=== PATIENT | female | born 1985 | race Two or more races ===

== ENCOUNTER 2020-06-09 12:39 | Outpatient (REF) | payer OTHER, SELFPAY ==
--- NOTE | 2020-06-09 12:45 | XR_ITS ---
EXAMINATION: XR SHOULDER, LEFT CLINICAL INFORMATION: Pain COMPARISON: Previous x-rays most recent February 2018 TECHNIQUE: Three views of the left shoulder. FINDINGS: Bone alignment is normal. No fracture or dislocation is seen. There are small osteophytes at the glenohumeral joint. There is joint space narrowing and osteophyte formation at the acromioclavicular joint. Soft tissues are unremarkable. XR/XR shoulder LT min 2V IMPRESSION: Degenerative changes.
== END 2020-06-09 12:40 | disposition home or self-care (01) ==
LOC: HO.HOSX 12:39
PROVIDERS: Visit Provider Orthopaedic Surgery
DX: M25.519 Pain in unspecified shoulder (principal)
CPT/HCPCS: 20610; 73030; 99212; J1040

== ENCOUNTER 2020-08-13 13:42 | Outpatient (REF) | payer OTHER, SELFPAY ==
--- NOTE | ~2020-08-13 | XR_ITS ---
EXAMINATION: CERVICAL SPINE AND LEFT SHOULDER X-RAY CLINICAL INFORMATION: Pain COMPARISON: None TECHNIQUE: 6 views of the cervical spine including bilateral oblique and swimmer's view and 4 views of the left shoulder FINDINGS: Cervical spine: There is straightening of the cervical spine. Bone alignment is otherwise normal. No fracture or dislocation is seen. There is degenerative spondylosis at C4-C5 and C5-C6. Disc spaces are normal. Neural foramen are patent. Prevertebral soft tissues are normal. Left shoulder: Bone alignment is normal. No acute fracture or dislocation is seen. There is a soft tissue calcification or ossification adjacent to the superior distal clavicle near the acromioclavicular joint questionable for changes related to old trauma. There are subchondral cysts seen in the glenoid. The glenohumeral joint is otherwise normal. Soft tissues are otherwise normal. XR/XR cervical spine min 6V IMPRESSION: Cervical spine: Straightening of the cervical spine degenerative spondylosis at C4-C5 and C5-C6. Left shoulder: Subchondral cysts in the glenoid at the glenohumeral joint. Small soft tissue calcification or ossification adjacent to the superior distal clavicle near the acromioclavicular joint questionable for changes related to old trauma.
--- NOTE | ~2020-08-13 | XR_ITS ---
EXAMINATION: CERVICAL SPINE AND LEFT SHOULDER X-RAY CLINICAL INFORMATION: Pain COMPARISON: None TECHNIQUE: 6 views of the cervical spine including bilateral oblique and swimmer's view and 4 views of the left shoulder FINDINGS: Cervical spine: There is straightening of the cervical spine. Bone alignment is otherwise normal. No fracture or dislocation is seen. There is degenerative spondylosis at C4-C5 and C5-C6. Disc spaces are normal. Neural foramen are patent. Prevertebral soft tissues are normal. Left shoulder: Bone alignment is normal. No acute fracture or dislocation is seen. There is a soft tissue calcification or ossification adjacent to the superior distal clavicle near the acromioclavicular joint questionable for changes related to old trauma. There are subchondral cysts seen in the glenoid. The glenohumeral joint is otherwise normal. Soft tissues are otherwise normal. XR/XR shoulder LT min 2V IMPRESSION: Cervical spine: Straightening of the cervical spine degenerative spondylosis at C4-C5 and C5-C6. Left shoulder: Subchondral cysts in the glenoid at the glenohumeral joint. Small soft tissue calcification or ossification adjacent to the superior distal clavicle near the acromioclavicular joint questionable for changes related to old trauma.
== END 2020-08-13 13:43 | disposition home or self-care (01) ==
LOC: HO.XRAY 13:42
PROVIDERS: PCP Internal Medicine; Visit Provider Internal Medicine
DX: M54.2 Cervicalgia (principal); M25.512 Pain in left shoulder
CPT/HCPCS: 72052; 73030

== ENCOUNTER 2020-09-24 13:30 | Outpatient (REF) | payer OTHER, SELFPAY ==
[2020-09-24 14:01] LABS: COVID-19 Test Positive (Negative); IDNOW Serial# 55D5AD1C
== END 2020-09-24 13:31 | disposition home or self-care (01) ==
LOC: HO.LAB 13:30
PROVIDERS: Visit Provider Internal Medicine
DX: Z20.822 Contact with and (suspected) exposure to COVID-19 (principal)
CPT/HCPCS: 36415; 87635; C9803

== ENCOUNTER 2020-10-12 12:06 | Outpatient (REF) | payer OTHER, SELFPAY ==
[2020-10-12 12:37] LABS: COVID-19 Test Negative (Negative)
== END 2020-10-12 12:07 | disposition home or self-care (01) ==
LOC: HO.LAB 12:06
PROVIDERS: Visit Provider Internal Medicine
DX: Z20.822 Contact with and (suspected) exposure to COVID-19 (principal)
CPT/HCPCS: 36415; 87635; C9803

== ENCOUNTER 2020-10-26 08:44 | Outpatient (REF) | payer OTHER, SELFPAY | END 2020-10-26 08:45 | disposition home or self-care (01) | LOC: HO.LAB 08:44 | PROVIDERS: Visit Provider Internal Medicine | DX: Z20.822 Contact with and (suspected) exposure to COVID-19 (principal) | CPT/HCPCS: C9803; U0003; U0005 ==

== ENCOUNTER 2020-11-24 11:00 | Outpatient (RCR) | payer OTHER, SELFPAY ==
[2020-10-27 13:08] VITALS: BP 120/60; PULSE 76; O2SAT 98
== END 2021-04-23 12:40 | disposition home or self-care (01) ==
LOC: HO.PTWFD 11:00
PROVIDERS: PCP Internal Medicine; Visit Provider Internal Medicine
DX: M54.2 Cervicalgia (principal); M47.812 Spondylosis without myelopathy or radiculopathy, cervical region
CPT/HCPCS: 97110; 97140; 97162

== ENCOUNTER → 2020-11-26 13:32 | Outpatient (BNVA) | payer OTHER, SELFPAY | PROVIDERS: PCP Internal Medicine | DX: R35.0 Frequency of micturition (principal); R32 Unspecified urinary incontinence | CPT/HCPCS: 99202 ==

== ENCOUNTER → 2020-12-02 09:05 | Outpatient (BNVA) | payer OTHER, SELFPAY | PROVIDERS: PCP Internal Medicine; Visit Provider Orthopaedic Surgery | DX: M75.42 Impingement syndrome of left shoulder (principal) | CPT/HCPCS: 20610; 99212; J1040 ==

== ENCOUNTER 2020-12-07 09:33 | Outpatient (REF) | payer OTHER, SELFPAY ==
--- NOTE | ~2020-12-07 | XR_ITS ---
EXAMINATION: XR HAND, LEFT CLINICAL INFORMATION: Left hand pain. COMPARISON: None TECHNIQUE: PA, lateral, and oblique views of the left hand. An arrow points to the first metacarpophalangeal joint. FINDINGS: The bones and soft tissues are normal. No fracture. Alignment is anatomic. Joint spaces are maintained. No erosions or soft tissue calcifications. XR/XR hand LT min 3V IMPRESSION: Unremarkable left hand. Specifically, the first digit appears intact.
== END 2020-12-07 09:34 | disposition home or self-care (01) ==
LOC: HO.HOSX 09:33
PROVIDERS: Visit Provider Orthopaedic Surgery
DX: M65.312 Trigger thumb, left thumb (principal)
CPT/HCPCS: 20550; 73130; 99202; J1100

== ENCOUNTER → 2020-12-17 09:17 | Outpatient (BNVA) | payer OTHER, SELFPAY | PROVIDERS: PCP Internal Medicine ==

== ENCOUNTER 2021-02-03 09:11 | Outpatient (REF) | payer OTHER, SELFPAY ==
--- NOTE | ~2021-02-03 | XR_ITS ---
EXAMINATION: XR BOTH KNEES AP STANDING XR RIGHT KNEE, 2 VIEWS CLINICAL INFORMATION: Pain. COMPARISON: Right knee MRI dated 10/10/2018. Left knee radiographs dated 01/01/2020. TECHNIQUE: Standing AP view of both knees and lateral and sunrise views of the right knee. FINDINGS: Right Knee: Moderate medial compartment joint space narrowing. Tricompartmental marginal osteophytes. No osseous erosion. Postsurgical change consistent with anterior cruciate ligament graft reconstruction. No fracture or dislocation. No significant joint effusion. Left Knee: Mild to moderate medial compartment joint space narrowing. Medial and lateral compartment marginal osteophytes. No osseous erosion. No abnormal soft tissue calcification. XR/XR knee standing BI IMPRESSION: Right Knee: Moderate medial as well as mild patellofemoral and lateral compartment osteoarthritis, slightly progressed. Postsurgical changes related to anterior cruciate ligament reconstruction. Left Knee: Mild to moderate medial as well as mild lateral compartment osteoarthritis, unchanged.
--- NOTE | ~2021-02-03 | XR_ITS ---
EXAMINATION: XR BOTH KNEES AP STANDING XR RIGHT KNEE, 2 VIEWS CLINICAL INFORMATION: Pain. COMPARISON: Right knee MRI dated 10/10/2018. Left knee radiographs dated 01/01/2020. TECHNIQUE: Standing AP view of both knees and lateral and sunrise views of the right knee. FINDINGS: Right Knee: Moderate medial compartment joint space narrowing. Tricompartmental marginal osteophytes. No osseous erosion. Postsurgical change consistent with anterior cruciate ligament graft reconstruction. No fracture or dislocation. No significant joint effusion. Left Knee: Mild to moderate medial compartment joint space narrowing. Medial and lateral compartment marginal osteophytes. No osseous erosion. No abnormal soft tissue calcification. XR/XR knee RT 2V IMPRESSION: Right Knee: Moderate medial as well as mild patellofemoral and lateral compartment osteoarthritis, slightly progressed. Postsurgical changes related to anterior cruciate ligament reconstruction. Left Knee: Mild to moderate medial as well as mild lateral compartment osteoarthritis, unchanged.
== END 2021-02-03 09:12 | disposition home or self-care (01) ==
LOC: HO.HOSX 09:11
PROVIDERS: Visit Provider Orthopaedic Surgery
DX: M25.561 Pain in right knee (principal); M25.562 Pain in left knee
CPT/HCPCS: 73560; 73565; 99212

== ENCOUNTER 2021-02-03 15:00 | Outpatient (REF) | payer OTHER, SELFPAY ==
[2021-02-04 05:46] LABS: CT PCR NOT DETECTED (Not Detect.); NG PCR NOT DETECTED (Not Detect.)
[2021-02-04 09:01] LABS: BV Int Neg Control Negative (Negative); BV Int Pos Control Positive (Positive)
== END 2021-02-03 15:01 | disposition home or self-care (01) ==
LOC: HO.LAB 15:00
PROVIDERS: Visit Provider Advanced Practice Midwife
DX: Z20.2 Contact with and (suspected) exposure to infections with a predominantly sexual mode of transmission (principal)
CPT/HCPCS: 87480; 87491; 87510; 87591; 87660

== ENCOUNTER 2021-03-03 10:30 | Outpatient (REF) | payer OTHER, SELFPAY | END 2021-03-03 10:31 | disposition home or self-care (01) | LOC: HO.LAB 10:30 | PROVIDERS: PCP Internal Medicine; Visit Provider Internal Medicine | DX: Z20.822 Contact with and (suspected) exposure to COVID-19 (principal) | CPT/HCPCS: C9803; U0003; U0005 ==

== ENCOUNTER 2021-03-10 08:42 | Emergency (ER) | payer OTHER, SELFPAY ==
[2021-03-10 08:57] VITALS: BP 122/48; PULSE 77; RESP 16; TEMP 37.1; O2SAT 97; BMI 43.9
[2021-03-10] MEDS: 0.9 % Sodium Chloride 1,000 ML 999 ML IV (10:29)
[2021-03-10 10:31] LABS: MANUAL DIFF FLAG NO
[2021-03-10 10:35] LABS: Basophils Percent Auto 0.3 % (0-2); Eosinophils Absolute Auto 0.1 X10*3/uL (0.0-0.4); Eosinophils Percent Auto 1.9 % (0-4); Hematocrit 38.2 % (37-47); Hemoglobin 13.5 g/dl (12.0-16.0); Imm Gran Abs Auto 0.02 X10*3/uL (0.00-0.03); Imm Gran Pct Auto 0.3 % (0.0-0.4); Lymphocytes Absolute Auto 2.1 X10*3/uL (1.2-4.9); Lymphocytes Percent Auto 30.8 % (20-40); Mean Corpuscular HGB Conc 35.3 g/dl (31.0-35.0); Mean Corpuscular Hemoglobin 33.1 pg (27.0-33.0); Mean Corpuscular Volume 93.6 fL (80-98); Mean Platelet Volume 10.4 fL (9.4-12.3); Monocytes Absolute Auto 0.4 X10*3/uL (0.1-1.2); Monocytes Percent Auto 5.5 % (2-11); Neutrophils Absolute Auto 4.1 X10*3/uL (2.0-8.3); Neutrophils Percent Auto 61.2 % (45-73); Platelet Count 258 X10*3/uL (160-400); Red Blood Count 4.08 X10*6/uL (4.20-5.50); Red Cell Distribution Width 12.2 % (11.0-16.0); White Blood Count 6.7 X10*3/uL (4.8-10.8)
[2021-03-10] MEDS: Metoclopramide HCl 10 MG/2 ML VIAL IVPUSH (10:37)
[2021-03-10] MEDS: Ketorolac Tromethamine 15 MG/ML VIAL 30 MG IVPUSH (10:37)
[2021-03-10] MEDS: diphenhydrAMINE HCL 50 MG/ML VIAL IVPUSH (10:37)
[2021-03-10 10:56] LABS: Alanine Aminotransferase 17 U/L (0-31); Albumin Level 4.1 g/dL (3.5-5.0); Alkaline Phosphatase 70 U/L (39-117); Anion Gap 13 (12-20); Aspartate Amino Transferase 16 U/L (5-31); Bilirubin Total 0.4 mg/dL (0.0-1.0); Blood Urea Nitrogen 7 mg/dL (9-16); Carbon Dioxide 20 mmol/L (22-29); Chloride 110 mmol/L (96-108); Creatinine Clr Calc Pharmacy 95.2; Estimated Glomerular Filt Rate > 60; Glucose Random 122 mg/dL (60-115); Potassium 4.2 mmol/L (3.3-5.1); Sodium 139 mmol/L (135-145); Total Protein 6.8 g/dL (6.5-8.0)
[2021-03-10 11:36] LABS: Erythrocyte Sedimentation Rate 16 MM/HR (0-20)
[2021-03-10 12:50] VITALS: BP 97/56; PULSE 67; RESP 14; TEMP 36.7; O2SAT 96
[2021-03-10 13:16] VITALS: BP 110/59; PULSE 67; RESP 16
--- NOTE | 2021-03-10 13:46 | ED_ITS ---
HPI - General Adult General Chief complaint: Head Injury Stated complaint: multiple complaints Time Seen by Provider: 03/10/21 09:02 Source: patient Mode of arrival: ambulatory Limitations: no limitations History of Present Illness HPI narrative: 36-year-old female who presents emergency department for evaluation of pressure-like pain on the left and top of her head. Patient states that she has had similar headaches for years. She states she has a bump on the back her head that is painful to touch. She also states that is painful to touch the left side of her scalp. She states that it is also painful to calm her hair. She also has a left-sided pressure sensation which is constant and is 8/10 at its worst. She states that the constant pressure pain is been there for 4 days. She states that it came on gradually and got progressively worse. She had associated nausea with no vomiting. She states that her vision is blurred. She states that she can not hear ringing in her ears and can hear her heart beating in her ears. Patient states that she gets headaches daily and was seen by our neurologist, who prescribed Imitrex. Patient states that Imitrex sometimes relieves her pain but did not work for today's headache. She has also taken Aleve without any relief for pain. She denied fever, chills, chest pain, shortness of breath, numbness or weakness. Related Data Home Medications Medication Instructions Recorded Confirmed albuterol sulfate 2 mg tablet 2 mg PO Q8H 06/09/20 02/03/21 albuterol sulfate 90 mcg/actuation INHALATION 12/17/20 02/03/21 aerosol inhaler fluticasone propionate 50 0 mcg INTRANASAL BID 12/17/20 02/03/21 mcg/actuation nasal spray,suspension mometasone-formoterol HFA 200 1 puff PO BID 12/17/20 02/03/21 mcg-5 mcg/actuation aerosol inhaler montelukast 10 mg tablet 10 mg PO DAILY 12/17/20 02/03/21 levonorgestrel 20 mcg/24 hours (6 INTRAUTERINE 02/03/21 yrs) 52 mg intrauterine device (Mirena) Previous Rx's Medication Instructions Recorded tolterodine 4 mg capsule,extended 4 mg PO DAILY 30 Days #30 cap 01/14/21 release 24 hr metronidazole 500 mg tablet 500 mg PO BID 7 Days #14 tab 02/05/21 (Flagyl) metoclopramide HCl 10 mg tablet 10 mg PO Q6H PRN #14 tab 03/10/21 (Reglan) Allergies Allergy/AdvReac Type Severity Reaction Status Date / Time Penicillins Allergy Severe ANAPHYLAXIS, Verified 02/03/21 14:13 HIVES animal dander Allergy Mild ITCHY Verified 02/03/21 14:13 HIVES THROAT SWOLLEN lactose [LACTOSE] Allergy Mild DIARRRHEA Verified 02/03/21 14:13 nut - unspecified [nut] Allergy Mild SWELLING Verified 02/03/21 14:13 penicillin V Allergy Unknown hives, Verified 02/03/21 14:13 throat swells FRUIT, SKINS Allergy Mild SWELLING Uncoded 02/27/20 16:13 Fruit & Vegetable Daily Allergy Unknown Unknown Uncoded 11/26/20 13:47 fruits Allergy Unknown hives, Uncoded 07/31/18 00:00 throat closes Lactose Allergy Unknown Unknown Uncoded 11/26/20 13:47 many vegetables Allergy Unknown hives, Uncoded 07/31/18 00:00 throat... nuts Allergy Unknown hives, Uncoded 07/31/18 00:00 throat... seasonal allergies Allergy Unknown Unknown Uncoded 11/26/20 13:47 MEAT AdvReac Mild ABDOMINAL Uncoded 02/27/20 16:13 PAIN Review of Systems Review of Systems: Yes all other systems are reviewed and are negative [facility] Past Medical History [facility] Narrative: Past medical history: Asthma, migraines, carpal tunnel syndrome bilateral extremities. Past surgical history: Tonsillectomy, C- section x3, right leg ACL reconstruction, bilateral carpal tunnel release. Social history: The patient denies tobacco, and alcohol use. She smokes marijuana 4 times a week. Medical History Asthma Bacterial vaginosis Carpal tunnel syndrome, bilateral upper limbs Surgical History History of tonsillectomy Previous section S/P ACL reconstruction Social History Social History Alcohol intake: current Alcohol intake frequency: holidays/special occasions only Patient Tobacco Use Status: Never used Tobacco Substance Use Type: Marijuana Substance Use Frequency: Occasionally Advance Directives: No Advance Directives Information Provided: No Patient : No Current occupational status: unemployed Current occupation: - Right Handed Physical Exam Vital Signs: Vital Signs: Last Vital Signs Temp 98.1 F 03/10/21 12:50 Pulse 67 03/10/21 13:16 Resp 16 03/10/21 13:16 BP 110/59 L 03/10/21 13:16 Pulse Ox 96 03/10/21 12:50 Body Mass Index 43.9 Const: General: cooperative and no acute distress Orientation/consciousness: oriented to person and oriented to place Limitations: no limitations HENMT: Head: Yes normal to inspection, Yes normocephalic, Yes atraumatic and Yes other (Patient does have tenderness palpation left side of scalp , no mass) Ears: external ears normal General nose exam: Normal external nose present Face and sinus: Yes normal facial exam Mouth: Normal oral and palatal mucosa present Throat: Yes posterior oropharynx normal Eyes: General: appearance normal, both eyes and all related structures Pupils: Equal, round and reactive pupils present Neck: Neck: Yes normal visual inspection, Yes no lymphadenopathy, Yes trachea midline and Yes supple Chest: Chest palpation & inspection: normal inspection of the chest and normal palpation of entire chest wall Resp: Effort & Inspection: normal respiratory effort and able to speak in complete sentences Auscultation: clear to auscultation bilaterally Cardio: Rate: regular rate Rhythm: regular rhythm Heart sounds: S1 normal heart sound present, S2 normal heart sound present and no murmurs GI: Inspection: Yes normal to inspection Palpation (GI): Soft to palpation, nontender and no guarding Auscultation: normal bowel sounds : General: Yes no CVA tenderness Back/Spine/Pelvis: Back: no CVA tenderness Skin: General skin exam: no rashes or lesions noted Neuro: General: oriented to person and oriented to place Cranial nerves: Yes CN's II-XII intact bilaterally and Yes Equal, round and reactive pupils present Cognition (Neuro): normal cognition Motor exam (neuro): 5/5 motor strength present throughout Extrem: General: Yes normal to inspection Psych: Appearance: grossly normal Speech and movement: Normal speech and movement present Affect: normal affect Attitude: cooperative Thought process: Normal thought process present Thought content: Normal thought content present Course Course Course Narrative: 36-year-old female who presents emergency department for evaluation of scalp pain and headache. Patient has a history of chronic headaches and migraines. Patient states this headache has been there for approximately 4 days and is 8/10. Vital signs were normal. Physical examination did reveal scalp tenderness. Laboratory evaluation revealed a jere l CBC, non elevated ESR, normal CMP. The patient was treated with Reglan 10 mg IV, Benadryl 50 mg IV and Toradol 30 mg IV. She states that this did relieve her headache but did not change the pressure in her head. At this time the patient does not want any more medications and wants to go home. The patient was started on the following migraine regimen: Reglan 10 mg orally, Benadryl 50 mg orally, and Excedrin migraine 2 pills orally. I did advise the patient to talk to her PCP or her neurologist about starting medications such as gabapentin for chronic nerve pain. The patient was discharged home. Medical Decision Making Lab Data Result diagrams: 03/10/21 10:03/10/21 10:27 Labs: Lab Results 03/10/21 03/10/21 03/10/21 Range/Units 10: 10:27 10:27 WBC 6.7 (4.8-10.8) X10*3/uL RBC 4.08 L (4.20-5.50) X10*6/uL Hgb 13.5 (12.0-16.0) g/dl Hct 38.2 (37-47) % MCV 93.6 (80-98) fL MCH 33.1 H (27.0-33.0) pg MCHC 35.3 H (31.0-35.0) g/dl RDW 12.2 (11.0-16.0) % Plt Count 258 (160-400) X10*3/uL MPV 10.4 (9.4-12.3) fL Immature Gran % (Auto) 0.3 (0.0-0.4) % Neut % (Auto) 61.2 (45-73) % Lymph % (Auto) 30.8 (20-40) % [place] % (Auto) 5.5 (2-11) % Eos % (Auto) 1.9 (0-4) % Baso % (Auto) 0.3 (0-2) % Lymph # (Auto) 2.1 (1.2-4.9) X10*3/uL [place] # (Auto) 0.4 (0.1-1.2) X10*3/uL Eos # (Auto) 0.1 (0.0-0.4) X10*3/uL Baso # (Auto) 0.0 (0.0-0.2) X10*3/uL Abs Immat Gran (auto) 0.02 (0.00-0.03) X10*3/uL Absolute Neuts (auto) 4.1 (2.0-8.3) X10*3/uL Absolute Nucleated RBC 0.000 (0.0-0.012) X10*3/uL Nucleated RBC % (auto) 0.0 (0.0-0.2) /100WBC ESR 16 (0-20) MM/HR Sodium 139 (135-145) mmol/L Potassium 4.2 (3.3-5.1) mmol/L Chloride 110 H (96-108) mmol/L Carbon Dioxide 20 L (22-29) mmol/L Anion Gap 13 (12-20) BUN 7 L (9-16) mg/dL Creatinine 0.87 (0.5-1.4) mg/dL Estim Creat Clear Calc 95.2 Estimated GFR > 60 Random Glucose 122 H (60-115) mg/dL Calcium 9.0 (8.4-10.2) mg/dL Total Bilirubin 0.4 (0.0-1.0) mg/dL AST 16 (5-31) U/L ALT 17 (0-31) U/L Alkaline Phosphatase 70 (39-117) U/L Total Protein 6.8 (6.5-8.0) g/dL Albumin 4.1 (3.5-5.0) g/dL Discharge Plan Discharge Clinical Impression: Scalp irritation Headache Qualifiers: Headache type: unspecified Headache chronicity pattern: acute headache Intractability: not intractable Qualified Code(s): R51.9 - Headache, unspecified Patient Disposition: Home, Self-Care Instructions: Acute Headache (ED) Additional Instructions: Your symptoms are consistent with a migraine like headache I want you to take the following 3 medications together every 6 hours as needed for headache, nausea or vomiting. Reglan (metoclopramide) in 10 mg, 1 pill Benadryl 25 mg, 2 pills Excedrin migraine, 2 pills. After you take these medications, lie down in a dark quiet room and try to fall asleep. These medications will make you sleepy, do not drive or work after taking these medications. The scalp pain that you are having is more consistent with nerve pain. You should discuss with your primary care doctor and your neurologist trying medicat ions such as gabapentin to see if this helps improve this pain. Follow-up with your doctor in 2 days Please return to the emergency department if your symptoms get worse or if you develop any symptoms that are concerning to you. Prescriptions: New metoclopramide HCl [Reglan] 10 mg tablet 10 mg PO Q6H PRN (Reason: nausea and vomiting) Qty: 14 RF: 0 No Action tolterodine 4 mg capsule,extended release 24hr 4 mg PO DAILY 30 Days Qty: 30 RF: 0 metronidazole [Flagyl] 500 mg tablet 500 mg PO BID 7 Days Qty: 14 RF: 0 albuterol sulfate 2 mg tablet 2 mg PO Q8H RF: 0 Mirena 20 mcg/24 hours (6 yrs) 52 mg intrauterine device intrauterine RF: 0 Dulera 200-5 mcg/actuation HFA aerosol inhaler 1 puff PO BID RF: 0 montelukast 10 mg tablet 10 mg PO DAILY RF: 0 fluticasone propionate 50 mcg/actuation spray,suspension 0 mcg intranasal BID RF: 0 albuterol sulfate 90 mcg/actuation HFA aerosol inhaler inhalation RF: 0
== END 2021-03-10 14:08 | disposition home or self-care (01) ==
PROVIDERS: Emergency Provider Emergency Medicine Emergency Medical Services; PCP Internal Medicine
DX: R42 Dizziness and giddiness (principal); R51.9 Headache, unspecified; Z79.899 Other long term (current) drug therapy
CPT/HCPCS: 36415; 80053; 85025; 85652; 96361; 96374; 96375; 99284; 99285; J1200; J1885; J2765

== ENCOUNTER → 2021-06-30 15:31 | Outpatient (BNVA) | payer OTHER, SELFPAY | PROVIDERS: PCP Internal Medicine; Visit Provider Internal Medicine | DX: J45.909 Unspecified asthma, uncomplicated (principal); G47.33 Obstructive sleep apnea (adult) (pediatric); R40.0 Somnolence; J30.9 Allergic rhinitis, unspecified; E66.01 Morbid (severe) obesity due to excess calories; Z68.41 Body mass index [BMI] 40.0-44.9, adult; Z79.899 Other long term (current) drug therapy | CPT/HCPCS: 99202 ==

== ENCOUNTER 2021-07-30 16:07 | Outpatient (REF) | payer OTHER, SELFPAY ==
--- NOTE | 2021-07-30 16:57 | PFT_ITS ---
Forced vital capacity 101, FEV1 103, FEV1/FVC ratio is 81, FEF 25-75 89%, and MVV 107%. All these flow volumes and MVV are within normal range. Total lung capacity and residual volume are both normal, 104% and 97%. Diffusion capacity 97%, normal. Bronchodilator challenge not given because the patient had used albuterol within 2 hours before the test. CONCLUSION: All these numbers show normal pulmonary function test. Clinical correlation is recommended to evaluate if the patient has any obstructive airway disorder symptoms which may have been controlled with use of albuterol. Rufina Manuel MD MSB/MODL / [id number]
== END 2021-07-30 16:08 | disposition home or self-care (01) ==
LOC: HO.RESP 16:07
PROVIDERS: PCP Internal Medicine; Visit Provider Internal Medicine
DX: R06.00 Dyspnea, unspecified (principal); J45.909 Unspecified asthma, uncomplicated
CPT/HCPCS: 94010; 94727; 94729

== ENCOUNTER → 2021-08-12 15:06 | Outpatient (BNVA) | payer OTHER, SELFPAY | PROVIDERS: PCP Internal Medicine | DX: R32 Unspecified urinary incontinence (principal) | CPT/HCPCS: 51798; 99212 ==

== ENCOUNTER 2021-08-25 08:37 | Outpatient (REF) | payer OTHER, SELFPAY ==
--- NOTE | 2021-08-25 16:30 | MHC.AU.ANR ---
Adult Audiological Evaluation Date of Visit: 08/25/21 Reason for Appointment: Audiological evaluation due to concern for decreased hearing and tinnitus in the right ear. Ms. Stapleton reports that over the past few years she's noticed that she doesn't hear as well from the right ear. She also notes ringing in the right ear that also often sound like a heartbeat or pulsing. Ms. Stapleton additionally has episodic vertigo for 3+ years. Episodes occur every few months and last for 3-5 days at a time. She notes that everything feels like it's spinning, she gets nauseous, and the ringing worsens during these vertigo episodes. Her most recent episode was in June 2021. Does patient feel they have a hearing loss?: Yes If Yes, Which Ear?: Right Ear When Was Hearing Difficulty First Noticed?: 3+ years ago Has hearing been tested previously?: No Hearing Handicap Inventory: HHIE SCORE: 10 Based on HHIE score, patient has: Mild to moderate perceived hearing handicap Ear History: Recent Ear Drainage: Both Ears Ear Infections in Childhood: Both Ears Bothersome Tinnitus/Ringing/Noises in Ears: Right Ear Blocked/Full Sensation in Ear(s): Right Ear Medical History: Medical History: Headache, Thyroid Disease Medical History (Other): Currently has swelling in the right optic nerve and has been referred to neurology. Has had three C-sections, carpal tunnel in both hands, ACL surgery, D+C Allergies: Fruits, nuts, penicillin Medication List: Not provided Otoscopy: Right Ear: Unremarkable Left Ear: Unremarkable Tympanometry: Tympanometry performed due to: Patient reports sensation that ears are blocked/plugged. Right Ear: Normal Middle Ear System (Type A) Left Ear: Normal Middle Ear System (Type A) Hearing Evaluation: Transducer(s) Used: Insert Earphones, Bone Conduction Method: Conventional Audiometry Stimuli Used: Pure Tones Right Ear: Description of Hearing: Borderline normal hearing from 250-2000 Hz, sloping to a mild sensorineural hearing loss at 4000 Hz, and rising to normal hearing 5507-0534 Hz. Hearing in the right ear is 15 dBHL worse than the left from 250-1000 Hz and 10 dBHL worse at 2000 Hz. Left Ear: Description of Hearing: Normal hearing from 250-8000 Hz. Speech Recognition Threshold (SRT): Method Used: Monitored Live Voice Stimuli Used: Spondee Words Right Ear: 20 dBHL Left Ear: 10 dBHL Word Discrimination: Method: Recorded Lists Word Lists Used: NU-6 Right Ear: 96% at 60 dBHL Left Ear: 100% at 50 dBHL Recommendations: Audiological re-evaluation in one year, or sooner if changes are noted. Amplification is not warranted at this time. Referral to Ear, Nose, and Throat is recommended due to asymmetrical hearing, episodic vertigo, and pulsatile tinnitus. 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
== END 2021-08-25 08:38 | disposition home or self-care (01) ==
LOC: HO.SH 08:37
PROVIDERS: Visit Provider Internal Medicine
DX: Z01.118 Encounter for examination of ears and hearing with other abnormal findings (principal); H90.41 Sensorineural hearing loss, unilateral, right ear, with unrestricted hearing on the contralateral side; H93.11 Tinnitus, right ear
CPT/HCPCS: 92557; 92567

== ENCOUNTER 2021-09-14 09:04 | Outpatient (REF) | payer OTHER, SELFPAY ==
--- NOTE | ~2021-09-14 | XR_ITS ---
EXAMINATION: XR HAND, LEFT CLINICAL INFORMATION: Left hand pain. COMPARISON: 12/07/2020 TECHNIQUE: PA, lateral, and oblique views of the left hand. FINDINGS: The bones and soft tissues are normal. No fracture. Alignment is anatomic. Joint spaces are maintained. No erosions or soft tissue calcifications. XR/XR hand LT min 3V IMPRESSION: Normal left hand. No interval change since the prior study.
== END 2021-09-14 09:05 | disposition home or self-care (01) ==
LOC: HO.HOSX 09:04
PROVIDERS: Visit Provider Orthopaedic Surgery
DX: M65.312 Trigger thumb, left thumb (principal)
CPT/HCPCS: 73130; 99212

== ENCOUNTER 2021-09-30 09:03 | Day surgery (SDC) | payer OTHER, SELFPAY ==
[2021-09-30 09:29] VITALS: BMI 43.9
[2021-09-30 09:44] VITALS: BP 111/60; PULSE 76; RESP 16; TEMP 37.2; O2SAT 96
--- NOTE | 2021-09-30 10:28 | W.PM.OPN ---
Operative Note Operative Note Date of Service: 09/30/21 Narrative: Operative Note Preop diagnosis: 1. left thumb Trigger finger Postop diagnosis: 1. left thumb Trigger finger Procedure: 1. left thumb A1 ricardo release Surgeon: Sowmya Perkins MD Anesthesia: local block using 1% lidocaine with epinephrine Findings: No locking or catching after A1 ricardo release EBL: Less than 5 mL Tourniquet time: None Specimens: None Complications: None Disposition: Brought to recovery room in stable condition Plan: Follow-up for 10-14 days for wound check and suture removal Indications: The patient is 36 years old, with a left trigger thumb that has been unresponsive to nonoperative management. The risks and benefits of operative treatment including but not limited to risk of damage to blood vessels, nerves, tendons, infection, persistent pain, persistent symptoms, recurrence or possible need for additional surgery were discussed with the patient and the patient wishes to proceed with surgery. Procedure: Once consent was obtained a local block was performed in the preop area using a combination of 1% lidocaine with epinephrine. The patient was then brought back to the operating suite and placed on the operative table in supine position. A tourniquet was applied to the proximal aspect of the left upper extremity and the limb was prepped and draped in a standard surgical fashion. Once assured that we had a good block, a 1.5 cm oblique incision was made centered over the A1 ricardo of the left thumb . The incision was made through the skin to the subcutaneous tissues using a #15 blade. Careful dissection was made down to the level of the A1 ricardo using tenotomy scissors, with care being taken to protect the nearby neurovascular structures. A longitudinal incision was made in the A1 ricardo 1st using a #15 blade, then using tenotomy scissors under direct visualization. The A1 ricardo was noted to be thickened, causing an hourglass deformity in the FPL tendon.. Following our A1 ricardo release, we no longer saw any locking or catching of the digit with flexion and extension. Once satisfied with our A1 ricardo release the wound was copiously irrigated with normal saline and hemostasis was obtained with a brief period of local pressure. The skin edges were reapproximated with some 5.0 nylon suture material and a sterile dressing was applied. The patient appears to have tolerated the procedure well and with no complications. All digits were well vascularized at the conclusion of the case.
[2021-09-30 13:35] VITALS: PULSE 67; RESP 16; TEMP 37.1; O2SAT 97
== END 2021-09-30 13:56 | disposition home or self-care (01) ==
PROVIDERS: PCP Internal Medicine; Visit Provider Orthopaedic Surgery
PROC: (CPT 26055; principal; 2021-09-30 11:50)
DX: M65.312 Trigger thumb, left thumb (principal); M79.89 Other specified soft tissue disorders; J45.909 Unspecified asthma, uncomplicated; G47.33 Obstructive sleep apnea (adult) (pediatric); R40.0 Somnolence; E66.01 Morbid (severe) obesity due to excess calories; Z68.41 Body mass index [BMI] 40.0-44.9, adult; Z88.0 Allergy status to penicillin; F12.90 Cannabis use, unspecified, uncomplicated
CPT/HCPCS: 26055; J0171

== ENCOUNTER 2021-10-02 21:59 | Emergency (ER) | payer OTHER, SELFPAY ==
--- NOTE | ~2021-10-02 | CT_ITS ---
EXAMINATION: NONCONTRAST HEAD CT NONCONTRAST CERVICAL SPINE CT INDICATION INFORMATION: Neck pain. Headache. COMPARISON: Cervical spine radiographs 08/13/2020 TECHNIQUE: Separate noncontrast CT examinations of the head and cervical spine were performed. Coronal and sagittal images were created for each examination at the technologist workstation. This CT examination was performed using dose optimization techniques as appropriate, variously including the following: *Automated exposure control *Adjustment of mA and/or kV according to patient size (this includes techniques or standardized protocols for targeted exams where dose is matched to indication/reason for exam; i.e. extremities or head) *Use of iterative reconstruction technique DLP: 1320 mGy-cm FINDINGS: Head: There is no evidence of acute intracranial hemorrhage or territorial infarction. No abnormal mass effect or midline shift is seen. Mcfadden to white matter differentiation is well preserved. No extra-axial fluid collections are identified. No hydrocephalus. No significant volume loss. There is no abnormal attenuation within the brain parenchyma. No acute osseous or soft tissue abnormality. The mastoid air cells and visualized portions of the paranasal sinuses are well aerated. Cervical spine: There is anatomic alignment of the vertebral bodies and posterior elements. The atlantoaxial and atlantooccipital articulations are intact. Vertebral body heights and intervertebral disc spaces are maintained. Small endplate osteophytes at C5-C6. No evidence of acute fracture. No prevertebral soft tissue swelling. Visualized portions of the lung apices are unremarkable. The thyroid gland is unremarkable. CT/CT cervical spine wo con IMPRESSION: 1. No acute intracranial finding. 2. No fracture or malalignment of the cervical spine.
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
--- NOTE | ~2021-10-02 | CT_ITS ---
EXAMINATION: NONCONTRAST HEAD CT NONCONTRAST CERVICAL SPINE CT INDICATION INFORMATION: Neck pain. Headache. COMPARISON: Cervical spine radiographs 08/13/2020 TECHNIQUE: Separate noncontrast CT examinations of the head and cervical spine were performed. Coronal and sagittal images were created for each examination at the technologist workstation. This CT examination was performed using dose optimization techniques as appropriate, variously including the following: *Automated exposure control *Adjustment of mA and/or kV according to patient size (this includes techniques or standardized protocols for targeted exams where dose is matched to indication/reason for exam; i.e. extremities or head) *Use of iterative reconstruction technique DLP: 1320 mGy-cm FINDINGS: Head: There is no evidence of acute intracranial hemorrhage or territorial infarction. No abnormal mass effect or midline shift is seen. Mcfadden to white matter differentiation is well preserved. No extra-axial fluid collections are identified. No hydrocephalus. No significant volume loss. There is no abnormal attenuation within the brain parenchyma. No acute osseous or soft tissue abnormality. The mastoid air cells and visualized portions of the paranasal sinuses are well aerated. Cervical spine: There is anatomic alignment of the vertebral bodies and posterior elements. The atlantoaxial and atlantooccipital articulations are intact. Vertebral body heights and intervertebral disc spaces are maintained. Small endplate osteophytes at C5-C6. No evidence of acute fracture. No prevertebral soft tissue swelling. Visualized portions of the lung apices are unremarkable. The thyroid gland is unremarkable. CT/CT head/brain wo con IMPRESSION: 1. No acute intracranial finding. 2. No fracture or malalignment of the cervical spine.
--- NOTE | ~2021-10-02 | XR_ITS ---
EXAMINATION: XR SHOULDER, RIGHT CLINICAL INFORMATION: Trauma. COMPARISON: No similar priors. TECHNIQUE: Three views of the right shoulder. FINDINGS: The bones and soft tissues are normal. No fracture. Glenohumeral and acromioclavicular alignment is anatomic with normal joint space. No abnormal soft tissue calcifications. XR/XR shoulder RT min 2V IMPRESSION: Normal right shoulder.
[2021-10-02 22:13] VITALS: BP 128/86; PULSE 77; RESP 17; TEMP 36.3; O2SAT 99; BMI 43.9
[2021-10-02 22:23] VITALS: BP 126/84; PULSE 80; O2SAT 100
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
[2021-10-02 23:15] LABS: UPreg QC Valid YES; Urine Pregnancy NEGATIVE (NEGATIVE)
[2021-10-03] MEDS: Acetaminophen 325 MG TABLET 650 MG PO (00:10)
--- NOTE | 2021-10-03 02:18 | PC.NURSE ---
HARD COLLAR REMOVED PER DR GREY ORDERS.
== END 2021-10-03 01:00 | disposition home or self-care (01) ==
PROVIDERS: Emergency Provider Emergency Medicine Emergency Medical Services; PCP Internal Medicine
DX: S09.90XA Unspecified injury of head, initial encounter (principal); M54.2 Cervicalgia; M25.562 Pain in left knee; R51.9 Headache, unspecified; V43.52XA Car driver injured in collision with other type car in traffic accident, initial encounter; Y93.9 Activity, unspecified; Y92.410 Unspecified street and highway as the place of occurrence of the external cause; Y99.9 Unspecified external cause status; Z79.899 Other long term (current) drug therapy
CPT/HCPCS: 70450; 72125; 73030; 73564; 81025; 99284

== ENCOUNTER 2021-10-05 12:15 | Emergency (ER) | payer OTHER, SELFPAY ==
[2021-10-05 12:25] VITALS: BP 102/57; PULSE 72; RESP 18; TEMP 36.3; O2SAT 97; BMI 43.9
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
== END 2021-10-05 13:16 | disposition home or self-care (01) ==
PROVIDERS: Emergency Provider Emergency Medicine; PCP Internal Medicine
DX: S06.0X9A Concussion with loss of consciousness of unspecified duration, initial encounter (principal); S13.4XXA Sprain of ligaments of cervical spine, initial encounter; J45.909 Unspecified asthma, uncomplicated; V89.2XXA Person injured in unspecified motor-vehicle accident, traffic, initial encounter; Y93.9 Activity, unspecified; Y92.410 Unspecified street and highway as the place of occurrence of the external cause; Y99.9 Unspecified external cause status
CPT/HCPCS: 99283

== ENCOUNTER → 2021-10-07 10:19 | Outpatient (BNVA) | payer OTHER, SELFPAY | PROVIDERS: Visit Provider Physician Assistant | DX: Z47.89 Encounter for other orthopedic aftercare (principal) | CPT/HCPCS: 99212 ==

== ENCOUNTER → 2021-10-13 13:08 | Outpatient (BNVA) | payer OTHER, SELFPAY | PROVIDERS: Visit Provider Orthopaedic Surgery | DX: Z47.89 Encounter for other orthopedic aftercare (principal) | CPT/HCPCS: 99212 ==

== ENCOUNTER → 2021-11-12 09:53 | Outpatient (BNVA) | payer OTHER, SELFPAY | PROVIDERS: PCP Internal Medicine | DX: Z13.89 Encounter for screening for other disorder (principal) ==

== ENCOUNTER → 2021-12-24 09:07 | Outpatient (BNVA) | payer OTHER, SELFPAY | PROVIDERS: PCP Internal Medicine; Visit Provider Advanced Practice Midwife | DX: T83.9XXA Unspecified complication of genitourinary prosthetic device, implant and graft, initial encounter (principal); N92.1 Excessive and frequent menstruation with irregular cycle | CPT/HCPCS: 99212 ==

== ENCOUNTER 2022-01-10 10:15 | Day surgery (SDC) | payer OTHER, SELFPAY ==
[2022-01-04 14:12] VITALS: BMI 40.2
--- NOTE | 2022-01-07 12:52 | HO.ANESPROP2 ---
Documented by User: Fide Arora NP 01/07/22 12:53 HPI - Anesthesia Eval Consult details Narrative: 36yo F for Cystoscopy Botox Injection PMFSH Active Problems Active Problems: All Active Problems (Updated 01/04/22 @ 13:58 by Tamanna Hopson RN) Rotator cuff impingement syndrome of left shoulder (Acute) Increased urinary frequency (Acute) Urinary incontinence (Acute) Trigger finger of left thumb (Acute) Potential exposure to STD (Acute) Well woman exam with routine gynecological exam (Acute) IUD (intrauterine device) in place (Acute) Post-traumatic osteoarthritis of right knee (Acute) IUD complication (Acute) Presence of 52 mg levonorgestrel-releasing intrauterine device (IUD) (Acute) Metrorrhagia (Acute) Asthma (Acute) Allergic rhinitis (Acute) Somnolence, daytime (Acute) CHIKIS (obstructive sleep apnea) (Acute) Morbid obesity (Acute) Past Medical History Medical History Allergic rhinitis Asthma Bacterial vaginosis Carpal tunnel syndrome, bilateral upper limbs Morbid obesity CHIKIS (obstructive sleep apnea) Somnolence, daytime Surgical History Surgical History History of carpal tunnel surgery History of thumb surgery History of tonsillectomy Previous section S/P ACL reconstruction Social History Social History Alcohol intake: current Alcohol intake frequency: holidays/special occasions only Patient Tobacco Use Status: Never used Tobacco Substance Use Type: Marijuana Substance Use Frequency: Occasionally Are you DNR?: No Advance Directives: No Advance Directives Information Provided: Yes Nutrition Risks: No Nutritional Risk Current occupational status: employed 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 nuts Allergy Severe hives, Uncoded 01/10/22 12:50 throat... FRUIT, SKINS Allergy Mild SWELLING Uncoded 01/10/22 12:49 fruits Allergy Unknown hives, Uncoded 01/10/22 12:49 throat closes seasonal allergies Allergy Unknown Unknown Uncoded 01/04/22 15:51 MEAT AdvReac Mild ABDOMINAL Uncoded 01/04/22 15:51 PAIN Home Medications Medication Instructions Recorded Confirmed Last Taken Type albuterol sulfate 90 mcg/actuation inhalation 12/17/20 12/24/21 Unknown History aerosol inhaler montelukast 10 mg tablet 10 mg PO DAILY 12/17/20 01/04/22 Unknown History levonorgestrel 20 mcg/24 hours (7 intrauterine 02/03/21 12/24/21 Unknown History yrs) 52 mg intrauterine device (Mirena) mometasone-formoterol HFA 100 2 puff inhalation BID 06/30/21 01/04/22 Unknown History mcg-5 mcg/actuation aerosol inhaler (Dulera) albuterol sulfate 2.5 mg/3 mL 2.5 mg inhalation Q4H PRN Wheezing 08/12/21 01/04/22 01/10/22 History (0.083 %) solution for nebulization fexofenadine 60 mg tablet (Sarah 60 mg PO BID 12/24/21 01/04/22 Unknown History Allergy) cyclobenzaprine 10 mg tablet 1 tab PO BEDTIME 01/04/22 01/04/22 Unknown History duloxetine 20 mg capsule,delayed 1 cap PO DAILY 01/04/22 01/04/22 Unknown History release Exam Exam Date and Time: January 07, 2022 1252 Height,Weight and Vital Signs: Height 5 ft Weight 93.44 kg Narrative Narrative: PFT 07/2021 Forced vital capacity 101, FEV1 103, FEV1/FVC ratio is 81, FEF 25-75 89%, and MVV 107%. ? All these flow volumes and MVV are within normal range. ? Total lung capacity and residual volume are both normal, 104% and 97%. ? Diffusion capacity 97%, normal. ? Bronchodilator challenge not given because the patient had used albuterol within 2 hours before the test. ? CONCLUSION:? All these numbers show normal pulmonary function test.?? Assessment and Plan Assessment Anesthesia Assessment: Chart Reviewed Documented by User: Arsenio Mathur MD 01/10/22 13:07 [facility] Past Medical History Medical History Allergic rhinitis Asthma Bacterial vaginosis Carpal tunnel syndrome, bilateral upper limbs Morbid obesity CHIKIS (obstructive sleep apnea) Somnolence, daytime Family History Family history of problems with anesthesia: No Surgical History Surgical History History of carpal tunnel surgery History of thumb surgery History of tonsillectomy Previous section S/P ACL reconstruction History of Problems with Anesthesia: No Social History Social History Alcohol intake: current Alcohol intake frequency: holidays/special occasions only Patient Tobacco Use Status: Never used Tobacco Substance Use Type: Marijuana Substance Use Frequency: Occasionally Are you DNR?: No Advance Directives: No Advance Directives Information Provided: Yes Nutrition Risks: No Nutritional Risk Current occupational status: employed 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 nuts Allergy Severe hives, Uncoded 01/10/22 12:50 throat... FRUIT, SKINS Allergy Mild SWELLING Uncoded 01/10/22 12:49 fruits Allergy Unknown hives, Uncoded 01/10/22 12:49 throat closes seasonal allergies Allergy Unknown Unknown Uncoded 01/04/22 15:51 MEAT AdvReac Mild ABDOMINAL Uncoded 01/04/22 15:51 PAIN Home Medications Medication Instructions Recorded Confirmed Last Taken Type albuterol sulfate 90 mcg/actuation inhalation 12/17/20 12/24/21 Unknown History aerosol inhaler montelukast 10 mg tablet 10 mg PO DAILY 12/17/20 01/04/22 Unknown History levonorgestrel 20 mcg/24 hours (7 intrauterine 02/03/21 12/24/21 Unknown History yrs) 52 mg intrauterine device (Mirena) mometasone-formoterol HFA 100 2 puff inhalation BID 06/30/21 01/04/22 Unknown History mcg-5 mcg/actuation aerosol inhaler (Dulera) albuterol sulfate 2.5 mg/3 mL 2.5 mg inhalation Q4H PRN Wheezing 08/12/21 01/04/22 01/10/22 History (0.083 %) solution for nebulization fexofenadine 60 mg tablet (Sarah 60 mg PO BID 12/24/21 01/04/22 Unknown History Allergy) cyclobenzaprine 10 mg tablet 1 tab PO BEDTIME 01/04/22 01/04/22 Unknown History duloxetine 20 mg capsule,delayed 1 cap PO DAILY 01/04/22 01/04/22 Unknown History release Exam Airway Mallampati Class: IV TM Dist: >3cm Neck ROM: Full Heart: rrr Lungs: clear Assessment and Plan Final Anesthetic Review Family History of Problems with Anesthesia: No History of Problems with Anesthesia: No NPO: Yes ASA Class: II Final Preanesthetic Review: No Changes in Pt Med Stat, Meds/Allgs Chart Reviewed, Consent Obtained/Reviewed and Anes Risks/Benef Reviewed Patient Risk: Intermediate Procedure Risk: Low Anesthetic Plan Anesthetic Plan: MAC: Disposition: Standard PACU
[2022-01-10 10:36] LABS: UPreg QC Valid YES; Urine Pregnancy NEGATIVE (NEGATIVE)
[2022-01-10] MEDS: Lactated Ringers 1,000 ML 100 ML IVCONT (12:45)
[2022-01-10 12:47] VITALS: BP 101/60; PULSE 57; RESP 18; TEMP 36.4; O2SAT 99
--- NOTE | 2022-01-10 13:50 | MHC.SHP ---
Pre-Procedural Eval Section A Date of Service: 01/10/22 The patient is an INPATIENT: No Changes since office visit: No Cold of Flu in the past 2 weeks, No New Medical Problems, No Changes in Medication and No Patient answered all questions The History & Physical has been completed within 30 days and I have reviewed it.: Yes Section B Chief Complaint: urinary inct Details of Present Illness: overactive bladder here for cystoscopy and Botox Allergies: Allergies Allergy/AdvReac Type Severity Reaction Status Date / Time Penicillins Allergy Severe ANAPHYLAXIS, Verified 01/10/22 12:49 HIVES animal dander Allergy Mild ITCHY Verified 01/10/22 12:49 HIVES THROAT SWOLLEN lactose [LACTOSE] Allergy Mild DIARRRHEA Verified 01/10/22 12:49 many vegetables Allergy Severe hives, Uncoded 01/10/22 12:50 throat... nuts Allergy Severe hives, Uncoded 01/10/22 12:50 throat... FRUIT, SKINS Allergy Mild SWELLING Uncoded 01/10/22 12:49 fruits Allergy Unknown hives, Uncoded 01/10/22 12:49 throat closes seasonal allergies Allergy Unknown Unknown Uncoded 01/04/22 15:51 MEAT AdvReac Mild ABDOMINAL Uncoded 01/04/22 15:51 PAIN Review of Systems Sugical H&P ROS: Negative: Constitution, Cardiovascular, Respiratory, Neurological, Psychiatric, Hem-Onc, Allergic/Immunologic, Gastrointestinal, Genitourinary, Musculoskeletal, Integumentary, Endocrine and Eyes/Ears/Nose/Throat Exam Surgical H&P Exam: Normal: HEENT, Normal: Heart, Normal: Lungs, Normal: Extremities, Normal: Abdomen, Normal: Skin and Normal: Neurological Plan Diagnosis/Plan: Unchanged (cystoscopy botox) I have reviewed the history and physical and performed a pertinent physical examination on my patient. No changes have occurred unless specified.
--- NOTE | 2022-01-10 14:18 | W.PM.OPN ---
Operative Note Operative Note Date of Service: 01/10/22 Narrative: PreOperative Diagnosis: Overactive bladder with failure of medications Post Operative Diagnosis: Overactive bladder with failure of medications Procedure: Cystoscopy with injection 100 units Botox intra detrusor muscle Surgeon: Dr Boy Herman Anesthesia: Sedation Indications for procedure: Is a very pleasant 36-year-old female. Has persistent urgency and frequency. Has failed oral medications. At office cystoscopy has effective emptying with minimal urethral rotation on cough. For cystoscopy and Botox injection. Is aware of the risks and benefits particularly related to urinary retention and possible infection. Procedure: After informed consent was verified the patient was brought to the operating room and placed in a supine position. Anesthesia was administered per protocol. Urethra was noted to have narrowing and required dilatation to except [place] cystoscope. She was very sensitive to cold water during prep. Cystoscopy performed with [place] cystoscope. Bladder was emptied of urine. Bladder was refilled. Using 100 units of Botox mixed in 10 cc of normal saline injections were placed at the back wall of the bladder. 0.5cc placed at each injection site. Injections were placed in a grid 5 across and for high. Injections were placed from the inferior to superior position. Trabeculations on the bladder wall with targeted for each injection site. Procedure was tolerated well. Patient was extubated and transferred in stable condition to the recovery area. Pathology: None Drains: None
[2022-01-10 14:27] VITALS: BP 93/49; PULSE 83; RESP 20; TEMP 36.9; O2SAT 94
[2022-01-10] MEDS: Phenazopyridine HCL 100 MG TABLET PO (14:38)
[2022-01-10] MEDS: Acetaminophen 325 MG TABLET 650 MG PO (14:38)
[2022-01-10 14:42] VITALS: BP 103/55; PULSE 71; RESP 20; O2SAT 97
[2022-01-10 14:57] VITALS: BP 121/72; PULSE 60; RESP 16; O2SAT 97
[2022-01-10 15:12] VITALS: BP 128/82; PULSE 63; RESP 16; TEMP 36.3; O2SAT 100
== END 2022-01-10 15:40 | disposition home or self-care (01) ==
PROVIDERS: Nurse Practitioner; PCP Internal Medicine; Visit Provider Urology
PROC: 3E0K8GC Introduction of Other Therapeutic Substance into Genitourinary Tract, Via Natural or Artificial Opening Endoscopic (ICD-10-PCS; CPT 52287; principal; 2022-01-10 11:50)
DX: N32.81 Overactive bladder (principal); R32 Unspecified urinary incontinence; R35.0 Frequency of micturition; J45.909 Unspecified asthma, uncomplicated; E66.01 Morbid (severe) obesity due to excess calories; R40.0 Somnolence; Z88.0 Allergy status to penicillin; F12.90 Cannabis use, unspecified, uncomplicated; Z79.899 Other long term (current) drug therapy
CPT/HCPCS: 52287; 81025; J0585; J1956

== ENCOUNTER 2022-01-11 15:10 | Emergency (ER) | payer OTHER, SELFPAY ==
--- NOTE | ~2022-01-11 | XR_ITS ---
EXAMINATION: XR CERVICAL SPINE CLINICAL INFORMATION: Neck pain COMPARISON: CT cervical spine 10/02/2021 TECHNIQUE: 3 views of the cervical spine were obtained. FINDINGS: Some mild degenerative changes are seen with disc space narrowing most marked at C5-C6 and to a lesser extent at C4-C5 with endplate changes and osteophytes. No prevertebral soft tissue swelling, fractures or subluxations are seen. Compared to the prior CT scan, there is been no interval change. Again seen are mildly prominent adenoidal tissue. XR/XR cervical spine 3V IMPRESSION: Mild unchanged degenerative findings as described above. No evidence of an acute osseous injury.
[2022-01-11 16:48] VITALS: BP 120/78; BP 130/92; PULSE 66; PULSE 78; RESP 18; TEMP 36.6; O2SAT 98; BMI 40.4
[2022-01-11] MEDS: Ibuprofen 600 MG TABLET PO (16:59)
[2022-01-11] MEDS: Lidocaine 4 % Patch ADH..PATCH 1 PATCH TRANSDERMA (16:59)
--- NOTE | 2022-01-11 17:00 | PC.NURSE ---
Provider Jazmine consulted and ibuprofen and lidocaine patch ordered and given to patient.
--- NOTE | 2022-01-11 20:57 | ED_ITS ---
HPI - Neck Pain/Injury General Chief Complaint: Neck Pain/Injury Stated Complaint: NECK PAIN,NO TRAUMA PER EMS Time Seen by Provider: 01/11/22 16:54 Source: patient Mode of arrival: ambulatory Limitations: no limitations History of Present Illness HPI Narrative: 36-year-old female presents with neck pain after sleeping wrong. Woke up with neck pain and is having a difficult time turning left and right. States that she had a bladder procedure yesterday and is on antibiotics. She does not feel that the bladder procedure has anything to do with her neck pain today. She has had neck pain in the past however today muscular strain is prevented her from sleeping and getting comfortable. She does not report numbness or tingling, headaches, loss of sensation, loss of balance, or symptoms indicating cauda equi na. She does not report trauma or injury. MD complaint: neck pain Onset (ago): day(s) (1) Place: home Radiation: right lateral, left lateral and upper back Severity: moderate Severity scale (1-10): 7 Quality: aching and spasming Duration: constant Relieving factors: cold therapy Exacerbating factors: movement of neck Context: unknown Associated symptoms: none Treatments prior to arrival: acetaminophen, ibuprofen and cold therapy Related Data Home Medications Medication Instructions Recorded Confirmed albuterol sulfate 90 mcg/actuation inhalation 12/17/20 12/24/21 aerosol inhaler montelukast 10 mg tablet 10 mg PO DAILY 12/17/20 01/04/22 levonorgestrel 20 mcg/24 hours (7 intrauterine 02/03/21 12/24/21 yrs) 52 mg intrauterine device (Mirena) mometasone-formoterol HFA 100 2 puff inhalation BID 06/30/21 01/04/22 mcg-5 mcg/actuation aerosol inhaler (Dulera) albuterol sulfate 2.5 mg/3 mL 2.5 mg inhalation Q4H PRN Wheezing 08/12/21 01/04/22 (0.083 %) solution for nebulization fexofenadine 60 mg tablet (Sarah 60 mg PO BID 12/24/21 01/04/22 Allergy) cyclobenzaprine 10 mg tablet 1 tab PO BEDTIME 01/04/22 01/04/22 duloxetine 20 mg capsule,delayed 1 cap PO DAILY 01/04/22 01/04/22 release Previous Rx's Medication Instructions Recorded mirabegron 25 mg tablet,extended 25 mg PO DAILY 30 days #30 tabs 11/19/21 release 24 hr (Myrbetriq) phenazopyridine 100 mg tablet 100 mg PO TID PRN spasm 4 days #12 01/10/22 (Pyridium) tabs sulfamethoxazole 400 1 tab PO DAILY 5 days #5 tabs 01/10/22 mg-trimethoprim 80 mg tablet (Bactrim) cyclobenzaprine 10 mg tablet 10 mg PO TID PRN muscle spasm #20 01/11/22 tabs Allergies Allergy/AdvReac Type Severity Reaction Status Date / Time Penicillins Allergy Severe ANAPHYLAXIS, Verified 01/11/22 16:48 HIVES animal dander Allergy Mild ITCHY Verified 01/11/22 16:48 HIVES THROAT SWOLLEN lactose [LACTOSE] Allergy Mild DIARRRHEA Verified 01/11/22 16:48 many vegetables Allergy Severe hives, Uncoded 01/10/22 12:50 throat... nuts Allergy Severe hives, Uncoded 01/10/22 12:50 throat... FRUIT, SKINS Allergy Mild SWELLING Uncoded 01/10/22 12:49 fruits Allergy Unknown hives, Uncoded 01/10/22 12:49 throat closes seasonal allergies Allergy Unknown Unknown Uncoded 01/04/22 15:51 MEAT AdvReac Mild ABDOMINAL Uncoded 01/04/22 15:51 PAIN Review of Systems Review of Systems: Constitutional: No Fever, No Chills ENT/Mouth: No Ear Pain, No Hoarseness, No sore throat Eyes: No Eye Pain, No Swelling, No Redness, No Foreign Body Cardiovascular: No Chest Pain, No SOB Respiratory: No Cough, No Dyspnea Gastrointestinal: No Nausea, No Vomiting, No Diarrhea, No abdominal Pain Genitourinary: No Dysuria, No Hematuria Musculoskeletal: positive muscular neck pain, No Myalgias, No Joint Swelling Skin: No Skin lacerations, No rash Neuro: No Weakness, No Numbness, No Paresthesias, No Loss of Consciousness, No Dizziness, No Headache Psych: No Anxiety/Panic, No Depression Heme/Lymph: no easy bruising, no Lymphadenopathy Endocrine: No Polyuria, No Polydipsia Yes all other systems are reviewed and are negative [facility] Past Medical History Attestation statement: The following information was validated with the patient. Source: old records reviewed Medical History Allergic rhinitis Asthma Bacterial vaginosis Carpal tunnel syndrome, bilateral upper limbs Morbid obesity CHIKIS (obstructive sleep apnea) Somnolence, daytime Surgical History History of carpal tunnel surgery History of thumb surgery History of tonsillectomy Previous section S/P ACL reconstruction Social History Social History Alcohol intake: current Alcohol intake frequency: holidays/special occasions only Patient Tobacco Use Status: Never used Tobacco Use of substances other than those prescribed or required for medical reasons: No Substance Use Type: Marijuana Advance Directives: No Advance Directives Information Provided: No Current occupational status: employed 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 Oriented X3. Moderate distress. Eyes: Pupils equal, round and reactive to light. EOMI. Sclera nonicteric. ENT: Pharynx normal. Moist mucous membranes. No mastoid tenderness. Neck: Normal inspection. Neck supple. No nuchal rigidity. No vertebral tenderness or step-offs. Spasming noted to bilateral trapezius. CVS: Normal heart rate and rhythm. Pulses normal. Respiratory: No respiratory distress. Breath sounds normal. Abdomen: Soft and nontender. Skin: Skin warm and dry. Normal skin color. Normal skin turgor. Extremities: No lower extremity edema. Moves all extremities against resistance. Neurovascularly intact. Sensation equal to all extremities. Neuro: No motor deficit. No sensory deficit. Cranial nerves 2-12 intact. Course Course Course Narrative: 36-year-old female presents with neck pain and difficulty moving because of muscular strain. States that she woke up with neck pain, but does not report any physical injury or trauma. She has had prior history of neck pain similar to this but the musculoskeletal strain is worse than prior events. Physical exam is unremarkable, HEENT exam is normal, no tenderness to palpation of the vertebrae. Palpable muscle spasms noted to the bilateral trapezius. Will order x-rays of the cervical spine. 21:53 see x-rays show unchanged degenerative disc disease of the cervical spine. Will give a prescription for cyclobenzaprine. Patient was treated for pain and spasming with diazepam and oxycodone while in the emergency department. Considering that these are chronic findings with no changes I will prescribe cyclobenzaprine, and refer to pain management. Patient verbalized understanding of and agrees to plan of care discharge home. Verbalized understanding of signs symptoms indicating need for emergent differential. MDM - Neck Pain/Injury Differential Diagnosis Differential diagnosis: Likely disc disorder of cervical region, whiplash injury to neck, cervical radiculopathy and strain of neck muscle Medical Records Attestation: I reviewed the patient's medical records. Imaging Data Cervical spine x-ray: Attestation: I personally reviewed and interpreted this imaging study as follows: Radiologist's impression: EXAMINATION: XR CERVICAL SPINE CLINICAL INFORMATION: Neck pain COMPARISON: CT cervical spine 10/02/2021 TECHNIQUE: 3 views of the cervical spine were obtained. FINDINGS: Some mild degenerative changes are seen with disc space narrowing most marked at C5-C6 and to a lesser extent at C4-C5 with endplate changes and osteophytes. No prevertebral soft tissue swelling, fractures or subluxations are seen. Compared to the prior CT scan, there is been no interval change. Again seen are mildly prominent adenoidal tissue. XR/XR cervical spine 3V IMPRESSION: Mild unchanged degenerative findings as described above. No evidence of an acute osseous injury. Discharge Plan Discharge Clinical Impression: Degenerative disc disease, cervical Patient Disposition: Home, Self-Care Instructions: Degenerative Disc Disease (ED), Neck Pain (ED) Additional Instructions: You were evaluated for neck pain. X-rays shows some degenerative disc disease between C4 and C5 and C5 and C6. I have referred you to Dr Lindquist, he has a auto customize painter. I prescribed cyclobenzaprine 10 mg tablets. This medication is a muscle relaxer. This medication can delay reaction time, increased risk falls, and cause drowsiness. Do not drive or operate machinery while taking this medication. Follow-up with primary care provider. Physical therapy may help you with manage pain and that accompanies disc degeneration. Thank you for choosing this emergency department for evaluation. Please follow-up with primary care physician as needed. Return to the emergency department for any new, concerning, or worsening symptoms. Prescriptions: New cyclobenzaprine 10 mg tablet 10 mg PO TID PRN (Reason: muscle spasm) Qty: 20 0RF No Action cyclobenzaprine 10 mg tablet 1 tab PO BEDTIME duloxetine 20 mg capsule,delayed release(DR/EC) 1 cap PO DAILY sulfamethoxazole-trimethoprim [Bactrim] 400-80 mg tablet 1 tab PO DAILY 5 Days Qty: 5 0RF phenazopyridine [Pyridium] 100 mg tablet 100 mg PO TID PRN (Reason: spasm) 4 Days Qty: 12 0RF Mirena 20 mcg/24 hours (6 yrs) 52 mg intrauterine device intrauterine montelukast 10 mg tablet 10 mg PO DAILY albuterol sulfate 90 mcg/actuation HFA aerosol inhaler inhalation Dulera 100-5 mcg/actuation HFA aerosol inhaler 2 puff inhalation BID Myrbetriq 25 mg tablet extended release 24 hr 25 mg PO DAILY 30 Days Qty: 30 1RF albuterol sulfate 2.5 mg /3 mL (0.083 %) solution for nebulization 2.5 mg inhalation Q4H PRN (Reason: Wheezing) fexofenadine [Sarah Allergy] 60 mg tablet 60 mg PO BID Referrals: Vic Lindquist MD [Physician] - 1 week (Cervical disc degeneration) Interventions: ED Discharge Assessment Last Done: 01/11/22 22:06 Discharge Date/Time: 01/11/22 22:15
[2022-01-11 21:06] VITALS: BP 112/68; PULSE 60; RESP 16; TEMP 35.7; O2SAT 98
--- NOTE | 2022-01-11 21:14 | PC.NURSE ---
Pt's mother at bedside c/o of 1H placement. Per mom This is unacceptable, my daughter deserves a bed . Pt and mom educated on [facility] triage process and acuity of bed placement. 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 I apologized regarding the wait time and for the delay in nursing contact. VSS. Plan is to medicate for pain and to take xr.
[2022-01-11] MEDS: oxyCODONE HCl Immed Release 5 MG TABLET PO (21:24)
[2022-01-11] MEDS: diazePAM 2 MG TABLET PO (21:25)
== END 2022-01-11 22:15 | disposition home or self-care (01) ==
PROVIDERS: Emergency Provider Internal Medicine; PCP Internal Medicine
DX: M50.322 Other cervical disc degeneration at C5-C6 level (principal); E66.01 Morbid (severe) obesity due to excess calories; Z68.41 Body mass index [BMI] 40.0-44.9, adult
CPT/HCPCS: 72040; 99283; 99284

== ENCOUNTER 2022-02-10 09:04 | Outpatient (REF) | payer OTHER, SELFPAY ==
--- NOTE | ~2022-02-10 | XR_ITS ---
EXAMINATION: XR KNEE AP STANDING CLINICAL INFORMATION: Knee pain COMPARISON: Bilateral knee radiographs 10/02/2021. TECHNIQUE: AP bilateral standing view of the knees was obtained. FINDINGS: Right: Normal bony mineralization. No fracture or destructive process. There are post surgical changes with tibial tunnel consistent with prior ACL repair. There is mild to moderate narrowing medial knee joint compartment and small marginal osteophytes medial and lateral tibial plateau. There is no subchondral sclerosis or erosive change. No chondrocalcinosis. Left: Normal bony mineralization. No fracture or destructive process. There is mild narrowing medial knee joint compartment. No erosive change or chondrocalcinosis. XR/XR knee standing BI IMPRESSION: -Narrowing medial knee joint compartments, greater on right. -No erosive change or chondrocalcinosis.
== END 2022-02-10 09:05 | disposition home or self-care (01) ==
LOC: HO.HOSX 09:04
PROVIDERS: Visit Provider Orthopaedic Surgery
DX: M25.561 Pain in right knee (principal); M23.51 Chronic instability of knee, right knee; M72.2 Plantar fascial fibromatosis; Z98.890 Other specified postprocedural states
CPT/HCPCS: 73565; 99212

== ENCOUNTER 2022-03-01 10:25 | Outpatient (REF) | payer OTHER, SELFPAY ==
[2022-03-02 03:18] LABS: CT PCR NOT DETECTED (Not Detect.); NG PCR NOT DETECTED (Not Detect.)
[2022-03-02 13:21] LABS: BV Int Neg Control Negative (Negative); BV Int Pos Control Positive (Positive)
[2022-03-07 23:37] LABS: HPV mRNA E6/E7 rflx Not Detected (Not Detected)
== END 2022-03-01 10:26 | disposition home or self-care (01) ==
LOC: HO.LNP 10:25
PROVIDERS: Visit Provider Advanced Practice Midwife
DX: T83.9XXA Unspecified complication of genitourinary prosthetic device, implant and graft, initial encounter (principal); Z11.3 Encounter for screening for infections with a predominantly sexual mode of transmission; Z79.899 Other long term (current) drug therapy; Z20.2 Contact with and (suspected) exposure to infections with a predominantly sexual mode of transmission
CPT/HCPCS: 87480; 87491; 87510; 87591; 87624; 87660; 88142; 99212

== ENCOUNTER 2022-03-03 15:58 | Outpatient (REF) | payer OTHER, SELFPAY | END 2022-03-03 15:59 | disposition home or self-care (01) | LOC: HO.HOSX 15:58 | PROVIDERS: Visit Provider Physician Assistant | DX: Z13.89 Encounter for screening for other disorder (principal) ==

== ENCOUNTER 2022-03-04 | Outpatient (REF) | payer OTHER, SELFPAY | END 2022-03-04 00:01 | disposition home or self-care (01) | LOC: HO.HOSX | PROVIDERS: Visit Provider Physician Assistant | DX: Z13.89 Encounter for screening for other disorder (principal) ==

== ENCOUNTER 2022-03-08 19:40 | Outpatient (REF) | payer OTHER, SELFPAY ==
--- NOTE | ~2022-03-08 | MR_ITS ---
EXAMINATION: MR KNEE WITHOUT CONTRAST, RIGHT CLINICAL INFORMATION: Right knee pain and swelling. Anterior cruciate ligament reconstruction in 2015. Anterior/inferior patellar pain which has progressively worsening. Chronic instability. COMPARISON: Most recent knee radiographs dated 02/10/2022 and right knee MRI dated 10/10/2018. TECHNIQUE: MRI of the knee without contrast was performed using routine sequences on a high-field scanner. FINDINGS: MENISCI: Medial Meniscus: Minimal inner margin fraying of the posterior horn and root, unchanged. No new meniscal tear. Lateral Meniscus: Attenuation and irregularity of the posterior root, unchanged. No new lateral meniscal tear. LIGAMENTS: Cruciate: Postsurgical change consistent with anterior cruciate ligament reconstruction. The ligament graft is again noted to be significantly attenuated, consistent with chronic partial tearing. This appears similar when compared to the prior examination. Mild degenerative signal within the posterior cruciate ligament. Collateral: Intact EXTENSOR MECHANISM: Intact ARTICULAR CARTILAGE/BONE: Patellofemoral Compartment: Patellar median ridge full-thickness articular cartilage fissuring with underlying subchondral cystic change. Medial trochlea full-thickness articular cartilage loss with underlying subchondral cystic change. Marginal osteophytes. Findings are progressed when compared to the prior examination. Medial Compartment: Full-thickness weightbearing articular cartilage loss with underlying subchondral cystic change and marrow edema at the medial femoral condyle and medial tibial plateau. Marginal osteophytes. Findings are progressed when compared to the prior examination. Lateral Compartment: Mild articular cartilage signal heterogeneity with marginal osteophytes, similar when compared to the prior examination. Focal, well marginated cyst within the fibular head, not significantly change. JOINT FLUID AND BURSAE: Small joint effusion and mild synovitis. MR/MR knee RT wo con IMPRESSION: 1. Severe medial and [id number] patellofemoral compartment osteoarthritis, progressed when compared to the prior MRI. Mild lateral compartment osteoarthritis appears unchanged. Small joint effusion and mild synovitis. 2. Tearing/fraying of the lateral meniscus posterior root, unchanged. Minimal inner margin fraying of the medial meniscus posterior horn, unchanged. No new meniscal tear. 3. Chronic partial tearing of the anterior cruciate ligament graft appears similar when compared to the prior examination. Degenerative signal redemonstrated within the posterior cruciate ligament. No acute ligament injury.
== END 2022-03-08 19:41 | disposition home or self-care (01) ==
LOC: HO.MRI 19:40
PROVIDERS: Visit Provider Orthopaedic Surgery
DX: M23.51 Chronic instability of knee, right knee (principal); Z98.890 Other specified postprocedural states
CPT/HCPCS: 73721

== ENCOUNTER 2022-03-09 10:45 | Outpatient (REF) | payer OTHER, SELFPAY ==
[2022-03-09 12:22] LABS: HBsAGNum1 0.23 S/CO (0.00-0.99); HIV AB/AG Nonreactive (Nonreactive); HIV Num 1 0.07 S/CO (0.00-0.99); Hepatitis B Surface Antigen Negative (Negative); ~HepC Num1 0.22 S/CO (0.00-0.79); ~Hepatitis C Antibody Nonreactive (Nonreactive)
[2022-03-09 12:57] LABS: Syphilis Screen Nonreactive (Nonreactive)
== END 2022-03-09 10:46 | disposition home or self-care (01) ==
LOC: HO.LAB 10:45
PROVIDERS: PCP Internal Medicine; Visit Provider Advanced Practice Midwife
DX: Z11.4 Encounter for screening for human immunodeficiency virus [HIV] (principal); T83.9XXA Unspecified complication of genitourinary prosthetic device, implant and graft, initial encounter; Z20.2 Contact with and (suspected) exposure to infections with a predominantly sexual mode of transmission
CPT/HCPCS: 36415; 86780; 86803; 87340; 87389

== ENCOUNTER 2022-03-11 11:03 | Outpatient (REF) | payer OTHER, SELFPAY ==
--- NOTE | ~2022-03-11 | US_ITS ---
EXAMINATION: US PELVIS CLINICAL INFORMATION: Abdominal pain; for assessment of intrauterine device position; the last menstrual period is not specified. COMPARISON: Pelvic ultrasound dated 05/17/2018. TECHNIQUE: Ultrasound of the pelvis is performed using both transabdominal and transvaginal transducers along with Doppler. Transvaginal imaging is performed due to inadequate visualization transabdominally. FINDINGS: Uterus: The uterus is anteverted and retroflexed. The uterus measures 13.7 x 4.8 x 6.6 cm. The double wall endometrial thickness is very thin and poorly assessed due to intrauterine device placement. The intrauterine device is properly situated within the endometrial canal. The uterus is smooth in contour and has normal myometrial echogenicity. No visible fibroid. Adnexa: Both ovaries are visualized. There is normal color flow to the adnexa. There is no ovarian torsion. There is no pelvic ascites or fluid collection. Right ovary measures 3.8 x 2.0 x 2.3 cm (volume 9.2 mL). Left ovary measures 3.2 x 1.8 x 1.8 cm (volume 5.4 mL). US/US pelvic and transvaginal IMPRESSION: An intrauterine device is seen, properly situated within the endometrial canal. The examination is otherwise unremarkable.
== END 2022-03-11 11:04 | disposition home or self-care (01) ==
LOC: HO.US 11:03
PROVIDERS: Visit Provider Advanced Practice Midwife
DX: T83.9XXA Unspecified complication of genitourinary prosthetic device, implant and graft, initial encounter (principal); Z20.2 Contact with and (suspected) exposure to infections with a predominantly sexual mode of transmission
CPT/HCPCS: 76830; 76856

== ENCOUNTER → 2022-04-11 13:07 | Outpatient (BNVA) | payer OTHER, SELFPAY | PROVIDERS: PCP Internal Medicine; Visit Provider Orthopaedic Surgery | DX: M17.11 Unilateral primary osteoarthritis, right knee (principal); M72.2 Plantar fascial fibromatosis; Z98.890 Other specified postprocedural states | CPT/HCPCS: 20610; 99212; J1100 ==

== ENCOUNTER 2022-06-01 09:15 | Outpatient (REF) | payer OTHER, SELFPAY ==
[2022-06-01 11:41] LABS: HIV AB/AG Nonreactive (Nonreactive); HIV Num 1 0.07 S/CO (0.00-0.99); Hepatitis B Surface Antigen Negative (Negative); ~Hepatitis C Antibody Nonreactive (Nonreactive)
[2022-06-01 11:47] LABS: Syphilis Screen Nonreactive (Nonreactive)
[2022-06-01 16:59] LABS: CT PCR NOT DETECTED (Not Detect.); NG PCR NOT DETECTED (Not Detect.)
[2022-06-02 12:16] LABS: BV Int Neg Control Negative (Negative); BV Int Pos Control Positive (Positive)
== END 2022-06-01 09:16 | disposition home or self-care (01) ==
LOC: HO.LAB 09:15
PROVIDERS: PCP Internal Medicine; Visit Provider Advanced Practice Midwife
DX: Z11.4 Encounter for screening for human immunodeficiency virus [HIV] (principal); Z11.3 Encounter for screening for infections with a predominantly sexual mode of transmission; Z20.2 Contact with and (suspected) exposure to infections with a predominantly sexual mode of transmission; Z97.5 Presence of (intrauterine) contraceptive device
CPT/HCPCS: 86780; 86803; 87340; 87389; 87480; 87491; 87510; 87591; 87660

== ENCOUNTER 2022-07-12 09:41 | Outpatient (REF) | payer OTHER, SELFPAY | END 2022-07-12 09:42 | disposition home or self-care (01) | LOC: HO.HOSX 09:41 | PROVIDERS: Visit Provider Orthopaedic Surgery | DX: Z13.89 Encounter for screening for other disorder (principal) ==

== ENCOUNTER 2022-07-19 17:11 | Outpatient (REF) | payer OTHER, SELFPAY | END 2022-07-19 17:12 | disposition home or self-care (01) | LOC: HO.HOSX 17:11 | PROVIDERS: Visit Provider Orthopaedic Surgery | DX: Z13.89 Encounter for screening for other disorder (principal) ==

== ENCOUNTER 2022-07-20 11:21 | Outpatient (REF) | payer OTHER, SELFPAY ==
--- NOTE | ~2022-07-20 | XR_ITS ---
EXAMINATION: XR HAND, RIGHT CLINICAL INFORMATION: Pain in right hand COMPARISON: None TECHNIQUE: PA, lateral, and oblique views of the right hand. FINDINGS: Middle finger: Marginal osteophytes about the DIP joint indicative of mild osteoarthritis. No joint space narrowing. Remaining bones joints and soft tissues unremarkable. XR/XR hand RT min 3V IMPRESSION: Mild osteoarthritis of the DIP joint of the middle finger.
== END 2022-07-20 11:22 | disposition home or self-care (01) ==
LOC: HO.HOSX 11:21
PROVIDERS: Visit Provider Orthopaedic Surgery
DX: M19.041 Primary osteoarthritis, right hand (principal)
CPT/HCPCS: 73130; 99212

== ENCOUNTER 2022-09-02 16:00 | Outpatient (REF) | payer OTHER, SELFPAY ==
[2022-09-02 18:00] LABS: Appearance Urine Clear; Color Urine Yellow; Glucose Urine UA Negative (Negative); Leukocyte Esterase Urine Negative (Negative); Nitrite Urine Negative (Negative); PH 5.5 (5.0-9.0); Specific Gravity - Urine >= 1.030 (1.005-1.025); Urine Blood Negative (Negative); Urine Ketones Trace mg/dL (Negative); Urine Protein Negative (Neg-Trace)
== END 2022-09-02 16:01 | disposition home or self-care (01) ==
LOC: HO.XRAY 16:00
PROVIDERS: PCP Internal Medicine; Visit Provider Internal Medicine
DX: R30.0 Dysuria (principal); M25.552 Pain in left hip
CPT/HCPCS: 81003; 87086

== ENCOUNTER 2022-09-13 10:41 | Outpatient (REF) | payer OTHER, SELFPAY | END 2022-09-13 10:42 | disposition home or self-care (01) | LOC: HO.XRAY 10:41 | PROVIDERS: PCP Internal Medicine; Visit Provider Internal Medicine | DX: Z13.89 Encounter for screening for other disorder (principal) ==

== ENCOUNTER 2022-09-19 09:57 | Outpatient (REF) | payer OTHER, SELFPAY ==
--- NOTE | ~2022-09-19 | XR_ITS ---
EXAMINATION: XR HIP, LEFT CLINICAL INFORMATION: Pain. COMPARISON: Pelvic radiograph dated 11/08/2018. TECHNIQUE: AP and frog-leg lateral views of the left hip. FINDINGS: Bones and soft tissues are normal. No fracture or dislocation is seen. The left femoral head appears smooth. Alignment is anatomic. Hip joint space is maintained. An intrauterine device is noted. XR/XR hip LT min 2V IMPRESSION: Normal left hip.
== END 2022-09-19 09:58 | disposition home or self-care (01) ==
LOC: HO.XRAY 09:57
PROVIDERS: PCP Internal Medicine; Visit Provider Internal Medicine
DX: M25.552 Pain in left hip (principal); R30.0 Dysuria
CPT/HCPCS: 73502

== ENCOUNTER → 2022-11-08 14:46 | Outpatient (BNVA) | payer OTHER, SELFPAY | PROVIDERS: PCP Internal Medicine; Visit Provider Nurse Practitioner Family | DX: R35.0 Frequency of micturition (principal); R32 Unspecified urinary incontinence | CPT/HCPCS: 51798; 99212 ==

== ENCOUNTER 2022-12-21 15:23 | Outpatient (REF) | payer OTHER, SELFPAY ==
--- NOTE | ~2022-12-21 | US_ITS ---
EXAMINATION: US RETROPERITONEAL COMPLETE (RENAL) CLINICAL INFORMATION: Frequency of micturition. COMPARISON: CT abdomen and pelvis without contrast 01/31/2013. TECHNIQUE: Real-time imaging of the kidneys and bladder. FINDINGS: RIGHT KIDNEY: 10.7 x 4.5 x 4.4 cm (SAG x AP x TRV). The kidney is normal in size, contour, and echogenicity. Renal cortical thickness is normal. No calculi or focal parenchymal lesions. No hydronephrosis. LEFT KIDNEY: 9.4 x 4.4 x 4.9 cm (SAG x AP x TRV). The kidney is normal in size, contour, and echogenicity. Renal cortical thickness is normal. No calculi or focal parenchymal lesions. No hydronephrosis. BLADDER: Bladder is decompressed. Bilateral ureteral jets are demonstrated. Prevoid bladder volume is 8.16 mL. Postvoid bladder volume is 0.4 mL. US/US retroperitoneal comp IMPRESSION: Unremarkable renal ultrasound.
== END 2022-12-21 15:24 | disposition home or self-care (01) ==
LOC: HO.US 15:23
PROVIDERS: Visit Provider Nurse Practitioner Family
DX: R35.0 Frequency of micturition (principal)
CPT/HCPCS: 76770

== ENCOUNTER 2023-01-20 08:00 | Outpatient (AMB) | payer OTHER, SELFPAY ==
[2023-01-20 08:06] VITALS: BP 112/64; PULSE 79; TEMP 36.6; O2SAT 98; BMI 40.4
--- NOTE | 2023-01-20 08:06 | MHC.OFFVIS ---
Intake Vital Signs 01/20/23 08:06 Height 5 ft Weight 207 lb 0.225 oz BMI 40.4 BP 112/64 Blood Pressure Location Rt brachial Position Sitting Pulse 79 Pulse Source Pulse Oximeter Temp 97.9 F Temp Source Skin Pulse Oximetry (%) 98 Intake Visit Reasons: Rt hand OA Intake Note: New pt presents today for OA consult. C/o pain in bl hands, started a long time ago. Marketing Communications Assistant Required: No Accompanied by: Self / Same As Patient Allergies Penicillins Allergy (Severe, Verified 01/20/23 08:09) ANAPHYLAXIS, HIVES animal dander Allergy (Mild, Verified 01/20/23 08:09) ITCHY HIVES THROAT SWOLLEN lactose [LACTOSE] Allergy (Mild, Verified 01/20/23 08:09) DIARRRHEA many vegetables Allergy (Severe, Uncoded 01/20/23 08:09) hives, throat... nuts Allergy (Severe, Uncoded 01/20/23 08:09) hives, throat... FRUIT, SKINS Allergy (Mild, Uncoded 01/20/23 08:09) SWELLING fruits Allergy (Unknown, Uncoded 01/20/23 08:09) hives, throat closes seasonal allergies Allergy (Unknown, Uncoded 01/20/23 08:09) Unknown MEAT Adverse Reaction (Mild, Uncoded 01/20/23 08:09) ABDOMINAL PAIN Medication List - Last Reconciled 01/20/23 by Denzel Merino MD albuterol sulfate 90 mcg/actuation inhalation albuterol sulfate 2.5 mg inhalation Q4H PRN fexofenadine (Sarah Allergy) 60 mg PO BID levonorgestrel (Mirena) intrauterine mometasone-formoterol 100-5 mcg/actuation (Dulera) 2 puffs inhalation BID montelukast 10 mg PO DAILY PRN naproxen sodium (Aleve) 220 mg PO BID PRN trolamine salicylate 10% (Aspercreme) 1 appl topical DAILY PRN vibegron (Gemtesa) 75 mg PO DAILY 30 days HPI HPI Comments History of Present Illness Details This is a 37-year-old female who presents for evaluation of her right hand pain. She mentions that she has had this pain for about 1 year. She has pain in the 2nd and middle fingers bilaterally. The pain is most severe in her right middle finger. It is worse in the morning, associated with on hour of morning stiffness. She has difficultly making a fist. 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 She uses Tylenol Arthritis about once a week which provided some relief. She also applies snake oil will prove should provide some relief. She is unaware of any family history of autoimmune rheumatic [facility] Medical History Allergic rhinitis Asthma Bacterial vaginosis Carpal tunnel syndrome, bilateral upper limbs Morbid obesity CHIKIS (obstructive sleep apnea) Somnolence, daytime Surgical History History of carpal tunnel surgery History of thumb surgery History of tonsillectomy Previous section S/P ACL reconstruction Family History Mother Diabetes Hypertension Arthritis Father Liver cancer Paternal Aunt Family history of autoimmune disorder Social History Alcohol intake: current Alcohol intake frequency: holidays/special occasions only Patient Tobacco Use Status: Never used Tobacco Substance Use Type: Marijuana Current occupational status: employed 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 Reproductive History Menstrual Age of Menarche: 9 Total pregnancies: 3 Number of Living Children: 3 Review of Systems Const Reports fatigue and Reports weakness Eyes Reports blurry vision ENT Reports dry mouth, Reports hoarseness and Reports tinnitus Card Reports dyspnea Resp Reports cough, Reports dyspnea and Reports wheezing Musc Reports arthralgias, Reports joint swelling, Reports limited range of motion and Reports stiffness Skin/Breast Reports unusual bruising Neuro Reports weakness Psych Reports abnormal sleep pattern, Reports anxiety and Reports depression Endo Reports fatigue and Reports polydipsia Aller/Immun Reports wheezing Physical Exam Vital Signs: Last Vital Signs Temp 97.9 F 01/20/23 08:06 Pulse 79 01/20/23 08:06 BP 112/64 01/20/23 08:06 Pulse Ox 98 01/20/23 08:06 BMI result Body Mass Index 40.4 Const General: cooperative, healthy appearing and comfortable Nutritional Appearance: obese morbidly obese Orientation/consciousness: patient oriented x3 Limitations: no limitations HEENT Head: Yes normocephalic and Yes atraumatic Mouth: moist mucous membranes Resp Effort & Inspection: normal respiratory effort and able to speak in complete sentences Neuro General: patient oriented x3 Extrem Other: No wrist swelling or tenderness or pain with full flexion and extension No MCP swelling or tenderness Negative MCP squeeze test bilaterally Right hand Keyana's and Heberden's nodes in 1st and 2nd finger that are slightly tender Right 3rd PIP is most tender associated with some swelling and ulnar deviation Left hand Keyana's and Heberden's nodes in index and middle finger slightly tender to palpation Normal nailfold capillaroscopy Right foot bunion slightly tender to palpation Assessment & Plan Assessment & Plan (1) 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: Code(s): M19.041 - Primary osteoarthritis, right hand Plan: This is a 37-year-old female who presents for evaluation of bilateral hand pain most severe in her right middle finger PIP. Clinical picture consistent with osteoarthritis. She has prominent Heberden's and Keyana's nodes in the 2nd and 3rd fingers bilaterally which are slightly tender . I educated patient about this condition. Discussed some treatment options such as occupational therapy and medications. I suggested using Tylenol Arthritis up to 3000 mg a day as needed for pain. Can use Aleve sparingly and trial of Voltaren gel to the affected painful joint 4 times a day. Patient not interested in occupational therapy at this point. I suggested buying a paraffin wax machine to use at home. Follow-up as needed Coding Level of Care Code New Pt Level 3 (80643) Diagnoses 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 M19.041
== END 2023-01-20 08:52 | disposition home or self-care (01) ==
PROVIDERS: PCP Internal Medicine; Visit Provider Student in an Organized Health Care Education/Training Program
DX: M19.041 Primary osteoarthritis, right hand (principal)
CPT/HCPCS: 99203

== ENCOUNTER → 2023-01-20 08:00 | Outpatient (BNVA) | payer OTHER, SELFPAY | PROVIDERS: Visit Provider Student in an Organized Health Care Education/Training Program | DX: R32 Unspecified urinary incontinence (principal); R35.0 Frequency of micturition; M19.041 Primary osteoarthritis, right hand | CPT/HCPCS: 51798; 99202; 99212 ==

== ENCOUNTER 2023-01-20 14:48 | Outpatient (AMB) | payer OTHER, SELFPAY ==
--- NOTE | 2023-01-20 14:54 | A.OFFVIS_ITS ---
Intake Intake Visit Reasons: 6w/US/PVR(set) Intake Note: Patient is present for follow up incontinence/ultrasound (imaging 12/21/22) Urology Medications: Gemtesa Blood Thinner: none PVR: 0ml's Water Valve Mechanic Required: No Accompanied by: Self / Same As Patient Allergies Penicillins Allergy (Severe, Verified 01/23/23 21:59) ANAPHYLAXIS, HIVES animal dander Allergy (Mild, Verified 01/23/23 21:59) ITCHY HIVES THROAT SWOLLEN lactose [LACTOSE] Allergy (Mild, Verified 01/23/23 21:59) DIARRRHEA many vegetables Allergy (Severe, Uncoded 01/23/23 21:59) hives, throat... nuts Allergy (Severe, Uncoded 01/23/23 21:59) hives, throat... FRUIT, SKINS Allergy (Mild, Uncoded 01/23/23 21:59) SWELLING fruits Allergy (Unknown, Uncoded 01/23/23 21:59) hives, throat closes seasonal allergies Allergy (Unknown, Uncoded 01/23/23 21:59) Unknown MEAT Adverse Reaction (Mild, Uncoded 01/23/23 21:59) ABDOMINAL PAIN Medication List - Last Reconciled 01/23/23 by EDIN Matute- albuterol sulfate 90 mcg/actuation inhalation albuterol sulfate 2.5 mg inhalation Q4H PRN fexofenadine (Sarah Allergy) 60 mg PO BID levonorgestrel (Mirena) intrauterine mometasone-formoterol 100-5 mcg/actuation (Dulera) 2 puffs inhalation BID montelukast 10 mg PO DAILY PRN naproxen sodium (Aleve) 220 mg PO BID PRN trolamine salicylate 10% (Aspercreme) 1 appl topical DAILY PRN vibegron (Gemtesa) 75 mg PO DAILY 90 days HPI HPI Comments History of Present Illness Details John is a pleasant 37 year old female patient of Dr. Nava. She presents to the office today for a follow up of her urinary urgency and frequency. She reports to be doing and feeling well. Of note, patient was seen approximately 2 months ago at which time a retroperitoneal ultrasound was ordered for further assessment evaluation in the patient was started on Gemtesa 75mg daily. Recent retroperitoneal ultrasound results reviewed with the patient today. Bilateral kidneys with no calculi, lesions, and or hydronephrosis noted. Unremarkable retroperitoneal ultrasound. When asked patient reports significant improvement in urinary symptoms on 75 mg of Gemtesa daily. She has failed oral medications including oxybutynin, tolterodine, Vesicare, and Myrbetriq. She underwent cystoscopy bladder botox in the OR with Dr. Herman on 01/10/22. She reports improvement in urinary frequency and episodes of incontinence of not near a bathroom. Previous in office cystoscopy shown to have effective emptying with minimal urethral rotation on cough. In office urinalysis results reviewed with the patient today. PVR 0ml's. She otherwise denies hematuria, dysuria, foul smelling urine, changes to urinary stream, flank pain, fever, and or chills. Patient otherwise denies any issues or concerns at this time. [facility] Medical History Allergic rhinitis Asthma Bacterial vaginosis Carpal tunnel syndrome, bilateral upper limbs Morbid obesity CHIKIS (obstructive sleep apnea) Somnolence, daytime Surgical History History of carpal tunnel surgery History of thumb surgery History of tonsillectomy Previous section S/P ACL reconstruction Family History Mother Diabetes Hypertension Arthritis Father Liver cancer Paternal Aunt Family history of autoimmune disorder Social History Alcohol intake: current Alcohol intake frequency: holidays/special occasions only Patient Tobacco Use Status: Never used Tobacco Substance Use Type: Marijuana Current occupational status: employed 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 Reproductive History Menstrual Age of Menarche: 9 Review of Systems Const All systems reviewed & are unremarkable except as noted in HPI and below Reports as per HPI Eyes Reports no additional complaints ENT Reports no additional complaints Card Reports no additional complaints Resp Reports no additional complaints GI Reports no additional complaints Reports as per HPI Musc Reports no additional complaints Neuro Reports no additional complaints Psych Reports no additional complaints Endo Reports no additional complaints Mannie/Lymph Reports no additional complaints Aller/Immun Reports no additional complaints Physical Exam Const General: cooperative, healthy appearing, comfortable, no acute distress, well developed, alert and awake Orientation/consciousness: patient oriented x3 Limitations: no limitations HEENT Head: Yes normal to inspection, Yes normocephalic and Yes atraumatic Ears: hearing grossly normal bilaterally Eyes General: appearance normal, both eyes and all related structures Neck Neck: Yes normal visual inspection and Yes trachea midline Chest Chest palpation & inspection: normal inspection of the chest Resp Effort & Inspection: normal respiratory effort and able to speak in complete sentences Cardio Rate: regular rate GI Inspection: Yes normal to inspection General: Yes no CVA tenderness Back/Spine/Pelvis Back: no CVA tenderness Skin General skin exam: no rashes or lesions noted Neuro General: patient oriented x3 Extrem General: Yes normal to inspection Psych Appearance: grossly normal and well kempt Mental Status: mental status grossly normal Speech and movement: Normal speech and movement present and Clear speech present Affect: normal affect Attitude: cooperative Thought process: Normal thought process present Thought content: Normal thought content present Insight: Good insight present (Psych) Judgement: Good judgement present (Psych) Office Procedures Post Void Residual Post Residual Void Post Void Residual (PVR): 0 [id number] Void Residual by ultrasound Results AMB Urinalysis, Automated UA Leukoctes 0 Madalyn/uL Last Edit by Aceris 3D Inspection on 01/20/23 15:20 UA Nitrite Negative Last Edit by Acer[employer] 3D Inspection on 01/20/23 15:20 UA Urobilinogen 0.2 mg/dL Last Edit by Aceris 3D Inspection on 01/20/23 15:20 UA Protein 15 mg/dL Last Edit by Aceris 3D Inspection on 01/20/23 15:20 UA pH 6.0 Last Edit by Acer[employer] 3D Inspection on 01/20/23 15:20 UA Blood 0 Donovan/uL Last Edit by Aceris 3D Inspection on 01/20/23 15:20 UA Specific [place] 1.030 Last Edit by Aceris 3D Inspection on 01/20/23 15:20 UA Ketone Negative Last Edit by Aceris 3D Inspection on 01/20/23 15:20 UA Bilirubin 0 mg/dL Last Edit by Aceris 3D Inspection on 01/20/23 15:20 UA Glucose 0 mg/dL Last Edit by Aceris 3D Inspection on 01/20/23 15:20 Results Reviewed Results Reviewed: Laboratory Last Values Urine pH (Auto) 6.0 01/20/23 15:18 Specific [place] (Auto) 1.030 01/20/23 15:18 Urine Protein (Auto) 15 mg/dL 01/20/23 15:18 Glucose (UA)(Auto) 0 mg/dL 01/20/23 15:18 Urine Ketones (Auto) Negative 01/20/23 15:18 Urine Blood (Auto) 0 Donovan/uL 01/20/23 15:18 Urine Nitrite (Auto) Negative 01/20/23 15:18 Urine Bilirubin (Auto) 0 mg/dL 01/20/23 15:18 Urine Urobilinogen (Auto) 0.2 mg/dL 01/20/23 15:18 Leukocyte Esterase (Auto) 0 Madalyn/uL 01/20/23 15:18 Date of Service: 12/21/22 Procedure(s): US retroperitoneal comp EXAMINATION: US RETROPERITONEAL COMPLETE (RENAL) FINDINGS: RIGHT KIDNEY: 10.7 x 4.5 x 4.4 cm (SAG x AP x TRV). The kidney is normal in size, contour, and echogenicity. Renal cortical thickness is normal. No calculi or focal parenchymal lesions. No hydronephrosis. LEFT KIDNEY: 9.4 x 4.4 x 4.9 cm (SAG x AP x TRV). The kidney is normal in size, contour, and echogenicity. Renal cortical thickness is normal. No calculi or focal parenchymal lesions. No hydronephrosis. BLADDER: Bladder is decompressed. Bilateral ureteral jets are demonstrated. Prevoid bladder volume is 8.16 mL. Postvoid bladder volume is 0.4 mL. IMPRESSION: Unremarkable renal ultrasound. Assessment & Plan Assessment & Plan (1) Urinary incontinence: Code(s): R32 - Unspecified urinary incontinence (2) Increased urinary frequency: Code(s): R35.0 - Frequency of micturition Plan In office urinalysis results reviewed with the patient today; as noted above. PVR 0 mL. Recent retroperitoneal ultrasound results reviewed with the patient today; as noted above. Patient reports a improvement in urinary symptoms on Gemtesa Refill provided. Discussed near future in office cystoscopy for further assessment evaluation if symptoms arise and or worsen. Discussed at length bladder triggers/irritants. Discussed timed voiding and pelvic floor exercises for improvement in urinary symptoms. Follow-up in 6 months with PVR; if not sooner with any questions, issues, and or concerns. Orders: Orders AMB Urinalysis Automated 01/20/23 Z13.9 - Encounter for screening, unspecified AMB Post Void Residual by ultrasound 01/20/23 R32 - Unspecified urinary incontinence Medications: Changed From vibegron (Gemtesa) 75 mg PO DAILY 30 days 30 tabs 0RF N32.81 - Overactive bladder To vibegron (Gemtesa) 75 mg PO DAILY 90 days 90 tabs 3RF N32.81 - Overactive bladder Patient Instructions: The patient had an opportunity to ask questions regarding the treatment plan. All questions were answered. Physical exam, labs, and imaging were discussed and reviewed in detail. As well as risks, benefits, and discussion of treatment choices. No major barriers to understanding were identified. The patient expressed understanding and agreement with the above treatment plan. The patient was made aware they should contact our office by phone for worsening of their current condition, the appearance of new symptoms, or with any questions or concerns. Compliance is encouraged with any medications and follow up testing that is ordered. It is a privilege to be allowed the opportunity to participate in? your urological care.? Again, if you have any questions or concerns If you have any questions or concerns please do not hesitate to contact me. The office is [phone]. This note is constructed using voice recognition software. While every effort has been made to ensure accuracy home lighting adviser errors may have been included. Yours sincerely, ROSA Matute Coding Level of Care Code Est Pt Level 3 (55190) Diagnoses Urinary incontinence R32 Increased urinary frequency R35.0 CPT Codes Post Residual Void - PVR CPT Code: 13828-Sfcy Void Residual by ultrasound ([id number])
== END 2023-01-20 15:42 | disposition home or self-care (01) ==
PROVIDERS: Visit Provider Nurse Practitioner Family
DX: R32 Unspecified urinary incontinence (principal); R35.0 Frequency of micturition
CPT/HCPCS: 99213

== ENCOUNTER 2023-04-07 12:46 | Outpatient (REF) | payer OTHER, SELFPAY ==
--- NOTE | ~2023-04-07 | XR_ITS ---
EXAMINATION: XR SHOULDER, RIGHT XR FOOT, RIGHT CLINICAL INFORMATION: Right shoulder pain. Right heel pain. COMPARISON: 10/03/2021 right shoulder. TECHNIQUE: Four views of the right shoulder. 3 views of the right foot. FINDINGS: RIGHT SHOULDER: Acromioclavicular alignment preserved. Glenohumeral alignment maintained. No abnormal soft tissue calcifications identified adjacent to the greater tuberosity. Mild sclerosis along the greater tuberosity. RIGHT FOOT: Small plantar calcaneal spur. Minimal degenerative changes 1st metatarsophalangeal joint with mild hypertrophic change. Hypertrophic change along the 1st tarsometatarsal joint medially. Corticated 3 mm cystic lucency at the distal subarticular region of the 1st proximal phalange. XR/XR foot RT 2V IMPRESSION: 1. Mild sclerosis along the greater tuberosity. 2. Small plantar calcaneal spur with mild degenerative changes. No displaced fracture. Recommend followup imaging in 10-14 days if fracture is suspected.
--- NOTE | ~2023-04-07 | XR_ITS ---
EXAMINATION: XR SHOULDER, RIGHT XR FOOT, RIGHT CLINICAL INFORMATION: Right shoulder pain. Right heel pain. COMPARISON: 10/03/2021 right shoulder. TECHNIQUE: Four views of the right shoulder. 3 views of the right foot. FINDINGS: RIGHT SHOULDER: Acromioclavicular alignment preserved. Glenohumeral alignment maintained. No abnormal soft tissue calcifications identified adjacent to the greater tuberosity. Mild sclerosis along the greater tuberosity. RIGHT FOOT: Small plantar calcaneal spur. Minimal degenerative changes 1st metatarsophalangeal joint with mild hypertrophic change. Hypertrophic change along the 1st tarsometatarsal joint medially. Corticated 3 mm cystic lucency at the distal subarticular region of the 1st proximal phalange. XR/XR shoulder RT min 2V IMPRESSION: 1. Mild sclerosis along the greater tuberosity. 2. Small plantar calcaneal spur with mild degenerative changes. No displaced fracture. Recommend followup imaging in 10-14 days if fracture is suspected.
== END 2023-04-07 12:47 | disposition home or self-care (01) ==
LOC: HO.XRAY 12:46
PROVIDERS: PCP Internal Medicine; Visit Provider Internal Medicine
DX: M25.511 Pain in right shoulder (principal); M79.641 Pain in right hand
CPT/HCPCS: 73030; 73620

== ENCOUNTER 2023-04-27 11:05 | Outpatient (AMB) | payer OTHER, SELFPAY ==
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
== END 2023-04-27 12:18 | disposition home or self-care (01) ==
PROVIDERS: PCP Internal Medicine; Visit Provider Orthopaedic Surgery
DX: M25.811 Other specified joint disorders, right shoulder (principal); M17.11 Unilateral primary osteoarthritis, right knee
CPT/HCPCS: 20610; 99213

== ENCOUNTER → 2023-04-27 11:05 | Outpatient (BNVA) | payer OTHER, SELFPAY | PROVIDERS: PCP Internal Medicine; Visit Provider Orthopaedic Surgery | DX: M25.811 Other specified joint disorders, right shoulder (principal); M17.11 Unilateral primary osteoarthritis, right knee | CPT/HCPCS: 20610; 99212; J0665; J1100 ==

== ENCOUNTER 2023-05-08 09:41 | Outpatient (AMB) | payer OTHER, SELFPAY ==
--- NOTE | 2023-05-08 09:41 | MHC.OFFVIS ---
Intake Intake Visit Reasons: IUD removal consult Intake Note: cell # [phone] Allergies Penicillins Allergy (Severe, Verified 05/08/23 09:41) ANAPHYLAXIS, HIVES animal dander Allergy (Mild, Verified 05/08/23 09:41) ITCHY HIVES THROAT SWOLLEN lactose [LACTOSE] Allergy (Mild, Verified 05/08/23 09:41) DIARRRHEA many vegetables Allergy (Severe, Uncoded 04/20/23 14:22) hives, throat... nuts Allergy (Severe, Uncoded 04/20/23 14:22) hives, throat... FRUIT, SKINS Allergy (Mild, Uncoded 04/20/23 14:22) SWELLING fruits Allergy (Unknown, Uncoded 04/20/23 14:22) hives, throat closes seasonal allergies Allergy (Unknown, Uncoded 04/20/23 14:22) Unknown MEAT Adverse Reaction (Mild, Uncoded 04/20/23 14:22) ABDOMINAL PAIN Medication List - Last Reconciled 05/08/23 by Ebony Hawkins CNM albuterol sulfate 90 mcg/actuation inhalation albuterol sulfate 2.5 mg inhalation Q4H PRN fexofenadine (Sarah Allergy) 60 mg PO BID levonorgestrel (Mirena) intrauterine mometasone-formoterol 100-5 mcg/actuation (Dulera) 2 puffs inhalation BID montelukast 10 mg PO DAILY PRN naproxen sodium (Aleve) 220 mg PO BID PRN trolamine salicylate 10% (Aspercreme) 1 appl topical DAILY PRN vibegron (Gemtesa) 75 mg PO DAILY 90 days HPI IUD removal consult HPI Details This is a tele visit to discuss taking out the patient's Mirena IUD. She has been plagued by recurrence of pelvic pain especially on the right side that sometimes makes it so she can even get out of bed and it seems to come randomly to her and it can last for quite a while and on questioning she says it can last up for to 2 weeks. She also is noticing a recurrence of acne she thinks it is a root related to wonder she is under stress she is always under stressed with either work or children or family or pills or something but also she has been told that she has become more hernandez at times and she snaps and that is when the acne is worse. In reviewing her history the last visit and tails a lot of the detail of her history her IUD was placed initially after a period of menorrhagia during a D&C and then it was replaced again in 2016. She had a history of PCOS with all of its symptoms as well. The patient herself is trying to lose weight right now and is trying to manage other issues such as constipation with the use of carlo, lemon, and turmeric tea, which works very well for her. She was thinking about trying to take out the IUD and just see if that was what was messing up her hormones just does everything is just getting to be too much she happens to have the pain right now on her right side and it is pretty bad. [facility] Medical History Allergic rhinitis Asthma Bacterial vaginosis Carpal tunnel syndrome, bilateral upper limbs Morbid obesity CHIKIS (obstructive sleep apnea) Somnolence, daytime Surgical History History of carpal tunnel surgery History of thumb surgery History of tonsillectomy Previous section S/P ACL reconstruction Family History Mother Diabetes Hypertension Arthritis Father Liver cancer Paternal Aunt Family history of autoimmune disorder (System 04/20/23 @ 14:22 by Gracie Sales) Alcohol intake: current Alcohol intake frequency: holidays/special occasions only Patient Tobacco Use Status: Never used Tobacco Substance Use Type: Marijuana Current occupational status: employed 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 Negative for intraepithelial lesion or malignancy. Coccobacilli consistent with shift in vaginal jonathan. HPV mRNA E6/E7: NOT DETECTED This assay detects E6/E7 viral messenger RNA (mRNA) from 14 high-risk HPV types (16, 18, 31, 33, 35, 39, 45, 51, 52, 56, 58, 59, 66, 68) HPV testing performed by [email or web address], [place], [place]. See reference laboratory portion of the EMR for entire report. Clinical Information LMP: Mirena, No menses Previous PAP test: 08/23/17, WNL Material Received ThinPrep-Cervical Electronically Signed By: Macie Veronica 03/12/22 4909 The Pap Test is a screening procedure with the inherent possibility of both false negative and false positive results. Results should be interpreted in the context of historic and current clinical findings. Reliability of the Pap Test is enhanced by performing the test on a regular repetitive basis. Patient: John Stapleton Age/Sex: 37/F MR#: [id number] Page 1 of 1 PLEASE SEE THE COMPLETE REVIEW OF HER HISTORY THAT WAS NOTED IN HER VISIT OF 2021 INCLUDING HER HISTORY OF MENORRHAGIA, PCOS D AND C'S INSERTION OF IUDS AT VARIOUS TIMES AND REPLACEMENTS. Assessment & Plan Assessment & Plan (1) Metrorrhagia: Comment: Currently managed since 2009 with serial Mirena IU S s Code(s): N92.1 - Excessive and frequent menstruation with irregular cycle (2) Presence of 52 mg levonorgestrel-releasing intrauterine device (IUD): Comment: Originally inserted in 2009 during D&C for menorrhagia. It was replaced in 2016 in the office. She is using it to help with her bleeding profile, she does not needed for control as she has a tubal ligation. Code(s): Z97.5 - Presence of (intrauterine) contraceptive device (3) Pelvic pain: Comment: kacy right side, periodic.. more in last yr Code(s): R10.2 - Pelvic and perineal pain Plan This is a tele visit to discuss taking out the patient's Mirena IUD. She has been plagued by recurrence of pelvic pain especially on the right side that sometimes makes it so she can even get out of bed and it seems to come randomly to her and it can last for quite a while and on questioning she says it can last up for to 2 weeks. She also is noticing a recurrence of acne she thinks it is a root related to wonder she is under stress she is always under stressed with either work or children or family or pills or something but also she has been told that she has become more hernandez at times and she snaps and that is when the acne is worse. In reviewing her history the last visit and tails a lot of the detail of her history her IUD was placed initially after a period of menorrhagia during a D&C and then it was replaced again in 2016. She had a history of PCOS with all of its symptoms as well. The patient herself is trying to lose weight right now and is trying to manage other issues such as constipation with the use of carlo, lemon, and turmeric tea, which works very well for her. She was thinking about trying to take out the IUD and just see if that was what was messing up her hormones just does everything is just getting to be too much she happens to have the pain right now on her right side and it is pretty bad. Lengthy discussion about her history in detail and review of past visits reviewing why the IUD was placed and a history of it which she did not remember. Discussed that it may be that in fact that the IUD has been protecting her somewhat from the hormonal shifts of cycles and now it is wearing off since was last replaced in 2016 she is not getting a menstrual. Per se so she does not recognize the cyclic changes that are occurring but the moodiness the acne and the pain on 1 side could all do be quality assurance representative of cyclic changes having to do with return of ovulatory function and hormonal shifts of her cycle. I am going to order a pelvic ultrasound to be done urgently this week hopefully to be done while she has the pain on the right side to see if it can document presence of any cyst and we will have a visit afterwards that may involve removing of the IUD may involve replacement of the IUD or may involve none of the above the decision will be up to her she is considering going for a hormone free. However she actually has not lost too much weight yet and it is quite likely that return of her PCOS issues with menorrhagia would recur her and that is the reason for which was placed protectively in the 1st place. We will see her after the ultrasound, PLEASE SEE THE COMPLETE REVIEW OF HER HISTORY THAT WAS NOTED IN HER VISIT OF 2021 INCLUDING HER HISTORY OF MENORRHAGIA, PCOS D AND C'S INSERTION OF IUDS AT VARIOUS TIMES AND REPLACEMENTS. Orders: Orders US pelvic and transvaginal Today N92.1 - Excessive and frequent menstruation with irregular cycle, R10.2 - Pelvic and perineal pain, Z97.5 - Presence of (intrauterine) contraceptive device Telehealth Telehealth Location of provider rendering services: practice address Location of patient: address on file Patient Identification confirmed using: Name, : Yes Telehealth method: video Patient verbally consented to treatment: Yes Patient verbally consented to billing insurance company: Yes Patient informed of any privacy concerns related to visit: Yes Coding Level of Care Code Tele Est Pt Level 3 (28851) Diagnoses Metrorrhagia N92.1 Presence of 52 mg levonorgestrel-releasing intrauterine device (IUD) Z97.5 Pelvic pain R10.2 Time Spent (min) 38 Comment 1 cr/28 video w pt/7 charting
== END 2023-05-08 13:43 | disposition home or self-care (01) ==
LOC: HO.HWS 09:41
PROVIDERS: PCP Internal Medicine; Visit Provider Advanced Practice Midwife
DX: N92.1 Excessive and frequent menstruation with irregular cycle (principal); Z97.5 Presence of (intrauterine) contraceptive device; R10.2 Pelvic and perineal pain
CPT/HCPCS: 99213

== ENCOUNTER → 2023-05-08 09:41 | Outpatient (BNVA) | payer OTHER, SELFPAY | PROVIDERS: PCP Internal Medicine; Visit Provider Advanced Practice Midwife ==

== ENCOUNTER 2023-05-12 15:22 | Outpatient (REF) | payer OTHER, SELFPAY ==
--- NOTE | ~2023-05-12 | US_ITS ---
EXAMINATION: US PELVIS CLINICAL INFORMATION: Excessive and frequent menstruation with irregular cycle COMPARISON: Previous pelvic ultrasound February 2022 TECHNIQUE: Ultrasound of the pelvis is performed using both transabdominal and transvaginal transducers along with Doppler. Transvaginal imaging is performed due to inadequate visualization transabdominally. FINDINGS: The uterus is anteverted and retroflexed and measures 13.5 x 5 x 6.7 cm in dimension. No focal uterine lesion is seen. There is an IUD in the uterus in satisfactory position. The endometrium is difficult to visualize due to retroverted position and IUD but does not appear thickened. There is a nabothian cyst cervix. The right ovary measures 3.8 x 3.1 x 3.2 cm. There is a 2.6 x 2.3 x 2.4 cm slightly complex right ovarian cyst with slightly thickened septation. This is new from February 2022 exam. The left ovary is not seen. There is no fluid in pelvis. US/US pelvic and transvaginal IMPRESSION: IUD in the uterus in satisfactory position. Endometrium difficult to visualize but does not appear thickened. 2.6 x 2.3 x 2.4 cm new complex right ovarian cyst. Left ovary not seen.
== END 2023-05-12 15:23 | disposition home or self-care (01) ==
LOC: HO.US 15:22
PROVIDERS: PCP Internal Medicine; Visit Provider Advanced Practice Midwife
DX: N92.1 Excessive and frequent menstruation with irregular cycle (principal); R10.2 Pelvic and perineal pain; Z97.5 Presence of (intrauterine) contraceptive device
CPT/HCPCS: 76830; 76856

== ENCOUNTER 2023-06-28 11:38 | Outpatient (AMB) | payer OTHER, SELFPAY ==
[2023-06-28 11:40] VITALS: BP 118/66; BMI 40.0
--- NOTE | 2023-06-28 11:40 | A.OFFVIS_ITS ---
Intake Vital Signs 06/28/23 11:40 Height 5 ft Weight 205 lb BMI 40.0 BP 118/66 Intake Visit Reasons: Annual/ follow up US Credit Control Administrator Required: No Information Interpreted: non-clinical & clinical Motion Picture Set Up Worker: Motion Picture Set Up Worker Present (Sofiya) Allergies Penicillins Allergy (Severe, Verified 06/28/23 11:42) ANAPHYLAXIS, HIVES animal dander Allergy (Mild, Verified 06/28/23 11:42) ITCHY HIVES THROAT SWOLLEN lactose [LACTOSE] Allergy (Mild, Verified 06/28/23 11:42) DIARRRHEA many vegetables Allergy (Severe, Uncoded 06/28/23 11:42) hives, throat... nuts Allergy (Severe, Uncoded 06/28/23 11:42) hives, throat... 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 She had history of abnormal Paps over 20 years ago but since then have been normal. She has no real worries about STIs but accepts testing during the visit she has her 2nd Mirena IU S which we checked with an ultrasound. They were 1st placed during a D&C for m enorrhagia and then later replaced in 2016. She has not had her periods since the 1st 1 was placed. We did discuss replacing it and while the recommendations say that it can be replaced after 5 years it is also possible to wait and see if she starts with menses and that would be an easy time to replace it she does not need it for control. She will see when she chooses to have it replaced. The ultrasound did show a complex cyst on 1 side so we will have a follow-up appointment after a 3 month ultrasound she has not had any pain since her last tele visit with me in the fall. She is trying to eat really well and she drinks different kinds of herbal teas and puts lemon or carlo in them as she chooses. She lives with her 2 daughters and partner and 7 cats she is very allergic to the cats and does her very best to manage her allergies and limit the amount of dander in the house as much as possible by even bathing the cats to diminish their dander. She wears gloves when she does this. She would like to have fewer of them but they are very adan and her daughter takes cure of them as well is very attached to them and she does not feel like she could get rid of them and break her daughter's heart. She sometimes has trouble holding her urine and she has on a medication for this and she believes she had a referral placed for pelvic floor therapy but she thinks the appointment might of been last week so she is going to call and double check and see about making that appointment she is also doing physical therapy that she has learned on her own for her shoulders and her knee and her neck and doing her very best to stay healthy she will turn 39 next January. [facility] Medical History (Updated 06/28/23 @ 12:30 by Ebony Hawkins CNM) Asthma Allergic rhinitis Somnolence, daytime CHIKIS (obstructive sleep apnea) Morbid obesity Carpal tunnel syndrome, bilateral upper limbs Bacterial vaginosis Surgical History (Updated 06/28/23 @ 11:45 by SHAZIA Barkley) Hx of appendectomy History of thumb surgery History of carpal tunnel surgery S/P ACL reconstruction History of tonsillectomy Previous section Family History (Updated 06/28/23 @ 11:45 by SHAZIA Barkley) Mother Diabetes Hypertension Arthritis Father Liver cancer Paternal Aunt Family history of autoimmune disorder Maternal Grandfather Colon cancer Social History Alcohol intake: current Alcohol intake frequency: holidays/special occasions only Patient Tobacco Use Status: Never used Tobacco Substance Use Type: Marijuana Current occupational status: employed 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 Female Reproductive History Menstrual Age of Menarche: 9 control method: progestin IUCD Total pregnancies: 3 Full term: 3 Number of Living Children: 3 Date of last pap smear: 03/02/22 (negative) History of abnormal pap smear: Yes (2000 [facility]US) Physical Exam Vital Signs: BMI result Body Mass Index 40.0 Const General: healthy appearing, comfortable, no acute distress, well developed and alert Nutritional Appearance: average body habitus Orientation/consciousness: patient oriented x3 Limitations: no limitations HEENT Head: Yes normocephalic Neck Neck: Yes normal visual inspection Chest Chest palpation & inspection: normal inspection of the chest Breast/axilla inspection: normal inspection of the breasts and normal inspection of the axillae Breast/axilla palpation: normal palpation of the breasts and normal palpation of the axillae Resp Effort & Inspection: normal respiratory effort GI Inspection: Yes normal to inspection, No Abdominal wall edema and No distended Palpation (GI): Soft to palpation and nontender Other: Vagina pink and moist. Cervix appears nulliparous. There is an eyelash length of Mirena string visible at os uterus difficult to palpate nontender adnexa nontender good tone with Kegel. General: Yes bladder normal to palpation External Female Exam: normal external appearance and normal appearance of the urethra Speculum Exam - Vagina: normal appearance of the vagina, normal palpation and normal vaginal discharge Speculum Exam - Cervix: normal appearance of the cervix, normal palpation and nontender Bimanual exam- vagina & uterus: normal bimanual exam, normal palpation, uterine size normal, bladder normal to palpation, consistency normal, normal palpation, uterine mobility normal, uterine shape normal, No Cervical tenderness present, non-tender and no cervical motion tenderness Bimanual Exam- Adnexa, other: normal adnexae, no masses, normal and No adnexal tenderness Neuro General: patient oriented x3 Results Reviewed Results Reviewed: Patient: John Stapleton MR#: [id number] : 1985 Acct:[id number] Age/Sex: 38 / F ADM Date: 05/12/23 Loc: HO. Attending Dr: Ebony Hawkins CNM Ordering Physician: Ebony Hawkins CNM Date of Service: 05/12/23 Procedure(s): US pelvic and transvaginal Accession Number(s): [id number] cc: Marshal Nava MD; Ebony Hawkins CNM~ EXAMINATION: US PELVIS CLINICAL INFORMATION: Excessive and frequent menstruation with irregular cycle COMPARISON: Previous pelvic ultrasound February 2022 TECHNIQUE: Ultrasound of the pelvis is performed using both transabdominal and transvaginal transducers along with Doppler. Transvaginal imaging is performed due to inadequate visualization transabdominally. FINDINGS: The uterus is anteverted and retroflexed and measures 13.5 x 5 x 6.7 cm in dimension. No focal uterine lesion is seen. There is an IUD in the uterus in satisfactory position. The endometrium is difficult to visualize due to retroverted position and IUD but does not appear thickened. There is a nabothian cyst cervix. The right ovary measures 3.8 x 3.1 x 3.2 cm. There is a 2.6 x 2.3 x 2.4 cm slightly complex right ovarian cyst with slightly thickened septation. This is new from February 2022 exam. The left ovary is not seen. There is no fluid in pelvis. US/US pelvic and transvaginal IMPRESSION: IUD in the uterus in satisfactory position. Endometrium difficult to visualize but does not appear thickened. 2.6 x 2.3 x 2.4 cm new complex right ovarian cyst. Left ovary not seen. Dictated By: Dedra Morris MD Signed By: <Electronically signed by Dedra Morris MD in OV> 05/12/23 1639 DD/ 1559 TD/TT: Refrigeration Installer: HUMERA please also see notes referring past visits and insertions of IUDs to manage menorrhagia which was connected with her history of PCOS. she currently has her 2nd IUD/Mirena. Assessment & Plan Assessment & Plan (1) Pelvic pain: Comment: kacy right side, periodic.. more in last yr,; as of 06/28/2023 not since last visit. Code(s): R10.2 - Pelvic and perineal pain (2) Cervical cancer screening: Comment: 03/01/2022 Pap is negative with negative HPV. Code(s): Z12.4 - Encounter for screening for malignant neoplasm of cervix (3) Potential exposure to STD: Code(s): Z20.2 - Contact with and (suspected) exposure to infections with a predominantly sexual mode of transmission (4) Well woman exam with routine gynecological exam: Code(s): Z01.419 - Encounter for gynecological examination (general) (routine) without abnormal findings (5) IUD (intrauterine device) in place: Code(s): Z97.5 - Presence of (intrauterine) contraceptive device (6) Presence of 52 mg levonorgestrel-releasing intrauterine device (IUD): Comment: Originally inserted in 2009 during D&C for menorrhagia. It was replaced in 2016 in the office. She is using it to help with her bleeding profile, she does not needed for control as she has a tubal ligation. Code(s): Z97.5 - Presence of (intrauterine) contraceptive device (7) Asthma: Comment: Her history is consistent with chronic allergic bronchial asthma. Discussed about avoidance of allergens/triggers.. Most importantly she may have to gave away her cats, but she is not even considering that. PULMONARY FUNCTION TEST IS ORDERED, TX : Continue Dulera of 100-5 2 puffs b.i.d. Continue montelukast 10 mg daily. Albuterol HFA 2 puffs Q 4-6 hours p.r.n.. Will recheck after 6 weeks, after she has the sleep study and PFT. 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 She had history of abnormal Paps over 20 years ago but since then have been normal. She has no real worries about STIs but accepts testing during the visit she has her 2nd Mirena IU S which we checked with an ultrasound. They were 1st placed during a D&C for menorrhagia and then later replaced in 2016. She has not had her periods since the 1st 1 was placed. We did discuss replacing it and while the recommendations say that it can be replaced after 5 years it is also possible to wait and see if she starts with menses and that would be an easy time to replace it she does not need it for control. She will see when she chooses to have it replaced. The ultrasound did show a complex cyst on 1 side so we will have a follow-up appointment after a 3 month ultrasound she has not had any pain since her last tele visit with me in the fall. She is trying to eat really well and she drinks different kinds of herbal teas and puts lemon or cralo in them as she chooses. She lives with her 2 daughters and partner and 7 cats she is very allergic to the cats and does her very best to manage her allergies and limit the amount of dander in the house as much as possible by even bathing the cats to diminish their dander. She wears gloves when she does this. She would like to have fewer of them but they are very adan and her daughter takes cure of them as well is very attached to them and she does not feel like she could get rid of them and break her daughter's heart. She sometimes has trouble holding her urine and she has on a medication for this and she believes she had a referral placed for pelvic floor therapy but she thinks the appointment might of been last week so she is going to call and double check and see about making that appointment she is also doing physical therapy that she has learned on her own for her shoulders and her knee and her neck and doing her very best to stay healthy she will turn 39 next January. Will let me know when she wishes to replace the Mirena if she had her menses that would be a very opportune time to do it. Right now she is managing her health as best she can both with exercises for her shoulders neck and knees and back and also for her overall health and weight and very especially for allergies and asthma and doing the best she can with Cat roommates! Offer to repeat ultrasound to check on ovarian cyst will requested for about 3 months and will have a follow-up visit after that meanwhile will see her in about a year or whenever she wishes to replace her Mirena. . Also discussed trying not to hold her urine for too long so that when she 1st feels a need to void she goes and is more likely to be more successful at voiding. She is going to follow-up with physical therapy for this as well. Orders: Orders CT NG by PCR Today Z20.2 - Contact with and (suspected) exposure to infections with a predominantly sexual mode of transmission US pelvic and transvaginal 3 Months J45.909 - Unspecified asthma, uncomplicated, N83.299 - Other ovarian cyst, unspecified side, R10.2 - Pelvic and perineal pain, Z01.419 - Encounter for gynecological examination (general) (routine) without abnormal findings, Z12.4 - Encounter for screening for malignant ne oplasm of cervix, Z20.2 - Contact with and (suspected) exposure to infections with a predominantly sexual mode of transmission, Z97.5 - Presence of (intrauterine) contraceptive device Bacterial Vaginosis Panel Today Z20.2 - Contact with and (suspected) exposure to infections with a predominantly sexual mode of transmission Coding Level of Care Code Est Pt Prev Care 18-39y(09647) Diagnoses Pelvic pain R10.2 Cervical cancer screening Z12.4 Potential exposure to STD Z20.2 Well woman exam with routine gynecological exam Z01.419 IUD (intrauterine device) in place Z97.5 Presence of 52 mg levonorgestrel-releasing intrauterine device (IUD) Z97.5 Asthma J45.909 Ovarian cyst, complex N83.299
--- OUTSIDE RECORDS SUMMARY | 2023-06-28 11:40 | XMS_ITS | Continuity of Care Document ---
Author Name Unknown Organization [facility] Address Unknown Care Team Providers Care Filter Tip Inspector Name Role Phone Marshal Nava MD Primary Care Physician [place] [facility](s[place] 09/08/21 - 10/08/21 [facility] Allergies, Adverse Reactions, Alerts Substance Reaction Severity Status penicillin Active Nuts Rash Active Fruit Rash Active
== END 2023-06-28 12:14 | disposition home or self-care (01) ==
LOC: HO.HWSM 11:38
PROVIDERS: PCP Internal Medicine; Visit Provider Advanced Practice Midwife
DX: Z01.419 Encounter for gynecological examination (general) (routine) without abnormal findings (principal); R10.2 Pelvic and perineal pain; Z20.2 Contact with and (suspected) exposure to infections with a predominantly sexual mode of transmission; Z97.5 Presence of (intrauterine) contraceptive device; N83.299 Other ovarian cyst, unspecified side; J45.909 Unspecified asthma, uncomplicated
CPT/HCPCS: 99395

== ENCOUNTER 2023-06-28 11:38 | Outpatient (REF) | payer OTHER, SELFPAY ==
[2023-06-29 05:05] LABS: CT PCR NOT DETECTED (Not Detect.); NG PCR NOT DETECTED (Not Detect.)
[2023-06-29 09:56] LABS: BV Int Neg Control Negative (Negative); BV Int Pos Control Positive (Positive)
== END 2023-06-28 11:39 | disposition home or self-care (01) ==
LOC: HO.LNP 11:38
PROVIDERS: PCP Internal Medicine; Visit Provider Advanced Practice Midwife
DX: R10.2 Pelvic and perineal pain (principal); Z20.2 Contact with and (suspected) exposure to infections with a predominantly sexual mode of transmission; Z97.5 Presence of (intrauterine) contraceptive device; N83.299 Other ovarian cyst, unspecified side
CPT/HCPCS: 0353U; 87480; 87510; 87660; 99395

== ENCOUNTER 2023-07-20 11:02 | Outpatient (AMB) | payer OTHER, SELFPAY ==
--- NOTE | 2023-07-20 11:04 | A.OFFVIS_ITS ---
Intake Vital Signs 07/20/23 11:05 Height 5 ft Weight 205 lb BMI 40.0 Intake Visit Reasons: OV- RT shoulder impingement - Last inj 04/27/23 Intake Note: Cheng is a 38 year old right hand dominant female who presents today for a follow up visit with complaints of right shoulder Impingement. The right shoulder was injected on 04/27/23. Patient reports that the injection was not helpful. She has had increased pain of the right shoulder, she feels that the arm is weak. She has pain with any and all acitivity and the pain is afftecting her AODL Allergies Penicillins Allergy (Severe, Verified 06/28/23 11:42) ANAPHYLAXIS, HIVES animal dander Allergy (Mild, Verified 06/28/23 11:42) ITCHY HIVES THROAT SWOLLEN lactose [LACTOSE] Allergy (Mild, Verified 06/28/23 11:42) DIARRRHEA many vegetables Allergy (Severe, Uncoded 06/28/23 11:42) hives, throat... nuts Allergy (Severe, Uncoded 06/28/23 11:42) hives, throat... FRUIT, SKINS Allergy (Mild, Uncoded 06/28/23 11:42) SWELLING fruits Allergy (Unknown, Uncoded 06/28/23 11:42) hives, throat closes seasonal allergies Allergy (Unknown, Uncoded 06/28/23 11:42) Unknown MEAT Adverse Reaction (Mild, Uncoded 06/28/23 11:42) ABDOMINAL PAIN HPI OV- RT shoulder impingement - Last inj 04/27/23 HPI Details John is a 38 year old woman who returns with complaints of right shoulder impingement pain. She complains of pain with daily activity, along with limited ROM. Her pain is worse with overhead activity or at night. She was last seen, and injected, on 04/27/23, with no relief. She feels her arm is weak and she is limited in her ADLs. [facility] Medical History Asthma Allergic rhinitis Somnolence, daytime CHIKIS (obstructive sleep apnea) Morbid obesity Carpal tunnel syndrome, bilateral upper limbs Bacterial vaginosis Surgical History Hx of appendectomy History of thumb surgery History of carpal tunnel surgery S/P ACL reconstruction History of tonsillectomy Previous section Family History Mother Diabetes Hypertension Arthritis Father Liver cancer Paternal Aunt Family history of autoimmune disorder Maternal Grandfather Colon cancer Social History Alcohol intake: current Alcohol intake frequency: holidays/special occasions only Patient Tobacco Use Status: Never used Tobacco Substance Use Type: Marijuana Current occupational status: employed 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 Female Reproductive History Menstrual Age of Menarche: 9 Review of Systems Const All systems reviewed & are unremarkable except as noted in HPI and below Physical Exam Vital Signs: BMI result Body Mass Index 40.0 Const General: no acute distress, alert and awake Orientation/consciousness: patient oriented x3 HEENT Head: Yes normocephalic and Yes atraumatic Eyes EOM: EOMs intact bilaterally Resp Effort & Inspection: normal respiratory effort and able to speak in complete sentences Cardio Jugular venous distension: no JVD Skin General skin exam: turgor normal Rashes: no rashes Neuro General: patient oriented x3 Extrem Other: Right shoulder iwth + H/N Neg EC periscapular tightness Psych Appearance: grossly normal Affect: normal affect Attitude: cooperative Office Procedures Joint Injection/Drain Joint Injection/Drain Details: Injected 1 mL of Decadron and 3 mL 1% lidocaine and 3 mL of 0.25% Marcaine. Site was prepped using aseptic technique. Patient tolerated the procedure well. Primary Site: right shoulder Approach Used: posterolateral Coding 98765 - Large joint Procedure code (CPT) selection complete Results Reviewed Results Reviewed: I personally reviewed relevant radiographs. nl shoulder radiographs Assessment & Plan Assessment & Plan (1) Internal derangement of right shoulder: Code(s): M24.811 - Other specific joint derangements of right shoulder, not elsewhere classified Plan: Long standing shoulder derangement. No releif with injections ,PT , NSAIDs. MRI ordered and additional PT for periscapular stabilization ordered. Plan Prepared for Marcus Leong MD by Tristan Reagan, medical attendant, on 07/20/23 at 11:10 AM, EST. Orders: Orders MR shoulder RT wo con Today M24.811 - Other specific joint derangements of right shoulder, not elsewhere classified PT Evaluation and Treatment Today M24.811 - Other specific joint derangements of right shoulder, not elsewhere classified Coding Level of Care Code Est Pt Level 3 (32030) Diagnoses Internal derangement of right shoulder M24.811 CPT Codes Coding - 02111 Large joint: 84102 - Large joint ([id number])
[2023-07-20 11:05] VITALS: BMI 40.0
== END 2023-07-20 11:51 | disposition home or self-care (01) ==
PROVIDERS: PCP Internal Medicine; Visit Provider Orthopaedic Surgery
DX: M24.811 Other specific joint derangements of right shoulder, not elsewhere classified (principal)
CPT/HCPCS: 20610; 99213

== ENCOUNTER → 2023-07-20 11:02 | Outpatient (BNVA) | payer OTHER, SELFPAY | PROVIDERS: PCP Internal Medicine; Visit Provider Orthopaedic Surgery | DX: M24.811 Other specific joint derangements of right shoulder, not elsewhere classified (principal) | CPT/HCPCS: 20610; 99212; J0665; J1100 ==

== ENCOUNTER 2023-09-04 11:07 | Outpatient (REF) | payer OTHER, SELFPAY ==
[2023-09-04 11:24] LABS: MANUAL DIFF FLAG NO
[2023-09-04 12:00] LABS: Basophils Percent Auto 0.4 % (0-2); Eosinophils Absolute Auto 0.4 X10*3/uL (0.0-0.4); Eosinophils Percent Auto 4.8 % (0-4); Hematocrit 43.1 % (37.0-47.0); Hemoglobin 15.1 g/dl (12.0-16.0); Imm Gran Abs Auto 0.02 X10*3/uL (0.00-0.03); Imm Gran Pct Auto 0.3 % (0.0-0.4); Lymphocytes Absolute Auto 2.6 X10*3/uL (1.2-4.9); Lymphocytes Percent Auto 36.1 % (20-40); Mean Corpuscular Hemoglobin 32.3 pg (27.0-33.0); Mean Corpuscular Volume 92.3 fL (80.0-98.0); Monocytes Absolute Auto 0.4 X10*3/uL (0.1-1.2); Monocytes Percent Auto 5.8 % (2-11); Neutrophils Absolute Auto 3.8 x10*3/uL (2.0-8.3); Neutrophils Percent Auto 52.6 % (45-73); Platelet Count 297 X10*3/uL (160-400); Red Blood Count 4.67 X10*6/uL (4.20-5.50); White Blood Count 7.3 X10*3/uL (4.8-10.8)
[2023-09-04 13:06] LABS: Alanine Aminotransferase 16 U/L (0-31); Albumin Level 4.7 g/dL (3.5-5.0); Alkaline Phosphatase 81 U/L (39-117); Anion Gap 11 (12-20); Aspartate Amino Transferase 15 U/L (5-31); Bilirubin Total 0.4 mg/dL (0.0-1.0); Blood Urea Nitrogen 19 mg/dL (9-16); Calcium 10.1 mg/dL (8.4-10.2); Carbon Dioxide 25 mmol/L (22-29); Chloride 106 mmol/L (96-108); Estimated Glomerular Filt Rate > 60; Free T4 (Free Thyroxine) 0.89 ng/dL (0.71-1.85); Glucose Random 111 mg/dL (60-115); Magnesium 1.9 mg/dL (1.6-2.6); Potassium 4.1 mmol/L (3.3-5.1); Sodium 138 mmol/L (135-145); Thyroid Stimulating Hormone 3.35 uIU/mL (0.32-4.0); Total Protein 7.9 g/dL (6.5-8.0); Vitamin D 25-OH Total 21.2 ng/mL (>30)
[2023-09-04 13:24] LABS: Vitamin B12 452 pg/mL (200-900)
== END 2023-09-04 11:08 | disposition home or self-care (01) ==
LOC: HO.LAB 11:07
PROVIDERS: PCP Internal Medicine; Visit Provider Internal Medicine
DX: J45.909 Unspecified asthma, uncomplicated (principal); K21.9 Gastro-esophageal reflux disease without esophagitis; R63.5 Abnormal weight gain; G25.81 Restless legs syndrome
CPT/HCPCS: 36415; 80053; 82306; 82607; 83735; 84439; 84443; 85025

== ENCOUNTER 2023-10-02 16:00 | Outpatient (RCR) | payer OTHER, SELFPAY ==
--- NOTE | 2023-09-18 16:20 | MHC.PT.EP ---
[facility] [place] Office [place] Office [place] Office [address] Keerthi Garcia [address] [phone] F: [phone] F: [phone] F: [phone] F: [phone] Physical Therapy Plan of Care Date of Evaluation: 09/18/23 Date of Surgery: 10 years Diagnosis: Other specific joint derangements of right shoulder, not elsewhere classified Assessment: Pt is a pleasant 38yo F who presents to PT with chronic Right shoulder pain. Pt presents to PT with current impairments in pain, decreased R shoulder ROM, decreased R shoulder strength, soft tissue restrictions, and impaired posture. She is limited functionally by reaching behind her back, reaching, lifting, and overhead ADLs. She is an excellent candidate for skilled PT in order to address current impairments to facilitate return to PLOF. 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 Manual therapy to restore motion and function. Therapeutic exercise to improve strength and flexibility. Neuromuscular re-education for posture and balance. Therapeutic activities to return to functional activities of daily living. Electronically signed by: Please sign and return to therapist. Thank you for your referral.
--- NOTE | 2023-11-08 16:15 | MHC.PT.DC ---
[facility] [place] Office [place] Office [place] Office [address] Keerthi Garcia [address] [phone] F: [phone] F: [phone] F: [phone] F: [phone] Physical Therapy Discharge Report Diagnosis: Other specific joint derangements of right shoulder, not elsewhere classified Date of Surgery: 10 years Date of Evaluation: 09/18/23 Date of Discharge: 11/08/23 Treatments to Date: 3 Cancellations to Date: No Shows to Date: 2 Discharge Status: Visit Non-compliance Discharge Summary: Pt was seen for PT from 09/18/23-10/02/23. She was last seen for PT on 10/02/23. She is being D/C from skilled PT per [facility] attendance policy and visit non compliance as she has had 2 no-show appointments since SOC. Pt current level of function unknown at this time Electronically signed by: Margo Mercado, PT, DPT Please sign and return to therapist. Thank you for your referral.
== END 2023-11-08 16:15 | disposition home or self-care (01) ==
LOC: HO.PT 16:00
PROVIDERS: PCP Internal Medicine; Visit Provider Orthopaedic Surgery
DX: M24.811 Other specific joint derangements of right shoulder, not elsewhere classified (principal)
CPT/HCPCS: 97110; 97140; 97161

== ENCOUNTER 2023-12-11 11:06 | Outpatient (AMB) | payer OTHER, SELFPAY ==
--- NOTE | 2023-12-11 11:08 | A.OFFVIS_ITS ---
Vital Signs 12/11/23 11:10 Height 5 ft Weight 215 lb BMI 42.0 Intake Visit Reasons: O/V Osteoarthritis of right knee pain Intake Note: John is a 38 year old female who present today for a follow up of right knee OA. Last injection in right knee was 04/11/22. Patient reports she has been having a lot of sharp pains and swelling that reoccurred about a month ago. She is getting sharp pains and tingling sensation on the anterior aspect of her knee. She expresses instability, trying to be NWB and avoiding any kind of activity that involves the right knee. She is very active and finds her knee pain is getting in the way of her ADLs. She has tried PT and found very little help. She had about 3 weeks of relief with her last injection. Allergies Penicillins Allergy (Severe, Verified 12/13/23 09:00) ANAPHYLAXIS, HIVES animal dander Allergy (Mild, Verified 12/13/23 09:00) ITCHY HIVES THROAT SWOLLEN lactose [LACTOSE] Allergy (Mild, Verified 12/13/23 09:00) DIARRRHEA many vegetables Allergy (Severe, Uncoded 12/11/23 11:16) hives, throat... nuts Allergy (Severe, Uncoded 12/11/23 11:16) hives, throat... FRUIT, SKINS Allergy (Mild, Uncoded 12/11/23 11:16) SWELLING fruits Allergy (Unknown, Uncoded 12/11/23 11:16) hives, throat closes seasonal allergies Allergy (Unknown, Uncoded 12/11/23 11:16) Unknown MEAT Adverse Reaction (Mild, Uncoded 12/11/23 11:16) ABDOMINAL PAIN HPI HPI O/V Osteoarthritis of right knee pain: Details: John is a 38 year old female who present today for a follow up of right knee OA. Last injection in right knee was 04/11/22. Patient reports she has been having a lot of sharp pains and swelling that reoccurred about a month ago. She is getting sharp pains and tingling sensation on the anterior aspect of her knee. She expresses instability, trying to be NWB and avoiding any kind of activ ity that involves the right knee. She is very active and finds her knee pain is getting in the way of her ADLs. She has tried PT and found very little help. She had about 3 weeks of relief with her last injection. [facility] Medical History Asthma Allergic rhinitis Somnolence, daytime CHIKIS (obstructive sleep apnea) Morbid obesity Carpal tunnel syndrome, bilateral upper limbs Bacterial vaginosis Surgical History Hx of appendectomy History of thumb surgery History of carpal tunnel surgery S/P ACL reconstruction History of tonsillectomy Previous section Family History Mother Diabetes Hypertension Arthritis Father Liver cancer Paternal Aunt Family history of autoimmune disorder Maternal Grandfather Colon cancer Social History Alcohol intake: current Alcohol intake frequency: holidays/special occasions only Patient Tobacco Use Status: Never used Tobacco Substance Use Type: Marijuana Current occupational status: employed 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 Reproductive History Menstrual Age of Menarche: 9 Physical Exam Vital Signs: BMI result Body Mass Index 42.0 Const General: no acute distress, alert and awake Orientation/consciousness: patient oriented x3 HEENT Head: Yes normocephalic and Yes atraumatic Eyes EOM: EOMs intact bilaterally Resp Effort & Inspection: normal respiratory effort and able to speak in complete sentences Cardio Jugular venous distension: no JVD Skin General skin exam: turgor normal Rashes: no rashes Neuro General: patient oriented x3 Extrem Other: Right Knee: moderate effusion retropatellar TTP Psych Appearance: grossly normal Affect: normal affect Attitude: cooperative Assessment & Plan Assessment & Plan (1) Osteoarthritis of right knee: Code(s): M17.11 - Unilateral primary osteoarthritis, right knee Category: Medical Plan: Patient has not improved with injections of steroid. I recommend viscosupplementation. We will order this and contact her when ready. Coding Level of Care Code Est Pt Level 4 (12443) Diagnoses Osteoarthritis of right knee M17.11
[2023-12-11 11:10] VITALS: BMI 42.0
== END 2023-12-11 11:22 | disposition home or self-care (01) ==
PROVIDERS: PCP Internal Medicine; Visit Provider Orthopaedic Surgery
DX: M17.11 Unilateral primary osteoarthritis, right knee (principal)
CPT/HCPCS: 99213

== ENCOUNTER → 2023-12-11 11:06 | Outpatient (BNVA) | payer OTHER, SELFPAY | PROVIDERS: PCP Internal Medicine; Visit Provider Orthopaedic Surgery | DX: M17.11 Unilateral primary osteoarthritis, right knee (principal) | CPT/HCPCS: 99212 ==

== ENCOUNTER 2023-12-13 08:54 | Outpatient (AMB) | payer OTHER, SELFPAY ==
--- NOTE | 2023-12-13 08:57 | A.OFFVIS_ITS ---
Vital Signs 12/13/23 09:00 Height 5 ft Weight 215 lb BMI 42.0 Intake Visit Reasons: O/V Right middle finger PIP joint osteoarthritis, Intake Note: John is 38 year old right hand dominant female who presents today for a follow up of her right middle finger PIP joint OA. Patient was seen in Rheumatology and they suggest to using Tylenol Arthritis a day as needed for pain. Also she can use Aleve sparingly. Patient differed OT. She finds mild relief with home remedies. Patient is feeling sore but it has been feeling a bit better since the last visit. Allergies Penicillins Allergy (Severe, Verified 12/13/23 09:00) ANAPHYLAXIS, HIVES animal dander Allergy (Mild, Verified 12/13/23 09:00) ITCHY HIVES THROAT SWOLLEN lactose [LACTOSE] Allergy (Mild, Verified 12/13/23 09:00) DIARRRHEA many vegetables Allergy (Severe, Uncoded 12/11/23 11:16) hives, throat... nuts Allergy (Severe, Uncoded 12/11/23 11:16) hives, throat... FRUIT, SKINS Allergy (Mild, Uncoded 12/11/23 11:16) SWELLING fruits Allergy (Unknown, Uncoded 12/11/23 11:16) hives, throat closes seasonal allergies Allergy (Unknown, Uncoded 12/11/23 11:16) Unknown MEAT Adverse Reaction (Mild, Uncoded 12/11/23 11:16) ABDOMINAL PAIN HPI HPI O/V Right middle finger PIP joint osteoarthritis,: Details: John is a 38 year old right hand dominant woman who return to discuss her right middle finger OA. She has been managing her pain with Tylenol Arthritis and Aleve. She has also been treating her finger with Holistic remedies, including snake & bee venom topical ointment, which she finds is helping her. She complains of generalized soreness in her middle finger. She says a few weeks ago her pain was much worse and her finger was swollen for ~3 weeks, preventing her from making a proper fist. She says she is feeling better in the last week. She finds that sweeping/mopping activities tend to cause her pain, and when she is in pain other activities such as brushing her hair or doing dishes worsens her pain & swelling. She says she feels a burning sensation in her joint before she develops swelling & pain. She refused OT hand therapy at the time. She is unsure if she has been by Rheumatology, but she was seen by Dr. 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 She says her work has been trying to accommodate her with less physically demanding activities for her [facility] Medical History Asthma Allergic rhinitis Somnolence, daytime CHIKIS (obstructive sleep apnea) Morbid obesity Carpal tunnel syndrome, bilateral upper limbs Bacterial vaginosis Surgical History Hx of appendectomy History of thumb surgery History of carpal tunnel surgery S/P ACL reconstruction History of tonsillectomy Previous section Family History Mother Diabetes Hypertension Arthritis Father Liver cancer Paternal Aunt Family history of autoimmune disorder Maternal Grandfather Colon cancer Social History Alcohol intake: current Alcohol intake frequency: holidays/special occasions only Patient Tobacco Use Status: Never used Tobacco Substance Use Type: Marijuana Current occupational status: employed 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 She has full active flexion and extension of the joint and can bring her finger closed to a fist and back into full extension. No change in her PIP joint ulnar deviation No locking or catching Radiographs: 3 views of the right hand, with attention to the middle finger, from 07/20/22 were reviewed by me today in clinic. They show fairly significant osteoarthritis of the middle finger, with osteophyte formation seen dorsally and ulnar deviation of the joint. She has some subchondral cyst formation seen as well. Index finger DIP joint also shows signs of osteoarthritis Assessment & Plan Assessment & Plan (1) 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: Code(s): M19.041 - Primary osteoarthritis, right hand Category: Medical Plan Assessment & Plan: 1. Right middle finger PIP joint osteoarthritis, early and rather significant for her age With some ulnar deviation No history of injury that she can recall 2. Evidence of generalized osteoarthritis or inflammatory arthritis More mild, but seen in multiple PIP and DIP joints I educated her about this condition I discussed treatment options I recommend activity modification, she should focus on maintaining her ROM I also recommend she use velcro meño-taping for her middle & ring fingers with heavier activities, or when at work. 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 She may also consider return in her to working as a MA or other occupation where there was not as much heavy work with her hands. She should continue her current medicinal treatment options. She has happy with the current plan. She can follow up prn 3. Left trigger thumb, S/P release DOS: 09/30/21 With full resolution of symptoms Scribed for Sowmya Perkins MD by Tristan Reagan, nuclear medical tech, on 12/13/23 at 9:10 AM, EST. Coding Level of Care Code Est Pt Level 4 (42956) Diagnoses 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 M19.041
[2023-12-13 09:00] VITALS: BMI 42.0
== END 2023-12-13 09:23 | disposition home or self-care (01) ==
PROVIDERS: PCP Internal Medicine; Visit Provider Orthopaedic Surgery
DX: M19.041 Primary osteoarthritis, right hand (principal)
CPT/HCPCS: 99213

== ENCOUNTER → 2023-12-13 08:54 | Outpatient (BNVA) | payer OTHER, SELFPAY | PROVIDERS: PCP Internal Medicine; Visit Provider Orthopaedic Surgery | DX: M19.041 Primary osteoarthritis, right hand (principal) | CPT/HCPCS: 99212 ==

== ENCOUNTER 2024-01-01 13:55 | Outpatient (AMB) | payer OTHER, SELFPAY ==
--- NOTE | 2024-01-01 14:02 | A.OFFVIS_ITS ---
Vital Signs 01/01/24 14:03 Height 5 ft 5 in Weight 215 lb BMI 35.8 Intake Visit Reasons: Right Knee Euflexxa #1 Intake Note: John is a 38 year old female who presents today for her Right Knee Euflexxa Injection #1 Allergies Penicillins Allergy (Severe, Verified 01/01/24 14:03) ANAPHYLAXIS, HIVES animal dander Allergy (Mild, Verified 01/01/24 14:03) ITCHY HIVES THROAT SWOLLEN lactose [LACTOSE] Allergy (Mild, Verified 01/01/24 14:03) DIARRRHEA many vegetables Allergy (Severe, Uncoded 01/01/24 14:03) hives, throat... nuts Allergy (Severe, Uncoded 01/01/24 14:03) hives, throat... FRUIT, SKINS Allergy (Mild, Uncoded 01/01/24 14:03) SWELLING fruits Allergy (Unknown, Uncoded 01/01/24 14:03) hives, throat closes seasonal allergies Allergy (Unknown, Uncoded 01/01/24 14:03) Unknown MEAT Adverse Reaction (Mild, Uncoded 01/01/24 14:03) ABDOMINAL PAIN PFSH Medical History Asthma Allergic rhinitis Somnolence, daytime CHIKSI (obstructive sleep apnea) Morbid obesity Carpal tunnel syndrome, bilateral upper limbs Bacterial vaginosis Surgical History Hx of appendectomy History of thumb surgery History of carpal tunnel surgery S/P ACL reconstruction History of tonsillectomy Previous section Family History Mother Diabetes Hypertension Arthritis Father Liver cancer Paternal Aunt Family history of autoimmune disorder Maternal Grandfather Colon cancer Social History Alcohol intake: current Alcohol intake frequency: holidays/special occasions only Patient Tobacco Use Status: Never used Tobacco Substance Use Type: Marijuana Current occupational status: employed 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 Site was prepped using aseptic technique. Patient tolerated the procedure well. Primary Site: right knee Approach Used: anterolateral Coding - Large joint Procedure code (CPT) selection complete Assessment & Plan Assessment & Plan (1) Osteoarthritis of right knee: Code(s): M17.11 - Unilateral primary osteoarthritis, right knee Category: Medical Plan: Injected Euflexxa 1/3 Coding Level of Care Code Est Pt Level 2 (36943) Diagnoses Osteoarthritis of right knee M17.11 CPT Codes Coding - Large joint: 67285 - Large joint ([id number])
[2024-01-01 14:03] VITALS: BMI 35.8
== END 2024-01-01 14:07 | disposition home or self-care (01) ==
PROVIDERS: PCP Internal Medicine; Visit Provider Orthopaedic Surgery
DX: M17.11 Unilateral primary osteoarthritis, right knee (principal)
CPT/HCPCS: 20610

== ENCOUNTER → 2024-01-01 13:55 | Outpatient (BNVA) | payer OTHER, SELFPAY | PROVIDERS: PCP Internal Medicine; Visit Provider Orthopaedic Surgery | DX: M17.11 Unilateral primary osteoarthritis, right knee (principal) | CPT/HCPCS: 20610; J7323 ==

== ENCOUNTER 2024-01-08 13:26 | Outpatient (AMB) | payer OTHER, SELFPAY ==
--- NOTE | 2024-01-08 13:31 | MHC.OFFVIS ---
Intake Visit Reasons: Right Knee Euflexxa #2 Intake Note: John is a 38 year old female who presents today for a Right Knee Euflexxa Injection #2 Allergies Penicillins Allergy (Severe, Verified 01/01/24 14:03) ANAPHYLAXIS, HIVES animal dander Allergy (Mild, Verified 01/01/24 14:03) ITCHY HIVES THROAT SWOLLEN lactose [LACTOSE] Allergy (Mild, Verified 01/01/24 14:03) DIARRRHEA many vegetables Allergy (Severe, Uncoded 01/01/24 14:03) hives, throat... nuts Allergy (Severe, Uncoded 01/01/24 14:03) hives, throat... FRUIT, SKINS Allergy (Mild, Uncoded 01/01/24 14:03) SWELLING fruits Allergy (Unknown, Uncoded 01/01/24 14:03) hives, throat closes seasonal allergies Allergy (Unknown, Uncoded 01/01/24 14:03) Unknown MEAT Adverse Reaction (Mild, Uncoded 01/01/24 14:03) ABDOMINAL PAIN HPI HPI Right Knee Euflexxa #2: Details: No new complaints PFSH Medical History Asthma Allergic rhinitis Somnolence, daytime CHIKIS (obstructive sleep apnea) Morbid obesity Carpal tunnel syndrome, bilateral upper limbs Bacterial vaginosis Surgical History Hx of appendectomy History of thumb surgery History of carpal tunnel surgery S/P ACL reconstruction History of tonsillectomy Previous section Family History Mother Diabetes Hypertension Arthritis Father Liver cancer Paternal Aunt Family history of autoimmune disorder Maternal Grandfather Colon cancer Social History Alcohol intake: current Alcohol intake frequency: holidays/special occasions only Patient Tobacco Use Status: Never used Tobacco Substance Use Type: Marijuana Current occupational status: employed 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 Site was prepped using aseptic technique. Patient tolerated the procedure well. Primary Site: right knee Approach Used: anterolateral Coding - Large joint Procedure code (CPT) selection complete Assessment & Plan Assessment & Plan (1) Post-traumatic osteoarthritis of right knee: Code(s): M17.31 - Unilateral post-traumatic osteoarthritis, right knee Category: Medical Plan: Injected Euflexxa right knee Coding Level of Care Code Est Pt Level 2 (65064) Diagnoses Post-traumatic osteoarthritis of right knee M17.31 CPT Codes Coding - Large joint: 31473 - Large joint ([id number])
== END 2024-01-08 16:21 | disposition home or self-care (01) ==
PROVIDERS: PCP Internal Medicine; Visit Provider Orthopaedic Surgery
DX: M17.31 Unilateral post-traumatic osteoarthritis, right knee (principal)
CPT/HCPCS: 20610

== ENCOUNTER → 2024-01-08 13:26 | Outpatient (BNVA) | payer OTHER, SELFPAY | PROVIDERS: PCP Internal Medicine; Visit Provider Orthopaedic Surgery | DX: M17.31 Unilateral post-traumatic osteoarthritis, right knee (principal) | CPT/HCPCS: 20610; J7323 ==

== ENCOUNTER 2024-01-15 13:57 | Outpatient (AMB) | payer OTHER, SELFPAY ==
--- NOTE | 2024-01-15 14:03 | MHC.OFFVIS ---
Intake Visit Reasons: Right Knee Euflexxa Injection #3 Intake Note: John is a 38 year old female who presents today for her last Euflexxa injection of the series. She reports that she is doing well with her pain improving Allergies Penicillins Allergy (Severe, Verified 01/01/24 14:03) ANAPHYLAXIS, HIVES animal dander Allergy (Mild, Verified 01/01/24 14:03) ITCHY HIVES THROAT SWOLLEN lactose [LACTOSE] Allergy (Mild, Verified 01/01/24 14:03) DIARRRHEA many vegetables Allergy (Severe, Uncoded 01/01/24 14:03) hives, throat... nuts Allergy (Severe, Uncoded 01/01/24 14:03) hives, throat... FRUIT, SKINS Allergy (Mild, Uncoded 01/01/24 14:03) SWELLING fruits Allergy (Unknown, Uncoded 01/01/24 14:03) hives, throat closes seasonal allergies Allergy (Unknown, Uncoded 01/01/24 14:03) Unknown MEAT Adverse Reaction (Mild, Uncoded 01/01/24 14:03) ABDOMINAL PAIN HPI HPI Right Knee Euflexxa Injection #3: Details: John is a 38 year old female who presents today for her last Euflexxa injection of the series. She reports that she is doing well with her pain improving PFSH Medical History Asthma Allergic rhinitis Somnolence, daytime CHIKIS (obstructive sleep apnea) Morbid obesity Carpal tunnel syndrome, bilateral upper limbs Bacterial vaginosis Surgical History Hx of appendectomy History of thumb surgery History of carpal tunnel surgery S/P ACL reconstruction History of tonsillectomy Previous section Family History Mother Diabetes Hypertension Arthritis Father Liver cancer Paternal Aunt Family history of autoimmune disorder Maternal Grandfather Colon cancer Social History Alcohol intake: current Alcohol intake frequency: holidays/special occasions only Patient Tobacco Use Status: Never used Tobacco Substance Use Type: Marijuana Current occupational status: employed 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 Site was prepped using aseptic technique. Patient tolerated the procedure well. Cut Primary Site: right knee Coding - Large joint Procedure code (CPT) selection complete Assessment & Plan Assessment & Plan (1) Osteoarthritis of right knee: Code(s): M17.11 - Unilateral primary osteoarthritis, right knee Category: Medical Plan: Euflexxa 3/3. Activity as tolerated. F/u PRN Coding Level of Care Code Est Pt Level 2 (86579) Diagnoses Osteoarthritis of right knee M17.11 CPT Codes Coding - Large joint: 33928 - Large joint ([id number])
== END 2024-01-15 14:08 | disposition home or self-care (01) ==
PROVIDERS: PCP Internal Medicine; Visit Provider Orthopaedic Surgery
DX: M17.11 Unilateral primary osteoarthritis, right knee (principal)
CPT/HCPCS: 20610

== ENCOUNTER → 2024-01-15 13:57 | Outpatient (BNVA) | payer OTHER, SELFPAY | PROVIDERS: PCP Internal Medicine; Visit Provider Orthopaedic Surgery | DX: M17.11 Unilateral primary osteoarthritis, right knee (principal) | CPT/HCPCS: 20610; J7323 ==

== ENCOUNTER 2024-01-26 00:22 | Emergency (ER) | payer OTHER, SELFPAY ==
[2024-01-26 00:33] VITALS: BP 121/75; PULSE 74; RESP 18; TEMP 36.6; O2SAT 96; BMI 43.0
--- NOTE | 2024-01-26 01:25 | ED.EXTPRO ---
HPI - Extremity Problem General Chief complaint: Extremity Problem Stated complaint: right hip pain Time Seen by Provider: 01/26/24 01:21 Source: patient Mode of arrival: ambulatory Limitations: no limitations History of Present Illness ED Provider: howard PERRY Narrative: Patient apparently moving stuff at home yesterday since morning noticed pain in the right thigh which increases on flexion no back pain no recent fall patient is obese and feels her extremities are swollen but no pedal edema Related Data Home Medications ?Medication ?Instructions ?Recorded ?Confirmed albuterol sulfate 90 mcg/actuation inhalation 12/17/20 05/08/23 aerosol inhaler levonorgestrel 21 mcg/24 hr (up to intrauterine 02/03/21 05/08/23 8 years) 52 mg intrauterine device (Mirena) mometasone-formoterol HFA 100 2 puff inhalation BID 06/30/21 05/08/23 mcg-5 mcg/actuation aerosol inhaler (Dulera) albuterol sulfate 2.5 mg/3 mL 2.5 mg inhalation Q4H PRN Wheezing 08/12/21 05/08/23 (0.083 %) solution for nebulization fexofenadine 60 mg tablet (Sarah 60 mg PO BID 12/24/21 05/08/23 Allergy) montelukast 10 mg tablet 10 mg PO DAILY PRN 01/20/23 05/08/23 naproxen sodium 220 mg tablet 220 mg PO BID PRN 01/20/23 05/08/23 (Aleve) ropinirole 1 mg tablet 1 mg PO BEDTIME 06/28/23 topiramate 25 mg tablet 25 mg PO DAILY 06/28/23 Previous Rx's ?Medication ?Instructions ?Recorded vibegron 75 mg tablet (Gemtesa) 75 mg PO DAILY 90 days #90 tabs 01/20/23 metronidazole 500 mg tablet 500 mg PO BID 7 days #14 tabs 06/29/23 cyclobenzaprine 10 mg tablet 10 mg PO Q8H #20 tabs 01/26/24 ibuprofen 600 mg tablet 600 mg PO Q6H PRN fever or pain 01/26/24 #30 tabs Allergies Allergy/AdvReac Type Severity Reaction Status Date / Time Penicillins Allergy Severe ANAPHYLAXIS, Verified 01/26/24 00:33 HIVES animal dander Allergy Mild ITCHY Verified 01/26/24 00:33 HIVES THROAT SWOLLEN lactose [LACTOSE] Allergy Mild DIARRRHEA Verified 01/26/24 00:33 many vegetables Allergy Severe hives, Uncoded 01/26/24 00:33 throat... nuts Allergy Severe hives, Uncoded 01/26/24 00:33 throat... FRUIT, SKINS Allergy Mild SWELLING Uncoded 01/26/24 00:33 fruits Allergy Unknown hives, Uncoded 01/26/24 00:33 throat closes seasonal allergies Allergy Unknown Unknown Uncoded 01/26/24 00:33 MEAT AdvReac Mild ABDOMINAL Uncoded 01/26/24 00:33 PAIN Review of Systems Review of Systems: Yes all other systems are reviewed and are negative [facility] Past Medical History Medical History Asthma Allergic rhinitis Somnolence, daytime CHIKIS (obstructive sleep apnea) Morbid obesity Carpal tunnel syndrome, bilateral upper limbs Bacterial vaginosis Surgical History Hx of appendectomy History of thumb surgery History of carpal tunnel surgery S/P ACL reconstruction History of tonsillectomy Previous section Family History Family History Mother Diabetes Hypertension Arthritis Father Liver cancer Paternal Aunt Family history of autoimmune disorder Maternal Grandfather Colon cancer Social History Social History Alcohol intake: current Alcohol intake frequency: holidays/special occasions only Patient Tobacco Use Status: Never used Tobacco Substance Use Type: Marijuana Current occupational status: employed 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 Oriented X3. No acute distress. Neck: Normal inspection. Neck supple. CVS: Normal heart rate and rhythm. Pulses normal. Respiratory: No respiratory distress. Equal air entry bilateral, Abdomen: Soft and nontender. Bowel sounds are present, no mass palpable, no CVA tenderness back: No focal tenderness Skin: Skin warm and dry. Normal skin color. Normal skin turgor. Extremities: No lower extremity edema. No calf tenderness pain right groin area Skin is normal pain increases on flexion and adduction Neuro: Oriented X 3. No motor deficit. No sensory deficit.No cerebellar signs , cranial nerves II-XII intact Medical Decision Making Medical Decision Making [facility] Narrative: Patient clinically with right groin strain will prescribe Flexeril and ibuprofen Differential Diagnosis Differential Diagnoses: The differential diagnosis associated with the presentation includes Discharge Plan Discharge Clinical Impression: Strain of right groin Patient Disposition: Home, Self-Care Instructions: Groin Strain (ED) Additional Instructions: Take pain medication muscle relaxant as prescribed Rest your right thigh, apply ice Prescriptions: New cyclobenzaprine 10 mg tablet 10 mg PO Q8H Qty: 20 0RF ibuprofen 600 mg tablet 600 mg PO Q6H PRN (Reason: fever or pain) Qty: 30 0RF No Action metronidazole 500 mg tablet 500 mg PO BID 7 Days Qty: 14 0RF Mirena 20 mcg/24 hours (6 yrs) 52 mg intrauterine device intrauterine albuterol sulfate 90 mcg/actuation HFA aerosol inhaler inhalation montelukast 10 mg tablet 10 mg PO DAILY PRN Dulera 100-5 mcg/actuation HFA aerosol inhaler 2 puff inhalation BID albuterol sulfate 2.5 mg /3 mL (0.083 %) solution for nebulization 2.5 mg inhalation Q4H PRN (Reason: Wheezing) fexofenadine [Sarah Allergy] 60 mg tablet 60 mg PO BID ropinirole 1 mg tablet 1 mg PO BEDTIME topiramate 25 mg tablet 25 mg PO DAILY naproxen sodium [Aleve] 220 mg tablet 220 mg PO BID PRN Gemtesa 75 mg tablet 75 mg PO DAILY 90 Days Qty: 90 3RF Stand Alone Forms: Work/School Release Print Language: Gibraltarian
[2024-01-26] MEDS: Morphine Sulfate Immed Release 15 MG TABLET PO (01:53)
[2024-01-26] MEDS: Cyclobenzaprine HCl 10 MG TABLET PO (01:53)
[2024-01-26 01:58] VITALS: BP 118/77; PULSE 80; RESP 17; TEMP 36.6; O2SAT 100
== END 2024-01-26 01:59 | disposition home or self-care (01) ==
PROVIDERS: Emergency Provider Internal Medicine; PCP Internal Medicine
DX: S39.011A Strain of muscle, fascia and tendon of abdomen, initial encounter (principal); X58.XXXA Exposure to other specified factors, initial encounter; J45.909 Unspecified asthma, uncomplicated; Z79.899 Other long term (current) drug therapy; E66.9 Obesity, unspecified; Z68.41 Body mass index [BMI] 40.0-44.9, adult; Y93.9 Activity, unspecified; Y92.9 Unspecified place or not applicable; Y99.9 Unspecified external cause status
CPT/HCPCS: 99283; 99284

== ENCOUNTER 2024-04-04 14:13 | Outpatient (AMB) | payer OTHER, SELFPAY ==
--- NOTE | 2024-04-04 14:14 | MHC.OFFVIS ---
Vital Signs 04/04/24 14:17 Height 5 ft Weight 220 lb BMI 43.0 BP 122/70 Intake Visit Reasons: vag irritation Chemical Processing Technician Services: Chemical Processing Technician Present Information Interpreted: clinical only Game Trapper: Game Trapper Present Allergies Penicillins Allergy (Severe, Verified 04/04/24 14:18) ANAPHYLAXIS, HIVES animal dander Allergy (Mild, Verified 04/04/24 14:18) ITCHY HIVES THROAT SWOLLEN lactose [LACTOSE] Allergy (Mild, Verified 04/04/24 14:18) DIARRRHEA many vegetables Allergy (Severe, Uncoded 04/04/24 14:18) hives, throat... nuts Allergy (Severe, Uncoded 04/04/24 14:18) hives, throat... FRUIT, SKINS Allergy (Mild, Uncoded 04/04/24 14:18) SWELLING fruits Allergy (Unknown, Uncoded 04/04/24 14:18) hives, throat closes seasonal allergies Allergy (Unknown, Uncoded 04/04/24 14:18) Unknown MEAT Adverse Reaction (Mild, Uncoded 04/04/24 14:18) ABDOMINAL PAIN Medication List - Last Reconciled 04/04/24 by Ebony Hawkins CNM albuterol sulfate 90 mcg/actuation inhalation albuterol sulfate 2.5 mg inhalation Q4H PRN cyclobenzaprine 10 mg PO Q8H fexofenadine (Sarah Allergy) 60 mg PO BID ibuprofen 600 mg PO Q6H PRN levonorgestrel (Mirena) intrauterine mometasone-formoterol 100-5 mcg/actuation (Dulera) 2 puffs inhalation BID montelukast 10 mg PO DAILY PRN naproxen sodium (Aleve) 220 mg PO BID PRN ropinirole 1 mg PO BEDTIME topiramate 25 mg PO DAILY Is last menstrual period known: No (IUD) HPI HPI vag irritation : Details: Patient is here because she is having severe vaginal irritation. She has severe asthma allergies she currently has 7 cats though she has need the very difficult decision to render them to date and custodial and has an appointment there tomorrow she and partner are going to bring the cats her children are staying home because too difficult. She has made the difficult decision because her health is suffering so badly with her severe allergies and asthma she cleans the house intently and a few weeks ago she cleaned every single surface house and furniture and scrubbed everywhere and she does not recall pulling a muscle in her groin when she laid down on the bed she had a severe pain and could not move her leg easily and ended up going to the emergency room and that is what they told her that it was a groin pain on the left side. She never did go for the ultrasound for what ever reason that was ordered last year following up on a right ovarian cyst. That has not been giving her trouble. She can not smell anything so she is always worried that maybe she does smell she had a white discharge so she has a tendency to scrub vagina and she is in the shower and normally you she uses dove sensitive care or something like that but her bought dial so than she used that and scrubbed vagina and it has been burning like crazy and also itching she finds herself scrubbing with the toilet paper to make it feel better that just makes it worse. Because of this discomfort she has not been have sex in a few weeks. She has the Mirena IU S because of previous abnormal bleeding. She has her tubes tied so she does not need it for control but she has not resumed bleeding or menses. [facility] Medical History (Updated 04/04/24 @ 15:21 by Ebony Hawkins CNM) Asthma Allergic rhinitis Somnolence, daytime CHIKIS (obstructive sleep apnea) Morbid obesity Carpal tunnel syndrome, bilateral upper limbs Bacterial vaginosis Surgical History Hx of appendectomy History of thumb surgery History of carpal tunnel surgery S/P ACL reconstruction History of tonsillectomy Previous section Family History Mother Diabetes Hypertension Arthritis Father Liver cancer Paternal Aunt Family history of autoimmune disorder Maternal Grandfather Colon cancer Social History Alcohol intake: current Alcohol intake frequency: holidays/special occasions only Patient Tobacco Use Status: Never used Tobacco Substance Use Type: Marijuana Current occupational status: employed 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 Patient found it very uncomfortable to try to introduce Mario speculum because of the rawness so speculum exam deferred and testing for gonorrhea chlamydia trichomoniasis Valerie and is done by Kavitha inserting Q-tips into the vaginal vault as that is all she tolerate she was able to tolerate a bimanual exam cervix nulliparous with Mirena strings palpable uterus challenging to palpate secondary to adipose adnexa nontender nonenlarged uterus is nontender good tone with Kegel. Assessment & Plan Assessment & Plan (1) Pelvic pain: Comment: kacy right side, periodic.. more in last yr,; as of 06/28/2023 not since last visit. Code(s): R10.2 - Pelvic and perineal pain Category: Medical (2) Ovarian cyst, complex: Code(s): N83.299 - Other ovarian cyst, unspecified side Category: Medical (3) Left groin pain: Code(s): R10.32 - Left lower quadrant pain Category: Medical (4) Vaginal irritation: Comment: Most likely related to over cleaning and use of dial soap and scrubbing.... Code(s): N89.8 - Other specified noninflammatory disorders of vagina Category: Medical Plan Discussed the challenges of giving up her cats but that it is decision she was reason for her health with her asthma. Discussed that it may take a while the for the dander diminishes in household so may take a while to experience the benefits.. In terms of skin and vaginal care the milder the so use the better and no soap at all needed or recommended in the vaginal area I recommend that she simply shower with what ever she finds helpful for the other skin but when it comes to her vagina she should simply rinse with plain water only and avoid scrubbing and scratching with either toilet paper or anything else. I am offering prescription for Monistat cream in case it is helpful soothing if it hinson her she should not use it simply revert to not putting anything on there she inquired about using Vaseline and I highly recommend against putting Vaseline in her labia minora. Plain water only. I am reordering the pelvic ultrasound that she never got done I do think given her description of the symptoms when they occurred terms of the groin pain and how she is finding it difficult to move her left leg outward for the pelvic exam that it is probably keeping with a groin pull.. Discussed asking for help and she needs to furniture again (she moved two dressers over rugs to rearrange them.) Orders: Orders Bacterial Vaginosis Panel Today N89.8 - Other specified noninflammatory disorders of vagina, N94.89 - Other specified conditions associated with female genital organs and menstrual cycle CT NG by PCR Today N89.8 - Other specified noninflammatory disorders of vagina, N94.89 - Other specified conditions associated with female genital organs and menstrual cycle Medications: New miconazole nitrate 2% (Miconazole-7) use PRN for vaginal itching or burning, do not use if it hinson 1 appful vaginal BEDTIME 7 days 45 grams 1RF Coding Level of Care Code Est Pt Level 3 (60818) Diagnoses Pelvic pain R10.2 Ovarian cyst, complex N83.299 Left groin pain R10.32 Vaginal irritation N89.8
[2024-04-04 14:17] VITALS: BP 122/70; BMI 43.0
== END 2024-04-04 15:18 | disposition home or self-care (01) ==
PROVIDERS: PCP Internal Medicine; Visit Provider Advanced Practice Midwife
DX: R10.2 Pelvic and perineal pain (principal); N83.299 Other ovarian cyst, unspecified side; R10.32 Left lower quadrant pain; N89.8 Other specified noninflammatory disorders of vagina
CPT/HCPCS: 99213

== ENCOUNTER 2024-04-04 14:13 | Outpatient (REF) | payer OTHER, SELFPAY ==
[2024-04-05 11:04] LABS: Bacterial Vaginosis PCR POSITIVE (Negative); Candida Group PCR NOT DETECTED (Not Detect); Candida glab krusei PCR NOT DETECTED (Not Detect); Trichomonas vaginalis PCR DETECTED (Not Detect)
[2024-04-05 11:37] LABS: CT PCR NOT DETECTED (Not Detect.); NG PCR NOT DETECTED (Not Detect.)
== END 2024-04-04 14:14 | disposition home or self-care (01) ==
LOC: HO.LAB 14:13
PROVIDERS: PCP Internal Medicine; Visit Provider Advanced Practice Midwife
DX: N89.8 Other specified noninflammatory disorders of vagina (principal); N83.299 Other ovarian cyst, unspecified side; N94.89 Other specified conditions associated with female genital organs and menstrual cycle; R10.32 Left lower quadrant pain
CPT/HCPCS: 0352U; 87491; 87591; 99212

== ENCOUNTER 2024-04-08 09:29 | Emergency (ER) | payer OTHER, SELFPAY ==
--- NOTE | ~2024-04-08 | XR_ITS ---
EXAMINATION: XR LUMBAR SPINE XR LEFT HIP CLINICAL INFORMATION: Severe pain radiating down left leg, limited range of motion. COMPARISON: Left hip 09/19/2022, lumbar spine 10/31/2022. TECHNIQUE: 3 views lumbar spine, AP view pelvis with 2 views left hip. FINDINGS: LUMBAR SPINE: Progression of multilevel lumbar spondylosis. Grade 1 anterolisthesis of L4 on L5 with moderate loss of disc space height. Moderate loss of disc space height with degenerative changes at L5-S1. Facet arthritis in the lower lumbar spine. AP PELVIS AND LEFT HIP: IUD redemonstrated in the pelvis. Bilateral sacroiliac joints are maintained. Pubic symphysis is preserved. Mild degenerative changes on AP view of the right hip. Mild degenerative changes on AP and lateral views of the left hip with mild lateral acetabular hypertrophic change. XR/XR lumbar spine 2-3V IMPRESSION: 1. Progression of multilevel lumbar spondylosis. 2. Mild degenerative changes bilateral hips. 3. Facet arthritis in the lower lumbar spine. Electronically signed by: Debora Capone MD 04/08/2024 12:22 PM EDT
--- NOTE | ~2024-04-08 | XR_ITS ---
EXAMINATION: XR LUMBAR SPINE XR LEFT HIP CLINICAL INFORMATION: Severe pain radiating down left leg, limited range of motion. COMPARISON: Left hip 09/19/2022, lumbar spine 10/31/2022. TECHNIQUE: 3 views lumbar spine, AP view pelvis with 2 views left hip. FINDINGS: LUMBAR SPINE: Progression of multilevel lumbar spondylosis. Grade 1 anterolisthesis of L4 on L5 with moderate loss of disc space height. Moderate loss of disc space height with degenerative changes at L5-S1. Facet arthritis in the lower lumbar spine. AP PELVIS AND LEFT HIP: IUD redemonstrated in the pelvis. Bilateral sacroiliac joints are maintained. Pubic symphysis is preserved. Mild degenerative changes on AP view of the right hip. Mild degenerative changes on AP and lateral views of the left hip with mild lateral acetabular hypertrophic change. XR/XR hip LT w PEL1V IMPRESSION: 1. Progression of multilevel lumbar spondylosis. 2. Mild degenerative changes bilateral hips. 3. Facet arthritis in the lower lumbar spine. Electronically signed by: Debora Capone MD 04/08/2024 12:22 PM EDT
[2024-04-08 09:49] VITALS: BP 108/74; PULSE 84; RESP 18; TEMP 36.7; O2SAT 97; BMI 44.0
--- NOTE | 2024-04-08 11:00 | ED_ITS ---
HPI - General Adult General Chief complaint: General Medical Stated complaint: Groin pain Time Seen by Provider: 04/08/24 10:10 Source: patient, RN notes reviewed and old records reviewed Mode of arrival: ambulatory Limitations: no limitations History of Present Illness ED Provider: Luis Enrique Duval PA-C HPI narrative: 39-year-old female with history of morbid obesity, CHIKIS, asthma, menorrhagia, osteoarthritis and plantar fasciitis, ovarian cyst who presents to the ER for evaluation of 1 week of worsening left lower back pain, left hip pain and left lower extremity pain. She reports being seen here about a month ago for the same, was treated with muscle relaxers and anti-inflammatories. She reports it took 1 week for the pain to slowly improve. She reports over the last 1 week she has had exacerbation of her symptoms. Her entire left lower extremity feels like it is throbbing. She feels tenderness on the left lateral hip whenever she touches it. She reports the pain in her back has improved but is worsened in the left lower extremity. She feels like her left leg is weak. It is difficult to walk. She has not slept because of the pain. No improvement with Motrin and Flexeril. MD complaint: Left lower extremity pain, left hip pain, lower back pain Onset (ago): day(s) Location: left and lower extremity Radiation: distal Severity: severe Quality: stabbing, aching and sharp Pain Consistency: constant Relieving factors: none Associated symptoms: weakness and other (Cloudy urine) Related Data Home Medications ?Medication ?Instructions ?Recorded ?Confirmed albuterol sulfate 90 mcg/actuation inhalation 12/17/20 04/04/24 aerosol inhaler levonorgestrel 21 mcg/24 hr (up to intrauterine 02/03/21 04/04/24 8 years) 52 mg intrauterine device (Mirena) mometasone-formoterol HFA 100 2 puff inhalation BID 06/30/21 04/04/24 mcg-5 mcg/actuation aerosol inhaler (Dulera) albuterol sulfate 2.5 mg/3 mL 2.5 mg inhalation Q4H PRN Wheezing 08/12/21 04/04/24 (0.083 %) solution for nebulization fexofenadine 60 mg tablet (Sarah 60 mg PO BID 12/24/21 04/04/24 Allergy) montelukast 10 mg tablet 10 mg PO DAILY PRN 01/20/23 04/04/24 naproxen sodium 220 mg tablet 220 mg PO BID PRN 01/20/23 04/04/24 (Aleve) ropinirole 1 mg tablet 1 mg PO BEDTIME 06/28/23 04/04/24 topiramate 25 mg tablet 25 mg PO DAILY 06/28/23 04/04/24 Previous Rx's ?Medication ?Instructions ?Recorded cyclobenzaprine 10 mg tablet 10 mg PO Q8H #20 tabs 01/26/24 ibuprofen 600 mg tablet 600 mg PO Q6H PRN fever or pain 01/26/24 #30 tabs miconazole nitrate 2 % vaginal 1 appful vaginal BEDTIME 7 days 04/04/24 cream (Miconazole-7) #45 grams metronidazole 500 mg tablet 500 mg PO Q12H #14 tabs 04/05/24 ketorolac 10 mg tablet 10 mg PO Q8H PRN pain 3 days #9 04/08/24 tabs lidocaine 5 % topical patch 1 patch topical DAILY #15 ea 04/08/24 methocarbamol 500 mg tablet 500 mg PO Q8H PRN muscle 04/08/24 spasticity #10 tabs tramadol 50 mg tablet 50 mg PO BID PRN severe pain 04/08/24 (scale score 7-10) #6 tabs Allergies Allergy/AdvReac Type Severity Reaction Status Date / Time Penicillins Allergy Severe ANAPHYLAXIS, Verified 04/08/24 09:50 HIVES animal dander Allergy Mild ITCHY Verified 04/08/24 09:50 HIVES THROAT SWOLLEN lactose [LACTOSE] Allergy Mild DIARRRHEA Verified 04/08/24 09:50 many vegetables Allergy Severe hives, Uncoded 04/04/24 14:18 throat... nuts Allergy Severe hives, Uncoded 04/04/24 14:18 throat... FRUIT, SKINS Allergy Mild SWELLING Uncoded 04/04/24 14:18 fruits Allergy Unknown hives, Uncoded 04/04/24 14:18 throat closes seasonal allergies Allergy Unknown Unknown Uncoded 04/04/24 14:18 MEAT AdvReac Mild ABDOMINAL Uncoded 04/04/24 14:18 PAIN Review of Systems Review of Systems: Yes all other systems are reviewed and are negative PMFSH Past Medical History Medical History Asthma Allergic rhinitis Somnolence, daytime CHIKIS (obstructive sleep apnea) Morbid obesity Carpal tunnel syndrome, bilateral upper limbs Bacterial vaginosis Surgical History Hx of appendectomy History of thumb surgery History of carpal tunnel surgery S/P ACL reconstruction History of tonsillectomy Previous section Family History Family History Mother Diabetes Hypertension Arthritis Father Liver cancer Paternal Aunt Family history of autoimmune disorder Maternal Grandfather Colon cancer Social History Social History Alcohol intake: current Alcohol intake frequency: holidays/special occasions only Patient Tobacco Use Status: Never used Tobacco Substance Use Type: Marijuana Advance Directives: No Do you have a plan to hurt others: No Plan Current occupational status: employed 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 Oriented X3. No acute distress. HEENT: normal external inspection Neck: Normal inspection. Neck supple. CVS: Normal heart rate and rhythm. Pulses normal. Respiratory: No respiratory distress. Breath sounds normal. Abdomen: Soft and nontender. +BS x4 Skin: Skin warm and dry. Normal skin color. Normal skin turgor. No rashes. Back: Normal inspection. Normal palpation. Nontender. Extremities: No lower extremity edema. No joint swelling. left lateral hip and thigh tenderness. Limited flexion and extension of the hip due to pain. Neuro/psych: Oriented X 3. No motor deficit. No sensory deficit. CN II-XII intact. Normal speech and cognition. Antalgic gait Medications Administered Discontinued Medications Generic Name Dose Route Start Last Admin Trade Name Freq PRN Reason Stop Dose Admin Cyclobenzaprine HCl 10 mg 04/08/24 10:43 04/08/24 11:02 Cyclobenzaprine Hcl 10 Mg Tablet PO 04/08/24 10:44 10 mg ONCE ONE Administration Ketorolac Tromethamine 30 mg 04/08/24 10:43 04/08/24 11:02 Ketorolac Tromethamine 30 Mg/Ml Vial IM 04/08/24 10:44 30 mg ONCE ONE Administration Oxycodone HCl 5 mg 04/08/24 10:43 04/08/24 11:02 Oxycodone Hcl Immed Release 5 Mg Tablet PO 04/08/24 10:44 5 mg ONCE ONE Administration Medical Decision Making Medical Decision Making [facility] Narrative: 39-year-old female presents to the ER for evaluation of left hip pain, left lower extremity pain, left lower back pain for the last 1 week. Similar episode about a month ago. No trauma. No red flag symptoms of low back pain. Patient has limited range of motion of the hip, pain with ambulation. Most likely mu scular. X-rays of the hip and lumbar spine were done which is showing some mild degenerative changes in the hip, mild lumbar facet joint arthritis of the lumbar spine. Will treat with short course of pain medication, anti-inflammatories, muscle relaxers. Will have her follow up with her primary care doctor, she would likely benefit from physical therapy. Stable for discharge home we discussed other supportive care measures including rest, ice, heat, stretching and massage. She will follow up with her PCP. Differential Diagnosis Differential Diagnoses: The differential diagnosis associated with the presentation includes Muscular pain, DVT, nerve root compression, radiculopathy, plexopathy, degenerative disc disease, disc herniation, spinal stenosis, sacroiliac joint dysfunction, facet joint injury, and less likely infection?like abscess or diskitis Admission/Observation Consideration of admission/observation: Escalation of care including admission/observation considered Lab Data [facility] Lab Attestation statement: I reviewed the patient's lab results. Labs: Lab Results 04/08/24 Range/Units 11:08 Urine Color Yellow Urine Appearance Clear Urine pH 5.5 (5.0-9.0) Ur Specific [place] 1.010 (1.005-1.025) Urine Protein Negative (Neg-Trace) mg/dL Urine Glucose (UA) Negative (Negative) mg/dL Urine Ketones Negative (Negative) mg/dL Urine Blood Negative (Negative) Urine Nitrite Negative (Negative) Ur Leukocyte Esterase Small (1+) H (Negative) Urine RBC 0-2 (0-2) /HPF Urine WBC 0-5 (0-5) /HPF Ur Squamous Epith Cells 0-2 (0-2) /HPF Urine Bacteria None Seen (None Seen) Hyaline Casts 0-2 (0-2) /LPF Independent Interpretation I performed an independent interpretation of an: Plain X-Ray Interpretation: xr without compression deformities, no acute hip fx appreciated Radiology Impression Discussion of test interpretation with radiology: I have reviewed the radiologist's reading. Radiologist Impression: IMPRESSION: 1. Progression of multilevel lumbar spondylosis. 2. Mild degenerative changes bilateral hips. 3. Facet arthritis in the lower lumbar spine. External Record Review External record reviewed: Outpatient record, Prior outpatient labs, Prior outpatient radiology and Primary care record Prescription Management I considered prescription management with: Pain Medication Chronic Conditions Patient?s care impacted by: Other (obesity) Critical Care Time Critical Care Time Critical Care Time: No Discharge Plan Discharge Clinical Impression: Arthritis of facet joint of lumbar spine Acute hip pain Qualifiers: Laterality: left Qualified Code(s): M25.552 - Pain in left hip Patient Disposition: Home, Self-Care Instructions: Lumbar Radiculopathy (ED), Hip Pain (ED), Lower Back Exercises (ED) Additional Instructions: Your pain is most likely due muscle spasm, inflammation of the nerve. No bending, lifting or twisting. Use ice several times per day for 20 minutes at a time for the next 48 hours and then change to heat. Take medications as prescribed to help with pain and discomfort. Follow up with your Primary Care Doctor this week. You may benefit from physical therapy. If your pain worsens, if you develop new numbness, tingling, weakness, loss of function or incontinence call 911 or come back to the ER right away for evaluation. X ray IMPRESSION: 1. Progression of multilevel lumbar spondylosis. 2. Mild degenerative changes bilateral hips. 3. Facet arthritis in the lower lumbar spine. Prescriptions: New ketorolac 10 mg tablet 10 mg PO Q8H PRN (Reason: pain) 3 Days Qty: 9 0RF methocarbamol 500 mg tablet 500 mg PO Q8H PRN (Reason: muscle spasticity) Qty: 10 0RF lidocaine 5 % adhesive patch,medicated 1 patch topical DAILY Qty: 15 0RF Rx Instructions: leave on most painful area for up to 12 hrs tramadol 50 mg tablet 50 mg PO BID PRN (Reason: severe pain (scale score 7-10)) Qty: 6 0RF No Action metronidazole 500 mg tablet 500 mg PO Q12H Qty: 14 0RF cyclobenzaprine 10 mg tablet 10 mg PO Q8H Qty: 20 0RF ibuprofen 600 mg tablet 600 mg PO Q6H PRN (Reason: fever or pain) Qty: 30 0RF Mirena 20 mcg/24 hours (6 yrs) 52 mg intrauterine device intrauterine albuterol sulfate 90 mcg/actuation HFA aerosol inhaler inhalation montelukast 10 mg tablet 10 mg PO DAILY PRN Dulera 100-5 mcg/actuation HFA aerosol inhaler 2 puff inhalation BID albuterol sulfate 2.5 mg /3 mL (0.083 %) solution for nebulization 2.5 mg inhalation Q4H PRN (Reason: Wheezing) fexofenadine [Sarah Allergy] 60 mg tablet 60 mg PO BID ropinirole 1 mg tablet 1 mg PO BEDTIME topiramate 25 mg tablet 25 mg PO DAILY naproxen sodium [Aleve] 220 mg tablet 220 mg PO BID PRN miconazole nitrate [Miconazole-7] 2 % cream 1 appful vaginal BEDTIME 7 Days Qty: 45 1RF Rx Instructions: use PRN for vaginal itching or burning, do not use if it hinson Stand Alone Forms: Work/School Release Interventions: ED Discharge Assessment Last Done: 04/08/24 13:08 Discharge Date/Time: 04/08/24 13:08 Print Language: Bengali
[2024-04-08] MEDS: Cyclobenzaprine HCl 10 MG TABLET PO (11:02)
[2024-04-08] MEDS: Ketorolac Tromethamine 30 MG/ML VIAL IM (11:02)
[2024-04-08] MEDS: oxyCODONE HCl Immed Release 5 MG TABLET PO (11:02)
[2024-04-08 11:15] LABS: Appearance Urine Clear; Color Urine Yellow; Glucose Urine UA Negative (Negative); Leukocyte Esterase Urine Small (1+) (Negative); Nitrite Urine Negative (Negative); PH 5.5 (5.0-9.0); UMIC TRIGGER UACC YES; Urine Blood Negative (Negative); Urine Ketones Negative (Negative); Urine Protein Negative (Neg-Trace)
[2024-04-08 11:23] LABS: Bacteria Urine None Seen (None Seen); Hyaline Casts Urine 0-2 /LPF (0-2); RBC Urine 0-2 /HPF (0-2); Squamous Epithelial Cell Urine 0-2 /HPF (0-2); UACC Culture Trigger YES; WBC Urine 0-5 /HPF (0-5)
[2024-04-08 13:08] VITALS: BP 108/74; PULSE 84; RESP 18; TEMP 36.7; O2SAT 97
== END 2024-04-08 13:08 | disposition home or self-care (01) ==
PROVIDERS: Physician Assistant; Emergency Provider Emergency Medicine; PCP Internal Medicine
DX: M47.816 Spondylosis without myelopathy or radiculopathy, lumbar region (principal); M25.552 Pain in left hip
CPT/HCPCS: 72100; 73502; 81001; 87086; 87147; 96372; 99283; 99284; J1885

== ENCOUNTER 2024-04-18 09:57 | Outpatient (AMB) | payer OTHER, SELFPAY ==
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
== END 2024-04-18 11:01 | disposition home or self-care (01) ==
LOC: HO.HWSM 09:57
PROVIDERS: PCP Internal Medicine; Visit Provider Advanced Practice Midwife
DX: A59.9 Trichomoniasis, unspecified (principal); N89.8 Other specified noninflammatory disorders of vagina; N83.299 Other ovarian cyst, unspecified side
CPT/HCPCS: 99213

== ENCOUNTER → 2024-04-18 09:57 | Outpatient (BNVA) | payer OTHER, SELFPAY | PROVIDERS: PCP Internal Medicine; Visit Provider Advanced Practice Midwife ==

== ENCOUNTER 2024-05-01 11:22 | Outpatient (REF) | payer OTHER, SELFPAY ==
--- NOTE | ~2024-05-01 | US_ITS ---
EXAMINATION: US PELVIS CLINICAL INFORMATION: Unknown last menstrual period with IUD. COMPARISON: None available. TECHNIQUE: Ultrasound of the pelvis is performed using both transabdominal and transvaginal transducers along with Doppler. Transvaginal imaging is performed due to inadequate visualization transabdominally. FINDINGS: The anteverted uterus measures 13.3 x 5.2 x 6.[address] within the endometrial cavity. Visualization of the endometrium is limited due to shadowing artifact from the IUD, but imaged portion of endometrium demonstrates thickness of 4 mm. Left ovary measures 2.8 x 2.3 x 1.6 cm, volume 5.7 mL. Right ovary measures 2.4 x 2.6 x 2.3 cm, volume 7.6 mL. 1.6 x 1.8 x 1.5 cm right ovarian complex mass, possibly representing a corpus luteum versus other etiology. Recommend followup ultrasound in 6-8 weeks. US/US pelvic and transvaginal IMPRESSION: 1. IUD in place within the endometrial cavity. Visualization of the endometrium is limited due to shadowing artifact from the IUD, but imaged portion of endometrium demonstrates thickness of 4 mm. 2. A 1.8 cm right ovarian complex mass, possibly representing a corpus luteum versus other etiology. Recommend followup ultrasound in 6-8 weeks. Electronically signed by: Debora Capone MD 06/30/2024 11:48 AM [facility]
== END 2024-05-01 11:23 | disposition home or self-care (01) ==
LOC: HO.US 11:22
PROVIDERS: PCP Internal Medicine; Visit Provider Advanced Practice Midwife
DX: R10.2 Pelvic and perineal pain (principal); R10.32 Left lower quadrant pain; N83.299 Other ovarian cyst, unspecified side; Z20.2 Contact with and (suspected) exposure to infections with a predominantly sexual mode of transmission; Z97.5 Presence of (intrauterine) contraceptive device
CPT/HCPCS: 76830; 76856

== ENCOUNTER 2024-05-21 10:43 | Outpatient (REF) | payer OTHER, SELFPAY ==
[2024-05-21 11:54] LABS: MANUAL DIFF FLAG NO
[2024-05-21 12:01] LABS: Basophils Percent Auto 0.5 % (0-2); Eosinophils Absolute Auto 0.2 X10*3/uL (0.0-0.4); Eosinophils Percent Auto 2.8 % (0-4); Hematocrit 38.9 % (37.0-47.0); Hemoglobin 13.6 g/dl (12.0-16.0); Imm Gran Abs Auto 0.02 X10*3/uL (0.00-0.03); Imm Gran Pct Auto 0.3 % (0.0-0.4); Lymphocytes Absolute Auto 2.1 X10*3/uL (1.2-4.9); Lymphocytes Percent Auto 27.4 % (20-40); Mean Corpuscular Hemoglobin 32.2 pg (27.0-33.0); Mean Platelet Volume 10.1 fL (9.4-12.3); Monocytes Absolute Auto 0.5 X10*3/uL (0.1-1.2); Monocytes Percent Auto 6.3 % (2-11); Neutrophils Absolute Auto 4.8 x10*3/uL (2.0-8.3); Neutrophils Percent Auto 62.7 % (45-73); Platelet Count 283 X10*3/uL (160-400); Red Blood Count 4.23 X10*6/uL (4.20-5.50); Red Cell Distribution Width 12.2 % (11.0-16.0); White Blood Count 7.6 X10*3/uL (4.8-10.8)
[2024-05-21 12:31] LABS: Erythrocyte Sedimentation Rate 11 MM/HR (0-20)
[2024-05-21 12:35] LABS: Alanine Aminotransferase 17 U/L (0-31); Albumin Level 4.2 g/dL (3.5-5.0); Alkaline Phosphatase 66 U/L (39-117); Anion Gap 13 (12-20); Aspartate Amino Transferase 15 U/L (5-31); Bilirubin Total 0.4 mg/dL (0.0-1.0); Blood Urea Nitrogen 8 mg/dL (9-16); C Reactive Protein 0.56 mg/dL (< or = 0.50); Calcium 9.5 mg/dL (8.4-10.2); Carbon Dioxide 24 mmol/L (22-29); Chloride 107 mmol/L (96-108); Estimated Glomerular Filt Rate > 60; Glucose Random 113 mg/dL (60-115); Potassium 3.8 mmol/L (3.3-5.1); Sodium 140 mmol/L (135-145); Total Protein 7.2 g/dL (6.5-8.0)
[2024-05-21 12:41] LABS: Vitamin B12 295 pg/mL (200-900)
== END 2024-05-21 10:44 | disposition home or self-care (01) ==
LOC: HO.10HDL 10:43
PROVIDERS: Visit Provider Internal Medicine
DX: J45.909 Unspecified asthma, uncomplicated (principal); M79.10 Myalgia, unspecified site
CPT/HCPCS: 36415; 80053; 82550; 82607; 85025; 85652; 86140

== ENCOUNTER 2024-06-18 13:35 | Outpatient (REF) | payer OTHER, SELFPAY ==
[2024-06-19 02:48] LABS: CT PCR NOT DETECTED (Not Detect.); NG PCR NOT DETECTED (Not Detect.)
[2024-06-19 11:30] LABS: Bacterial Vaginosis PCR NEGATIVE (Negative); Candida Group PCR DETECTED (Not Detect); Candida glab krusei PCR NOT DETECTED (Not Detect); Trichomonas vaginalis PCR NOT DETECTED (Not Detect)
== END 2024-06-18 13:36 | disposition home or self-care (01) ==
LOC: HO.LAB 13:35
PROVIDERS: PCP Internal Medicine; Visit Provider Advanced Practice Midwife
DX: N92.1 Excessive and frequent menstruation with irregular cycle (principal); A59.9 Trichomoniasis, unspecified; Z97.5 Presence of (intrauterine) contraceptive device; N89.8 Other specified noninflammatory disorders of vagina; Z20.2 Contact with and (suspected) exposure to infections with a predominantly sexual mode of transmission
CPT/HCPCS: 81515; 87491; 87591; 99212; 99459

== ENCOUNTER 2024-06-18 13:35 | Outpatient (AMB) | payer OTHER, SELFPAY ==
[2024-06-18 13:48] VITALS: BP 116/70; BMI 43.5
--- NOTE | 2024-06-18 13:48 | A.OFFVIS_ITS ---
Vital Signs 06/18/24 13:48 Height 5 ft Weight 223 lb BMI 43.5 BP 116/70 Intake Visit Reasons: SONI and US f/u Supervisor Prop Making Required: No Supervisor Prop Making Services: Supervisor Prop Making Present Information Interpreted: clinical only Cigar Head Stringer: Cigar Head Stringer Present Allergies Penicillins Allergy (Severe, Verified 06/18/24 13:50) ANAPHYLAXIS, HIVES animal dander Allergy (Mild, Verified 06/18/24 13:50) ITCHY HIVES THROAT SWOLLEN lactose [LACTOSE] Allergy (Mild, Verified 06/18/24 13:50) DIARRRHEA many vegetables Allergy (Severe, Uncoded 06/18/24 13:50) hives, throat... nuts Allergy (Severe, Uncoded 06/18/24 13:50) hives, throat... FRUIT, SKINS Allergy (Mild, Uncoded 06/18/24 13:50) SWELLING fruits Allergy (Unknown, Uncoded 06/18/24 13:50) hives, throat closes seasonal allergies Allergy (Unknown, Uncoded 06/18/24 13:50) Unknown MEAT Adverse Reaction (Mild, Uncoded 06/18/24 13:50) ABDOMINAL PAIN Is last menstrual period known: No (IUD) HPI HPI SONI and US f/u: Details: Patient is here for a follow-up on her ultrasound and also a test of cure for the trichomoniasis.. She has a Mirena IU S that was placed in 2016 she said it was a challenging rep lacement her previous 1 was placed in the OR after a D&C and there had been difficulty placing the IUD in the office in the past She has the Mirena to manage menorrhagia. She had her tubes tied She has lost her sense of smell completely since her experience with COVID and because she is very anxious that she might have any untoward body odor herself she tends to over wash with soap including her vaginal areas even though she knows it is not the wisest thing do her recent experience with trichomoniasis has only reinforced this for her. She says she and her partner had a talk and it seems that the trich may have come from when they were on a break-up and he was with someone else. There had been a discussion in the chart previously that she a have had an allergic reaction to Flagyl which involved diarrhea but this was discussed and then the suppose it allergy was removed from the list and she in fact took Flagyl for 7 days with no problems whatsoever. She had a history of cyst and her ovary and for that reason the ultrasound was ordered to see if that had changed in any way the ultrasound was done on 05/01/2024 but has has not yet been read by Radiology (today is 06/18/2024,) [facility] Medical History Asthma Allergic rhinitis Somnolence, daytime CHIKIS (obstructive sleep apnea) Morbid obesity Carpal tunnel syndrome, bilateral upper limbs Bacterial vaginosis Surgical History Hx of appendectomy History of thumb surgery History of carpal tunnel surgery S/P ACL reconstruction History of tonsillectomy Previous section Family History Mother Diabetes Hypertension Arthritis Father Liver cancer Paternal Aunt Family history of autoimmune disorder Maternal Grandfather Colon cancer Social History Alcohol intake: current Alcohol intake frequency: holidays/special occasions only Patient Tobacco Use Status: Never used Tobacco Substance Use Type: Marijuana Current occupational status: employed 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 External Female Exam: normal external appearance and normal appearance of the urethra Speculum Exam - Vagina: normal appearance of the vagina and normal vaginal discharge Speculum Exam - Cervix: normal appearance of the cervix and Cervical os closed Results Reviewed Results Reviewed: Name: John Stapleton Age/Sex: 39/F : 1985 Unit#: [id number] Attend Dr: Ebony Hawkins CNM Re04/04/24 Status: DEP [facility]F [facility] Disch: SPEC : [id number] FARHAT: 04/04/24-UNK STATUS: COMP REQ : [id number] RECD: 04/04/[address] [facility] [address]: RossEbony CARMEN COMP: 04/05/24 ENTERED: 04/04/[address] [facility] [address]: Marshal Nava MD ORDERED: BV Panel Test Result Flag Reference TV PCR DETECTED A Not Detect BV PCR POSITIVE A Negative The BV organism targets of the Xpert Xpress MVP test can be commensal in women; Xpert Xpress MVP positive results for bacterial vaginosis should be considered in conjunction with other clinical and patient information to determine the disease status. Organisms that are not detected by the Xpert Xpress MVP test have also been reported to be associated with BV and aerobic vaginitis. The Xpert Xpress MVP test performance has not been evaluated in patients under the age of 14. Valerie Grp PCR NOT DETECTED Not Detect Can gla-kru NOT DETECTED Not Detect Ultrasound that was done on 05/01/2024 has still not been read by Radiology. Assessment & Plan Assessment & Plan (1) Presence of 52 mg levonorgestrel-releasing intrauterine device (IUD): Comment: Originally inserted in 2009 during D&C for menorrhagia. It was replaced in 2016 in the office. She is using it to help with her bleeding profile, she does not needed for control as she has a tubal ligation. Code(s): Z97.5 - Presence of (intrauterine) contraceptive device Category: Social Hx (2) Metrorrhagia: Comment: Currently managed since 2009 with serial Mirena IU S s Code(s): N92.1 - Excessive and frequent menstruation with irregular cycle Category: Medical (3) Trichomoniasis: Comment: There is a history of allergy to metronidazole that needs to be investigated 1st in order to be treated..(according to chart side effect of diarrhea was noted which is a very common side effect).; patient ended up taking 7 days of Flagyl with no ill effects whatsoever allergy was removed from chart; 04/18/2024 see note...test of cure done 06/18/24. Code(s): A59.9 - Trichomoniasis, unspecified Category: Medical Plan Patient is here for a follow-up on her ultrasound and also a test of cure for the trichomoniasis.. She has a Mirena IU S that was placed in 2016 she said it was a challenging replacement her previous 1 was placed in the OR after a D&C and there had been difficulty placing the IUD in the office in the past She has the Mirena to manage menorrhagia. She had her tubes tied She has lost her sense of smell completely since her experience with COVID and because she is very anxious that she might have any untoward body odor herself she tends to over wash with soap including her vaginal areas even though she knows it is not the wisest thing do her recent experience with trichomoniasis has only reinforced this for her. She says she and her partner had a talk and it seems that the trich may have come from when they were on a break-up and he was with someone else. There had been a discussion in the chart previously that she a have had an allergic reaction to Flagyl which involved diarrhea but this was discussed and then the suppose it allergy was removed from the list and she in fact took Flagyl for 7 days with no problems whatsoever. She had a history of cyst and her ovary and for that reason the ultrasound was ordered to see if that had changed in any way the ultrasound was done on 05/01/2024 but has has not yet been read by Radiology (today is 06/18/2024,) We will have a tele visit after the ultrasound is reviewed given the difficulty of replacing her IUD in the past I am recommending she have a consultation with High School Foreign Language Teacher to discuss replacement of the IUD. it is possible he may be able to do it in the office, but if not make a plan. Coding Level of Care Code Est Pt Level 3 (44223) Diagnoses Presence of 52 mg levonorgestrel-releasing intrauterine device (IUD) Z97.5 Metrorrhagia N92.1 Trichomoniasis A59.9
== END 2024-06-18 14:32 | disposition home or self-care (01) ==
LOC: HO.HWSM 13:35
PROVIDERS: PCP Internal Medicine; Visit Provider Advanced Practice Midwife
DX: Z97.5 Presence of (intrauterine) contraceptive device (principal); N92.1 Excessive and frequent menstruation with irregular cycle; A59.9 Trichomoniasis, unspecified
CPT/HCPCS: 99213

== ENCOUNTER 2024-06-21 15:42 | Outpatient (REF) | payer OTHER, SELFPAY ==
[2024-06-22 08:22] LABS: HBsAGNum1 0.34 S/CO (0.00-0.99); HIV AB/AG Nonreactive (Nonreactive); HIV Num 1 0.06 S/CO (0.00-0.99); Hepatitis B Surface Antigen Negative (Negative); ~HepC Num1 0.22 S/CO (0.00-0.79); ~Hepatitis C Antibody Nonreactive (Nonreactive)
[2024-06-22 08:36] LABS: Syphilis Screen Nonreactive (Nonreactive)
== END 2024-06-21 15:43 | disposition home or self-care (01) ==
LOC: HO.LAB 15:42
PROVIDERS: PCP Internal Medicine; Visit Provider Advanced Practice Midwife
DX: Z20.2 Contact with and (suspected) exposure to infections with a predominantly sexual mode of transmission (principal); A59.9 Trichomoniasis, unspecified
CPT/HCPCS: 36415; 86780; 86803; 87340; 87389

== ENCOUNTER 2024-07-05 09:43 | Outpatient (REF) | payer OTHER, SELFPAY ==
--- NOTE | ~2024-07-05 | XR_ITS ---
CLINICAL HISTORY: M79.642 - Pain in left hand 3 view left hand Comparison: None Findings: Bones intact. No dislocations. No significant arthritic change. No erosions. No radiopaque foreign body. IMPRESSION: 1. No acute findings This document has been electronically signed by: Paul Valdse MD on 07/06/2024 10:03:13
== END 2024-07-05 09:44 | disposition home or self-care (01) ==
LOC: HO.HOSX 09:43
DX: M79.642 Pain in left hand (principal); M18.12 Unilateral primary osteoarthritis of first carpometacarpal joint, left hand; M25.642 Stiffness of left hand, not elsewhere classified
CPT/HCPCS: 20600; 73130; 99212; J1010; J2003

== ENCOUNTER 2024-07-05 13:14 | Outpatient (AMB) | payer OTHER, SELFPAY ==
--- NOTE | 2024-07-05 13:26 | MHC.OFFVIS ---
Vital Signs 07/05/24 13:27 Height 5 ft Weight 223 lb BMI 43.5 Handedness Right Intake Visit Reasons: Newprob-B/L hands-MF RT hand/LT thumb limited ROM Intake Note: John is a 39 year old right hand dominant female who presents today for a new problem visit with complaints of bilateral hand pain and limited ROM, left is greater than right. Patient reports burning sensations in her left hand thumb and her right middle finger. She reports her ADLs have been extremely difficult due to her symptoms. She states any use of the hands exacerbate her pain. She states she has constant burning at the base of the left thumb throughout the entire day. She has concern of loss of strength in the left thumb. Tylenol and ibuprofen offer no relief. Hx of left trigger thumb steroid injection on 12/07/2020. Dr Perkins placed a Rheumatology?referral on 08/01/2022 however she did not attend the appointment on 10/25/2022. Allergies Penicillins Allergy (Severe, Verified 07/05/24 13:27) ANAPHYLAXIS, HIVES animal dander Allergy (Mild, Verified 07/05/24 13:27) ITCHY HIVES THROAT SWOLLEN lactose [LACTOSE] Allergy (Mild, Verified 07/05/24 13:27) DIARRRHEA many vegetables Allergy (Severe, Uncoded 07/05/24 13:27) hives, throat... nuts Allergy (Severe, Uncoded 07/05/24 13:27) hives, throat... FRUIT, SKINS Allergy (Mild, Uncoded 07/05/24 13:27) SWELLING fruits Allergy (Unknown, Uncoded 07/05/24 13:27) hives, throat closes seasonal allergies Allergy (Unknown, Uncoded 07/05/24 13:27) Unknown MEAT Adverse Reaction (Mild, Uncoded 07/05/24 13:27) ABDOMINAL PAIN HPI HPI Newprob-B/L hands-MF RT hand/LT thumb limited ROM: Details: John is a 39 year old right hand dominant female who presents today for a new problem visit with complaints of bilateral hand pain and limited ROM, left is greater than right. Patient reports burning sensations in her left hand thumb and her right middle finger. She reports her ADLs have been extremely difficult due to her symptoms. She states any use of the hands exacerbate her pain. She states she has constant burning at the base of the left thumb throughout the entire day. She has concern of loss of strength in the left thumb. Tylenol and ibuprofen offer no relief. Hx of left trigger thumb steroid injection on 12/07/2020. Dr Perkins placed a Rheumatology?referral on 08/01/2022 however she did not attend the appointment on 10/25/2022. [facility]LY [facility] Medical History Asthma Allergic rhinitis Somnolence, daytime CHIKIS (obstructive sleep apnea) Morbid obesity Carpal tunnel syndrome, bilateral upper limbs Bacterial vaginosis Surgical History Hx of appendectomy History of thumb surgery History of carpal tunnel surgery S/P ACL reconstruction History of tonsillectomy Previous section Family History Mother Diabetes Hypertension Arthritis Father Liver cancer Paternal Aunt Family history of autoimmune disorder Maternal Grandfather Colon cancer Social History Alcohol intake: current Alcohol intake frequency: holidays/special occasions only Patient Tobacco Use Status: Never used Tobacco Substance Use Type: Marijuana Current occupational status: employed 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 Neuro: Normal sensation of the tips of all digits of the left hand at this time Vascular: Cap refill brisk Pain: Tenderness to palpation about the left basal joint Positive CMC grind of the left No tenderness to the radial styloid of the left wrist No other tenderness to palpation ROM: Patient is able to flex and extend all digits of the left hand fully and without difficulty Skin: No lacerations or abrasions. General: No ecchymosis, erythema, or evidence of infection. Psych: Appears grossly normal Affect normal Attitude cooperative Office Procedures Joint Inj/Aspir; Non-Pain Clin Joint Injection/Drain Prep: site was prepped using aseptic technique and injection warnings given Procedure: The patient tolerated the procedure well, but had some pain with the injection and there was some relief with the local anesthesia Elbows, Wrist, Hands, Hand injection Medium joint : Left Hand Coding Procedure code (CPT) selection complete Results Reviewed Results Reviewed: X-rays obtained in the office today and independently reviewed by me, Steven Blankenship PA-C, demonstrate [id number] arthritis of the 1st CMC joint of the left hand. Assessment & Plan Assessment & Plan (1) Osteoarthritis of first carpometacarpal joint of left hand: Code(s): M18.12 - Unilateral primary osteoarthritis of first carpometacarpal joint, left hand Category: Medical Plan 1. Basal joint arthritis of left thumb Patient is educated about this condition Patient is educated about the treatment options available Patient would like to proceed with steroid injection The risks and benefits of a steroid injection including but not limited to risk of damage to blood vessels, nerve, tendon, infection, skin bleaching, persistent or worsening pain, and failure to improve symptoms were discussed with the patient and they wish to proceed with the steroid injection. Once consent was obtained the skin over the dorsum of the left basal joint was aseptically prepped. The joint was then injected with a combination of 1 mL of (40 mg/ml} Depo-Medrol and 1% plain Lidocaine. The patient appears to have tolerated the procedure well and with no complications. He had good early relief before leaving clinic today. He knows that they may not have another steroid injection into this joint for least 4 months. Orders: Orders XR hand LT min 3V Today M79.642 - Pain in left hand Coding Level of Care Code Est Pt Level 3 (42818) Diagnoses Osteoarthritis of first carpometacarpal joint of left hand M18.12 CPT Codes Elbows, Wrist, Hands, - Hand injection Medium joint 93430: Left Hand ([id number])
[2024-07-05 13:27] VITALS: BMI 43.5
--- OUTSIDE RECORDS SUMMARY | 2024-07-05 14:59 | XMS_ITS | Clinical Summary ---
Author Organization 175 [facility] Address [address] [place] [address] Phone Care Team Providers Care Broom Builder Name Role Phone Marshal Nava MD Primary Care Provider [phone] Allergies Active Allergy Reactions Criticality Noted Date Comments Penicillins 09/05/2023 Medications Medication Sig Dispensed Refills Start Date End Date Status albuterol-budesonide (Airsupra) 90-80 mcg/actuation HFA aerosol inhaler Inhale into the lungs. Active mometasone-formoterol (DULERA 100) 100-5 mcg/actuation inhaler Inhale into the lungs. Active montelukast (SINGULAIR) 10 mg tablet Take 1 Tablet by mouth at bedtime. Active rOPINIRole (REQUIP) 5 mg tablet Take 1 Tablet by mouth at bedtime. Active DULoxetine (CYMBALTA) [address] capsule Take 1 capsule (20 mg total) by mouth 1 (one) time each day. Active topiramate (TOPAMAX) 50 mg tablet Take 1 tablet (50 mg total) by mouth 2 (two) times a day. Active gabapentin (NEURONTIN) 100 mg capsule Take 1 capsule (100 mg total) by mouth 1 (one) time each day. Active Social History Tobacco Use Types Packs/Day Years Used Date Smoking Tobacco: Never Assessed Sex and Gender Information Value Date Recorded Sex Assigned at Not on file Gender Identity Not on file Sexual Orientation Not on file Job Start Date Occupation Industry Not on file Not on file Not on file Last Filed Vital Signs Vital Sign Reading Time Taken Comments Blood Pressure - - Pulse - - Temperature - - Respiratory Rate - - Oxygen Saturation - - Inhaled Oxygen Concentration - - Weight 96.6 kg (213 lb) 04/08/2024 8:54 AM EDT Height 152.4 cm (5') 04/08/2024 8:54 AM EDT Body Mass Index 41.6 04/08/2024 8:54 AM EDT Plan of Treatment Upcoming Encounters Date Type Department Care Team (Late st Contact Info) Description 07/09/2024 3:15 PM EST Office Visit Orthopedic Surgery - [place] [address] [phone] Vladimir Comer, DPM [address] [address] Health Maintenance Due Date Last Done Comments Breast Cancer Screening 1984 DTaP,Tdap,and Td Vaccines (1 - Tdap) 02/01/2003 Hepatitis B Vaccines (1 of 3 - 19+ 3-dose series) 02/01/2003 Cervical Cancer Screening: P ap Smear 02/01/2005 Depression Screening 01/05/2024 HIV Screening 01/05/2024 Hepatitis C Screening 01/05/2024 Social Influencers of Health Screening 01/05/2024 COVID-19 Vaccine (1 - 2023-2 5 season) 2024 Influenza Vaccine (#1) 2024 HIB Vaccines Aged Out No longer eligi ble based on patient's age to complete this topic HPV Vaccines Aged Out No longer eligi ble based on patient's age to complete this topic Hepatitis A Vaccines Aged Out No long er eligible based on patient's age to complete this topic IPV Vaccines Aged Out No longer eligi ble based on patient's age to complete this topic MMR Vaccines Aged Out No longer eligi ble based on patient's age to complete this topic Meningococcal ACWY Vaccine Aged Out N o longer eligible based on patient's age to complete this topic Pneumococcal Vaccine: Pediat rics (0 to 5 Years) and At-Risk Patients (6 to 64 Years) Aged Out No longer eligible b ased on patient's age to complete this topic RSV Immunization Patients Un dakota 20 months Aged Out No longer eligible b ased on patient's age to complete this topic Varicella Vaccines Aged Out No longer eligible based on patient's age to complete this topic Care Teams Broom Builder Relationship Specialty Start Date End Date Marshal Nava MD [address] [place] [address] Dr Martines [place], [place] PCP - General 07/19/23
== END 2024-07-05 14:14 | disposition home or self-care (01) ==
PROVIDERS: PCP Internal Medicine
DX: M18.12 Unilateral primary osteoarthritis of first carpometacarpal joint, left hand (principal)
CPT/HCPCS: 20600; 99213

== ENCOUNTER 2024-07-15 14:12 | Outpatient (AMB) | payer OTHER, SELFPAY ==
[2024-07-15 14:17] VITALS: BMI 43.5
--- NOTE | 2024-07-15 14:17 | A.OFFVIS_ITS ---
Vital Signs 07/15/24 14:17 Height 5 ft Weight 223 lb BMI 43.5 Intake Visit Reasons: OV-RT knee pain-follow up limited weight bearing Intake Note: John is a 39 year old female who presents today for a follow up of her right knee OA. She has tried and failed, physical therapy and cortisone injections. Last Right Knee Euflexxa Series done in January of 2024. Hx of Right ACL reconstruction [address] Najera Allergies Penicillins Allergy (Severe, Verified 07/15/24 14:17) ANAPHYLAXIS, HIVES animal dander Allergy (Mild, Verified 07/15/24 14:17) ITCHY HIVES THROAT SWOLLEN lactose [LACTOSE] Allergy (Mild, Verified 07/15/24 14:17) DIARRRHEA many vegetables Allergy (Severe, Uncoded 07/15/24 14:17) hives, throat... nuts Allergy (Severe, Uncoded 07/15/24 14:17) hives, throat... FRUIT, SKINS Allergy (Mild, Uncoded 07/15/24 14:17) SWELLING fruits Allergy (Unknown, Uncoded 07/15/24 14:17) hives, throat closes seasonal allergies Allergy (Unknown, Uncoded 07/15/24 14:17) Unknown MEAT Adverse Reaction (Mild, Uncoded 07/15/24 14:17) ABDOMINAL PAIN HPI HPI OV-RT knee pain-follow up limited weight bearing: Details: Josafat in [place] his 39-year-old woman with posttraumatic osteoarthritis of the right knee. Her complaint today is pain with stairs. Overall she states she is doing well and has less tibial/joint line pain. Now going up and down stairs is problematic and she occasionally hears catching clicking. [facility] Medical History Asthma Allergic rhinitis Somnolence, daytime CHIKIS (obstructive sleep apnea) Morbid obesity Carpal tunnel syndrome, bilateral upper limbs Bacterial vaginosis Surgical History Hx of appendectomy History of thumb surgery History of carpal tunnel surgery S/P ACL reconstruction History of tonsillectomy Previous section Family History Mother Diabetes Hypertension Arthritis Father Liver cancer Paternal Aunt Family history of autoimmune disorder Maternal Grandfather Colon cancer Social History Alcohol intake: current Alcohol intake frequency: holidays/special occasions only Patient Tobacco Use Status: Never used Tobacco Substance Use Type: Marijuana Current occupational status: employed 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 There is crepitus with range of motion and retropatellar tenderness to palpation that is mild. Assessment & Plan Assessment & Plan (1) Post-traumatic osteoarthritis of right knee: Code(s): M17.31 - Unilateral post-traumatic osteoarthritis, right knee Category: Medical Plan: Posttraumatic osteoarthritis of the right knee. She is doing better than I would have anticipated and her primary complaint is anterior knee pain with stairs. I recommend she continue physical therapy exercises and to consider a knee sleeve versus patellofemoral taping. This is acceptable to her. She can see me back in 6 months. Coding Level of Care Code Est Pt Level 3 (68154) Diagnoses Post-traumatic osteoarthritis of right knee M17.31
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
--- OUTSIDE RECORDS SUMMARY | 2024-07-15 15:50 | XMS_ITS | Clinical Summary ---
Author Organization 175 [facility] Address [address] [place] [address] Phone Care Team Providers Care Employment Services Director Name Role Phone Marshal Nava MD Primary Care Provider [phone] Allergies Active Allergy Reactions Criticality Noted Date [...] mouth 1 (one) time each day. Active Hospital, Clinic, or Other Facility Administered Medication Ordered Dose Route Frequency Start Date End Date Status lidocaine (PF) (XYLOCAINE-MPF) 1 % injection 0.5 mLIndications:Planta r fascial fibromatosis .5 mL inj Once PRN Procedure 07/09/2024 07/09/2024 Ended triamcinolone acetonide (KENALOG-40) 40 mg/mL injection 20 mgIndications:Planta r fascial fibromatosis 20 mg IAtc Once PRN Procedure 07/09/2024 07/09/2024 Ended Encounters Date Type Department Care Team Description 07/09/2024 3:15 PM EST Office Visit [facility]opedic [facility] [address] [phone] Vladimir Comer DPM Tendonitis, Achilles, right (Primary Dx); Plantar fascial fibromatosis from Last 3 Months Social History Tobacco Use Types Packs/Day Years [...] 08/21/2024 3:00 PM EDT Office Visit [facility]opedic [facility] [address] [phone] Vladimir Comer DPM [address] [address] Health Maintenance Due Date Last Done Comments [...] on patient's age to complete this topic Procedures Procedure Name Priority Date/Time Associated Diagnosis Comments INJECTION TENDON OR LIGAMENT Routine 07/09/2024 3:15 PM EST Plantar fascial fibromatosis from Last 3 Months Results * Injection tendon or ligament (07/09/2024 3:15 PM EST) Narrative Vladimir Comer DPM - 07/09/2024 3:15 PM EST Vladimir Comer DPM ? 07/09/2024 ??5:07 PM Injection tendon or ligament Indications: pain Details: 25 G needle Medications: 0.5 mL lidocaine (PF) 1 %; 20 mg triamcinolone acetonide 40 mg/mL Informed Consent: ??Site: ??Foot ligament tendon Vladimir Comer DPM IN CLINIC/BEDSIDE ORDERABLES from Last 3 Months Care Teams Employment Services Director Relationship Specialty Start Date End Date Marshal Nava MD [address] [place] [address] Dr [place] [facility] - General 07/19/23
== END 2024-07-15 14:32 | disposition home or self-care (01) ==
PROVIDERS: PCP Internal Medicine; Visit Provider Orthopaedic Surgery
DX: M17.31 Unilateral post-traumatic osteoarthritis, right knee (principal)
CPT/HCPCS: 99213

== ENCOUNTER → 2024-07-15 14:12 | Outpatient (BNVA) | payer OTHER, SELFPAY | PROVIDERS: PCP Internal Medicine; Visit Provider Orthopaedic Surgery | DX: M17.31 Unilateral post-traumatic osteoarthritis, right knee (principal) | CPT/HCPCS: 99212 ==

== ENCOUNTER → 2024-07-18 09:21 | Outpatient (AMB) | payer OTHER, SELFPAY ==
--- NOTE | 2024-07-18 09:21 | A.OFFVIS_ITS ---
Intake Visit Reasons: US. F/U Allergies Penicillins Allergy (Severe, Verified 07/18/24 09:23) ANAPHYLAXIS, HIVES animal dander Allergy (Mild, Verified 07/18/24 09:23) ITCHY HIVES THROAT SWOLLEN lactose [LACTOSE] Allergy (Mild, Verified 07/18/24 09:23) DIARRRHEA many vegetables Allergy (Severe, Uncoded 07/18/24 09:23) hives, throat... nuts Allergy (Severe, Uncoded 07/18/24 09:23) hives, throat... FRUIT, SKINS Allergy (Mild, Uncoded 07/18/24 09:23) SWELLING fruits Allergy (Unknown, Uncoded 07/18/24 09:23) hives, throat closes seasonal allergies Allergy (Unknown, Uncoded 07/18/24 09:23) Unknown MEAT Adverse Reaction (Mild, Uncoded 07/18/24 09:23) ABDOMINAL PAIN Medication List - Last Reconciled 07/18/24 by Ebony Hawkins CNM albuterol sulfate 90 mcg/actuation inhalation albuterol sulfate 2.5 mg inhalation Q4H PRN cyclobenzaprine 10 mg PO Q8H fexofenadine (Sarah Allergy) 60 mg PO BID fluconazole 150 mg PO DAILY 1 dose ibuprofen 600 mg PO Q6H PRN ketorolac 10 mg PO Q8H PRN 3 days levonorgestrel (Mirena) intrauterine miconazole nitrate 2% (Miconazole-7) 1 appful vaginal BEDTIME 7 days mometasone-formoterol 100-5 mcg/actuation (Dulera) 2 puffs inhalation BID montelukast 10 mg PO DAILY PRN naproxen sodium (Aleve) 220 mg PO BID PRN ropinirole 1 mg PO BEDTIME topiramate 25 mg PO DAILY tramadol 50 mg PO BID PRN Is last menstrual period known: No (IUD) HPI HPI US. F/U: Details: 07/18/24-This is a tele visit to review an ultrasound that was originally ordered in June of 2023. It was never done and when I saw her in March for a follow-up visit from an ER visit I refreshed the order requesting that it be done soon, as it was already 9 months after the original order, rather than months away. The u/S was done in April- on April and it was read on 06/28/2024 a full 2 months after it was done; so this tele visit was requested to review this ultrasound with the patient we will be reviewing her symptoms if any today and make a plan from there. [facility] Medical History Asthma Allergic rhinitis Somnolence, daytime CHIKIS (obstructive sleep apnea) Morbid obesity Carpal tunnel syndrome, bilateral upper limbs Bacterial vaginosis Surgical History Hx of appendectomy History of thumb surgery History of carpal tunnel surgery S/P ACL reconstruction History of tonsillectomy Previous section Family History Mother Diabetes Hypertension Arthritis Father Liver cancer Paternal Aunt Family history of autoimmune disorder Maternal Grandfather Colon cancer Social History Alcohol intake: current Alcohol intake frequency: holidays/special occasions only Patient Tobacco Use Status: Never used Tobacco Substance Use Type: Marijuana Current occupational status: employed 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 Reproductive History Menstrual Age of Menarche: 9 control method: progestin IUCD Total pregnancies: 3 Number of Living Children: 3 Date of last pap smear: 03/02/22 (negative) Telehealth Telehealth Telehealth Platform: Telephone Location of provider rendering services: practice address Location of patient: address on file Patient Identification confirmed using: Name, : Yes Telehealth method: voice only Patient verbally consented to treatment: Yes Patient verbally consented to billing insurance company: Yes Patient informed of any privacy concerns related to visit: Yes Minutes spent on Phone/Video with Pt.: 13 Results Reviewed Results Reviewed: Patient: John Stapleton MR#: [id number] : 1985 Acct:[id number] Age/Sex: 39 / F ADM Date: 05/01/24 Loc: HO. Attending Dr: Ebony Hawkins CNM Ordering Physician: Ebony Hawkins CNM Date of Service: 05/01/24 Procedure(s): US pelvic and transvaginal Accession Number(s): [id number] cc: Marshal Nava MD; Ebony Hawkins CNM~ EXAMINATION: US PELVIS CLINICAL INFORMATION: Unknown last menstrual period with IUD. COMPARISON: None available. TECHNIQUE: Ultrasound of the pelvis is performed using both transabdominal and transvaginal transducers along with Doppler. Transvaginal imaging is performed due to inadequate visualization transabdominally. FINDINGS: The anteverted uterus measures 13.3 x 5.2 x 6.[address] within the endometrial cavity. Visualization of the endometrium is limited due to shadowing artifact from the IUD, but imaged portion of endometrium demonstrates thickness of 4 mm. Left ovary measures 2.8 x 2.3 x 1.6 cm, volume 5.7 mL. Right ovary measures 2.4 x 2.6 x 2.3 cm, volume 7.6 mL. 1.6 x 1.8 x 1.5 cm right ovarian complex mass, possibly representing a corpus luteum versus other etiology. Recommend followup ultrasound in 6-8 weeks. US/US pelvic and transvaginal IMPRESSION: 1. IUD in place within the endometrial cavity. Visualization of the endometrium is limited due to shadowing artifact from the IUD, but imaged portion of endometrium demonstrates thickness of 4 mm. 2. A 1.8 cm right ovarian complex mass, possibly representing a corpus luteum versus other etiology. Recommend followup ultrasound in 6-8 weeks. Electronically signed by: Debora Capone MD 06/30/2024 11:48 AM [facility] Dictated By: Debora Capone MD Signed By: <Electronically signed by Debora Capone MD in OV> 06/30/24 1148 DD/ 1137 TD/TT: 05/01/24 1159 Apprentice Cosmetologist: Name: John Stapleton Age/Sex: 39/F : 1985 Unit#: [id number] Attend Dr: Ebony Hawkins CNM Re06/21/24 Status: DEP REF Location: .LAB Disch: SPEC : [id number] FARHAT: 06/21/24 STATUS: COMP REQ : [id number] RECD: 06/21/24-[address]: Ebony Hawkins CNM COMP: 06/22/24-0838 ENTERED: 06/21/24-[address]: Marshal Nava MD ORDERED: Anti-HCV, HIV Ab/Ag, HBsAG Test Result Flag Reference Anti-HCV Nonreactive Nonreactive Antibodies to HCV not detected; does not exclude early acute HCV infection. HIV AB/AG Nonreactive Nonreactive HIV-1 p24 Ag and/or HIV-1/HIV-2 Ab not detected. A test result that is nonreactive does not exclude the possibility of exposure to or infection with HIV-1 and/or HIV-2. Nonreactive results in this assay for individuals with prior exposure to HIV-1 and/or HIV-2 may be due to antigen and antibody levels that are below the limit of detection of this assay. The [place] HIV Ag/Ab Combo assay result and supplemental assay results should be interpreted in conjunction with the patient's clinical presentation, history and other laboratory results. If the results are inconsistent with clinical evidence, additional testing is suggested to confirm the result. HBsAG Negative Negative END OF REPORT UN: 07/18/24 1017 PAGE 1 [facility] [address] [place] [phone] Retail Greeting Card Merchandiser: Kenton Mayer M.D. Specimen Inquiry Name: John Stapleton Age/Sex: 39/F : 1985 Unit#: [id number] Attend Dr: Ebony Hawkins CNM Re06/18/24 Status: DEP REF Location: HO.LAB Disch: SPEC : [id number] FARHAT: 06/18/24-UNK STATUS: COMP REQ : [id number] RECD: 06/18/[address] [facility] [address]: Ebony Hawkins CNM COMP: 06/19/24 ENTERED: 06/18/[address] [facility] [address]: Marshal Nava MD ORDERED: BV Panel Test Result Flag Reference TV PCR NOT DETECTED Not Detect BV PCR NEGATIVE Negative The BV organism targets of the Xpert Xpress MVP test can be commensal in women; Xpert Xpress MVP positive results for bacterial vaginosis should be considered in conjunction with other clinical and patient information to determine the disease status. Organisms that are not detected by the Xpert Xpress MVP test have also been reported to be associated with BV and aerobic vaginitis. The Xpert Xpress MVP test performance has not been evaluated in patients under the age of 14. Valerie [facility]p PCR DETECTED A Not Detect Can gla-kru NOT DETECTED Not Detect END OF REPORT pap of 2021 neg. 06/21/24 rpr neg. Assessment & Plan Assessment & Plan (1) IUD (intrauterine device) in place: Code(s): Z97.5 - Presence of (intrauterine) contraceptive device Category: Medical (2) Presence of 52 mg levonorgestrel-releasing intrauterine device (IUD): Comment: Originally inserted in 2009 during D&C for menorrhagia. It was replaced in 2016 in the office. She is using it to help with her bleeding profile, she does not needed for control as she has a tubal ligation. Code(s): Z97.5 - Presence of (intrauterine) contraceptive device Category: Social Hx (3) Ovarian cyst, complex: Comment: Per ultrasound done 05/01/2024, as follow-up from a 1-year-old ultrasound, and which was read on 06/28/2024, there was a complex ovarian cyst possible corpus luteum cyst noted with recommended follow-up ultrasound for 6-8 weeks which was long past when the ultrasound was read,,,, we will have visit with patient and follow-up accordingly... Code(s): N83.299 - Other ovarian cyst, unspecified side Category: Medical (4) Asthma: Comment: Her history is consistent with chronic allergic bronchial asthma. Discussed about avoidance of allergens/triggers.. Most importantly she may have to gave away her cats, but she is not even considering that. PULMONARY FUNCTION TEST IS ORDERED, TX : Continue Dulera of 100-5 2 puffs b.i.d. Continue montelukast 10 mg daily. Albuterol HFA 2 puffs Q 4-6 hours p.r.n.. Will recheck after 6 weeks, after she has the sleep study and PFT.; 07/18/24--pt surrendered most of her cats to intermediate except one, and has noticed a big improvement in air quality and her symptom, in her home, with all of her measures. Has current URI at the moment.- mo'b. Code(s): J45.909 - Unspecified asthma, uncomplicated Category: Medical (5) Cervical cancer screening: Comment: 03/01/2022 Pap is negative with negative HPV. Code(s): Z12.4 - Encounter for screening for malignant neoplasm of cervix Category: Medical (6) Trichomoniasis: Comment: There is a history of allergy to metronidazole that needs to be investigated 1st in order to be treated..(according to chart side effect of diarrhea was noted which is a very common side effect).; patient ended up taking 7 days of Flagyl with no ill effects whatsoever allergy was removed from chart; 04/18/2024 see note...test of cure done 06/18/24.= negative, and all other sti screens negative. Code(s): A59.9 - Trichomoniasis, unspecified Category: Medical Plan I reviewed with the patient history of her symptoms the history of the ultrasound order ordered 07/01/2023 and not being done until after the visit when I saw her as ER follow-up in March of 2024. Ultrasound was done 05/01/2024 and was read on 06/28/2024. I shared with the patient that hopefully future ultrasounds will be read in a more timely fashion. She is not having any particular symptoms now what her symptoms were were pain that fluctuated sometimes on the left and sometimes on the right. Discussed that this could be related to some normal ovarian function. Because a follow-up ultrasound was recommended for this possible corpus luteum versus other finding, even though the 6-8 weeks have passed I am requesting the ultrasound be done soon though it is not urgent as she is not having any symptoms at all right now. We reviewed all of the other testing her Pap smear is negative in 2021. She and her both got treated for the trichomoniasis and discussed it and understand it was from a temporary event the previous year, and have talked about it and moved on and she was very reassured to know again today all the test of cure testing was negative as well as all of the serum blood work for STIs, which i reviewed with her, which was negative which she is very happy about. In addition I inquired about her health in other ways her asthma is in much better control even though she has an upper respiratory infection/cold today. She surrendered most of her cats for adoption at the intermediate except for 1, and she feels the air in her house is much spot cleaner and we discussed all of the important ways to minimize airborne release of dander.. Discussed the challenges of extra fabrics rugs vacuuming etc. See her though it maybe a tele visit after the next ultrasound and I wished her well and safe walking in this storm today. f/u pelvic u/s... tv after to review u/s results I REQUESTED THAT BOTH BE SCHEDULED WITHIN A REASONABLE AMOUNT OF TIME (NOT 9 MONTHS) Orders: Orders US pelvic and transvaginal Today N83.299 - Other ovarian cyst, unspecified side, Z97.5 - Presence of (intrauterine) contraceptive device Coding Level of Care Code Tele Est Pt Level 3 (69642) Diagnoses IUD (intrauterine device) in place Z97.5 Presence of 52 mg levonorgestrel-releasing intrauterine device (IUD) Z97.5 Ovarian cyst, complex N83.299 Asthma J45.909 Cervical cancer screening Z12.4 Trichomoniasis A59.9 Time Spent (min) 30 Comment 7cr/13 speaking w pt/20 documenting all issues and making plan,
--- OUTSIDE RECORDS SUMMARY | 2024-07-18 09:25 | XMS_ITS | Clinical Summary ---
Author Organization 175 [facility] Address [address] [place] [address] Phone Care Team Providers Care Broadcast Operations Engineer Name Role Phone Marshal Nava MD Primary Care Provider [phone] Allergies Active Allergy Reactions Criticality Noted Date [...] 07/09/2024 3:15 PM EST Office Visit Orthopedic [facility] [address] [phone] Vladimir Comer DPM Tendonitis, Achilles, right (Primary [...] 08/21/2024 3:00 PM EDT Office Visit Orthopedic [facility] [address] [phone] Vladimir Comer DPM [address] [address] Health Maintenance Due Date Last Done Comments [...] ORDERABLES from Last 3 Months Care Teams Broadcast Operations Engineer Relationship Specialty Start Date End Date Marshal Nava MD [address] [place] [address] Dr [place] [facility] - General 07/19/23
--- OUTSIDE RECORDS SUMMARY | 2024-07-18 09:25 | XMS_ITS | Encounter Summary ---
Author Organization [facility] Address [address] [place] [address] Care Team Providers Care Wood Getter Name Role Phone Marshal Nava MD Primary Care Provider [phone] Reason for Visit * Reason Comments Follow-up Tendonitis Achilles tendonitis right foot Plantar Fasciitis Plantar fasciitis ri ght foot Encounter Details Date Type Department Care Team ([facility] st Contact Info) Description 07/09/2024 3:15 PM EST Office Visit Orthopedic Surgery - [place] [address] [phone] Vladimir Comer DPM [address] [address] Tendonitis, Achilles, right (Primary Dx); Plantar fascial [...] PM EDT Office Visit Orthopedic Surgery - [place] [address] [address] Vladimir Comer DPM [address] [address] documented as of this encounter Procedures Procedure [...] mg documented in this encounter Care Teams Wood Getter Relationship Specialty Start Date End Date Marshal Nava MD [address] [place] [address] Dr Venus [place] PCP - General 07/19/23 documented as of this encounter
== END | disposition home or self-care (01) ==
PROVIDERS: Visit Provider Advanced Practice Midwife
CPT/HCPCS: 99213

== ENCOUNTER 2024-08-30 12:52 | Outpatient (REF) | payer OTHER, SELFPAY ==
--- NOTE | ~2024-08-30 | US_ITS ---
CLINICAL HISTORY: Z97.5 - Presence of (intrauterine) contraceptive device US pelvis transabdominal and transvaginal Comparison: 05/01/2024 Findings: Transabdominal scanning performed for overall anatomy. Transvaginal scanning performed for additional detail. Anteverted uterus is 11.5 cm length. Normal myometrium. Endometrium is obscured by IUD Right ovary 3.9 x 2.4 x 2.4 cm. Left ovary 2.8 x 2.4 x 1.8 cm. Normal color Doppler of both ovaries. No free fluid. IMPRESSION: 1. IUD appears well-positioned This document has been electronically signed by: Paul Valdes MD on 08/31/2024 08:51:26
--- OUTSIDE RECORDS SUMMARY | 2024-08-30 15:16 | XMS_ITS | Encounter Summary ---
Author Organization [facility] Address [address] [place] [address] Care Team Providers Care 3Rd Grade Teacher Name Role Phone Marshal Nava MD Primary Care Provider Reason for Referral * Imaging (Routine) - Pending Review Specialty Diagnoses / Procedures Referred By Flaquito olivier Referred To Contact Radiology Diagnoses Plantar fascial fibromatosis Tendonitis, Achilles, right Procedures MR Ankle wo Contrast Right Vladimir Comer DPM [address] [address] Phone: tel: fax: [facility] Referral ID Status Reason Start Date Expiration Date V isits Requested Visits Authorized [id number] Pending Review 08/21/2024 08/21/2025 1 1 Reason for Visit * Reason Comments Follow-up Right foot pain Encounter Details Date Type Department Care Team ([facility] Contact Info) Description 08/21/2024 3:00 PM EDT Office Visit Orthopedic Surgery - [place] [address] [phone] Vladimir Comer DPM [address] [address] Tendonitis, Achilles, right (Primary Dx); Follow-up exam; Plantar fascial fibromatosis Social History Tobacco Use Types Packs/Day Years Used Date Smoking Tobacco: Never Assessed Comments Unknown Sex and Gender Information Value Date Recorded Sex Assigned at Not on file Legal Sex Female 11:02 AM EDT Gender Identity Not on file Sexual Orientation Not on file documented as of this encounter Last Filed Vital Signs Vital Sign Reading Time Taken Comments Blood Pressure - - Pulse - - Temperature - - Respiratory Rate - - Oxygen Saturation - - Inhaled Oxygen Concentration - - Weight 96.6 kg (213 lb) 08/21/2024 2:36 PM EDT Height 152.4 cm (5') 08/21/2024 2:36 PM EDT Body Mass Index 41.6 08/21/2024 2:36 PM EDT documented in this encounter Progress Notes * Vladimir Comer DPM - 08/21/2024 3:00 PM EDT S Patient presents stating her pain discomfort has gotten worse she states the injections and really help it helped for 2 or 3 days to week states pain came right back pain discomfort is a 7-10 outsideof his analog scale states intense affects where she walks is difficult for walk or be active throughout the day she get x-rays at today's appointment ROS: GENERAL: Pt denies nausea, fever, vomiting, [...] epic IMPRESSION: 1. Tendonitis, Achilles, right 2. Follow-up exam XR Foot 3+ Views Right 3. Plantar fascial fibromatosis PLAN: Pt was seen and examined, history reviewed. Radiographs reviewed without acute findings Discussed worsening plantar fascia send right foot [...] be at least 3 to 4 months MRI ordered of the ankle hindfoot for possible surgical planning Alternative option discussed and reviewed advanced images that is discussed and reviewed the potential option Follow-up in 1 month Vladimir Comer DPM documented in this encounter Plan of Treatment Upcoming Encounters Date Type Department Care Team (Late st Contact Info) Description 10/01/2024 2:00 PM EDT Office Visit Orthopedic Surgery - [place] [address] [phone] Vladimir Comer DPM [address] [address] Scheduled Orders Name Type Priority Associated Diagnoses Orde r Schedule MR Ankle wo Contrast Right Imaging Routine Plantar fascial fibromatosis Tendonitis, Achilles, right Expected: 08/21/2024, Expires: 08/21/2025 documented as of this encounter Results * XR Foot 3+ Views Right (08/21/2024 3:33 PM EDT) Anatomical Region Laterality Modality Lower Extremities, Foot Right Computed Radiography Narrative 08/21/2024 5:34 PM EDT Right foot ??3 views No fracture. No radiopaque foreign joint spaces normal Foot position rectus Normal talus navicular position normal calcaneal inclination normal symes line talus navicular joint to calcaneal cuboid joint us Christopher M Comer DPM IMG XR PROCEDURES Final R esult documented in this encounter Visit Diagnoses Diagnosis Tendonitis, Achilles, right- Primary Follow-up exam Unspecified follow-up examination Plantar fascial fibromatosis documented in this encounter Care Teams 3Rd Grade Teacher Relationship Specialty Start Date End Date Marshal Nava MD [address] [place] [address] Dr Venus [place] PCP - General 07/19/23 documented as of this encounter
--- OUTSIDE RECORDS SUMMARY | 2024-08-30 15:16 | XMS_ITS | Clinical Summary ---
Author Organization 175 [facility] Address [address] [place] [address] Phone Care Team Providers Care Organisational Psychologist Name Role Phone Marshal Nava MD Primary Care Provider [phone] Allergies Active Allergy Reactions Criticality Noted Date Comments Penicillins 09/05/2023 Medications albuterol-budes onide (Airsupra) 90-80 mcg/actuation HFA aerosol inhaler Inhale into the lungs. Active mometasone-form oterol (DULERA 100) 100-5 mcg/actuation inhaler Inhale into [...] mouth 1 (one) time each day. Active Encounters Date Type Department Care Team Description 08/21/2024 3:00 PM EDT Office Visit Orthopedic [facility] [address] [address] Vladimir Comer, DPM Tendonitis, Achilles, right (Primary Dx); Follow-up exam; Plantar fascial fibromatosis 07/09/2024 3:15 PM EST Office Visit Orthopedic [facility] [address] [phone] Vladimir Comer DPM Tendonitis, Achilles, right (Primary Dx); Plantar fascial fibromatosis from Last 3 Months Social History Tobacco Use Types Packs/Day Years Used Date Smoking Tobacco: Never Assessed Comments Unknown Sex and Gender Information Value Date Recorded Sex Assigned at Not on file Legal Sex Female 11:02 AM EDT Gender Identity Not on file Sexual Orientation Not on file Last Filed Vital Signs Vital Sign Reading Time Taken Comments Blood Pressure - - Pulse - - Temperature - - Respiratory Rate - - Oxygen Saturation - - Inhaled Oxygen Concentration - - Weight 96.6 kg (213 lb) 08/21/2024 2:36 PM EDT Height 152.4 cm (5') 08/21/2024 2:36 PM EDT Body Mass Index 41.6 08/21/2024 2:36 PM EDT Plan of Treatment Upcoming Encounters Date Type Department Care Team (Late st Contact Info) Description 10/01/2024 2:00 PM EDT Office Visit Orthopedic Surgery - [place] [address] [phone] Vladimir Comer DPM [address] [address] Health Maintenance Due Date Last Done Comments [...] patient's age to complete this topic Meningococcal B Vacine Aged Out No lo nger eligible based on patient's age to complete [...] Procedure Name Priority Date/Time Associated Diagnosis Comments XR FOOT 3+ VIEWS RIGHT Routine 08/21/2024 3:33 PM EDT Follow-up exam INJECTION TENDON OR LIGAMENT Routine 07/09/2024 3:15 PM EST Plantar fascial fibromatosis from Last 3 Months Results * XR Foot 3+ Views Right (08/21/2024 3:33 PM EDT) Anatomical Region Laterality Modality Lower Extremities, Foot Right Computed Radiography Narrative 08/21/2024 5:34 PM EDT Right foot ??3 views No fracture. No radiopaque foreign joint spaces normal Foot position rectus Normal talus navicular position normal calcaneal inclination normal symes line talus navicular joint to calcaneal cuboid joint Vladimir Comer DPM IMG XR PROCEDURES Final R esult * Injection tendon or ligament (07/09/2024 3:15 PM EST) Narrative Vladimir Comer DPM - 07/09/2024 3:15 PM EST Vladimir Comer DPM ? 07/09/2024 ??5:07 PM Injection tendon or ligament Indications: pain Details: 25 G needle Medications: 0.5 mL lidocaine (PF) 1 %; 20 mg triamcinolone acetonide 40 mg/mL Informed Consent: ??Site: ??Foot ligament tendon Christopher M Comer DPM IN CLINIC/BEDSIDE ORDERAB LES Final Result from Last 3 Months Insurance [facility] Care Teams Organisational Psychologist Relationship Specialty Start Date End Date Marshal Nava MD [address] [place] [address] Dr Martines [place], [place] PCP - General 07/19/23
== END 2024-08-30 12:53 | disposition home or self-care (01) ==
LOC: HO.US 12:52
PROVIDERS: PCP Internal Medicine; Visit Provider Advanced Practice Midwife
DX: N83.299 Other ovarian cyst, unspecified side (principal); Z97.5 Presence of (intrauterine) contraceptive device
CPT/HCPCS: 76830; 76856

== ENCOUNTER → 2024-08-30 12:54 | Outpatient (BNV) | payer OTHER, SELFPAY | PROVIDERS: PCP Internal Medicine; Visit Provider Specialist | DX: Z97.5 Presence of (intrauterine) contraceptive device (principal) | CPT/HCPCS: 76830; 76856 ==

== ENCOUNTER 2024-10-16 04:58 | Inpatient (IN) | payer OTHER, SELFPAY ==
[2024-10-16] VITALS (12 sets, daily range): BP systolic 94–137; BP diastolic 51–77; PULSE 77–120; RESP 14–24; TEMP 36.7–38.9; O2SAT 89–99; BMI 42.6; BMI 43.5
--- NOTE | ~2024-10-16 | XR_ITS ---
CLINICAL HISTORY: fever --- 1 view chest Comparison: None Findings: Cardiac and mediastinal contours are normal. Mild interstitial prominence with scattered peribronchial thickening. No focal consolidation. No effusion. No pneumothorax. No acute osseous finding. Impression: Mild interstitial prominence with scattered peribronchial thickening. No focal consolidation. This document has been electronically signed by: Sandip Perales MD on 10/16/2024 07:48:40
--- NOTE | ~2024-10-16 | US_ITS ---
EXAMINATION: Ultrasound pelvis and transvaginal ultrasound. Ovary and Doppler exam. CLINICAL INDICATION: Right lower quadrant pain. COMPARISON: Ultrasound pelvis 08/30/2024. FINDINGS:The uterus is anteverted and anteflexed measuring 13.6 x 5.3 x 6.0 cm. An IUD is noted in correct position. No focal lesion seen. Right ovary measures 2.7 x 2.6 x 1.5 cm volume 5.5 mL. No focal lesion seen. Previously right ovary measured 3.9 x 2.4 x 2.4 cm. Left ovary measures 2.6 x 2.5 x 1.7 cm. Volume 5.8 mL. It appears unremarkable. Previously left ovary measured 2.8 x 2.4 x 1.8 cm. There is normal arterial and venous flow seen to both ovaries on Doppler exam. There is no free fluid in cul-de-sac. US/US pelvic ovarian doppler IMPRESSION: Unremarkable uterus and bilateral ovaries. Normal Doppler flow seen to both ovaries. Electronically signed by: Vitaly Manjarrez MD 10/16/2024 10:47 AM EDT
--- NOTE | ~2024-10-16 | US_ITS ---
EXAMINATION: Ultrasound pelvis and transvaginal ultrasound. Ovary and Doppler exam. CLINICAL INDICATION: Right lower quadrant pain. COMPARISON: Ultrasound pelvis 08/30/2024. FINDINGS:The uterus is anteverted and anteflexed measuring 13.6 x 5.3 x 6.0 cm. An IUD is noted in correct position. No focal lesion seen. Right ovary measures 2.7 x 2.6 x 1.5 cm volume 5.5 mL. No focal lesion seen. Previously right ovary measured 3.9 x 2.4 x 2.4 cm. Left ovary measures 2.6 x 2.5 x 1.7 cm. Volume 5.8 mL. It appears unremarkable. Previously left ovary measured 2.8 x 2.4 x 1.8 cm. There is normal arterial and venous flow seen to both ovaries on Doppler exam. There is no free fluid in cul-de-sac. US/US pelvic and transvaginal IMPRESSION: Unremarkable uterus and bilateral ovaries. Normal Doppler flow seen to both ovaries. Electronically signed by: Vitaly Manjarrez MD 10/16/2024 10:47 AM EDT
--- NOTE | ~2024-10-16 | CT_ITS ---
EXAMINATION: CT ABDOMEN PELVIS WITH IV CONTRAST HISTORY: abdominal pain, fever COMPARISON: There are no prior studies for comparison. TECHNIQUE: CT scan of the abdomen and pelvis was performed following administration of 85 mL Omnipaque 350 using standard departmental protocol. Coronal and sagittal reformatted images were generated and reviewed. Oral contrast material was not administered at the request of the referring physician. This CT exam was performed with one or more of the following dose reduction techniques: automated exposure control, adjustment of the mA and/or kV according to patient size, use of iterative reconstruction technique. DLP: 715 mGy-cm FINDINGS: LOWER CHEST: The visualized lung bases are clear. There is no pleural effusion. CARDIOVASCULATURE: The heart is normal in size. There is no pericardial effusion. LIVER: The liver is normal in size and contour. No liver mass is identified. The hepatic and portal veins are patent. GALLBLADDER / BILE DUCTS: The gallbladder is unremarkable. There is no intra or extrahepatic biliary ductal dilatation. SPLEEN: The spleen is top normal in size. No focal splenic lesion is identified. PANCREAS: The pancreas is unremarkable in appearance. ADRENAL GLANDS: Within normal limits. KIDNEYS/RETROPERITONEUM: No renal calculi are identified. There is no hydronephrosis. No renal masses are identified. LYMPH NODES: No abdominal or pelvic lymphadenopathy. VASCULATURE: The abdominal aorta is normal in caliber. MESENTERY/PERITONEUM: No free fluid. No masses. There is no free intraperitoneal gas. STOMACH: There is a small hiatal hernia. The remainder of the stomach is collapsed. SMALL BOWEL: The small bowel is normal in caliber. COLON: The colon is unremarkable. APPENDIX: The appendix is not seen, however no inflammatory changes are seen adjacent to the cecum. URINARY BLADDER/PELVIC ORGANS: The urinary bladder is unremarkable. IUD is noted in the endometrial cavity of the uterus. The ovaries are unremarkable in appearance. BONES / SOFT TISSUES: There is a small fat-containing umbilical hernia. The bones are intact. CT/CT abdomen pelvis w IV con IMPRESSION: Small hiatal hernia. Small fat-containing umbilical hernia. Otherwise unremarkable contrast-enhanced CT of the abdomen and pelvis. Electronically signed by: Van Mayo MD 10/16/2024 08:33 AM EDT
[2024-10-16 05:30] LABS: Hematocrit 35.9 % (37.0-47.0); Hemoglobin 13.1 g/dl (12.0-16.0); Mean Corpuscular HGB Conc 36.5 g/dl (31.0-35.0); Mean Corpuscular Hemoglobin 32.5 pg (27.0-33.0); Mean Corpuscular Volume 89.1 fL (80.0-98.0); Mean Platelet Volume 9.4 fL (9.4-12.3); Platelet Count 279 X10*3/uL (160-400); Red Blood Count 4.03 X10*6/uL (4.20-5.50); Red Cell Distribution Width 12.4 % (11.0-16.0); White Blood Count 20.2 X10*3/uL (4.8-10.8)
[2024-10-16 06:01] LABS: Alanine Aminotransferase 10 U/L (0-31); Alkaline Phosphatase 80 U/L (39-117); Anion Gap 16 (12-20); Aspartate Amino Transferase 13 U/L (5-31); Bilirubin Total 0.9 mg/dL (0.0-1.0); Blood Urea Nitrogen 6 mg/dL (9-16); Calcium 9.1 mg/dL (8.4-10.2); Carbon Dioxide 18 mmol/L (22-29); Chloride 106 mmol/L (96-108); Creatinine Clr Calc Pharmacy 96.2; Estimated Glomerular Filt Rate > 60; Glucose Random 197 mg/dL (60-115); Lipase 14 U/L (8-78); Potassium 3.6 mmol/L (3.3-5.1); Sodium 136 mmol/L (135-145)
--- NOTE | 2024-10-16 06:07 | ED_ITS ---
HPI - General Adult General Chief complaint: Abdominal Pain Stated complaint: abd pain Time Seen by Provider: 10/16/24 06:07 History of Present Illness ED Provider: Brice PERRY narrative: The patient is a 39-year-old female with a history of an appendectomy as a child. 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 After getting home she felt chilled and feverish and went to bed for awhile. At around 5:00 she thought that she suddenly felt better and took a shower but soon after that she developed abdominal pain and again felt feverish. She also developed abdominal pain and ultimately came to the emergency room. The patient has an IUD. She has had no dysuria. She has had a cough. She says her abdominal pain is worse when she takes a breath. She has a history of an appendectomy as a child. Related Data Home Medications ?Medication ?Instructions ?Recorded ?Confirmed levonorgestrel 21 mcg/24 hr (up to intrauterine 02/03/21 07/18/24 8 years) 52 mg intrauterine device (Mirena) albuterol sulfate 2.5 mg/3 mL 2.5 mg inhalation Q4H PRN Wheezing 08/12/21 07/18/24 (0.083 %) solution for nebulization fexofenadine 60 mg tablet (Sarah 60 mg PO BID 12/24/21 07/18/24 Allergy) montelukast 10 mg tablet 10 mg PO DAILY PRN 01/20/23 07/18/24 naproxen sodium 220 mg tablet 220 mg PO BID PRN 01/20/23 07/18/24 (Aleve) ropinirole 1 mg tablet 1 mg PO BEDTIME 06/28/23 07/18/24 topiramate 25 mg tablet 25 mg PO DAILY 06/28/23 07/18/24 albuterol sulfate 90 mcg/actuation 2 puff inhalation QID 10/16/24 10/16/24 aerosol inhaler (Ventolin HFA) mometasone-formoterol HFA 200 2 puff inhalation BID 10/16/24 mcg-5 mcg/actuation aerosol inhaler (Dulera) Previous Rx's ?Medication ?Instructions ?Recorded cyclobenzaprine 10 mg tablet 10 mg PO Q8H #20 tabs 01/26/24 ibuprofen 600 mg tablet 600 mg PO Q6H PRN fever or pain 01/26/24 #30 tabs miconazole nitrate 2 % vaginal 1 appful vaginal BEDTIME 7 days 04/04/24 cream (Miconazole-7) #45 grams ketorolac 10 mg tablet 10 mg PO Q8H PRN pain 3 days #9 04/08/24 tabs tramadol 50 mg tablet 50 mg PO BID PRN severe pain 04/08/24 (scale score 7-10) #6 tabs fluconazole 150 mg tablet 150 mg PO DAILY 1 dose #1 tab 06/19/24 Allergies Allergy/AdvReac Type Severity Reaction Status Date / Time Penicillins Allergy Severe ANAPHYLAXIS, Verified 10/16/24 05:08 HIVES animal dander Allergy Mild ITCHY Verified 10/16/24 05:08 HIVES THROAT SWOLLEN lactose [LACTOSE] Allergy Mild DIARRRHEA Verified 10/16/24 05:08 many vegetables Allergy Severe hives, Uncoded 07/18/24 09:23 throat... nuts Allergy Severe hives, Uncoded 07/18/24 09:23 throat... FRUIT, SKINS Allergy Mild SWELLING Uncoded 07/18/24 09:23 fruits Allergy Unknown hives, Uncoded 07/18/24 09:23 throat closes seasonal allergies Allergy Unknown Unknown Uncoded 07/18/24 09:23 MEAT AdvReac Mild ABDOMINAL Uncoded 07/18/24 09:23 PAIN Review of Systems 2 Review of Systems: Yes all other systems are reviewed and are negative [facility] Past Medical History Medical History Asthma Allergic rhinitis Somnolence, daytime CHIKIS (obstructive sleep apnea) Morbid obesity Carpal tunnel syndrome, bilateral upper limbs Bacterial vaginosis Surgical History Hx of appendectomy History of thumb surgery History of carpal tunnel surgery S/P ACL reconstruction History of tonsillectomy Previous section Family History Family History Mother Diabetes Hypertension Arthritis Father Liver cancer Paternal Aunt Family history of autoimmune disorder Maternal Grandfather Colon cancer Social History Social History Alcohol intake: never Patient Tobacco Use Status: Never used Tobacco Smoked in Last 30 Days: No Use of substances other than those prescribed or required for medical reasons: Yes Substance Use Type: Marijuana Advance Directives: No Advance Directives Information Provided: Yes Do you have a plan to hurt others: No Plan Patient : No Current occupational status: employed Current occupation: - Right Handed/[employer] Physical Exam ED Vital Signs: Vital Signs - 24 hr 10/16/24 05:04 10/16/24 06:34 10/16/24 06:39 Temperature 98.0 F 98.0 F Pulse Rate 96 77 Respiratory Rate 18 20 20 Blood Pressure 103/63 94/51 L Pulse Oximetry 99 97 Oxygen Delivery Method Room Air Room Air Oxygen Flow Rate 10/16/24 07:00 10/16/24 08:23 10/16/24 08:32 Temperature Pulse Rate 82 120 H Respiratory Rate 16 24 H Blood Pressure 105/65 Pulse Oximetry 97 89 L Oxygen Delivery Method Room Air Room Air Oxygen Flow Rate 10/16/24 08:32 10/16/24 09:22 Temperature 98.4 F Pulse Rate 94 111 H Respiratory Rate 20 20 Blood Pressure 108/59 L 111/62 Pulse Oximetry 97 98 Oxygen Delivery Method Nasal Cannula Room Air Oxygen Flow Rate 2 BMI result Body Mass Index 42.6 Const Other: The patient is a 39-year-old female who was awake and alert with a pleasant demeanor. She looks somewhat uncomfortable and somewhat ill. HENMT Other: Face is symmetrical. Mucous membranes moist. Pharynx is unremarkable. Eyes General: appearance normal, both eyes and all related structures Neck Neck: Yes normal visual inspection, Yes full ROM and Yes no lymphadenopathy Resp Effort & Inspection: normal respiratory effort Auscultation: clear to auscultation bilaterally Cardio Rate: regular rate Rhythm: regular rhythm Heart sounds: S1 normal heart sound present and S2 normal heart sound present GI Other: The patient is abdomen is diffusely tender. General: Yes no CVA tenderness Back/Spine/Pelvis Back: no CVA tenderness Skin Other: Skin is pale and dry Neuro Other: The patient is awake and alert with a normal mental status. Cranial nerves are grossly intact. She moves her extremities symmetrically and appropriately. She seems grossly neurologically intact. Extrem Other: No pain or swelling in her lower legs. No edema. No asymmetry. Course Reevaluation(s) Reevaluation #2: I assumed care of this patient at [address] Abdomen/Pelvis result and UA result. I reviewed the CT Abdomen/Pelvis which was unremarkable for acute pathology. I ordered an US Pelvis given patient's report of vaginal clear discharge. Her UA did result with cystitis. She has 2+ moderate blood with small leukocyte esterase and >50 WBC. 1+ bacteria. No significant squamous cells. Patient states she is not significantly worried about STDs but is agreeable to testing. Ordered for gonorrhea/chlamydia and HIV/syphilus. I provided additional pain control with toradol and tylenol. US Pelvis is unremarkable. Patient still reporting intractable pain. Provided 2nd dose of Morphine 4mg IV. Patient had pelvic exam performed by myself. She has purulent discharge noted. + cervical motion tenderness. I did send sample for trich/emily/BV. Plan: Will admit patient for leukocytosis, bandemia, suspected pyelonephritis versus PID Dr. Narvaez had previously provided Flagyl 500mg IV and Ceftriaxone 2g. I did add on Doxycycline 100mg IV. Condition: Stable Medications Administered Discontinued Medications Generic Name Dose Route Start Last Admin Trade Name Alli PRN Reason Stop Dose Admin Acetaminophen 975 mg 10/16/24 09:28 10/16/24 09:38 Acetaminophen 325 Mg Tablet PO 10/16/24 09:29 975 mg ONCE ONE Administration Ceftriaxone Sodium 2 gm 10/16/24 06:43 10/16/24 06:51 Ceftriaxone Sodium 2 Gm Vial IVPUSH 10/16/24 06:44 2 gm ONCE ONE Administration Levalbuterol HCl 3.75 mg/ 0 mg 10/16/24 08:19 10/16/24 08:24 Ipratropium Ewing 0.5 mg INHALE 10/16/24 08:20 1 dose ONCE ONE Administration Sodium Chloride 1,000 mls @ 999 mls/hr 10/16/24 06:30 10/16/24 08:33 Ns IV 10/16/24 07:30 Infused .Q1H1M EDWIN Infusion Metronidazole 500 mg in 100 mls @ 100 mls/hr 10/16/24 06:45 10/16/24 07:55 Flagyl IV 10/16/24 07:44 Infused ONCE ONE Infusion Ketorolac Tromethamine 15 mg 10/16/24 09:28 10/16/24 09:38 Ketorolac Tromethamine 15 Mg/Ml Vial IVPUSH 10/16/24 09:29 15 mg ONCE ONE Administration Morphine Sulfate 4 mg 10/16/24 06:20 10/16/24 06:34 Morphine Sulfate 4 Mg/Ml Cartridge IVPUSH 10/16/24 06:21 4 mg ONCE ONE Administration Protocol Ondansetron HCl 4 mg 10/16/24 06:20 10/16/24 06:33 Ondansetron Hcl 4 Mg/2 Ml Vial IVPUSH 10/16/24 06:21 4 mg ONCE ONE Administration Medical Decision Making Lab Data 10/16/24 05:23 10/16/24 05:23 Labs: Lab Results 10/16/24 10/16/24 10/16/24 Range/Units 05:23 06:28 08:34 WBC 20.2 H (4.8-10.8) X10*3/uL RBC 4.03 L (4.20-5.50) X10*6/uL Hgb 13.1 (12.0-16.0) g/dl Hct 35.9 L (37.0-47.0) % MCV 89.1 (80.0-98.0) fL MCH 32.5 (27.0-33.0) pg MCHC 36.5 H (31.0-35.0) g/dl RDW 12.4 (11.0-16.0) % Plt Count 279 (160-400) X10*3/uL MPV 9.4 (9.4-12.3) fL Immature Gran % (Auto) Cancelled Neut % (Auto) Cancelled Lymph % (Auto) Cancelled [place] % (Auto) Cancelled Eos % (Auto) Cancelled Baso % (Auto) Cancelled Lymph # (Auto) Cancelled [place] # (Auto) Cancelled Eos # (Auto) Cancelled Baso # (Auto) Cancelled Abs Immat Gran (auto) Cancelled Absolute Neuts (auto) Cancelled Absolute Nucleated RBC 0.000 (0.0-0.012) X10*3/uL Nucleated RBC % (auto) 0.0 (0.0-0.2) /100WBC Neutrophils % (Manual) 85 H (45-73) % Band Neutrophils % 12 H (3-5) % Lymphocytes % (Manual) 2 L (20-40) % Monocytes % (Manual) 1 L (2-11) % Abs Neuts (Manual) 19.6 H (2.0-8.3) X10*3/uL Lymphocytes # (Manual) 0.4 L (1.2-4.9) X10*3/uL Monocytes # (Manual) 0.2 (0.1-1.2) X10*3/uL Platelet Estimate NORMAL (NORMAL) Plt Morphology Comment NORMAL RBC Morphology NOTED Ovalocytes 1+ (5-14) /OIF [place] Cells 1+ (0-2) /OIF Sodium 136 (135-145) mmol/L Potassium 3.6 (3.3-5.1) mmol/L Chloride 106 (96-108) mmol/L Carbon Dioxide 18 L (22-29) mmol/L Anion Gap 16 (12-20) BUN 6 L (9-16) mg/dL Creatinine 0.82 (0.5-1.4) mg/dL Estim Creat Clear Calc 96.2 Estimated GFR > 60 Random Glucose 197 H (60-115) mg/dL Lactic Acid 1.6 (0.5-2.0) mmol/L Calcium 9.1 (8.4-10.2) mg/dL Total Bilirubin 0.9 (0.0-1.0) mg/dL AST 13 (5-31) U/L ALT 10 (0-31) U/L Alkaline Phosphatase 80 (39-117) U/L C-Reactive Protein 9.22 H (< or = 0.50) mg/dL Total Protein 7.0 (6.5-8.0) g/dL Albumin 4.0 (3.5-5.0) g/dL Lipase 14 (8-78) U/L Beta HCG, Quant < 2 mIU/mL Urine Color Yellow Urine Appearance Hazy Urine pH 6.0 (5.0-9.0) Ur Specific [place] 1.010 (1.005-1.025) Urine Protein Negative (Neg-Trace) mg/dL Urine Glucose (UA) Negative (Negative) mg/dL Urine Ketones Negative (Negative) mg/dL Urine Blood Moderate (2+) H (Negative) Urine Nitrite Negative (Negative) Ur Leukocyte Esterase Small (1+) H (Negative) Urine RBC 0-2 (0-2) /HPF Urine WBC >50 H (0-5) /HPF Ur Squamous Epith Cells 6-10 (0-2) /HPF Urine Bacteria 1+ (None Seen) Hyaline Casts 0-2 (0-2) /LPF T.pallidum Ab (EIA) (Nonreactive) 10/16/24 Range/Units 10:38 WBC (4.8-10.8) X10*3/uL RBC (4.20-5.50) X10*6/uL Hgb (12.0-16.0) g/dl Hct (37.0-47.0) % MCV (80.0-98.0) fL MCH (27.0-33.0) pg MCHC (31.0-35.0) g/dl RDW (11.0-16.0) % Plt Count (160-400) X10*3/uL MPV (9.4-12.3) fL Immature Gran % (Auto) Neut % (Auto) Lymph % (Auto) [place] % (Auto) Eos % (Auto) Baso % (Auto) Lymph # (Auto) [place] # (Auto) Eos # (Auto) Baso # (Auto) Abs Immat Gran (auto) Absolute Neuts (auto) Absolute Nucleated RBC (0.0-0.012) X10*3/uL Nucleated RBC % (auto) (0.0-0.2) /100WBC Neutrophils % (Manual) (45-73) % Band Neutrophils % (3-5) % Lymphocytes % (Manual) (20-40) % Monocytes % (Manual) (2-11) % Abs Neuts (Manual) (2.0-8.3) X10*3/uL Lymphocytes # (Manual) (1.2-4.9) X10*3/uL Monocytes # (Manual) (0.1-1.2) X10*3/uL Platelet Estimate (NORMAL) Plt Morphology Comment RBC Morphology Ovalocytes /OIF Ho Cells /OIF Sodium (135-145) mmol/L Potassium (3.3-5.1) mmol/L Chloride (96-108) mmol/L Carbon Dioxide (22-29) mmol/L Anion Gap (12-20) BUN (9-16) mg/dL Creatinine (0.5-1.4) mg/dL Estim Creat Clear Calc Estimated GFR Random Glucose (60-115) mg/dL Lactic Acid (0.5-2.0) mmol/L Calcium (8.4-10.2) mg/dL Total Bilirubin (0.0-1.0) mg/dL AST (5-31) U/L ALT (0-31) U/L Alkaline Phosphatase (39-117) U/L C-Reactive Protein (< or = 0.50) mg/dL Total Protein (6.5-8.0) g/dL Albumin (3.5-5.0) g/dL Lipase (8-78) U/L Beta HCG, Quant mIU/mL Urine Color Urine Appearance Urine pH (5.0-9.0) Ur Specific [place] (1.005-1.025) Urine Protein (Neg-Trace) mg/dL Urine Glucose (UA) (Negative) mg/dL Urine Ketones (Negative) mg/dL Urine Blood (Negative) Urine Nitrite (Negative) Ur Leukocyte Esterase (Negative) Urine RBC (0-2) /HPF Urine WBC (0-5) /HPF Ur Squamous Epith Cells (0-2) /HPF Urine Bacteria (None Seen) Hyaline Casts (0-2) /LPF T.pallidum Ab (EIA) Nonreactive (Nonreactive) Radiology Impression Discussion of test interpretation with radiology: I have reviewed the radiologist's reading. Radiologist Impression: EXAMINATION: Ultrasound pelvis and transvaginal ultrasound. Ovary and Doppler exam. CLINICAL INDICATION: Right lower quadrant pain. COMPARISON: Ultrasound pelvis 08/30/2024. FINDINGS:The uterus is anteverted and anteflexed measuring 13.6 x 5.3 x 6.0 cm. An IUD is noted in correct position. No focal lesion seen. Right ovary measures 2.7 x 2.6 x 1.5 cm volume 5.5 mL. No focal lesion seen. Previously right ovary measured 3.9 x 2.4 x 2.4 cm. Left ovary measures 2.6 x 2.5 x 1.7 cm. Volume 5.8 mL. It appears unremarkable. Previously left ovary measured 2.8 x 2.4 x 1.8 cm. There is normal arterial and venous flow seen to both ovaries on Doppler exam. There is no free fluid in cul-de-sac. US/US pelvic ovarian doppler IMPRESSION: Unremarkable uterus and bilateral ovaries. Normal Doppler flow seen to both ovaries. Discharge Plan Discharge Clinical Impression: Pyelonephritis, Acute PID (pelvic inflammatory disease) Patient Disposition: Admitted As Inpatient Print Language: Polish
[2024-10-16] MEDS: 0.9 % Sodium Chloride 1,000 ML 999 ML IV (06:30)
[2024-10-16] MEDS: ondansetron HCL 4 MG/2 ML VIAL IVPUSH (06:33)
[2024-10-16] MEDS: Morphine Sulfate 4 MG/ML CARTRIDGE IVPUSH (06:34)
[2024-10-16 06:40] LABS: C Reactive Protein 9.22 mg/dL (< or = 0.50); HCG Quantitative < 2 mIU/mL
[2024-10-16 06:44] LABS: Lymphocytes Absolute Manual 0.4 X10*3/uL (1.2-4.9); Lymphocytes Percent Manual 2 % (20-40); Monocytes Absolute Manual 0.2 X10*3/uL (0.1-1.2); Monocytes Percent Manual 1 % (2-11); Neutrophils Absolute Manual 19.6 X10*3/uL (2.0-8.3); Neutrophils Percent Manual 85 % (45-73)
[2024-10-16 06:48] LABS: Band Neutrophils Percent 12 % (3-5)
[2024-10-16 06:49] LABS: Lactic Acid 1.6 mmol/L (0.5-2.0)
[2024-10-16] MEDS: cefTRIAXone sodium 2 GM VIAL IVPUSH (06:51)
[2024-10-16 06:52] LABS: Ovalocytes 1+ (5-14) /OIF; RBC Morphology NOTED
[2024-10-16 06:53] LABS: Burr Cells 1+ (0-2) /OIF; Platelet Estimate NORMAL (NORMAL)
[2024-10-16 06:54] LABS: Platelet Morphology Comment NORMAL
[2024-10-16] MEDS: metroNIDAZOLE/NS 500 MG/100 ML PIGGYBACK 100 MG IV ×2 (06:55→17:47)
--- NOTE | 2024-10-16 08:20 | PC.NURSE ---
Addendum entered by Marina Braun 10/16/24 08:32: patient placed on 2L nasal cannula, oxygen was 89% on room air. 97% 2L Original Note: patient returned from CT scan, this nurse to bedside. patient complaining of increased shortness of breath s/p CT scan. states she has been using her home inhalers more frequently as of late. also complaining of pain stating that the pain medications given prior did little to help. bronch protocol placed, respiratory at bedside for treatment.
[2024-10-16] MEDS: levalbuterol HCL 3.75 MG, Ipratropium Bromide 0.5 MG INHALE (08:24)
[2024-10-16 08:54] LABS: Appearance Urine Hazy; Color Urine Yellow; Glucose Urine UA Negative (Negative); Leukocyte Esterase Urine Small (1+) (Negative); Nitrite Urine Negative (Negative); UMIC TRIGGER UACC YES; Urine Blood Moderate (2+) (Negative); Urine Ketones Negative (Negative); Urine Protein Negative (Neg-Trace)
[2024-10-16 09:05] LABS: Bacteria Urine 1+ (None Seen); Hyaline Casts Urine 0-2 /LPF (0-2); RBC Urine 0-2 /HPF (0-2); UACC Culture Trigger YES; WBC Urine >50 /HPF (0-5)
--- NOTE | 2024-10-16 09:23 | PC.NURSE ---
continues to endorse pain at this time. reports improvement in breathing after breathing treatment. awaiting ultrasound
[2024-10-16] MEDS: Ketorolac Tromethamine 15 MG/ML VIAL IVPUSH (09:38)
[2024-10-16] MEDS: Acetaminophen 325 MG TABLET 975 MG PO (09:38)
[2024-10-16 11:26] LABS: Syphilis Screen Nonreactive (Nonreactive)
--- NOTE | 2024-10-16 12:04 | P.HPHOSP_ITS ---
History of Present Illness Date of Service: 10/16/24 Chief Complaint: fevers 39F PMH morbid obesity, osteoarthritis, CHIKIS presented with severe back pain and fevers. Patient states she started to feel ill about 2 days prior to presentation. On day prior to presentation had severe right low back pain associated with fevers and chills. On day of presentation had ongoing fevers and pain now in suprapubic region. Denies any dysuria or urinary frequency does report some yellowish vaginal discharge. Reports 1 sexual partner, has IUD. In ED noted to have leukocytosis, tachycardia, pyuria bacteriuria, CT abdomen and pelvic ultrasound unremarkable. Review of Systems 2 Review of Systems: Yes all other systems are reviewed and are negative [facility] Medical History Asthma Allergic rhinitis Somnolence, daytime CHIKIS (obstructive sleep apnea) Morbid obesity Carpal tunnel syndrome, bilateral upper limbs Bacterial vaginosis Family History Mother Diabetes Hypertension Arthritis Father Liver cancer Paternal Aunt Family history of autoimmune disorder Maternal Grandfather Colon cancer Surgical History Hx of appendectomy History of thumb surgery History of carpal tunnel surgery S/P ACL reconstruction History of tonsillectomy Previous section Social History Alcohol intake: never Patient Tobacco Use Status: Never used Tobacco Smoked in Last 30 Days: No Use of substances other than those prescribed or required for medical reasons: Yes Substance Use Type: Marijuana Advance Directives: No Advance Directives Information Provided: Yes Do you have a plan to hurt others: No Plan Patient : No Current occupational status: employed Current occupation: - Right Handed/[employer] Meds Allergies Allergy/AdvReac Type Severity Reaction Status Date / Time Penicillins Allergy Severe ANAPHYLAXIS, Verified 10/16/24 05:08 HIVES animal dander Allergy Mild ITCHY Verified 10/16/24 05:08 HIVES THROAT SWOLLEN lactose [LACTOSE] Allergy Mild DIARRRHEA Verified 10/16/24 05:08 many vegetables Allergy Severe hives, Uncoded 07/18/24 09:23 throat... nuts Allergy Severe hives, Uncoded 07/18/24 09:23 throat... FRUIT, SKINS Allergy Mild SWELLING Uncoded 07/18/24 09:23 fruits Allergy Unknown hives, Uncoded 07/18/24 09:23 throat closes seasonal allergies Allergy Unknown Unknown Uncoded 07/18/24 09:23 MEAT AdvReac Mild ABDOMINAL Uncoded 07/18/24 09:23 PAIN Active Medications: Current Medications Acetaminophen (Acetaminophen 325 Mg Tablet) 650 mg PO Q6H PRN PRN Reason: Pain, Mild 1-3,fever,headache Calcium Carbonate (Calcium Carbonate 750 Mg Tab.Chew) 750 mg PO Q4H PRN PRN Reason: Heartburn Ceftriaxone Sodium (Ceftriaxone Sodium 1 Gm Vial) 1 gm IVPUSH Q24H EDWIN Enoxaparin Sodium (Enoxaparin Sodium 40 Mg/0.4 Ml Syringe) 40 mg SUBCUT Q24H EDWIN Hydromorphone HCl (Hydromorphone Hcl 0.5 Mg/0.5 Ml Syringe) 0.5 mg IVPUSH Q4H PRN; Protocol PRN Reason: Pain, Severe (Pain Scale 7-10) Doxycycline Hyclate 100 mg/ (Sodium Chloride) 250 mls @ 166.67 mls/hr IV ONCE ONE Stop: 10/16/24 13:26 Metronidazole (Flagyl) 500 mg in 100 mls @ 100 mls/hr IV Q12H EDWIN Doxycycline Hyclate 100 mg/ (Sodium Chloride) 250 mls @ 166.67 mls/hr IV Q12H EDWIN Magnesium Hydroxide (Milk Of Magnesia 30 Ml Oral.Susp) 30 ml PO DAILY PRN PRN Reason: Constipation Melatonin (Melatonin 3 Mg Tablet) 6 mg PO BEDTIME PRN PRN Reason: Insomnia Sodium Chloride (0.9 % Sodium Chloride Flush 3 Ml Syringe) 3 ml IVFLUSH QSHIFT [facility] Home Medications ?Medication ?Instructions ?Recorded ?Confirmed ?Last Taken ?Type levonorgestrel 21 mcg/24 hr (up to intrauterine 02/03/21 07/18/24 Unknown History 8 years) 52 mg intrauterine device (Mirena) albuterol sulfate 2.5 mg/3 mL 2.5 mg inhalation Q4H PRN Wheezing 08/12/21 07/18/24 01/10/22 History (0.083 %) solution for nebulization fexofenadine 60 mg tablet (Sarah 60 mg PO BID 12/24/21 07/18/24 Unknown History Allergy) montelukast 10 mg tablet 10 mg PO DAILY PRN 01/20/23 07/18/24 Unknown History naproxen sodium 220 mg tablet 220 mg PO BID PRN 01/20/23 07/18/24 Unknown History (Aleve) ropinirole 1 mg tablet 1 mg PO BEDTIME 06/28/23 07/18/24 Unknown History topiramate 25 mg tablet 25 mg PO DAILY 06/28/23 07/18/24 Unknown History albuterol sulfate 90 mcg/actuation 2 puff inhalation QID 10/16/24 10/16/24 Unknown History aerosol inhaler (Ventolin HFA) mometasone-formoterol HFA 200 2 puff inhalation BID 10/16/24 Unknown History mcg-5 mcg/actuation aerosol inhaler (Dulera) Physical Exam 2 Vital Signs and Narrative: Vital Signs: Last Vital Signs Temp 98.4 F 10/16/24 09:22 Pulse 111 H 10/16/24 09:22 Resp 20 10/16/24 09:22 BP 111/62 10/16/24 09:22 Pulse Ox 98 10/16/24 09:22 O2 Del Method Room Air 10/16/24 09:22 O2 Flow Rate 2 10/16/24 08:32 BMI result Body Mass Index 42.6 General: AO X 3, in pain Resp: CTA bilateral, no accessory muscles used CVS: S1,S2,RRR GI: soft, non tender, non distended Neuro: motor grossly intact, alert Psych: appropriate affect, appropriate insight Results Labs 10/16/24 05:23 10/16/24 05:23 Labs: Laboratory Results - last 24 hr 10/16/24 10/16/24 10/16/24 05:23 06:28 08:34 MCV 89.1 MCH 32.5 MCHC 36.5 H RDW 12.4 Plt Count 279 MPV 9.4 Immature Gran % (Auto) Cancelled Neut % (Auto) Cancelled Lymph % (Auto) Cancelled [place] % (Auto) Cancelled Eos % (Auto) Cancelled Baso % (Auto) Cancelled Lymph # (Auto) Cancelled [place] # (Auto) Cancelled Eos # (Auto) Cancelled Baso # (Auto) Cancelled Abs Immat Gran (auto) Cancelled Absolute Neuts (auto) Cancelled Absolute Nucleated RBC 0.000 Nucleated RBC % (auto) 0.0 Neutrophils % (Manual) 85 H Band Neutrophils % 12 H Lymphocytes % (Manual) 2 L Monocytes % (Manual) 1 L Abs Neuts (Manual) 19.6 H Lymphocytes # (Manual) 0.4 L Monocytes # (Manual) 0.2 Platelet Estimate NORMAL Plt Morphology Comment NORMAL RBC Morphology NOTED Ovalocytes 1+ (5-14) [place] Cells 1+ (0-2) Anion Gap 16 Estim Creat Clear Calc 96.2 Estimated GFR > 60 Random Glucose 197 H Lactic Acid 1.6 Calcium 9.1 Total Bilirubin 0.9 AST 13 ALT 10 Alkaline Phosphatase 80 C-Reactive Protein 9.22 H Total Protein 7.0 Albumin 4.0 Lipase 14 Beta HCG, Quant < 2 Urine Color Yellow Urine Appearance Hazy Urine pH 6.0 Ur Specific [place] 1.010 Urine Protein Negative Urine Glucose (UA) Negative Urine Ketones Negative Urine Blood Moderate (2+) H Urine Nitrite Negative Ur Leukocyte Esterase Small (1+) H Urine RBC 0-2 Urine WBC >50 H Ur Squamous Epith Cells 6-10 Urine Bacteria 1+ Hyaline Casts 0-2 T.pallidum Ab (EIA) 10/16/24 10:38 MCV MCH MCHC RDW Plt Count MPV Immature Gran % (Auto) Neut % (Auto) Lymph % (Auto) [place] % (Auto) Eos % (Auto) Baso % (Auto) Lymph # (Auto) [place] # (Auto) Eos # (Auto) Baso # (Auto) Abs Immat Gran (auto) Absolute Neuts (auto) Absolute Nucleated RBC Nucleated RBC % (auto) Neutrophils % (Manual) Band Neutrophils % Lymphocytes % (Manual) Monocytes % (Manual) Abs Neuts (Manual) Lymphocytes # (Manual) Monocytes # (Manual) Platelet Estimate Plt Morphology Comment RBC Morphology Ovalocytes [place] Cells Anion Gap Estim Creat Clear Calc Estimated GFR Random Glucose Lactic Acid Calcium Total Bilirubin AST ALT Alkaline Phosphatase C-Reactive Protein Total Protein Albumin Lipase Beta HCG, Quant Urine Color Urine Appearance Urine pH Ur Specific [place] Urine Protein Urine Glucose (UA) Urine Ketones Urine Blood Urine Nitrite Ur Leukocyte Esterase Urine RBC Urine WBC Ur Squamous Epith Cells Urine Bacteria Hyaline Casts T.pallidum Ab (EIA) Nonreactive Imaging Radiologist's Impressions: Impressions Abdomen/Pelvis CT 10/16/24 07:59 IMPRESSION: Small hiatal hernia. Small fat-containing umbilical hernia. Otherwise unremarkable contrast-enhanced CT of the abdomen and pelvis. Electronically signed by: Van Mayo MD 10/16/2024 08:33 AM EDT RP Doppler Study Ultrasound 10/16/24 09:55 IMPRESSION: Unremarkable uterus and bilateral ovaries. Normal Doppler flow seen to both ovaries. Electronically signed by: Vitaly Manjarrez MD 10/16/2024 10:47 AM EDT RP Pelvic/Transvag US 10/16/24 09:55 IMPRESSION: Unremarkable uterus and bilateral ovaries. Normal Doppler flow seen to both ovaries. Electronically signed by: Vitaly Manjarrez MD 10/16/2024 10:47 AM EDT RP Assessment and Plan (1) Morbid obesity: Status: Acute Plan 39F PMH morbid obesity, osteoarthritis, CHIKIS presented with severe back pain and fevers Sepsis due to suspected PID Ceftriaxone, Flagyl, doxycycline Gynecology eval Follow up cultures, PCR CHIKIS CPAP at night Morbid obesity Weight loss recommended DVT prophylaxis with Lovenox Full Code Given sepsis and need for cultures expected require at least 2 midnights inpatient Quality Stroke Does the patient have a stroke diagnosis?: No VTE Prior VTE?: No VTE Risk Level:: Medical - moderate - high VTE Device Contraindication: Treatment Not Indicated VTE Drug Contraindication: N/A - Med Ordered
[2024-10-16 12:06] LABS: HIV AB/AG Nonreactive (Nonreactive); HIV Num 1 0.15 S/CO (0.00-0.99)
[2024-10-16] MEDS: HYDROmorphone HCl 0.5 MG/0.5 ML SYRINGE IVPUSH ×3 (12:12→21:45)
--- NOTE | 2024-10-16 12:19 | PM.GYNCN ---
BUSINESS INTEGRATION ANALYST - CN: HPI Data of Consult Consult date: 10/16/24 Requesting Physician: Daryn Perkins MD Primary Care Provider: None Physician Consult Narrative Narrative: I was consulted on John Stapleton who is a 39 year old female who presented to the emergency room with back pain and 102.4 fevers at home. The patient started to feel ill 1 day prior to presentation when she developed severe right low back pain associated with 102.4 fevers and chills, which got worse to become pelvic pain in the suprapubic region associated with vaginal discharge. No history of dysuria or urinary frequency. The patient has Mirena IUD inserted few years ago for AUB. Workup done in the emergency room included the following: The patient had tachycardia, In addition to elevated white count of 20.2K, H&H 13.1/35.9, hCG less than 2, pyuria /bacteriuria CT abdomen and pelvic ultrasound unremarkable. Blood culturex2 sent cc:: CC: Daryn Perkins MD OB [facility] Past Medical History Medical History Asthma Allergic rhinitis Somnolence, daytime CHIKIS (obstructive sleep apnea) Morbid obesity Carpal tunnel syndrome, bilateral upper limbs Bacterial vaginosis Family History Family History Mother Diabetes Hypertension Arthritis Father Liver cancer Paternal Aunt Family history of autoimmune disorder Maternal Grandfather Colon cancer Surgical History Surgical History Hx of appendectomy History of thumb surgery History of carpal tunnel surgery S/P ACL reconstruction History of tonsillectomy Previous section Social History Social History Household Members: Family Housing: House Do you presently have visiting nurse or other home services: No Alcohol intake: never Patient Tobacco Use Status: Never used Tobacco Substance Use Type: Marijuana Current occupational status: employed Current occupation: - Right Handed/[employer] Meds Allergies Allergy/AdvReac Type Severity Reaction Status Date / Time Penicillins Allergy Severe ANAPHYLAXIS, Verified 10/16/24 05:08 HIVES animal dander Allergy Mild ITCHY Verified 10/16/24 05:08 HIVES THROAT SWOLLEN lactose [LACTOSE] Allergy Mild DIARRRHEA Verified 10/16/24 05:08 many vegetables Allergy Severe hives, Uncoded 07/18/24 09:23 throat... nuts Allergy Severe hives, Uncoded 07/18/24 09:23 throat... FRUIT, SKINS Allergy Mild SWELLING Uncoded 07/18/24 09:23 fruits Allergy Unknown hives, Uncoded 07/18/24 09:23 throat closes seasonal allergies Allergy Unknown Unknown Uncoded 07/18/24 09:23 MEAT AdvReac Mild ABDOMINAL Uncoded 07/18/24 09:23 PAIN Active Medications: Current Medications Acetaminophen (Acetaminophen 325 Mg Tablet) 650 mg PO Q6H PRN PRN Reason: Pain, Mild 1-3,fever,headache Calcium Carbonate (Calcium Carbonate 750 Mg Tab.Chew) 750 mg PO Q4H PRN PRN Reason: Heartburn Ceftriaxone Sodium (Ceftriaxone Sodium 1 Gm Vial) 1 gm IVPUSH Q24H [facility] Enoxaparin Sodium (Enoxaparin Sodium 40 Mg/0.4 Ml Syringe) 40 mg SUBCUT Q24H EDWIN Hydromorphone HCl (Hydromorphone Hcl 0.5 Mg/0.5 Ml Syringe) 0.5 mg IVPUSH Q4H PRN; Protocol PRN Reason: Pain, Severe (Pain Scale 7-10) Last Admin: 10/16/24 12:12 Dose: 0.5 mg Doxycycline Hyclate 100 mg/ (Sodium Chloride) 250 mls @ 166.67 mls/hr IV ONCE ONE Stop: 10/16/24 13:26 Metronidazole (Flagyl) 500 mg in 100 mls @ 100 mls/hr IV Q12H ED[facility] Doxycycline Hyclate 100 mg/ (Sodium Chloride) 250 mls @ 166.67 mls/hr IV Q12H [facility] Magnesium Hydroxide (Milk Of Magnesia 30 Ml Oral.Susp) 30 ml PO DAILY PRN PRN Reason: Constipation Melatonin (Melatonin 3 Mg Tablet) 6 mg PO BEDTIME PRN PRN Reason: Insomnia Sodium Chloride (0.9 % Sodium Chloride Flush 3 Ml Syringe) 3 ml IVFLUSH QSHIFT [facility] Home Medications ?Medication ?Instructions ?Recorded ?Confirmed ?Last Taken ?Type levonorgestrel 21 mcg/24 hr (up to 20 mcg intrauterine USEASDIRECTD 02/03/21 10/16/24 Unknown History 8 years) 52 mg intrauterine device (Mirena) albuterol sulfate 2.5 mg/3 mL 2.5 mg inhalation Q4H PRN Wheezing 08/12/21 10/16/24 01/10/22 History (0.083 %) solution for nebulization fexofenadine 60 mg tablet (Sarah 60 mg PO BID 12/24/21 10/16/24 10/15/24 History Allergy) acetaminophen 325 mg tablet 650 mg PO Q4-6H PRN Pain 10/16/24 10/16/24 Unknown History albuterol sulfate 90 mcg/actuation 2 puff inhalation QID 10/16/24 10/16/24 10/15/24 History aerosol inhaler (Ventolin HFA) ibuprofen 200 mg tablet 800 mg PO Q6H PRN Pain 10/16/24 10/16/24 Unknown History mometasone-formoterol HFA 200 2 puff inhalation BID 10/16/24 10/16/24 10/15/24 History mcg-5 mcg/actuation aerosol inhaler (Dulera) BUSINESS INTEGRATION ANALYST Physical Exam Vitals Vital signs: Temp Pulse Resp BP Pulse Ox O2 Del Method O2 Flow Rate 98.4 F 111 H 20 111/62 98 Room Air 2 10/16/24 09:22 10/16/24 09:22 10/16/24 09:22 10/16/24 09:22 10/16/24 09:22 10/16/24 09:22 10/16/24 08:32 BMI result Body Mass Index 42.6 Abdomen Auscultation/Inspection/Palpation: Tenderness (Diffuse, no guarding or rebound) Female Genitalia (Pelvic) Bladder/Urethra: Normal meatus Vulva: No lesions Vagina: Nontender and Abnormal discharge (Whitish) Cervix: Cervical motion tenderness Uterus: Tender Adnexa/Parametria: Adnexal Tenderness: Bilateral Additional Comments: IUD thread seen BUSINESS INTEGRATION ANALYST - Results Labs 10/17/24 05:43 10/17/24 05:43 Labs: Short CBC 10/16/24 Range/Units 05:23 WBC 20.2 H (4.8-10.8) X10*3/uL Hgb 13.1 (12.0-16.0) g/dl Hct 35.9 L (37.0-47.0) % Plt Count 279 (160-400) X10*3/uL BMP 10/16/24 05:23 Sodium 136 Potassium 3.6 Chloride 106 Carbon Dioxide 18 L BUN 6 L Creatinine 0.82 Calcium 9.1 Liver Function 10/16/24 Range/Units 05:23 Total Bilirubin 0.9 (0.0-1.0) mg/dL AST 13 (5-31) U/L ALT 10 (0-31) U/L Alkaline Phosphatase 80 (39-117) U/L Albumin 4.0 (3.5-5.0) g/dL Urine 10/16/24 Range/Units 08:34 Urine Color Yellow Urine Appearance Hazy Urine pH 6.0 (5.0-9.0) Ur Specific [place] 1.010 (1.005-1.025) Urine Protein Negative (Neg-Trace) mg/dL Urine Glucose (UA) Negative (Negative) mg/dL Imaging CT scan - pelvis: Radiologist's impression: ITS Impressions Abdomen/Pelvis CT 10/16/24 07:59 IMPRESSION: Small hiatal hernia. Small fat-containing umbilical hernia. Otherwise unremarkable contrast-enhanced CT of the abdomen and pelvis. Electronically signed by: Van Mayo MD 10/16/2024 08:33 AM EDT [facility] Doppler Study Ultrasound 10/16/24 09:55 IMPRESSION: Unremarkable uterus and bilateral ovaries. Normal Doppler flow seen to both ovaries. Electronically signed by: Vitaly Manjarrez MD 10/16/2024 10:47 AM EDT [facility] Pelvic/Transvag US 10/16/24 09:55 IMPRESSION: Unremarkable uterus and bilateral ovaries. Normal Doppler flow seen to both ovaries. Electronically signed by: Vitaly Manjarrez MD 10/16/2024 10:47 AM EDT [facility] Assessment and Plan (1) Acute PID (pelvic inflammatory disease): Status: Acute GC and chlamydia with BV panel and Trichomonas taken. Recommend: -STD screen including hepatitis-B surface antigen and hep C antibody; HIV, syphilis screen were recently taken and were negative; -IV antibiotics with Ceftriaxone 1 g Q 24, doxycycline 100 mg p.o. or IV q.12, metronidazole 500 mg IV or p.o. q.12 till clinical improvement for 48-72 hours, -Then discharge home on doxycycline 100 mg p.o. b.i.d. with Flagyl 500 mg p.o. b.i.d. for a total of 14 days -To be followed up as an outpatient within 2 weeks. (2) Trichomoniasis: Status: Acute On Flagyl 500 mg IV q.12 Discussed the positive Trichomonas with the patient and Instructions were given to the patient to: -Inform partner(s) to contact please PCP for treatment daniel -Refrain from intercourse for 1 week after both partners are treated, -STD?s screenincluding HIV, RPR (done and negative), recommended adding Hep b s Ag, HepC Ab with the next lab draw and to repeat in 6 months. -Schedule SONI appointment in 2 weeks (3) Encounter for IUD removal: Status: Acute Discussed with the patient the management of IUD in patients with PID: Either remove the IUD after initiation of antibiotics , or wait 2-3 days if there is no clinical improvement remove the IUD , the patient prefers to have her IUD removed; Waited after completion of all IUD antibiotics doses to provide enough time to establish antibiotics serum level and then IUD was remove;See procedure note ; IUD was sent for culture IUD Insert/Removal Details Details: Counseling/Consent: After discussing with the patient the risks of the procedure including bleeding, infection, scar tissue formation, , possible injury to blood vessels or nerves, chronic arm pain, blood transfusion, and irregular unpredictable bleeding Alternative options were discussed with the patient including but not limited: Do nothing. The patient signed the consent and agreed with the plan; all questions answered. Urine test was done in the office and was negative Preop dx: Requesting IUD removal Op: IUD removal Post op dx: same EBL= 10 cc Procedure: The patient was put in the dorsal lithotomy position a speculum was inserted in the vagina the IUD thread identified. Using a Evangelina clamp the thread was grasped and the IUD pulled out with no complications. The patient tolerated the procedure well and was advised to use a different method for contraception. Discharge instructions: Instructions were given to the pt to call if temp>100.4, abdominal pain heavy vaginal bleeding, n/v occur. The patient verbalized understanding and all questions answered. This note was generated with a voice recognition program. Some errors may have been overlooked during the review of this note. Sometimes these errors may affect the content or meaning of a given sentence. [id number] Removal Procedure code (CPT) selection complete
[2024-10-16] MEDS: Doxycycline Hyclate 100 MG in 0.9 % Sodium Chloride 250 ML 166.67 MG IV (13:43)
--- NOTE | 2024-10-16 13:53 | PHA.MEDREC ---
Addendum entered by Ruth Bee RPh 10/16/24 14:11: Reviewed by [facility] Original Note: Pharmacy Consult ? Medication Reconciliation Pharmacy has completed the medication reconciliation. Spoke to patient to confirm med list.
[2024-10-16 14:18] LABS: Bacterial Vaginosis PCR NEGATIVE (Negative); Candida Group PCR NOT DETECTED (Not Detect); Candida glab krusei PCR NOT DETECTED (Not Detect); Trichomonas vaginalis PCR DETECTED (Not Detect)
--- NOTE | 2024-10-16 14:21 | PC.NURSE ---
doxy infusion time changed per request of dr cantu. pharmacy states medication can infuse over one hour, dr cantu aware.
[2024-10-16 16:42] LABS: Bacterial Vaginosis PCR NEGATIVE (Negative); Candida Group PCR NOT DETECTED (Not Detect); Candida glab krusei PCR NOT DETECTED (Not Detect); Trichomonas vaginalis PCR DETECTED (Not Detect)
[2024-10-16 17:15] LABS: CT PCR NOT DETECTED (Not Detect.); NG PCR NOT DETECTED (Not Detect.)
[2024-10-16] MEDS: Acetaminophen 325 MG TABLET 650 MG PO (19:44)
--- NOTE | 2024-10-16 19:58 | PC.NURSE ---
Medicated per mar for pain management.
[2024-10-16] MEDS: Acetaminophen 1,000 MG/100 ML PIGGYBACK 400 MG IV (20:06)
--- NOTE | 2024-10-16 20:09 | PC.NURSE ---
Notified Dr. Dallin SUAREZ Tylenol given , per provider ginny IV Tylenol
[2024-10-16] MEDS: 0.9 % Sodium Chloride Flush 3 ML SYRINGE IVFLUSH (22:02)
[2024-10-17] VITALS (7 sets, daily range): BP systolic 104–129; BP diastolic 56–74; PULSE 83–100; RESP 17–18; TEMP 36.7–38.1; O2SAT 94–97; BMI 39.0
[2024-10-17] MEDS: Doxycycline Hyclate 100 MG in 0.9 % Sodium Chloride 250 ML 250 MG IV ×2 (01:02→15:00)
[2024-10-17] MEDS: ondansetron HCL 4 MG/2 ML VIAL IVPUSH (01:16)
[2024-10-17] MEDS: HYDROmorphone HCl 0.5 MG/0.5 ML SYRINGE IVPUSH ×4 (05:53→20:02)
[2024-10-17] MEDS: metroNIDAZOLE/NS 500 MG/100 ML PIGGYBACK 100 MG IV ×2 (05:56→18:34)
[2024-10-17 07:23] LABS: Anion Gap 13 (12-20); Blood Urea Nitrogen 8 mg/dL (9-16); Calcium 8.7 mg/dL (8.4-10.2); Carbon Dioxide 21 mmol/L (22-29); Chloride 107 mmol/L (96-108); Creatinine Clr Calc Pharmacy 98.6; Estimated Glomerular Filt Rate > 60; Glucose Random 88 mg/dL (60-115); Potassium 3.5 mmol/L (3.3-5.1); Sodium 137 mmol/L (135-145)
[2024-10-17] MEDS: 0.9 % Sodium Chloride Flush 3 ML SYRINGE IVFLUSH ×2 (07:26→15:01)
[2024-10-17] MEDS: cefTRIAXone sodium 1 GM VIAL IVPUSH (07:28)
--- NOTE | 2024-10-17 07:57 | P.PNOB_ITS ---
SANDBLAST OR SHOTBLAST EQUIPMENT TENDER - Subjective Subjective Date of Service: 10/17/24 Interval history: Doing well, still complaining of pelvic pain. Tolerating regular diet, mild nausea. IUD removed yesterday sent for culture On doxy/Flagyl/ceftriaxone GC/CT negative BV panel negative Trichomonas positive CBC pending this morning HEEL SHAVER Physical Exam Vitals Vital signs: Temp Pulse Resp BP Pulse Ox O2 Del Method O2 Flow Rate 98.8 F 98 18 129/74 94 Room Air 2 10/17/24 07:48 10/17/24 07:48 10/17/24 07:48 10/17/24 07:48 10/17/24 07:48 10/17/24 07:48 10/16/24 08:32 BMI result Body Mass Index 43.5 Narrative: T-max 102.1 degrees at 19:44 yesterday Abdomen Auscultation/Inspection/Palpation: Tenderness (Diffuse tenderness, no guarding or rebound) SANDBLAST OR SHOTBLAST EQUIPMENT TENDER - Prog Note: Results Labs 10/16/24 05:23 10/17/24 05:43 Labs: Laboratory Results - last 24 hr 10/16/24 10/16/24 10/16/24 08:34 10:38 12:00 Sodium Potassium Chloride Carbon Dioxide Anion Gap BUN Creatinine Estim Creat Clear Calc Estimated GFR Random Glucose Calcium Urine Color Yellow Urine Appearance Hazy Urine pH 6.0 Ur Specific [place] 1.010 Urine Protein Negative Urine Glucose (UA) Negative Urine Ketones Negative Urine Blood Moderate (2+) H Urine Nitrite Negative Ur Leukocyte Esterase Small (1+) H Urine RBC 0-2 Urine WBC >50 H Ur Squamous Epith Cells 6-10 Urine Bacteria 1+ Hyaline Casts 0-2 T.pallidum Ab (EIA) Nonreactive Chlam trachomat DNA PCR HIV 1&2 Ab/P24 Ag 4thGn Nonreactive N.gonorrhoeae DNA (PCR) T. vaginalis (PCR) DETECTED A Bact vaginosis (PCR) NEGATIVE C. krusei/glabrata (PCR) NOT DETECTED Valerie group (PCR) NOT DETECTED 10/16/24 10/17/24 13:47 05:43 Sodium 137 Potassium 3.5 Chloride 107 Carbon Dioxide 21 L Anion Gap 13 BUN 8 L Creatinine 0.81 Estim Creat Clear Calc 98.6 Estimated GFR > 60 Random Glucose 88 Calcium 8.7 Urine Color Urine Appearance Urine pH Ur Specific [place] Urine Protein Urine Glucose (UA) Urine Ketones Urine Blood Urine Nitrite Ur Leukocyte Esterase Urine RBC Urine WBC Ur Squamous Epith Cells Urine Bacteria Hyaline Casts T.pallidum Ab (EIA) Chlam trachomat DNA PCR NOT DETECTED HIV 1&2 Ab/P24 Ag 4thGn N.gonorrhoeae DNA (PCR) NOT DETECTED T. vaginalis (PCR) DETECTED A Bact vaginosis (PCR) NEGATIVE C. krusei/glabrata (PCR) NOT DETECTED Valerie group (PCR) NOT DETECTED SANDBLAST OR SHOTBLAST EQUIPMENT TENDER - A/P (1) Acute PID (pelvic inflammatory disease): Status: Acute Assessment and Plan: Keep on IV ceftriaxone, Flagyl and doxycycline for at least 48-72 hours of clinical improvement/afebrile then to be discharged on p.o. antibiotics doxy/Flagyl for total 14 days (2) Trichomoniasis: Status: Acute Assessment and Plan: On Flagyl Discussed with the patient mode of transmission, recommended the patient to discuss with her partner who needs to be treated by PCP daniel Recommend check other STD screening including hepatitis-B surface antigen and its hepatitis-C antibody Test of cure in 2 weeks in the office Time Spent With Patient Time: Total time managing care of this patient today ____ minutes. Quality Measures - HEEL SHAVER H&P VTE Prior VTE?: No VTE Risk Level:: Medical - moderate - high VTE Device Contraindication: Treatment Not Indicated VTE Drug Contraindication: N/A - Med Ordered
[2024-10-17 08:34] LABS: Hematocrit 32.1 % (37.0-47.0); Hemoglobin 11.3 g/dl (12.0-16.0); Mean Corpuscular HGB Conc 35.2 g/dl (31.0-35.0); Mean Corpuscular Hemoglobin 32.7 pg (27.0-33.0); Mean Corpuscular Volume 92.8 fL (80.0-98.0); Platelet Count 216 X10*3/uL (160-400); Red Blood Count 3.46 X10*6/uL (4.20-5.50); Red Cell Distribution Width 12.7 % (11.0-16.0); White Blood Count 10.8 X10*3/uL (4.8-10.8)
--- NOTE | 2024-10-17 08:48 | P.PNIM_ITS ---
Subjective Subjective Date of Service: 10/17/24 Interval History: still with pain Physical Exam 2 Vital Signs: Vital Signs: Last Vital Signs Temp 98.8 F 10/17/24 07:48 Pulse 98 10/17/24 07:48 Resp 18 10/17/24 07:48 BP 129/74 10/17/24 07:48 Pulse Ox 94 10/17/24 07:48 O2 Del Method Room Air 10/17/24 07:48 O2 Flow Rate 2 10/16/24 08:32 BMI result Body Mass Index 43.5 General: AO X 3, no acute distress Resp: CTA bilateral, no accessory muscles used CVS: S1,S2,RRR GI: soft, non tender, non distended Neuro: motor grossly intact, alert Psych: appropriate affect, appropriate insight Objective Data Active Medications Acetaminophen (Acetaminophen 325 Mg Tablet) 650 mg PO Q6H PRN PRN Reason: Pain, Mild 1-3,fever,headache Last Admin: 10/16/24 19:44 Dose: 650 mg Documented By: ROWDY Calcium Carbonate (Calcium Carbonate 750 Mg Tab.Chew) 750 mg PO Q4H PRN PRN Reason: Heartburn Ceftriaxone Sodium (Ceftriaxone Sodium 1 Gm Vial) 1 gm IVPUSH Q24H [facility] Last Admin: 10/17/24 07:28 Dose: 1 gm Documented By: KYA Enoxaparin Sodium (Enoxaparin Sodium 40 Mg/0.4 Ml Syringe) 40 mg SUBCUT Q24H [facility] Fluticasone/Vilanterol (Fluticasone/Vilanterol 200/25 Blst.W.Dev) 1 puff INHALE RDAILY [facility] Hydromorphone HCl (Hydromorphone Hcl 0.5 Mg/0.5 Ml Syringe) 0.5 mg IVPUSH Q4H PRN; Protocol PRN Reason: Pain, Severe (Pain Scale 7-10) Last Admin: 10/17/24 05:53 Dose: 0.5 mg Documented By: MICHELLE Metronidazole (Flagyl) 500 mg in 100 mls @ 100 mls/hr IV Q12H [facility] Last Infusion: 10/17/24 07:25 Dose: Infused Documented By: KYA Doxycycline Hyclate 100 mg/ (Sodium Chloride) 250 mls @ 250 mls/hr IV Q12H [facility] Last Infusion: 10/17/24 02:15 Dose: Infused Documented By: MICHELLE Magnesium Hydroxide (Milk Of Magnesia 30 Ml Oral.Susp) 30 ml PO DAILY PRN PRN Reason: Constipation Melatonin (Melatonin 3 Mg Tablet) 6 mg PO BEDTIME PRN PRN Reason: Insomnia Ondansetron HCl (Ondansetron Hcl 4 Mg/2 Ml Vial) 4 mg IVPUSH Q6H PRN PRN Reason: Nausea and Vomiting Last Admin: 10/17/24 01:16 Dose: 4 mg Documented By: MICHELLE Sodium Chloride (0.9 % Sodium Chloride Flush 3 Ml Syringe) 3 ml IVFLUSH QSHIFT [facility] Last Admin: 10/17/24 07:26 Dose: 3 ml Documented By: DANIELEIT Labs 10/17/24 05:43 10/17/24 05:43 Labs: Laboratory Results - last 24 hr 10/16/24 10/16/24 10/16/24 08:34 10:38 12:00 MCV MCH MCHC RDW Plt Count MPV Absolute Nucleated RBC Nucleated RBC % (auto) Anion Gap Estim Creat Clear Calc Estimated GFR Random Glucose Calcium Urine Color Yellow Urine Appearance Hazy Urine pH 6.0 Ur Specific [place] 1.010 Urine Protein Negative Urine Glucose (UA) Negative Urine Ketones Negative Urine Blood Moderate (2+) H Urine Nitrite Negative Ur Leukocyte Esterase Small (1+) H Urine RBC 0-2 Urine WBC >50 H Ur Squamous Epith Cells 6-10 Urine Bacteria 1+ Hyaline Casts 0-2 T.pallidum Ab (EIA) Nonreactive Chlam trachomat DNA PCR HIV 1&2 Ab/P24 Ag 4thGn Nonreactive N.gonorrhoeae DNA (PCR) T. vaginalis (PCR) DETECTED A Bact vaginosis (PCR) NEGATIVE C. krusei/glabrata (PCR) NOT DETECTED Valerie group (PCR) NOT DETECTED 10/16/24 10/17/24 13:47 05:43 MCV 92.8 MCH 32.7 MCHC 35.2 H RDW 12.7 Plt Count 216 MPV 10.0 Absolute Nucleated RBC 0.000 Nucleated RBC % (auto) 0.0 Anion Gap 13 Estim Creat Clear Calc 98.6 Estimated GFR > 60 Random Glucose 88 Calcium 8.7 Urine Color Urine Appearance Urine pH Ur Specific [place] Urine Protein Urine Glucose (UA) Urine Ketones Urine Blood Urine Nitrite Ur Leukocyte Esterase Urine RBC Urine WBC Ur Squamous Epith Cells Urine Bacteria Hyaline Casts T.pallidum Ab (EIA) Chlam trachomat DNA PCR NOT DETECTED HIV 1&2 Ab/P24 Ag 4thGn N.gonorrhoeae DNA (PCR) NOT DETECTED T. vaginalis (PCR) DETECTED A Bact vaginosis (PCR) NEGATIVE C. krusei/glabrata (PCR) NOT DETECTED Valerie group (PCR) NOT DETECTED Microbiology Microbiology Results: Microbiology 10/16/24 06:28 Blood Culture - Preliminary Blood - Venous No growth after 24 hours. 10/16/24 06:28 Blood Culture - Preliminary Blood - Venous No growth after 24 hours. 10/16/24 16:34 Gram Stain - Final Intrauterine Device 10/16/24 13:47 Trichomonas Preparation - Final Vaginal Assessment and Plan (1) Acute PID (pelvic inflammatory disease): Status: Acute Plan 39F PMH morbid obesity, osteoarthritis, CHIKIS presented with severe back pain and fevers Sepsis due to acute PID positive trichomonas Ceftriaxone, Flagyl, doxycycline Gynecology appreciated - IUD removed once defervecses - 14 day po doxy/flagyl and retest STD CHIKIS CPAP at night Morbid obesity Weight loss recommended DVT prophylaxis with Lovenox Full Code reason for continued hospitalization:sepsis Quality Stroke Does the patient have a stroke diagnosis?: No VTE Prior VTE?: No VTE Risk Level:: Medical - moderate - high VTE Device Contraindication: Treatment Not Indicated VTE Drug Contraindication: N/A - Med Ordered
[2024-10-17] MEDS: Potassium Chloride ER 20 MEQ TAB.ER.PRT 40 MEQ PO (09:30)
[2024-10-17] MEDS: Enoxaparin Sodium 40 MG/0.4 ML SYRINGE SUBCUT (09:31)
[2024-10-17] MEDS: Acetaminophen 325 MG TABLET 650 MG PO ×2 (09:39→20:04)
[2024-10-17] MEDS: Fluticasone/Vilanterol 200/25 BLST.W.DEV 1 PUFF INHALE (11:40)
--- NOTE | 2024-10-17 15:24 | MHC.CM.PN ---
PT REPORTS SHE LIVES WITH HER AND CHILDREN SHE IS INDEPENDENT WITH CARE AND HAS NO DME SHE DECLINES TO COMPLETE A HCP SHE DOES NOT HAVE A PCP, PAMPHLET PROVIDED DCP: HOME NO SERVICES VIA PRIVATE TRANSPORT
[2024-10-18] MEDS: HYDROmorphone HCl 0.5 MG/0.5 ML SYRINGE IVPUSH ×4 (00:21→18:32)
[2024-10-18] MEDS: Doxycycline Hyclate 100 MG in 0.9 % Sodium Chloride 250 ML 250 MG IV ×2 (02:25→13:44)
[2024-10-18] MEDS: 0.9 % Sodium Chloride Flush 3 ML SYRINGE IVFLUSH ×4 (02:25→23:26)
[2024-10-18 03:44] VITALS: BP 109/58; PULSE 82; RESP 16; TEMP 36.9; O2SAT 96
[2024-10-18 06:02] LABS: Hematocrit 30.1 % (37.0-47.0); Mean Corpuscular HGB Conc 36.5 g/dl (31.0-35.0); Mean Corpuscular Hemoglobin 33.2 pg (27.0-33.0); Mean Corpuscular Volume 90.9 fL (80.0-98.0); Mean Platelet Volume 9.7 fL (9.4-12.3); Platelet Count 221 X10*3/uL (160-400); Red Blood Count 3.31 X10*6/uL (4.20-5.50); Red Cell Distribution Width 12.5 % (11.0-16.0); White Blood Count 7.2 X10*3/uL (4.8-10.8)
[2024-10-18] MEDS: ondansetron HCL 4 MG/2 ML VIAL IVPUSH (06:07)
[2024-10-18] MEDS: metroNIDAZOLE/NS 500 MG/100 ML PIGGYBACK 100 MG IV ×2 (06:12→18:24)
[2024-10-18 06:22] LABS: Anion Gap 11 (12-20); Blood Urea Nitrogen 7 mg/dL (9-16); Calcium 8.7 mg/dL (8.4-10.2); Carbon Dioxide 22 mmol/L (22-29); Chloride 108 mmol/L (96-108); Creatinine Clr Calc Pharmacy 101.2; Estimated Glomerular Filt Rate > 60; Glucose Random 104 mg/dL (60-115); Potassium 3.3 mmol/L (3.3-5.1); Sodium 138 mmol/L (135-145)
[2024-10-18] MEDS: Fluticasone/Vilanterol 200/25 BLST.W.DEV 1 PUFF INHALE (07:56)
[2024-10-18 07:57] VITALS: PULSE 87; RESP 16; O2SAT 95
[2024-10-18 08:00] VITALS: BP 109/58; PULSE 84; RESP 16; TEMP 36.8; O2SAT 93
--- NOTE | 2024-10-18 08:52 | P.PNOB_ITS ---
RESTAURANT LINE SERVER - Subjective Subjective Date of Service: 10/18/24 Interval history: Doing better today pain has improved markedly Ambulating on regular diet SOAP GRINDER Physical Exam Vitals Vital signs: Temp Pulse Resp BP Pulse Ox O2 Del Method O2 Flow Rate 98.3 F 84 16 109/58 L 93 Room Air 2 10/18/24 08:00 10/18/24 08:00 10/18/24 08:00 10/18/24 08:00 10/18/24 08:00 10/18/24 08:00 10/16/24 08:32 BMI result Body Mass Index 39.0 Narrative: T-max 100.5 degrees on 10/17 at 1958 Abdomen Auscultation/Inspection/Palpation: Soft and No tenderness [employer]ER - Prog Note: Results Labs 10/18/24 05:38 10/18/24 05:38 Labs: Laboratory Results - last 24 hr 10/18/24 05:38 WBC 7.2 RBC 3.31 L Hgb 11.0 L Hct 30.1 L MCV 90.9 MCH 33.2 H MCHC 36.5 H RDW 12.5 Plt Count 221 MPV 9.7 Absolute Nucleated RBC 0.000 Nucleated RBC % (auto) 0.0 Sodium 138 Potassium 3.3 Chloride 108 Carbon Dioxide 22 Anion Gap 11 L BUN 7 L Creatinine 0.74 Estim Creat Clear Calc 101.2 Estimated GFR > 60 Random Glucose 104 Calcium 8.7 RESTAURANT LINE SERVER - A/P (1) Acute PID (pelvic inflammatory disease): Status: Acute Assessment and Plan: Keep on IV doxycycline, ceftriaxone and Flagyl for at least 48-72 hours from T- max and discharged on p.o. doxy/Flagyl for 14 Follow up in the office in 2 weeks (2) Trichomoniasis: Status: Acute Assessment and Plan: Keep on IV Flagyl Time Spent With Patient Time: Total time managing care of this patient today ____ minutes. Quality Measures - SOAP GRINDER H&P VTE Prior VTE?: No VTE Risk Level:: Medical - moderate - high VTE Device Contraindication: Treatment Not Indicated VTE Drug Contraindication: N/A - Med Ordered
[2024-10-18] MEDS: cefTRIAXone sodium 1 GM VIAL IVPUSH (08:55)
[2024-10-18] MEDS: Enoxaparin Sodium 40 MG/0.4 ML SYRINGE SUBCUT (08:55)
[2024-10-18] MEDS: Milk of Magnesia 30 ML ORAL.SUSP PO (09:06)
--- NOTE | 2024-10-18 10:19 | PM.DS ---
DS: Providers Provider Date of Service: 10/19/24 Date of admission: 10/16/24 11:46 Date of discharge: 10/19/24 Primary care physician: None Physician Consults: 10/16/24 12:00 Consult to Obstetrics / Gynecology Routine Consulting Provider: Amador Cantu Reason for consultation: ?PID DS: Diagnosis Discharge Diagnosis (1) Acute PID (pelvic inflammatory disease): Status: Acute (2) Trichomoniasis: Status: Acute DS: Summary Hospital Course Hospital Course: from initial hpi: 39F PMH morbid obesity, osteoarthritis, CHIKIS presented with severe back pain and fevers. Patient states she started to feel ill about 2 days prior to presentation. On day prior to presentation had severe right low back pain associated with fevers and chills. On day of presentation had ongoing fevers and pain now in suprapubic region. Denies any dysuria or urinary frequency does report some yellowish vaginal discharge. Reports 1 sexual partner, has IUD. In ED noted to have leukocytosis, tachycardia, pyuria bacteriuria, CT abdomen and pelvic ultrasound unremarkable. hospital course: Patient was admitted for sepsis due to acute PID associated with IUD and tested positive for Trichomonas. Was treated with broad-spectrum ceftriaxone, Flagyl, doxycycline. Was seen by Gynecology who removed IUD recommended discussion with partner and treatment for partner. vaginal culture grew strep pyogenese on discharge we will continue 14 days of ceftin and Flagyl followed by repeat testing. Sepsis resolved and patient is feeling much better will be discharged home. For CHIKIS was continued on CPAP at night. For morbid obesity weight loss recommended. Time Attestation Discharge Coordination Time (in mins): 35 Quality: Safe Use of Opioids Does Pt have an Active Cancer Diagnosis on the Problem List?: No Quality: Stroke Does the patient have a stroke diagnosis?: No Physical Exam Vital Signs: Vital Signs: Last Vital Signs Temp 98.3 F 10/18/24 08:00 Pulse 84 10/18/24 08:00 Resp 16 10/18/24 08:00 BP 109/58 L 10/18/24 08:00 Pulse Ox 93 10/18/24 08:00 O2 Del Method Room Air 10/18/24 08:00 O2 Flow Rate 2 10/16/24 08:32 BMI result Body Mass Index 39.0 General: AO X 3, no acute distress Resp: CTA bilateral, no accessory muscles used CVS: S1,S2,RRR GI: soft, non tender, non distended Neuro: motor grossly intact, alert Psych: appropriate affect, appropriate insight DS: Data Data Completed and Pending Labs on day of discharge: Laboratory Results - last 24 hr 10/18/24 05:38 WBC 7.2 RBC 3.31 L Hgb 11.0 L Hct 30.1 L MCV 90.9 MCH 33.2 H MCHC 36.5 H RDW 12.5 Plt Count 221 MPV 9.7 Absolute Nucleated RBC 0.000 Nucleated RBC % (auto) 0.0 Sodium 138 Potassium 3.3 Chloride 108 Carbon Dioxide 22 Anion Gap 11 L BUN 7 L Creatinine 0.74 Estim Creat Clear Calc 101.2 Estimated GFR > 60 Random Glucose 104 Calcium 8.7 Preliminary micro results at discharge 10/16/24 06:28 Blood Culture - Preliminary Blood - Venous No growth after 48 hours. 10/16/24 06:28 Blood Culture - Preliminary Blood - Venous No growth after 48 hours. 10/16/24 16:34 Routine Culture - Preliminary Intrauterine Device Culture in progress. Discharge Plan Discharge Anticipated Discharge Date/Time: 10/18/24 10:16 Patient Disposition: Home, Self-Care Discharge Diagnosis: pid, trich Referrals: Physician,None [Primary Care Provider] - 1 Week Amador Cantu MD [Physician] - 1 Week Discharge Medications: New metronidazole 500 mg tablet 500 mg PO Q12H 14 Days Qty: 28 0RF cefuroxime axetil 500 mg tablet 500 mg PO BID Qty: 28 0RF Continued albuterol sulfate [Ventolin HFA] 90 mcg/actuation HFA aerosol inhaler 2 puff INHALATION QID Dulera 200-5 mcg/actuation HFA aerosol inhaler 2 puff inhalation BID acetaminophen 325 mg Tablet 650 mg PO Q4-6H PRN (Reason: Pain) ibuprofen 200 mg Tablet 800 mg PO Q6H PRN (Reason: Pain) Mirena 20 mcg/24 hours (6 yrs) 52 mg intrauterine device 20 mcg intrauterine USEASDIRECTD Rx Instructions: Every 6 years albuterol sulfate 2.5 mg /3 mL (0.083 %) solution for nebulization 2.5 mg inhalation Q4H PRN (Reason: Wheezing) fexofenadine [Sarah Allergy] 60 mg tablet 60 mg PO BID Discharge Orders: Discharge Order (Routine); Ordered 10/19/24 Ordered By: Daryn Perkins Diet: Advance to usual diet Activity on Discharge: As tolerated Stand Alone Forms: Patient Portal Discharge page Print Language: Citizen Of [place] Care Plan Goals: recovery Health Concerns: pid, trich Plan of Treatment: discuss with partner - needs to be treated by PCP daniel complete course of ceftin and flagyl then retest follow up with dr cantu Assessment: see above
--- NOTE | 2024-10-18 10:47 | P.PNIM_ITS ---
Subjective Subjective Date of Service: 10/18/24 Interval History: feeling better, low grade fever overnight Physical Exam 2 Vital Signs: Vital Signs: Last Vital Signs Temp 98.3 F 10/18/24 08:00 Pulse 84 10/18/24 08:00 Resp 16 10/18/24 08:00 BP 109/58 L 10/18/24 08:00 Pulse Ox 93 10/18/24 08:00 O2 Del Method Room Air 10/18/24 08:00 O2 Flow Rate 2 10/16/24 08:32 BMI result Body Mass Index 39.0 General: AO X 3, no acute distress Resp: CTA bilateral, no accessory muscles used CVS: S1,S2,RRR GI: soft, non tender, non distended Neuro: motor grossly intact, alert Psych: appropriate affect, appropriate insight Objective Data Active Medications Acetaminophen (Acetaminophen 325 Mg Tablet) 650 mg PO Q6H PRN PRN Reason: Pain, Mild 1-3,fever,headache Last Admin: 10/17/24 20:04 Dose: 650 mg Documented By: CLAIR Calcium Carbonate (Calcium Carbonate 750 Mg Tab.Chew) 750 mg PO Q4H PRN PRN Reason: Heartburn Ceftriaxone Sodium (Ceftriaxone Sodium 1 Gm Vial) 1 gm IVPUSH Q24H [facility] Last Admin: 10/18/24 08:55 Dose: 1 gm Documented By: KYA Enoxaparin Sodium (Enoxaparin Sodium 40 Mg/0.4 Ml Syringe) 40 mg SUBCUT Q24H [facility] Last Admin: 10/18/24 08:55 Dose: 40 mg Documented By: KYA Fluticasone/Vilanterol (Fluticasone/Vilanterol 200/25 Blst.W.Dev) 1 puff INHALE RDAILY [facility] Last Admin: 10/18/24 07:56 Dose: 1 puff Documented By: AARON Hydromorphone HCl (Hydromorphone Hcl 0.5 Mg/0.5 Ml Syringe) 0.5 mg IVPUSH Q4H PRN; Protocol PRN Reason: Pain, Severe (Pain Scale 7-10) Last Admin: 10/18/24 04:15 Dose: 0.5 mg Documented By: CLAIR Metronidazole (Flagyl) 500 mg in 100 mls @ 100 mls/hr IV Q12H [facility] Last Infusion: 10/18/24 08:51 Dose: Infused Documented By: KYA Doxycycline Hyclate 100 mg/ (Sodium Chloride) 250 mls @ 250 mls/hr IV Q12H [facility] Last Infusion: 10/18/24 03:25 Dose: Infused Documented By: CLAIR Magnesium Hydroxide (Milk Of Magnesia 30 Ml Oral.Susp) 30 ml PO DAILY PRN PRN Reason: Constipation Last Admin: 10/18/24 09:06 Dose: 30 ml Documented By: KYA Melatonin (Melatonin 3 Mg Tablet) 6 mg PO BEDTIME PRN PRN Reason: Insomnia Ondansetron HCl (Ondansetron Hcl 4 Mg/2 Ml Vial) 4 mg IVPUSH Q6H PRN PRN Reason: Nausea and Vomiting Last Admin: 10/18/24 06:07 Dose: 4 mg Documented By: CLAIR Sodium Chloride (0.9 % Sodium Chloride Flush 3 Ml Syringe) 3 ml IVFLUSH QSHIFT [facility] Last Admin: 10/18/24 08:55 Dose: 3 ml Documented By: KYA Labs 10/18/24 05:38 10/18/24 05:38 Labs: Laboratory Results - last 24 hr 10/18/24 05:38 MCV 90.9 MCH 33.2 H MCHC 36.5 H RDW 12.5 Plt Count 221 MPV 9.7 Absolute Nucleated RBC 0.000 Nucleated RBC % (auto) 0.0 Anion Gap 11 L Estim Creat Clear Calc 101.2 Estimated GFR > 60 Random Glucose 104 Calcium 8.7 Microbiology Microbiology Results: Microbiology 10/16/24 06:28 Blood Culture - Preliminary Blood - Venous No growth after 48 hours. 10/16/24 06:28 Blood Culture - Preliminary Blood - Venous No growth after 48 hours. 10/16/24 Unknown Urine Culture - Final Urine clean catch - Clean Catch Midstream No growth. 10/16/24 16:34 Gram Stain - Final Intrauterine Device Routine Culture - Preliminary Culture in progress. Assessment and Plan (1) Acute PID (pelvic inflammatory disease): Status: Acute Plan 39F PMH morbid obesity, osteoarthritis, CHIKIS presented with severe back pain and fevers Sepsis due to acute PID positive trichomonas Ceftriaxone, Flagyl, doxycycline Gynecology appreciated - IUD removed once defervecses - 14 day po doxy/flagyl and retest STD CHIKIS CPAP at night Morbid obesity Weight loss recommended DVT prophylaxis with Lovenox Full Code reason for continued hospitalization:fever Quality Stroke Does the patient have a stroke diagnosis?: No VTE Prior VTE?: No VTE Risk Level:: Medical - moderate - high VTE Device Contraindication: Treatment Not Indicated VTE Drug Contraindication: N/A - Med Ordered
--- NOTE | 2024-10-18 11:10 | MHC.CM.PN ---
Not medically cleared for dc at this time. CM will continue to follow.
[2024-10-18 15:36] VITALS: BP 123/60; PULSE 70; RESP 18; TEMP 36.8; O2SAT 95
[2024-10-18 19:40] VITALS: BP 118/60; PULSE 77; RESP 18; TEMP 36.9; O2SAT 95
[2024-10-19] MEDS: Doxycycline Hyclate 100 MG in 0.9 % Sodium Chloride 250 ML 250 MG IV (01:55)
[2024-10-19 03:40] VITALS: BP 122/68; PULSE 70; RESP 16; TEMP 36.8; O2SAT 96
[2024-10-19] MEDS: metroNIDAZOLE/NS 500 MG/100 ML PIGGYBACK 100 MG IV (06:32)
[2024-10-19 07:27] VITALS: BP 130/67; PULSE 60; RESP 16; TEMP 36.5; O2SAT 97
[2024-10-19] MEDS: 0.9 % Sodium Chloride Flush 3 ML SYRINGE IVFLUSH (07:31)
[2024-10-19] MEDS: Fluticasone/Vilanterol 200/25 BLST.W.DEV 1 PUFF INHALE (07:58)
[2024-10-19 07:59] VITALS: PULSE 64; RESP 18; O2SAT 99
[2024-10-19] MEDS: Enoxaparin Sodium 40 MG/0.4 ML SYRINGE SUBCUT (08:54)
[2024-10-19] MEDS: cefTRIAXone sodium 1 GM VIAL IVPUSH (08:54)
--- NOTE | 2024-10-19 08:55 | MHC.CM.PN ---
PT WILL DC HOME TODAY, WITH NO SERVICES, VIA PRIVATE TRANSPORT
== END 2024-10-19 09:45 | disposition home or self-care (01) | DRG 466 ==
LOC: HO.ED 11:41 → HO.EDOVER 12:02 → HO.S3 19:41
PROVIDERS: Emergency Medicine; Obstetrics & Gynecology; Admitting Provider Internal Medicine; Emergency Provider Emergency Medicine; Visit Provider Internal Medicine
DX: T83.69XA Infection and inflammatory reaction due to other prosthetic device, implant and graft in genital tract, initial encounter (principal); A41.9 Sepsis, unspecified organism; N73.0 Acute parametritis and pelvic cellulitis; A59.01 Trichomonal vulvovaginitis; B95.0 Streptococcus, group A, as the cause of diseases classified elsewhere; E66.01 Morbid (severe) obesity due to excess calories; Y76.8 Miscellaneous obstetric and gynecological devices associated with adverse incidents, not elsewhere classified; G47.33 Obstructive sleep apnea (adult) (pediatric); Z68.41 Body mass index [BMI] 40.0-44.9, adult; Z79.899 Other long term (current) drug therapy
CPT/HCPCS: 36415; 58301; 71045; 74177; 76830; 76856; 80048; 80053; 81001; 81515; 83605; 83690; 84702; 85007; 85027; 86140; 86780; 87040; 87070; 87086; 87147; 87205; 87389; 87491; 87591; 93975; 94640; 99285; J0131; J0696; J1171; J1271; J1650; J1836; J1885; J2270; J2405

== ENCOUNTER → 2024-10-16 06:48 | Outpatient (BNV) | payer OTHER, SELFPAY | PROVIDERS: Emergency Provider Emergency Medicine; Visit Provider Radiology Vascular & Interventional Radiology | DX: K44.9 Diaphragmatic hernia without obstruction or gangrene (principal); K42.9 Umbilical hernia without obstruction or gangrene; R10.31 Right lower quadrant pain; R50.9 Fever, unspecified | CPT/HCPCS: 71045; 74177; 76830; 76856; 93975 ==

== ENCOUNTER → 2024-10-16 11:46 | Outpatient (BNV) | payer OTHER, SELFPAY | PROVIDERS: Admitting Provider Internal Medicine; Emergency Provider Emergency Medicine; Visit Provider Obstetrics & Gynecology | DX: N73.0 Acute parametritis and pelvic cellulitis (principal); A59.9 Trichomoniasis, unspecified; Z30.432 Encounter for removal of intrauterine contraceptive device | CPT/HCPCS: 99222 ==

== ENCOUNTER → 2024-10-16 11:46 | Outpatient (BNV) | payer OTHER, SELFPAY | PROVIDERS: Admitting Provider Internal Medicine; Emergency Provider Emergency Medicine; Visit Provider Internal Medicine | DX: N73.0 Acute parametritis and pelvic cellulitis (principal) | CPT/HCPCS: 99223; 99233 ==

== ENCOUNTER 2024-10-31 12:59 | Outpatient (AMB) | payer OTHER, SELFPAY ==
--- OUTSIDE RECORDS SUMMARY | 2024-10-31 13:01 | XMS_ITS | Encounter Summary ---
Author Organization [facility] Address [address] [place] [address] Care Team Providers Care Security Tester Name Role Phone Marshal Nava MD Primary Care Provider [phone] Reason for Visit * Reason Onset Date Comments Right foot pain 10/28/2024 Encounter Details Date Type Department Care Team (Late st Contact Info) Description 10/28/2024 Telephone Orthopedic Surgery - [place] [address] [phone] Vladimir Comer, DPM [address] [address] Right foot pain Social History Tobacco Use Types Packs/Day Years Used Date Smoking Tobacco: Never Assessed Comments Unknown Sex and Gender Information Value Date Recorded Sex Assigned at Not on file Legal Sex Female 11:02 AM EDT Gender Identity Not on file Sexual Orientation Not on file documented as of this encounter Progress Notes * Estefani Wright MA - 10/29/2024 3:08 PM EDT Msg left on answering machine for pt to return to fracture boot * Estefani Wright MA - 10/29/2024 9:[address] Comer pls advice. * Alana Colbert - 10/28/2024 10:23 AM EDT Patient is calling stating that she is having a lot of Right Foot Pain, due to her Plantar fasciitis.She is inquiring in if there is any ay mediation she can take other than Motrin and Tylenol She isstill waiting on a surgery date. Please advise. She can be reached @ [phone] . Thanks. documented in this encounter Plan of Treatment Upcoming Encounters Date Type Department Care Team (Late st Contact Info) Description 11/22/2024 8:00 AM EDT Consult Orthopedic Surgery [address] [phone] Vladimir Comer DPM [address] [address] 11/22/2024 2:00 PM EDT Hospital Encounter [facility] Main OR [address] [place] [phone] Vladimir Comer DPM [address] [address] 11/22/2024 2:00 PM EDT - 11/22/2024 3:15 PM EDT Surgery [facility] OR [address] [place] [phone] Vladimir Comer DPM [address] [address] FASCIOTOMY PLANTAR [[id number] (CPT??)] 12/05/2024 3:30 PM EDT Office Visit Orthopedic Surgery [place] [address] [phone] Vladimir Comer DPM [address] [address] Scheduled Procedures Name Priority Associated Diagnoses Date/Ti me FASCIOTOMY PLANTAR Plantar fascial fibromatosis 11/22/2024 2:00 PM EDT documented as of this encounter Visit Diagnoses Not on filedocumented in this encounter Care Teams Security Tester Relationship Specialty Start Date End Date Marshal Nava MD [address] [place] [address] Dr Venus MA PCP - General 07/19/23 documented as of this encounter
--- OUTSIDE RECORDS SUMMARY | 2024-10-31 13:01 | XMS_ITS | Clinical Summary ---
Author Organization 175 [facility] Address [address] [place] [address] Phone Care Team Providers Care Pig Farmer Name Role Phone Marshal Nava MD Primary Care Provider [phone] Allergies Active Allergy Reactions Criticality Noted Date [...] mouth 1 (one) time each day. 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 Encounters Date Type Department Care Team Description 10/28/2024 [place] [facility] [address] [phone] Vladimir Comer DPM Srugery 10/28/2024 Telephone Orthopedic [facility] [address] [phone] Vladimir Comer DPM Right foot pain 10/01/2024 2:00 PM EDT Office Visit Orthopedic Surgery [facility] [address] [phone] Vladimir Comer DPM Plantar fascial fibromatosis (Primary Dx) 09/27/2024 6:47 PM EDT - 09/27/2024 11:59 PM EDT Hospital Encounter [facility] MRI [address] [place] [phone] Plantar fascial fibromatosis; Tendonitis, Achilles, right Discharge Disposition: Home or Self Care 08/21/2024 3:00 PM EDT Office Visit Orthopedic Surgery [facility] [address] [phone] Vladimir Comer DPM Tendonitis, Achilles, right (Primary Dx); Follow-up exam; Plantar fascial fibromatosis from Last 3 Months [...] 11/22/2024 8:00 AM EDT Consult Orthopedic Surgery [facility] [address] [phone] Vladimir Comer DPM [address] [address] 11/22/2024 2:00 PM EDT Hospital Encounter [facility] Main OR [address] [place] [phone] Vladimir Comer DPM [address] [address] 11/22/2024 2:00 PM EDT - 11/22/2024 3:15 PM EDT Surgery [facility] Main OR [address] [place] [phone] Vladimir Comer, LOI [address] [address] FASCIOTOMY PLANTAR [[id number] (CPT??)] 12/05/2024 3:30 PM EDT Office Visit Orthopedic Surgery - [place] [address] [phone] Vladimir Comer DPM [address] [address] Scheduled Procedures Name Priority Associated Diagnoses Date/Ti me FASCIOTOMY PLANTAR Plantar fascial fibromatosis 11/22/2024 2:00 PM EDT Health Maintenance Due Date Last Done Comments Breast Cancer Screening 1984 DTaP,Tdap,and Td Vaccines (1 - Tdap) 02/01/2003 Hepatitis B Vaccines (1 of 3 - 19+ 3-dose series) 02/01/2003 Cervical Cancer Screening: P ap Smear 02/01/2005 Depression Screening 01/05/2024 HIV Screening 01/05/2024 Hepatitis C Screening 01/05/2024 Social Influencers of Health Screening 01/05/2024 COVID-19 Vaccine ( - 2023-2 5 season) 2024 Influenza Vaccine (Season Ended) 2025 HIB Vaccines Aged Out No longer eligi [...] age to complete this topic Meningococcal B Vaccine Aged Out No l onger eligible based on patient's age to complete [...] Procedure Name Priority Date/Time Associated Diagnosis Comments MR ANKLE WO CONTRAST RIGHT Routine 09/27/2024 7:30 PM EDT Plantar fascial fibromatosis Tendonitis, Achilles, right XR FOOT 3+ VIEWS RIGHT Routine 08/21/2024 3:33 PM EDT Follow-up exam from Last 3 Months Results * MR Ankle wo Contrast Right (09/27/2024 7:30 PM EDT) Anatomical Region Laterality Modality Lower Extremities, Ankle Right Magneti c Resonance 09/30/2024 2:18 PM EDT Impressions 09/30/2024 3:08 PM EDT Plantar fasciitis with tendinosis and partial tear of the middle cord of the plantar fascia. -------- FINAL REPORT -------- Dictated By: KEZIA CHAN Dictated Date: 09/30/2024 14:18 ET Assigned Physician: KEZIA CHAN Reviewed and Electronically Signed By: KEZIA CHAN Signed Date: 09/30/2024 15:08 ET Workstation ID: [id number] Transcribed By: Self Edit Transcribed Date: 09/30/2024 14:18 ET Narrative 09/30/2024 3:08 PM EDT PROCEDURE: Right ankle MRI INDICATION: Pain TECHNIQUE: Multiplanar, multisequence MRI of the right ankle Without contrast. COMPARISON: ??No priors available. FINDINGS: No fracture or suspicious marrow replacing lesion. Tibiotalar articular cartilage is preserved. ??No joint effusions. ??Subtalar joints are within normal limits. Tibiofibular and talofibular ligaments are intact. ??Calcaneofibular ligament is intact. Deltoid ligament complex and spring ligament complex are intact. ?? Lisfranc ligament complex is intact. Achilles tendon is intact. Tendinosis with partial-thickness tear at the middle cord of the plantar fascia, near the calcaneal attachment site. ??Surrounding edema/inflammation at the plantar fascial calcaneal attachment site. Peroneal tendons are intact. Medial and anterior tendons are intact. Muscle bulk is preserved. ??No mass or fluid collection. Procedure Note Kezia Chan MD - 09/30/2024 PROCEDURE: Right ankle MRI INDICATION: Pain TECHNIQUE: Multiplanar, multisequence MRI of the right ankle Withoutcontrast. COMPARISON: No priors available. FINDINGS: No fracture or suspicious marrow replacing lesion. Tibiotalar articular cartilage is preserved. No joint effusions.Subtalar joints are within normal limits. Tibiofibular and talofibular ligaments are intact. Calcaneofibularligament is intact. Deltoid ligament complex and spring ligament complex are intact. Lisfranc ligament complex is intact. Achilles tendon is intact. Tendinosis with partial-thickness tear at the middle cord of the plantarfascia, near the calcaneal attachment site. Surroundingedema/inflammation at the plantar fascial calcaneal attachment site. Peroneal tendons are intact. Medial and anterior tendons are intact. Muscle bulk is preserved. No mass or fluid collection. IMPRESSION: Plantar fasciitis with tendinosis and partial tear of the middle cord ofthe plantar fascia. -------- FINAL REPORT -------- Dictated By: KEZIA CHAN Dictated Date: 09/30/2024 14:18 ET Assigned Physician: KEZIA CHAN Reviewed and Electronically Signed By: KEZIA CHAN Signed Date: 09/30/2024 15:08 ET Workstation ID: [id number] Transcribed By: Self Edit Transcribed Date: 09/30/2024 14:18 ET Vladimir Comer DPLuis IMG MRI PROCEDURES Final Result * XR Foot 3+ Views Right (08/21/2024 3:33 PM EDT) Anatomical Region Laterality Modality Lower Extremities, Foot Right Computed Radiography Narrative 08/21/2024 5:34 PM EDT Right foot ??3 views No fracture. No radiopaque foreign joint spaces normal Foot position rectus Normal talus navicular position normal calcaneal inclination normal symes line talus navicular joint to calcaneal cuboid joint us Vladimir Comer DPM IMG XR PROCEDURES Final R esult from Last 3 Months Insurance [facility] Care Teams Pig Farmer Relationship Specialty Start Date End Date Marshal Nava MD [address] [place] [address] Dr Olivareske ID PCP - General 07/19/23
--- OUTSIDE RECORDS SUMMARY | 2024-10-31 13:01 | XMS_ITS | Encounter Summary ---
Author Organization [facility] Address [address] [place] [address] Care Team Providers Care Envelope Sealer Operator Name Role Phone Marshal Nava MD Primary Care Provider [phone] Reason for Visit * Reason Onset Date Comments Srugery 10/28/2024 Encounter Details Date Type Department Care Team (Late Contact Info) Description 10/28/2024 Telephone Orthopedic Surgery [facility] [address] [phone] Vladimir Comer DPM [address] [address] Srugery Social History Tobacco Use Types Packs/Day Years Used Date Smoking Tobacco: Never Assessed Comments Unknown Sex and Gender Information Value Date Recorded Sex Assigned at Not on file Legal Sex Female 11:02 AM EDT Gender Identity Not on file Sexual Orientation Not on file documented as of this encounter Progress Notes * Alana Colbert - 10/28/2024 10:27 AM EDT Patient is calling inquiring on a Surgery date with Dr Comer, as she is having a lot of pain. Pleaseadvise. She can be reached @ [phone] . Thanks. documented in this encounter Plan of Treatment Upcoming Encounters Date Type Department Care Team (Late Contact Info) Description 11/22/2024 8:00 AM EDT Consult Orthopedic Surgery - [place] [address] [phone] Vladimir Comer DPM [address] [address] 11/22/2024 2:00 PM EDT Hospital Encounter Main OR [address] [place] [phone] Vladimir Comer DPM [address] [address] 11/22/2024 2:00 PM EDT - 11/22/2024 3:15 PM EDT Surgery Main OR [address] [place] [phone] Vladimir Comer DPM [address] [address] FASCIOTOMY PLANTAR [[id number] (CPT??)] 12/05/2024 3:30 PM EDT Office Visit Orthopedic Surgery - [place] [phone] [phone] Vladimir Comer DPM [address] [address] Scheduled Procedures Name Priority Associated Diagnoses Date/Ti me FASCIOTOMY PLANTAR Plantar fascial fibromatosis 11/22/2024 2:00 PM EDT documented as of this encounter Visit Diagnoses Not on filedocumented in this encounter Care Teams Envelope Sealer Operator Relationship Specialty Start Date End Date Marshal Nava MD [address] [place] [address] Dr Venus MA PCP - General 07/19/23 documented as of this encounter
--- NOTE | 2024-10-31 13:03 | A.OFFVIS_ITS ---
Vital Signs 10/31/24 13:26 Height 5 ft Weight 220 lb BMI 43.0 BP 120/70 Intake Visit Reasons: Follow up hospital adm/PID Bevel Operator Required: No Information Interpreted: non-clinical & clinical Allergies Penicillins Allergy (Severe, Verified 10/31/24 13:27) ANAPHYLAXIS, HIVES animal dander Allergy (Mild, Verified 10/31/24 13:27) ITCHY HIVES THROAT SWOLLEN lactose [LACTOSE] Allergy (Mild, Verified 10/31/24 13:27) DIARRRHEA many vegetables Allergy (Severe, Uncoded 10/31/24 13:27) hives, throat... nuts Allergy (Severe, Uncoded 10/31/24 13:27) hives, throat... FRUIT, SKINS Allergy (Mild, Uncoded 10/31/24 13:27) SWELLING fruits Allergy (Unknown, Uncoded 10/31/24 13:27) hives, throat closes seasonal allergies Allergy (Unknown, Uncoded 10/31/24 13:27) Unknown MEAT Adverse Reaction (Mild, Uncoded 10/31/24 13:27) ABDOMINAL PAIN HPI Comments Details: The patient is presenting 2 weeks post admission for PID. The patient presented emergency room on 10/16 with pelvic pain was diagnosed with PID , had Mirena IUD received IV ceftriaxone, Flagyl metronidazole and was discharged on 10/19 p.o. metronidazole and doxycycline to complete 14 day course which was completed. Since then the patient has been having diarrhea Trichomonas vaginitis was positive, GC/CT with the others STD serologies were negative. The patient informed her partner was treated and did not have unprotected intercourse since then Mirena IUD was taken out Since then the patient has been doing well with no complaints no vaginal discharge , her pelvic pain has improved markedly or fever or nausea or vomiting [facility] Medical History Asthma Allergic rhinitis Somnolence, daytime CHIKIS (obstructive sleep apnea) Morbid obesity Carpal tunnel syndrome, bilateral upper limbs Bacterial vaginosis Surgical History Hx of appendectomy History of thumb surgery History of carpal tunnel surgery S/P ACL reconstruction History of tonsillectomy Previous section Family History Mother Diabetes Hypertension Arthritis Father Liver cancer Paternal Aunt Family history of autoimmune disorder Maternal Grandfather Colon cancer Social History Household Members: Family Housing: House Do you presently have visiting nurse or other home services: No Alcohol intake: never Patient Tobacco Use Status: Never used Tobacco Substance Use Type: Marijuana service: No Current occupational status: employed 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 Reproductive History Menstrual Age of Menarche: 9 Review of Systems Const All systems reviewed & are unremarkable except as noted in HPI and below Physical Exam Vital Signs: Last Vital Signs BP 120/70 10/31/24 13:26 BMI result Body Mass Index 43.0 General: Yes no CVA tenderness External Female Exam: normal external appearance and normal appearance of the urethra Speculum Exam - Vagina: normal appearance of the vagina, normal palpation, no lesions and no masses Speculum Exam - Cervix: normal appearance of the cervix, normal palpation, no lesions, no masses and nontender Bimanual exam- vagina & uterus: normal bimanual exam, normal palpation, uterine size normal, normal palpation, uterine shape normal, No Cervical tenderness present and non-tender Bimanual Exam- Adnexa, other: normal adnexae Back/Spine/Pelvis Back: no CVA tenderness Assessment & Plan Assessment & Plan (1) Acute PID (pelvic inflammatory disease): Comment: Resolved Code(s): N73.0 - Acute parametritis and pelvic cellulitis Category: Medical Plan: Instructions given the patient to call in case of recurrence of her pelvic pain, fever above 100.4, nausea or vomiting (2) Trichomonas vaginalis (TV) infection: Comment: Status post treatment for SONI Code(s): A59.01 - Trichomonal vulvovaginitis Category: Medical Plan: GC/CT with BV panel collected. (3) Diarrhea: Comment: After ceftriaxone/Flagyl/doxycycline Code(s): R19.7 - Diarrhea, unspecified Category: Medical Plan: Instructions given the patient to discontinue antibiotics since she has been on them since 10/16. Stool for C diff PCR ordered stat if positive will treat accordingly if negative, instructions given the patient to call or go to emergency room in case of persistence of her symptoms or bloody diarrhea fever above 100.4 or abdominal distention. All questions answered, the patient verbalized understanding Orders: Orders CDiff Gene PCR Today R19.7 - Diarrhea, unspecified Coding Level of Care Code Est Pt Level 3 (94105) Diagnoses Acute PID (pelvic inflammatory disease) N73.0 Trichomonas vaginalis (TV) infection A59.01 Diarrhea R19.7
[2024-10-31 13:26] VITALS: BP 120/70; BMI 43.0
== END 2024-10-31 13:52 | disposition home or self-care (01) ==
LOC: HO.HWS 12:59
PROVIDERS: Visit Provider Obstetrics & Gynecology
DX: N73.0 Acute parametritis and pelvic cellulitis (principal); A59.01 Trichomonal vulvovaginitis; R19.7 Diarrhea, unspecified
CPT/HCPCS: 99213

== ENCOUNTER 2024-10-31 12:59 | Outpatient (REF) | payer OTHER, SELFPAY ==
[2024-11-01 04:16] LABS: CT PCR NOT DETECTED (Not Detect.); NG PCR NOT DETECTED (Not Detect.)
[2024-11-01 11:28] LABS: Bacterial Vaginosis PCR NEGATIVE (Negative); Candida Group PCR NOT DETECTED (Not Detect); Candida glab krusei PCR NOT DETECTED (Not Detect); Trichomonas vaginalis PCR NOT DETECTED (Not Detect)
== END 2024-10-31 13:00 | disposition home or self-care (01) ==
LOC: HO.LNP 12:59
PROVIDERS: Visit Provider Obstetrics & Gynecology
DX: N73.0 Acute parametritis and pelvic cellulitis (principal); A59.01 Trichomonal vulvovaginitis; R19.7 Diarrhea, unspecified
CPT/HCPCS: 81515; 87491; 87591; 99212

== ENCOUNTER 2024-10-31 14:12 | Outpatient (REF) | payer OTHER, SELFPAY | END 2024-10-31 14:13 | disposition home or self-care (01) | LOC: HO.LAB 14:12 | PROVIDERS: Visit Provider Obstetrics & Gynecology | DX: Z13.89 Encounter for screening for other disorder (principal) ==

== ENCOUNTER 2024-11-01 13:00 | Outpatient (REF) | payer OTHER, SELFPAY ==
--- OUTSIDE RECORDS SUMMARY | 2024-11-01 13:03 | XMS_ITS | Encounter Summary ---
Author Organization [facility] Address [address] [place] [address] Care Team Providers Care Global Transportation Manager Name Role Phone Marshal Nava MD Primary Care Provider [phone] Reason for Visit * Reason Onset Date Comments Right foot pain 10/28/2024 Encounter Details Date Type Department Care Team (Late st Contact Info) Description 10/28/2024 Telephone Orthopedic Surgery - [place] [address] [phone] Vladimir Comer, DPM [address] [address] Right foot pain Social History Tobacco Use [...] Please advise. She can be reached @ [phone] . Thanks. documented in this encounter Plan of Treatment Upcoming Encounters Date Type Department Care Team (Late st Contact Info) Description 11/22/2024 8:00 AM EDT Consult Orthopedic Surgery [address] [phone] Vladimir Comer DPM [address] [address] 11/22/2024 2:00 PM EDT Hospital Encounter [facility] Main OR [address] [place] [phone] Vladimir Comer DPM [address] [address] 11/22/2024 2:00 PM EDT - 11/22/2024 3:15 PM EDT Surgery [facility] OR [address] [place] [phone] Vladimir Comer DPM [address] [address] FASCIOTOMY PLANTAR [[id number] (CPT??)] 12/05/2024 3:30 PM EDT Office Visit Orthopedic Surgery [place] [address] [phone] Vladimir Comer DPM [address] [address] Scheduled Procedures Name Priority Associated Diagnoses Date/Ti me FASCIOTOMY PLANTAR Plantar fascial fibromatosis 11/22/2024 2:00 PM EDT documented as of this encounter Visit Diagnoses Not on filedocumented in this encounter Care Teams Global Transportation Manager Relationship Specialty Start Date End Date Marshal Nava MD [address] [place] [address] Dr Venus [place] PCP - General 07/19/23 documented as of this encounter
[2024-11-01 14:28] LABS: CDiff Gene PCR NEGATIVE (Negative)
== END 2024-11-01 13:01 | disposition home or self-care (01) ==
LOC: HO.LNP 13:00
PROVIDERS: Visit Provider Obstetrics & Gynecology
DX: R19.7 Diarrhea, unspecified (principal)
CPT/HCPCS: 87493

== ENCOUNTER 2025-01-08 13:35 | Outpatient (REF) | payer OTHER, SELFPAY ==
[2025-01-08 16:13] LABS: Bacterial Vaginosis PCR POSITIVE (Negative); Candida Group PCR NOT DETECTED (Not Detect); Candida glab krusei PCR NOT DETECTED (Not Detect); Trichomonas vaginalis PCR NOT DETECTED (Not Detect)
[2025-01-08 16:45] LABS: CT PCR NOT DETECTED (Not Detect.); NG PCR NOT DETECTED (Not Detect.)
== END 2025-01-08 13:36 | disposition home or self-care (01) ==
LOC: HO.LNP 13:35
PROVIDERS: Visit Provider Obstetrics & Gynecology
DX: Z12.31 Encounter for screening mammogram for malignant neoplasm of breast (principal); Z11.4 Encounter for screening for human immunodeficiency virus [HIV]; Z11.3 Encounter for screening for infections with a predominantly sexual mode of transmission; Z01.419 Encounter for gynecological examination (general) (routine) without abnormal findings; Z11.59 Encounter for screening for other viral diseases; R31.29 Other microscopic hematuria; Z20.2 Contact with and (suspected) exposure to infections with a predominantly sexual mode of transmission; K42.9 Umbilical hernia without obstruction or gangrene
CPT/HCPCS: 81515; 87491; 87591; 99212; 99396

== ENCOUNTER 2025-01-08 13:35 | Outpatient (AMB) | payer OTHER, SELFPAY ==
--- NOTE | 2025-01-08 13:44 | A.OFFVIS_ITS ---
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 nuts Allergy (Severe, Uncoded 10/31/24 13:27) hives, throat... FRUIT, SKINS Allergy (Mild, Uncoded 10/31/24 13:27) SWELLING fruits Allergy (Unknown, Uncoded 10/31/24 13:27) hives, throat closes seasonal allergies Allergy (Unknown, Uncoded 10/31/24 13:27) Unknown MEAT Adverse Reaction (Mild, Uncoded 10/31/24 13:27) ABDOMINAL PAIN Is last menstrual period known: Yes Last menstrual period: 01/06/25 Post menopausal: No Patient : No HPI Comments Details: Presenting for annual exam. No complaints. The patient was hospitalized in 11/03 was PID. Had microscopic hematuria urine culture was negative. Trichomonas was positive, test of cure done afterwards was negative. Here for three-month test of cure/STD screen. CT scan done in the emergency room showed the following: IMPRESSION: Small hiatal hernia. Small fat-containing umbilical hernia. Otherwise unremarkable contrast-enhanced CT of the abdomen and pelvis. Last Pap/HPV was negative in 03/03 No previous screening Mammogram [facility] Medical History Asthma Allergic rhinitis Somnolence, daytime CHIKIS (obstructive sleep apnea) Morbid obesity Carpal tunnel syndrome, bilateral upper limbs Bacterial vaginosis Surgical History Hx of appendectomy History of thumb surgery History of carpal tunnel surgery S/P ACL reconstruction History of tonsillectomy Previous section Family History Mother Diabetes Hypertension Arthritis Father Liver cancer Paternal Aunt Family history of autoimmune disorder Maternal Grandfather Colon cancer Social History Household Members: Family Housing: House Do you presently have visiting nurse or other home services: No Alcohol intake: never Patient Tobacco Use Status: Never used Tobacco Substance Use Type: Marijuana service: No Current occupational status: employed 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 Reproductive History Menstrual Age of Menarche: 9 Date of last menstrual period: 01/06/25 control method: none and permanent sterilization Total pregnancies: 3 Full term: 3 Date of last pap smear: 03/01/22 (negative pap smear, negative hpv ) Review of Systems Const All systems reviewed & are unremarkable except as noted in HPI and below Card Reports as per HPI Resp Reports as per HPI GI Reports as per HPI and Reports no additional complaints Reports as per HPI Physical Exam Const General: cooperative, healthy appearing and comfortable Chest Chest palpation & inspection: normal inspection of the chest and normal palpation of entire chest wall Breast/axilla inspection: normal inspection of the breasts and normal inspection of the axillae Breast/axilla palpation: normal palpation of the breasts, normal palpation of the axillae and no axillary lymphadenopathy Resp Effort & Inspection: normal respiratory effort Auscultation: clear to auscultation bilaterally Percussion: percussion normal Cardio Palpation: normal PMI Rate: regular rate Rhythm: regular rhythm Heart sounds: no murmurs and no rubs Peripheral pulses: Peripheral pulses 2+ throughout GI Inspection: Yes normal to inspection Palpation (GI): Soft to palpation, nontender, no guarding, not rigid and No hepatosplenomegaly present Percussion: Yes normal to percussion Auscultation: normal bowel sounds Rectal Exam - Female: deferred General: Yes bladder normal to palpation External Female Exam: No lesion Speculum Exam - Vagina: normal appearance of the vagina, normal palpation, normal vaginal discharge and not erythematous Speculum Exam - Cervix: normal appearance of the cervix and normal palpation Bimanual exam- vagina & uterus: normal bimanual exam, normal palpation, uterine size normal, bladder normal to palpation, consistency normal and normal palpation Bimanual Exam- Adnexa, other: normal adnexae, no masses and no tenderness Assessment & Plan Assessment & Plan (1) Well woman exam with routine gynecological exam: Code(s): Z01.419 - Encounter for gynecological examination (general) (routine) without abnormal findings Category: Medical Plan: Cotesting not indicated this year. Mammogram ordered. Counseled the patient about the recommended dietary allowance of 1000 mg of Calcium & 600 IU of vitamin D. The patient was instructed to perform monthly self-breast exams and to schedule an annual exam in a year; All questions answered and the patient verbalized understanding. Instructed the patient to schedule annual exam in a year (2) Screen for STD (sexually transmitted disease): Code(s): Z11.3 - Encounter for screening for infections with a predominantly sexual mode of transmission Category: Medical Plan: STD screening tests done includes: BV panel for trichomonas, GC/CT will send patient for serology std screening for HIV, RPR, Hep b s Ag, HepC Ab. Instructions given the patient to schedule a follow-up appointment for repeat serology screen in 6 months for possible false negatives. (3) Microhematuria: Code(s): R31.29 - Other microscopic hematuria Category: Medical Plan: Since the patient has her menstrual cycle will defer repeat urine dip in 2 weeks. Instructions given the patient to schedule an appointment for repeat urine dip (4) Umbilical hernia: Code(s): K42.9 - Umbilical hernia without obstruction or gangrene Category: Medical Plan: Discussed with the patient the finding on CT scan showing a small umbilical hernia will refer to general surgery for further management. Orders: Orders MM tomosynthesis screening BI Today Z12.31 - Encounter for screening mammogram for malignant neoplasm of breast Hepatitis C Antibody Today Z20.2 - Contact with and (suspected) exposure to infections with a predominantly sexual mode of transmission HIV Ab/Ag Today Z20.2 - Contact with and (suspected) exposure to infections with a predominantly sexual mode of transmission Hepatitis B Surface Antigen Today Z20.2 - Contact with and (suspected) exposure to infections with a predominantly sexual mode of transmission Syphilis Screen Today Z20.2 - Contact with and (suspected) exposure to infections with a predominantly sexual mode of transmission Referrals General Surgery Referral K42.9 - Umbilical hernia without obstruction or gangrene Coding Level of Care Code Est Pt Level 3 (27800) Est Pt Prev Care 40-64y(86708) Diagnoses Well woman exam with routine gynecological exam Z01.419 Screen for STD (sexually transmitted disease) Z11.3 Microhematuria R31.29 Umbilical hernia K42.9
[2025-01-08 13:53] VITALS: BP 124/72; BMI 43.0
--- OUTSIDE RECORDS SUMMARY | 2025-01-08 14:10 | XMS_ITS | Patient Health Record ---
Author Organization [facility] Address [address] [place] [address] Care Team Providers Care Medical Lab Director Name Role Phone Elijah (RETIRED) Marshal GALEANO Primary Care Provide r Van Caba [phone] Allergies Allergen (clinical drug ingredient) Drug/Non Drug Allergy documented on EMR Reaction Allergy Type Onset Date Status Penicillin Unknown Drug Allergy Active seasonal/indoor/outd oo r (uncoded) Unknown Allergy Active Reason For Referral No Information Medications Medication SIG (Take, Route, Frequency, Duration) Notes Start Date End Date Status Symbicort Active Albuterol Sulfate Ac tive Levothyroxine Sodium 25mg Not-Taking EPINEPHrine HCl Acti ve Pepcid 20 MG 1 tablet Orally PRN for 30 day(s) Not-Taking Hyoscyamine Sulfate 0.125 MG 1-2 tablets Orally Q 6 hours prn abdominal bloating/cramps/pain-- may also take it before meals for 30 days 06/18/2013 Active Hyoscyamine Sulfate 0.125 MG 1-2 tablets Orally Q 6 hours prn abdominal bloating/cramps/pain-- may also take it before meals for 30 days Active Omeprazole 40 MG 1 capsule Orally Onc e a day Active Singulair 5 MG 1 tablet at bedtime Orally Once a day Active Problems Problem Type SNOMED Code ICD Code Onset Dates Problem Status W/U Status Risk Notes Problem Irritable bowel syndrome (50131900) Irritable bowel syndrome (564.1) Active confirmed Problem Diarrhea (51730236) Diarrhea (787.91) Active confirmed Problem GERD (gastroesophag eal reflux disease) (530.81) Active confirmed Problem 25630424 Diarrhea (R19.7) Active confirmed Plan Of Treatment Pending Test Test Name Order Date CLOSTRIDIUM DIFF TOXIN A&B (C DIFF) 07/2015 STOOL WBC 10/12/2015 CELIAC PANEL #10 06/18/2013 CULTURE, STOOL 10/12/2015 Future Test Test Name Order Date UPPER GI ENDOSCOPY 10/16/2013 Insurance Providers Payer Name Payer Address Payer Phone Subscriber Number Group Number Insured Name Patient Relationship to Insured Coverage Start Date Coverage End Date [facility] [address] [address] [place], [place] [id number] CRISTINA FRANCES Self - patient is the insured Medical (General) History Medical History History ICD Code Asthma Denies DC,DM,CVA,renal disease Hypothyroidism GERD Irritable bowel syndrome Surgical History Surgery Date(Month/Year) section X3 carpal tunnel release X2 tonsillectomy appendectomy
--- OUTSIDE RECORDS SUMMARY | 2025-01-08 14:10 | XMS_ITS | Clinical Summary ---
Author Organization [address] [facility] Address [address] [place] [address] Phone Care Team Providers Care Powertrain Control Systems Engineer Name Role Phone Physician, No Pcp Primary Care Provider Unavaila ble Allergies Active Allergy Reactions Criticality Noted Date Comments Penicillins 09/05/2023 Medications mometasone-form oterol (DULERA 100) 100-5 mcg/actuation inhaler Inhale into the lungs. Active rOPINIRole (REQUIP) 5 mg tablet 1 tablet (5 mg total) at bedtime as needed. Active albuterol HFA (PROAIR HFA ; PROVENTIL HFA ; VENTOLIN HFA) 90 mcg/actuation inhaler Inhale 2 puffs by mouth every 6 (six) hours if needed for wheezing. Active fexofenadine (ANNA) 180 mg tablet Take 1 tablet (180 mg total) by mouth 1 (one) time each day. Active Hospital, Clinic, or Other Facility Administered Medication Ordered Dose Route Frequency Start Date End Date Status lidocaine (PF) (XYLOCAINE-MPF) 1 % injection 0.5 mLIndications:Planta r fascial fibromatosis .5 mL inj Once PRN Procedure 12/30/2024 12/30/2024 Ended triamcinolone acetonide (KENALOG-40) 40 mg/mL injection 20 mgIndications:Planta r fascial fibromatosis 20 mg IAtc Once PRN Procedure 12/30/2024 12/30/2024 Ended Active Problems Problem Noted Date Diagnosed Date Plantar fascial fibromatosis 10/01/2024 Encounters Date Type Department Care Team Description 12/30/2024 3:30 PM EDT Office Visit Orthopedic Surgery [facility] [address] [phone] Vladimir Comer DPM Plantar fascial fibromatosis (Primary Dx); Tendonitis, Achilles, right 12/10/2024 Telephone Orthopedic [place] [address] [phone] Tammie Lopez 11/18/2024 8:00 AM EDT Consult Orthopedic [place] [address] [phone] Vladimir Comer DPM Plantar fascial fibromatosis (Primary Dx) 11/18/2024 Telephone Orthopedic [place] [address] [phone] Vladimir Comer DPM Surgery 11/12/2024 Telephone Orthopedic [place] [address] [phone] Vladimir Comer DPM Prior Authorization (12/02/24 Dr. Vladimir Comer) 11/08/2024 10:54 PM EDT - 11/09/2024 12:42 AM EDT Emergency [facility] Emergency [address] [place] [phone] Plantar fasciitis (Primary Dx) Discharge Disposition: Home or Self Care 10/28/2024 Telephone Orthopedic Surgery [facility] [address] [phone] Vladimir Comer DPM Srugery 10/28/2024 Telephone Orthopedic [facility] [address] [phone] Vladimir Comer DPM Right foot pain from Last 3 Months Surgical History Surgery Date Site/Laterality Comments OTHER SURGICAL HISTORY ANTERIOR CRUCIATE LIGAMENT REPAIR CARPAL TUNNEL RELEASE TRIGGER FINGER RELEASE SECTION, LOW TRANSVERSE X3 Medical History Medical History Date Comments Asthma Hypothyroidism Irritable bowel syndrome HX OF Neuromuscular disorder (CMS/[facility] V24, CMS/[facility] V28 ) Anxiety Chronic pain disorder Depression Dizziness Joint pain Arthritis Social History Tobacco Use Types Packs/Day Years Used Date Smoking Tobacco: Never Assessed Comments Unknown Sex and Gender Information Value Date Recorded Sex Assigned at Not on file Legal Sex Female 11:02 AM EDT Gender Identity Not on file Sexual Orientation Not on file Obstetrics History Last Filed Vital Signs Vital Sign Reading Time Taken Comments Blood Pressure 124/67 11/08/2024 10:45 PM EDT Pulse 84 11/08/2024 10:45 PM EDT Temperature 37.1 C (98.7 F) 11/08/2024 10:45 PM EDT Respiratory Rate 18 11/08/2024 10:45 PM EDT Oxygen Saturation 96% 11/08/2024 10:45 PM EDT Inhaled Oxygen Concentration - - Weight 98.9 kg (218 lb) 11/18/2024 8:29 AM EDT Height 152.4 cm (5') 11/18/2024 8:29 AM EDT Body Mass Index 42.58 11/18/2024 8:29 AM EDT Plan of Treatment Upcoming Encounters Date Type Department Care Team (Late st Contact Info) Description 01/22/2025 3:30 PM EDT Office Visit Orthopedic Surgery [place] [address] [phone] Vladimir Comer DPM [address] [address] 03/10/2025 8:00 AM EDT Consult Orthopedic [place] [address] [phone] Vladimir Comer DPM [address] [address] 03/14/2025 Hospital Encounter [facility] Main OR [address] [place] [phone] Vladimir Comer DPM [address] [address] 03/27/2025 8:30 AM EDT Office Visit Orthopedic [place] [address] [phone] Vladimir Comer, DPM [address] [address] Scheduled Procedures Name Priority Associated Diagnoses Date/Ti me FASCIOTOMY PLANTAR Plantar fascial fibromatosis Health Maintenance Due Date Last Done Comments Breast Cancer Screening 1984 DTaP,Tdap,and Td Vaccines (1 - Tdap) 02/01/2003 Hepatitis B Vaccines (1 of 3 - 19+ 3-dose series) 02/01/2003 Cervical Cancer Screening: P ap Smear 02/01/2005 HIV Screening 01/05/2024 Hepatitis C Screening 01/05/2024 Social Influencers of Health Screening 01/05/2024 COVID-19 Vaccine (1 - 2023-2 5 season) 2024 Depression Screening 06/12/2024 Influenza Vaccine (#1) 2025 HIB Vaccines Aged Out No longer [...] 5 Years) and At-Risk Patients (6 to 49 Years) Aged Out No longer eligible b [...] Diagnosis Comments INJECTION TENDON OR LIGAMENT Routine 12/30/2024 3:30 PM EDT Plantar fascial fibromatosis from Last 3 Months Results * Injection tendon or ligament (12/30/2024 3:30 PM EDT) Vladimir Shaffer DPM - 12/30/2024 3:30 PM EDT Vladimir Comer DPM 12/30/2024 4:44 PM Injection tendon or ligament Indications: pain Details: 25 G needle Medications: 0.5 mL lidocaine (PF) 1 %; 20 mg triamcinolone acetonide 40 mg/mL Informed Consent: Site: Foot ligament tendon Vladimir Comer DPM IN CLINIC/BEDSIDE ORDERAB LES Final Result from Last 3 Months Insurance MEDICAID - [place] Care Teams Powertrain Control Systems Engineer Relationship Specialty Start Date End Date Physician, No Pcp PCP - General 11/15/24
--- OUTSIDE RECORDS SUMMARY | 2025-01-08 14:10 | XMS_ITS | Clinical Summary ---
Author Organization [facility] Address [address] [facility] [address] [place] [address] Phone Care Team Providers Care Cavity Pump Operator Name Role Phone Pcp, Unknown Primary Care Provider Unavailabl e Allergies Active Allergy Reactions Criticality Noted Date Comments Penicillins 04/10/2024 Medications No known medications Social History Tobacco Use Types Packs/Day Years Used Date Smoking Tobacco: Never Assessed Education Answer Date Recorded Are you interested in more education? Not on shaquille e 04/10/2024 Are you concerned about learning? Not on file 04/10/2024 No 04/10/2024 No 04/10/2024 Digital Access Answer Date Recorded No 04/10/2024 No 04/10/2024 Reliable internet access at home? Not on file 04/10/2024 Device with a working camera? Not on file Intimate Partner Violence Answer Date R ecorded Are you denied basic needs s uch as food, clothing, or medical care? No 04/10/2024 In the past 12 months have y ou been in a relationship with a person who hurts, threatens, or tries to control you? No 04/10/2024 Are you denied basic needs s uch as food, clothing, or medical care? No 04/10/2024 In the past 12 months have y ou been in a relationship with a person who hurts, threatens, or tries to control you? No 04/10/2024 Comments Unknown Sex and Gender Information Value Date Recorded Sex Assigned at Not on file Legal Sex Female 1:42 PM EDT Gender Identity Not on file Sexual Orientation Don't know 04/10/2024 2: 16 PM EDT Last Filed Vital Signs Vital Sign Reading Time Taken Comments Blood Pressure 136/78 04/10/2024 6:50 PM EDT Pulse 72 04/10/2024 6:50 PM EDT Temperature 36.6 C (97.8 F) 04/10/2024 1:56 PM EDT Respiratory Rate 18 04/10/2024 6:50 PM EDT Oxygen Saturation 97% 04/10/2024 6:50 PM EDT Inhaled Oxygen Concentration - - Weight 102.1 kg (225 lb) 04/10/2024 1:56 PM EDT Height 152.4 cm (5') 04/10/2024 1:56 PM EDT Body Mass Index 43.94 04/10/2024 1:56 PM EDT Plan of Treatment Health Maintenance Due Date Last Done Comments Adult Td,Tdap Booster 1984 DEPRESSION SCREENING 1996 SMOKING Hx and SMOKELESS TOB ACCO SCREENING 02/01/1997 HEPATITIS C SCREENING 02/01/2002 HIV ONE-TIME SCREENING (18-6 5 YEARS) 02/01/2002 PAP SMEAR 02/01/2005 SCREENING FOR DIABETES 02/01/2019 MAMMOGRAM 2024 COVID-19 VACCINE ( - 2023-2 5 season) 2024 HEPATITIS A VACCINES Aged Out No long er eligible based on patient's age to complete this topic HIB VACCINES Aged Out No longer eligi ble based on patient's age to complete this topic MENINGOCOCCAL VACCINES (ACWY) Aged Out No longer eligible based on patient's age to complete this topic MENINGOCOCCAL VACCINES (B) Aged Out N o longer eligible based on patient's age to complete this topic PNEUMOCOCCAL VACCINES (0-49 years) Aged Out No longer eligible based on patient's age to complete this topic Medical Devices Not on file [facility] Care Teams Cavity Pump Operator Relationship Specialty Start Date End Date Pcp, Unknown PCP - General 04/10/24 Additional Source Comments The information contained in this document represents components of the legal health record. It is not the complete legal health record.[facility]
== END 2025-01-08 14:27 | disposition home or self-care (01) ==
LOC: HO.HWS 13:35
PROVIDERS: Visit Provider Obstetrics & Gynecology
DX: Z01.419 Encounter for gynecological examination (general) (routine) without abnormal findings (principal); R31.29 Other microscopic hematuria; K42.9 Umbilical hernia without obstruction or gangrene
CPT/HCPCS: 99213; 99396; 99459

== ENCOUNTER 2025-01-23 13:51 | Outpatient (AMB) | payer OTHER, SELFPAY ==
--- NOTE | 2025-01-23 14:01 | MHC.OFFVIS ---
Intake Visit Reasons: 2 weeks Urine dip Accompanied by: Self / Same As Patient Allergies Penicillins Allergy (Severe, Verified 01/23/25 14:01) ANAPHYLAXIS, HIVES animal dander Allergy (Mild, Verified 01/23/25 14:01) ITCHY HIVES THROAT SWOLLEN lactose (LACTOSE) Allergy (Mild, Verified 01/23/25 14:01) DIARRRHEA many vegetables Allergy (Severe, Uncoded 10/31/24 13:27) hives, throat... nuts Allergy (Severe, Uncoded 10/31/24 13:27) hives, throat... FRUIT, SKINS Allergy (Mild, Uncoded 10/31/24 13:27) SWELLING fruits Allergy (Unknown, Uncoded 10/31/24 13:27) hives, throat closes seasonal allergies Allergy (Unknown, Uncoded 10/31/24 13:27) Unknown MEAT Adverse Reaction (Mild, Uncoded 10/31/24 13:27) ABDOMINAL PAIN HPI Comments Details: Presenting for repeat urine dip PFS Medical History Asthma Allergic rhinitis Somnolence, daytime CHIKIS (obstructive sleep apnea) Morbid obesity Carpal tunnel syndrome, bilateral upper limbs Bacterial vaginosis Surgical History Hx of appendectomy History of thumb surgery History of carpal tunnel surgery S/P ACL reconstruction History of tonsillectomy Previous section Family History Mother Diabetes Hypertension Arthritis Father Liver cancer Paternal Aunt Family history of autoimmune disorder Maternal Grandfather Colon cancer Social History Household Members: Family Housing: House Do you presently have visiting nurse or other home services: No Alcohol intake: never Patient Tobacco Use Status: Never used Tobacco Substance Use Type: Marijuana service: No Current occupational status: employed 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 The patient was reassured. All questions answered, the patient verbalized understanding. Coding Level of Care Code Est Pt Level 3 (58815) Diagnoses Microhematuria R31.29
--- OUTSIDE RECORDS SUMMARY | 2025-01-23 14:42 | XMS_ITS | Clinical Summary ---
Author Organization [address] [facility] Address [address] [place] [address] Phone Care Team Providers Care Screw Machine Setter Name Role Phone Physician, No Pcp Primary [...] 3:30 PM EDT Office Visit Orthopedic Surgery [facility] [address] [phone] Vladimir Comer DPM Plantar fascial fibromatosis (Primary Dx); Tendonitis, Achilles, right 12/10/2024 Telephone Orthopedic [place] [address] [phone] Tammie Lopez 11/18/2024 8:00 AM EDT Consult Orthopedic [place] [address] [phone] Vladimir Comer DPM Plantar fascial fibromatosis (Primary Dx) 11/18/2024 Telephone Orthopedic [place] [address] [phone] Vladimir Comer DPM Surgery 11/12/2024 Telephone Orthopedic [place] [address] [phone] Vladimir Comer DPM Prior Authorization (12/02/24 Dr. Vladimir Comer) 11/08/2024 10:54 PM EDT - 11/09/2024 12:42 AM EDT Emergency [facility] Emergency [address] [place] [phone] Plantar fasciitis (Primary Dx) Discharge Disposition: Home or Self Care 10/28/2024 Telephone Orthopedic Surgery [facility] [address] [phone] Vladimir Comer DPM Srugery 10/28/2024 Telephone Orthopedic [facility] [address] [phone] Vladimir Comer DPM Right foot pain from Last 3 Months Surgical History Surgery Date Site/Laterality Comments OTHER SURGICAL HISTORY ANTERIOR CRUCIATE LIGAMENT REPAIR CARPAL TUNNEL RELEASE TRIGGER FINGER RELEASE SECTION, LOW TRANSVERSE X3 Medical History Medical History Date Comments Asthma Hypothyroidism Irritable bowel syndrome HX OF Neuromuscular disorder (CMS/[facility] V24, CMS/[facility] V28 ) Anxiety Chronic pain disorder Depression [...] Care Team (Late st Contact Info) Description 03/10/2025 8:00 AM EDT Consult Orthopedic Surgery - [place] [address] [phone] Vladimir Comer DPM [address] [address] 03/14/2025 12:00 PM EDT Hospital Encounter [facility] OR [address] [place] [phone] Vladimir Comer DPM [address] [address] 03/14/2025 12:00 PM EDT - 03/14/2025 1:30 PM EDT Surgery [facility] OR [address] [place] [phone] Vladimir Comer DPM [address] [address] RIGHT PLANTAR FASCIOTOMY [[id number] (CPT )] 03/27/2025 8:30 AM EDT Office Visit Orthopedic Surgery - [place] [address] [phone] Vladimir Comer, DPM 175 [facility] 250 [place] [address] Scheduled Procedures Name Priority Associated Diagnoses Date/Ti me FASCIOTOMY PLANTAR Plantar fascial fibromatosis 03/14/2025 12:00 PM EDT Health Maintenance Due Date Last Done Comments Breast Cancer Screening 1984 DTaP,Tdap,and Td Vaccines (1 - Tdap) 02/01/2003 Hepatitis B Vaccines (1 of 3 - 19+ 3-dose series) 02/01/2003 Cervical Cancer Screening: P ap Smear 02/01/2005 HIV Screening 01/05/2024 Hepatitis C Screening 01/05/2024 Social Influencers of Health Screening 01/05/2024 COVID-19 Vaccine ( - 2023-2 5 season) 2024 Depression Screening [...] DPM - 12/30/2024 3:30 PM EDT Vladimir Cmoer DPM 12/30/2024 4:44 PM Injection tendon or ligament Indications: pain Details: 25 G needle Medications: 0.5 mL lidocaine (PF) 1 %; 20 mg triamcinolone acetonide 40 mg/mL Informed Consent: Site: Foot ligament tendon us Vladimir Comer DPM IN CLINIC/BEDSIDE ORDERAB LES Final Result from Last 3 Months Insurance MEDICAID - [place] Care Teams Screw Machine Setter Relationship Specialty Start Date End Date Physician, No Pcp PCP - General 11/15/24
--- OUTSIDE RECORDS SUMMARY | 2025-01-23 14:43 | XMS_ITS | Patient Health Record ---
Author Organization [facility] Address [address] [place] [address] Care Team Providers Care Wood Piler Name Role Phone Elijah (RETIRED) Marshal GALEANO Primary Care Provide r Van Caba [phone] Allergies Allergen (clinical drug ingredient) Drug/Non Drug [...] Status Risk Notes Problem Irritable bowel syndrome (02784564) Irritable bowel syndrome (564.1) Active confirmed Problem Diarrhea (62998919) Diarrhea (787.91) Active confirmed Problem Gastroesophageal reflux disease (881448711) GERD (gastroesopha geal reflux disease) (530.81) Active confirmed Problem 60748752 Diarrhea (R19.7) Active confirmed Plan Of Treatment [...] Insured Coverage Start Date Coverage End Date [facility] [address] [address] [place], [place] [id number] CRISTINA FRANCES Self - patient is the insured Medical (General) History Medical History History ICD Code Asthma Denies [place],DM,CVA,renal disease Hypothyroidism GERD Irritable bowel syndrome Surgical History Surgery Date(Month/Year) section X3 carpal tunnel release X2 tonsillectomy appendectomy
--- OUTSIDE RECORDS SUMMARY | 2025-01-23 14:43 | XMS_ITS | Clinical Summary ---
Author Organization [facility] Address [address] [facility] [address] [place] [address] Phone Care Team Providers Care Sheather Name Role Phone Pcp, Unknown Primary Care [...] topic Medical Devices Not on file Insurance [facility] Care Teams Sheather Relationship Specialty Start Date End Date Pcp, Unknown PCP - General 04/10/24 Additional Source Comments The information contained in this document represents components of the legal health record. It is not the complete legal health record.[facility]
== END 2025-01-23 14:25 | disposition home or self-care (01) ==
LOC: HO.HWS 13:51
PROVIDERS: Visit Provider Obstetrics & Gynecology
DX: R31.29 Other microscopic hematuria (principal)
CPT/HCPCS: 99213

== ENCOUNTER 2025-01-23 13:51 | Outpatient (REF) | payer OTHER, SELFPAY ==
[2025-01-24 03:34] LABS: Syphilis Screen Nonreactive (Nonreactive)
[2025-01-24 03:40] LABS: HBsAGNum1 0.38 S/CO (0.00-0.99); HIV Num 1 0.06 S/CO (0.00-0.99); Hepatitis B Surface Antigen Negative (Negative); ~HepC Num1 0.21 S/CO (0.00-0.79); ~Hepatitis C Antibody Nonreactive (Nonreactive)
== END 2025-01-23 13:52 | disposition home or self-care (01) ==
LOC: HO.LAB 13:51
PROVIDERS: Visit Provider Obstetrics & Gynecology
DX: Z20.2 Contact with and (suspected) exposure to infections with a predominantly sexual mode of transmission (principal); Z11.4 Encounter for screening for human immunodeficiency virus [HIV]; Z11.59 Encounter for screening for other viral diseases; Z11.3 Encounter for screening for infections with a predominantly sexual mode of transmission
CPT/HCPCS: 36415; 81002; 86780; 86803; 87340; 87389; 99212

== ENCOUNTER 2025-02-13 09:20 | Outpatient (REF) | payer OTHER, SELFPAY ==
[2025-02-13 16:13] LABS: Bacterial Vaginosis PCR POSITIVE (Negative); Candida Group PCR NOT DETECTED (Not Detect); Candida glab krusei PCR DETECTED (Not Detect); Trichomonas vaginalis PCR DETECTED (Not Detect)
[2025-02-13 16:45] LABS: CT PCR NOT DETECTED (Not Detect.); NG PCR NOT DETECTED (Not Detect.)
== END 2025-02-13 09:21 | disposition home or self-care (01) ==
LOC: HO.LNP 09:20
PROVIDERS: Visit Provider Obstetrics & Gynecology
DX: N76.0 Acute vaginitis (principal); Z11.3 Encounter for screening for infections with a predominantly sexual mode of transmission; Z11.8 Encounter for screening for other infectious and parasitic diseases; Z11.2 Encounter for screening for other bacterial diseases
CPT/HCPCS: 81515; 87491; 87591; 99212

== ENCOUNTER 2025-02-13 09:20 | Outpatient (AMB) | payer OTHER, SELFPAY ==
--- NOTE | 2025-02-13 09:22 | MHC.OFFVIS ---
Intake Visit Reasons: vaginal discharge Accompanied by: Self / Same As Patient Allergies Penicillins Allergy (Severe, Verified 02/13/25 09:26) ANAPHYLAXIS, HIVES animal dander Allergy (Mild, Verified 02/13/25 09:26) ITCHY HIVES THROAT SWOLLEN lactose (LACTOSE) Allergy (Mild, Verified 02/13/25 09:26) DIARRRHEA many vegetables Allergy (Severe, Uncoded 10/31/24 13:27) hives, throat... nuts Allergy (Severe, Uncoded 10/31/24 13:27) hives, throat... FRUIT, SKINS Allergy (Mild, Uncoded 10/31/24 13:27) SWELLING fruits Allergy (Unknown, Uncoded 10/31/24 13:27) hives, throat closes seasonal allergies Allergy (Unknown, Uncoded 10/31/24 13:27) Unknown MEAT Adverse Reaction (Mild, Uncoded 10/31/24 13:27) ABDOMINAL PAIN HPI Comments Details: Presenting complaining of vaginal discharge associated with vulvar itching no foul odor [facility] Medical History Asthma Allergic rhinitis Somnolence, daytime CHIKIS (obstructive sleep apnea) Morbid obesity Carpal tunnel syndrome, bilateral upper limbs Bacterial vaginosis Surgical History Hx of appendectomy History of thumb surgery History of carpal tunnel surgery S/P ACL reconstruction History of tonsillectomy Previous section Family History Mother Diabetes Hypertension Arthritis Father Liver cancer Paternal Aunt Family history of autoimmune disorder Maternal Grandfather Colon cancer Social History Household Members: Family Housing: House Do you presently have visiting nurse or other home services: No Alcohol intake: never Patient Tobacco Use Status: Never used Tobacco Substance Use Type: Marijuana service: No Current occupational status: employed 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 Reproductive History Menstrual Age of Menarche: 9 Review of Systems Const All systems reviewed & are unremarkable except as noted in HPI and below Physical Exam General: Yes no CVA tenderness External Female Exam: normal external appearance and normal appearance of the urethra Speculum Exam - Vagina: normal appearance of the vagina, normal palpation, no lesions and no masses Speculum Exam - Cervix: normal appearance of the cervix, normal palpation, no lesions, no masses and nontender Bimanual exam- vagina & uterus: normal bimanual exam, normal palpation, uterine size normal, normal palpation, uterine shape normal, No Cervical tenderness present and non-tender Bimanual Exam- Adnexa, other: normal adnexae Back/Spine/Pelvis Back: no CVA tenderness Assessment & Plan Assessment & Plan (1) Vulvovaginitis: Code(s): N76.0 - Acute vaginitis Category: Medical Plan: GC/CT, Bacterial Vaginosis panel taken, Terazol 0.8% q.h.s. for 3 days was sent to the patient's pharmacy. The patient was instructed to call if symptoms don't improve in 48 hours. Medications: New terconazole 0.8% 1 appful vaginal BEDTIME 20 grams 0RF 3 days Coding Level of Care Code Est Pt Level 3 (77093) Diagnoses Vulvovaginitis N76.0
--- OUTSIDE RECORDS SUMMARY | 2025-02-13 10:00 | XMS_ITS | Clinical Summary ---
Author Organization [facility] Address [address] [facility] [address] [place] [address] Phone Care Team Providers Care Florist Manager Name Role Phone Pcp, Unknown Primary Care [...] VACCINE ( - 2023-2 5 season) 2024 INFLUENZA VACCINE (#1) 2025 HEPATITIS A VACCINES Aged Out No long [...] topic Medical Devices Not on file Insurance [facility] [id number] [employer] Care Teams Florist Manager Relationship Specialty Start Date End Date Pcp, Unknown PCP - General 04/10/24 Additional Source Comments The information contained in this document represents components of the legal health record. It is not the complete legal health record.[facility]
--- OUTSIDE RECORDS SUMMARY | 2025-02-13 10:00 | XMS_ITS | Patient Health Record ---
Author Organization [facility] Address [address] [place] [address] Care Team Providers Care Engineering Program Manager Name Role Phone Elijah (RETIRED) Marshal GALEANO Primary Care Provide r Van Caba [phone] Allergies Allergen (clinical drug ingredient) Drug/Non Drug [...] Status Risk Notes Problem Irritable bowel syndrome (34701983) Irritable bowel syndrome (564.1) Active confirmed Problem Diarrhea (11106038) Diarrhea (787.91) Active confirmed Problem Gastroesophageal reflux disease (673434492) GERD (gastroesopha geal reflux disease) (530.81) Active confirmed Problem 33637134 Diarrhea (R19.7) Active confirmed Plan Of Treatment [...] Insured Coverage Start Date Coverage End Date [facility] [address] [address] [place], [place] [id number] CRISTINA FRANCES Self - patient is the insured Medical (General) History Medical History History ICD Code Asthma Denies [place],DM,CVA,renal disease Hypothyroidism GERD Irritable bowel syndrome Surgical History Surgery Date(Month/Year) section X3 carpal tunnel release X2 tonsillectomy appendectomy
--- OUTSIDE RECORDS SUMMARY | 2025-02-13 10:00 | XMS_ITS | Clinical Summary ---
Author Organization 175 [facility] Address [address] [place] [address] Phone Care Team Providers Care Sql Programmer Name Role Phone Physician, No Pcp Primary [...] 12/30/2024 3:30 PM EDT Office Visit Orthopedic [facility] [address] [phone] Vladimir Comer DPM Plantar fascial fibromatosis (Primary Dx); Tendonitis, Achilles, right 12/10/2024 Telephone Orthopedic [facility] [address] [phone] Tammie Lopez 11/18/2024 8:00 AM EDT Consult Orthopedic [facility] [address] [phone] Vladimir Comer DPM Plantar fascial fibromatosis (Primary Dx) 11/18/2024 Telephone Orthopedic [facility] [address] [phone] Vladimir Comer DPM from Last 3 Months Surgical History Surgery Date Site/Laterality Comments OTHER SURGICAL HISTORY ANTERIOR CRUCIATE LIGAMENT REPAIR CARPAL TUNNEL RELEASE TRIGGER FINGER RELEASE SECTION, LOW TRANSVERSE X3 Medical History Medical History Date Comments Asthma Hypothyroidism Irritable bowel syndrome HX OF Neuromuscular disorder (CMS/HCC V24, CMS/[facility] V28 ) Anxiety Chronic pain [...] 03/10/2025 8:00 AM EDT Consult Orthopedic Surgery [facility] [address] [phone] Vladimir Comer DPM [address] [phone] 03/14/2025 12:00 PM EDT Hospital Encounter [facility] OR [address] [place] [phone] Vladimir Comer DPM [address] [phone] 03/14/2025 12:00 PM EDT - 03/14/2025 1:30 PM EDT Surgery [facility] OR [address] [place] [phone] Vladimir Comer DPM [address] [phone] RIGHT PLANTAR FASCIOTOMY [36430 (CPT )] 03/27/2025 8:30 AM EDT Office Visit Orthopedic Surgery - [place] [address] [phone] Vladimir Comer DPM [address] [phone] Scheduled Procedures Name Priority Associated Diagnoses Date/Ti [...] 01/05/2024 Social Influencers of Health Screening 01/05/2024 Depression Screening 06/12/2024 COVID-19 Vaccine (2023-2 5 season) 2025 Influenza Vaccine (#1) 2025 HIB Vaccines Aged [...] tendon or ligament (12/30/2024 3:30 PM EDT) Narrative Vladimir Comer DPM - 12/30/2024 3:30 PM EDT Vladimir Comer DPM 12/30/2024 4:44 PM Injection tendon or ligament Indications: pain Details: 25 G needle Medications: 0.5 mL lidocaine (PF) 1 %; 20 mg triamcinolone acetonide 40 mg/mL Informed Consent: Site: Foot ligament tendon Vladimir Comer DPM IN CLINIC/BEDSIDE ORDERAB LES Final Result from Last 3 Months Insurance MEDICAID - [place] Care Teams Sql Programmer Relationship Specialty Start Date End Date Physician, No Pcp PCP - General 11/15/24
--- OUTSIDE RECORDS SUMMARY | 2025-02-13 10:00 | XMS_ITS | Encounter Summary ---
Author Organization [facility] Address [address] [facility] [address] [place] [address] Phone Care Team Providers Care Broach Operator Name Role Phone Pcp, Unknown Primary Care Provider Unavailabl e Encounter Details Date Type Department Care Team (Late st Contact Info) Description 04/10/2024 Procedure Pass [facility], Ct Scan - [facility] [address] [place] [address] Social History Tobacco Use Types Packs/Day Years [...] Don't know 04/10/2024 2: 16 PM EDT documented as of this encounter Functional Status * Calculated C-SSRS Risk Score (Lifetime/Recent) Answer Date of Assessment Author No Risk Indicated 04/10/2024 1:58 PM EDT Jenny Mota RN * [place] Suicide Severity Rating Scale (Screener/Recent Self-Report) Question Answer Date of Assessment Author 1. Wish to be (Past 1 Month) No 024 1:58 PM EDT Jenny Mota RN 2. Non-Specific Active Suici rosa Thoughts (Past 1 Month) No 04/10/2024 1:58 PM EDT Shanna Mota RN 6. Suicidal Behavior (Lifetime) No 4 1:58 PM EDT Jenny Mota RN documented as of this encounter Plan of Treatment Not on file documented as of this encounter Visit Diagnoses Not on filedocumented in this encounter Care Teams Broach Operator Relationship Specialty Start Date End Date Pcp, Unknown PCP - General 04/10/24 documented as of this encounter Additional Source Comments The information contained in this document represents components of the legal health record. It is not the complete legal health record.[facility]
--- OUTSIDE RECORDS SUMMARY | 2025-02-13 10:00 | XMS_ITS | Encounter Summary ---
Author Organization [facility] Address 399 [facility] [address] [place] [address] Phone Care Team Providers Care Sea Foam Kiss Maker Name Role Phone Pcp, Unknown Primary Care Provider Unavailabl e Encounter Details Date Type Department Care Team (Late st Contact Info) Description 04/10/2024 Procedure Pass [facility], Ct Scan - [facility] [address] [place] [address] Social History Tobacco Use Types Packs/Day Years [...] 1:58 PM EDT Jenny Mota RN * [place] Suicide Severity Rating Scale (Screener/Recent Self-Report) Question [...] on filedocumented in this encounter Care Teams Sea Foam Kiss Maker Relationship Specialty Start Date End Date Pcp, Unknown PCP - General 04/10/24 documented as of this encounter Additional Source Comments The information contained in this document represents components of the legal health record. It is not the complete legal health record.[facility]
== END 2025-02-13 09:53 | disposition home or self-care (01) ==
PROVIDERS: Visit Provider Obstetrics & Gynecology
DX: N76.0 Acute vaginitis (principal)
CPT/HCPCS: 99213

== ENCOUNTER 2025-02-15 10:56 | Outpatient (AMB) | payer OTHER, SELFPAY ==
[2025-02-15 10:56] VITALS: BP 100/62; PULSE 67; RESP 16; TEMP 36.7; O2SAT 97; BMI 43.2
--- NOTE | 2025-02-15 10:56 | MHC.OFFWIV ---
Intake Vital Signs 02/15/25 10:56 Height 5 ft Weight 221 lb BMI 43.2 BP 100/62 Blood Pressure Location Lt brachial Position Sitting Respiration 16 Pulse 67 Pulse Source Pulse Oximeter Temp 98.1 F Temp Source Oral Pulse Oximetry (%) 97 Oxygen Delivery Method Room Air Intake Visit Reasons: EP- neck pain Intake Note: Pt is here today c/o neck pain down to Lt shoulder blade Pt states woke up with the pain x2days Patient Tobacco Use Status: Never used Tobacco Allergies Penicillins Allergy (Severe, Verified 02/15/25 11:20) ANAPHYLAXIS, HIVES animal dander Allergy (Mild, Verified 02/15/25 11:20) ITCHY HIVES THROAT SWOLLEN lactose (LACTOSE) Allergy (Mild, Verified 02/15/25 11:20) DIARRRHEA many vegetables Allergy (Severe, Uncoded 02/15/25 11:03) hives, throat... nuts Allergy (Severe, Uncoded 02/15/25 11:03) hives, throat... FRUIT, SKINS Allergy (Mild, Uncoded 02/15/25 11:03) SWELLING fruits Allergy (Unknown, Uncoded 02/15/25 11:03) hives, throat closes seasonal allergies Allergy (Unknown, Uncoded 02/15/25 11:03) Unknown MEAT Adverse Reaction (Mild, Uncoded 02/15/25 11:03) ABDOMINAL PAIN Medication List - Last Reconciled 02/15/25 by EDIN Zavala- acetaminophen 650 mg PO Q4-6H PRN albuterol sulfate 90 mcg/actuation (Ventolin HFA) 2 puffs inhalation QID albuterol sulfate 2.5 mg inhalation Q4H PRN fexofenadine (Sarah Allergy) 60 mg PO BID ibuprofen 800 mg PO Q6H PRN metronidazole 500 mg PO BID 7 days mometasone-formoterol 200-5 mcg/actuation (Dulera) 2 puffs inhalation BID terconazole 0.8% 1 appful vaginal BEDTIME 3 days HPI HPI Comments History of Present Illness Details History of Present Illness - The patient is a 40-year-old female presenting with acute left sided neck pain & shoulder blade pain - Pain began two days ago without known trauma. - Sharp cervical pain, radiating to the shoulder and upper back. - Impacts daily activities; worsened by movement, deep breaths, dressing. - No fever, chills, vomiting; unaffected by eating/drinking. - Rotator cuff injury to L - reports this feels different. - Attempts relief with NSAIDs, topical agents; minimal effect. - Denies hx of blood clots. Review of Systems - Musculoskeletal: Reports acute neck pain, difficulty in neck movement, and radiating pain to shoulder and back. - General: Denies fever, chills, vomiting. - Respiratory: Reports pain with deep breathing. - Gastrointestinal: Denies changes in pain with eating or drinking. Physical Exam General: Well developed, well nourished, in no acute distress. Appears stated age. Head: Normocephalic, atraumatic. Eyes: Pupils are equal, round and reactive to light and accommodation. EOMI. No photophobia Neck: FROM restricted only by pain. Negative kernigs. Pain generally speaking w palpation of c spine and L paraspinal musculature. Pain over L scap w/ palp. Skin is intact, no rash or swelling. Left upper ext is neurovasc intact with normal strength and tone. Lungs: Clear to auscultation bilaterally. No rales, rhonchi or wheeze noted. Good air flow in all long. Heart: Regular rate and rhythm. No murmurs, click, rubs or gallops are noted. Pulses: Peripheral pulses are equal and palpable bilaterally. Extremities: No clubbing, cyanosis nor edema is noted. Psych: Mood and affect appropriate. Discussion Notes I discussed with the patient the likely diagnosis of acute cervicalgia with possible musculoskeletal strain. I explained that treatment would involve initiating a course of oral steroids to reduce inflammation and muscle relaxants to alleviate muscle spasms. The patient was informed about the potential side effects of drowsiness with muscle relaxants and the importance of not driving while taking them. I emphasized the need for gentle stretching and the use of heat therapy, such as warm showers, to aid recovery. The patient was advised to avoid complete immobility and to use the medications and treatments as discussed. I instructed her on the prescription details and directed the pharmacy at [facility] for medication pickup. She was provided a note for her work absence due to her role requiring physical activity, which could exacerbate her condition. Lastly, I advised her on the importance of follow-up with primary care or a specialist if symptoms do not improve or worsen. Patient was given time to ask questions. All questions were answered to their satisfaction. Assessment and Plan 1. Acute cervicalgia - Prescribe prednisone for inflammation. - Initiate muscle relaxants, warn of sedation. - Advise gentle stretching, heat therapy. - Note for work due to job physical demands. Consent Patient was informed and verbally consented to the use of an ambient scribe for clinic note documentation during this visit. [facility] Medical History Asthma Allergic rhinitis Somnolence, daytime CHIKIS (obstructive sleep apnea) Morbid obesity Carpal tunnel syndrome, bilateral upper limbs Bacterial vaginosis Surgical History Hx of appendectomy History of thumb surgery History of carpal tunnel surgery S/P ACL reconstruction History of tonsillectomy Previous section Family History Mother Diabetes Hypertension Arthritis Father Liver cancer Paternal Aunt Family history of autoimmune disorder Maternal Grandfather Colon cancer Social History Household Members: Family Housing: House Do you presently have visiting nurse or other home services: No Alcohol intake: never Patient Tobacco Use Status: Never used Tobacco Substance Use Type: Marijuana service: No Current occupational status: employed 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 Medications: New baclofen 10 mg PO BEDTIME 7 tabs 0RF prednisone 50 mg PO DAILY 5 tabs 0RF 5 days Patient Instructions: Patient Instructions - Take prescribed prednisone and muscle relaxants as directed. - Avoid driving while on muscle relaxants. - Perform gentle neck stretching exercises daily. - Use warm showers or baths to relax muscles. - Avoid complete rest to prevent worsening symptoms. - out of work note today and tomorrow, return Monday - FU with PCP if no improvement Coding Level of Care Code Est Pt Level 3 (66088) Diagnoses Pain of left scapula M89.8X1 Cervicalgia of vfrbrlyw-saevlma-sahtv region M54.2
--- OUTSIDE RECORDS SUMMARY | 2025-02-15 10:58 | XMS_ITS | Clinical Summary ---
Author Organization [address] [facility] Address [address] [place] [address] Phone Care Team Providers Care Mobile Manager Name Role Phone Physician, No Pcp Primary [...] 12/30/2024 3:30 PM EDT Office Visit Orthopedic [facility] [address] [phone] Vladimir Comer DPM Plantar fascial fibromatosis (Primary Dx); Tendonitis, Achilles, right 12/10/2024 Telephone Orthopedic [facility] [address] [phone] Tammie Lopez 11/18/2024 8:00 AM EDT Consult Orthopedic [facility] [address] [phone] Vladimir Comer DPM Plantar fascial fibromatosis (Primary Dx) 11/18/2024 Telephone Orthopedic [facility] [address] [phone] Vladimir Comer DPM from Last 3 Months Surgical History Surgery Date Site/Laterality Comments OTHER SURGICAL HISTORY ANTERIOR CRUCIATE LIGAMENT REPAIR CARPAL TUNNEL RELEASE TRIGGER FINGER RELEASE SECTION, LOW TRANSVERSE X3 Medical History Medical History Date Comments Asthma Hypothyroidism Irritable bowel syndrome HX OF Neuromuscular disorder (CMS/HCC V24, CMS/[facility] V28 ) Anxiety Chronic pain disorder Depression [...] 03/10/2025 8:00 AM EDT Consult Orthopedic Surgery [facility] [address] [phone] Vladimir Comer DPM [address] [phone] 03/14/2025 11:45 AM EDT Hospital Encounter [facility] Main OR [address] [place] [phone] Vladimir Comer DPM [address] [phone] 03/14/2025 11:45 AM EDT - 03/14/2025 1:15 PM EDT Surgery [facility] Main OR [address] [place] [phone] Vladimir Comer DPM [address] [phone] RIGHT PLANTAR FASCIOTOMY [[id number] (CPT )] 03/27/2025 8:30 AM EDT Office Visit Orthopedic Surgery - [place] [address] [phone] Vladimir Comer DPM [address] [phone] Scheduled Procedures Name Priority Associated Diagnoses Date/Ti me FASCIOTOMY PLANTAR Plantar fascial fibromatosis 03/14/2025 11:45 AM EDT Health Maintenance Due Date Last Done Comments Breast Cancer Screening 1984 DTaP,Tdap,and Td Vaccines (1 - Tdap) 02/01/2003 Hepatitis B Vaccines (1 of 3 - 19+ 3-dose series) 02/01/2003 Cervical Cancer Screening: P ap Smear 02/01/2005 HIV Screening 01/05/2024 Hepatitis C Screening 01/05/2024 Social Influencers of Health Screening 01/05/2024 Depression Screening 06/12/2024 COVID-19 Vaccine ( - 2023-2 5 season) 2025 Influenza Vaccine (#1) 2025 [...] Months Insurance MEDICAID - [place] Care Teams Mobile Manager Relationship Specialty Start Date End Date Physician, No Pcp PCP - General 11/15/24
--- OUTSIDE RECORDS SUMMARY | 2025-02-15 10:58 | XMS_ITS | Encounter Summary ---
Author Organization [facility] Address [address] [facility] [address] [place] [address] Phone Care Team Providers Care Paradi Operator Name Role Phone Pcp, Unknown Primary Care Provider Unavailabl e Encounter Details Date Type Department Care Team (Late st Contact Info) Description 04/10/2024 Procedure Pass [facility], Ct Scan - [facility] [address] [place] [address] Social History Tobacco Use Types Packs/Day Years [...] 1:58 PM EDT Jenny Mota RN * [place] Suicide Severity Rating Scale (Screener/Recent Self-Report) Question [...] on filedocumented in this encounter Care Teams Paradi Operator Relationship Specialty Start Date End Date Pcp, Unknown PCP - General 04/10/24 documented as of this encounter Additional Source Comments The information contained in this document represents components of the legal health record. It is not the complete legal health record.[facility]
--- OUTSIDE RECORDS SUMMARY | 2025-02-15 10:58 | XMS_ITS | Patient Health Record ---
Author Organization [facility] Address [address] [place] [address] Care Team Providers Care Ship Pilot Dispatcher Name Role Phone Elijah (RETIRED) Marshal GALEANO Primary Care Provide r Van Caba [phone] Allergies Allergen (clinical drug ingredient) Drug/Non Drug [...] Status Risk Notes Problem Irritable bowel syndrome (11004169) Irritable bowel syndrome (564.1) Active confirmed Problem Diarrhea (22274841) Diarrhea (787.91) Active confirmed Problem Gastroesophageal reflux disease (101049882) GERD (gastroesopha geal reflux disease) (530.81) Active confirmed Problem 17116459 Diarrhea (R19.7) Active confirmed Plan Of Treatment [...] Insured Coverage Start Date Coverage End Date [facility] [address] [address] [place], [place] [id number] CRISTINA FRANCES Self - patient is the insured Medical (General) History Medical History History ICD Code Asthma Denies [place],DM,CVA,renal disease Hypothyroidism GERD Irritable bowel syndrome Surgical History Surgery Date(Month/Year) section X3 carpal tunnel release X2 tonsillectomy appendectomy
--- OUTSIDE RECORDS SUMMARY | 2025-02-15 10:58 | XMS_ITS | Encounter Summary ---
Author Organization [facility] Address [address] [facility] [address] [place] [address] Phone Care Team Providers Care Instrumentation Engineer Name Role Phone Pcp, Unknown Primary Care Provider Unavailabl e Encounter Details Date Type Department Care Team (Late st Contact Info) Description 04/10/2024 Procedure Pass [facility], Ct Scan - [facility] [address] [place] [address] Social History Tobacco Use Types Packs/Day Years [...] 1:58 PM EDT Jenny Mota RN * [place] Suicide Severity Rating Scale (Screener/Recent Self-Report) Question [...] on filedocumented in this encounter Care Teams Instrumentation Engineer Relationship Specialty Start Date End Date Pcp, Unknown PCP - General 04/10/24 documented as of this encounter Additional Source Comments The information contained in this document represents components of the legal health record. It is not the complete legal health record.[facility]
--- OUTSIDE RECORDS SUMMARY | 2025-02-15 10:58 | XMS_ITS | Clinical Summary ---
Author Organization [facility] Address [address] [facility] [address] [place] [address] Phone Care Team Providers Care Automatic Profile Shaper Operator Name Role Phone Pcp, Unknown Primary [...] topic Medical Devices Not on file Insurance [facility] [employer] [facility] [employer] [facility] M[facility] [employer] [facility] [employer] Care Teams Automatic Profile Shaper Operator Relationship Specialty Start Date End Date Pcp, Unknown PCP - General 04/10/24 Additional Source Comments The information contained in this document represents components of the legal health record. It is not the complete legal health record.[facility]
== END 2025-02-15 11:32 | disposition home or self-care (01) ==
LOC: HO.HMCWIC 10:56
PROVIDERS: Visit Provider Nurse Practitioner Family
DX: M89.8X1 Other specified disorders of bone, shoulder (principal); M54.2 Cervicalgia

== ENCOUNTER → 2025-02-15 10:56 | Outpatient (BNVA) | payer OTHER, SELFPAY | PROVIDERS: Visit Provider Nurse Practitioner Family | DX: M54.2 Cervicalgia (principal); M89.8X1 Other specified disorders of bone, shoulder | CPT/HCPCS: 99212 ==

== ENCOUNTER 2025-02-26 14:19 | Outpatient (REF) | payer OTHER, SELFPAY ==
--- NOTE | ~2025-02-26 | MM_ITS ---
EXAMINATION: MM SCREENING DIGITAL BREAST TOMOSYNTHESIS, BILATERAL CLINICAL INFORMATION: Screening. Asymptomatic. COMPARISON: Mammography: Baseline. TECHNIQUE: Digital breast mammography with tomosynthesis is performed in both the craniocaudal and mediolateral oblique views along with computer-aided detection (CAD). FINDINGS: There are scattered areas of fibroglandular density (ACR BI-RADS breast composition Category b). There are no significant masses, abnormal calcifications, or other abnormalities. MM/MM tomosynthesis screening BI IMPRESSION: No mammographic evidence of malignancy. ASSESSMENT: BI-RADS BI-RADS 1 - Negative RECOMMENDATION: Routine annual mammography screening. 1 year F/U This examination should not preclude the clinical evaluation of a suspicious palpable abnormality. This patient's information was entered into a reminder system with a target due date for their next mammogram. Electronically signed by: Yari Smalls DO 03/03/2025 09:48 AM EDT
--- OUTSIDE RECORDS SUMMARY | 2025-02-26 18:04 | XMS_ITS | Encounter Summary ---
Author Organization [facility] Address [address] [facility] [address] [place] [address] Phone Care Team Providers Care Extra Gang Supervisor Name Role Phone Pcp, Unknown Primary Care Provider Unavailabl e Encounter Details Date Type Department Care Team (Late st Contact Info) Description 04/10/2024 Procedure Pass [facility], Ct Scan - [facility] [address] [place] [address] Social History Tobacco Use Types Packs/Day Years [...] 1:58 PM EDT Jenny Mota RN * [place] Suicide Severity Rating Scale (Screener/Recent Self-Report) Question [...] on filedocumented in this encounter Care Teams Extra Gang Supervisor Relationship Specialty Start Date End Date Pcp, Unknown PCP - General 04/10/24 documented as of this encounter Additional Source Comments The information contained in this document represents components of the legal health record. It is not the complete legal health record.[facility]
--- OUTSIDE RECORDS SUMMARY | 2025-02-26 18:04 | XMS_ITS | Encounter Summary ---
Author Organization [facility] Address [address] [facility] [address] [place] [address] Phone Care Team Providers Care Broomcorn Sorter Name Role Phone Pcp, Unknown Primary Care Provider Unavailabl e Encounter Details Date Type Department Care Team (Late st Contact Info) Description 04/10/2024 Procedure Pass [facility], Ct Scan - [facility] [address] [place] [address] Social History Tobacco Use Types Packs/Day Years [...] 1:58 PM EDT Jenny Mota RN * [place] Suicide Severity Rating Scale (Screener/Recent Self-Report) Question [...] on filedocumented in this encounter Care Teams Broomcorn Sorter Relationship Specialty Start Date End Date Pcp, Unknown PCP - General 04/10/24 documented as of this encounter Additional Source Comments The information contained in this document represents components of the legal health record. It is not the complete legal health record.[facility]
--- OUTSIDE RECORDS SUMMARY | 2025-02-26 18:04 | XMS_ITS | Patient Health Record ---
Author Organization [facility] Address [address] [place] [address] Care Team Providers Care Puttying And Calking Supervisor Name Role Phone Elijah (RETIRED) Marshal GALEANO Primary Care Provide r Van Caba [phone] Allergies Allergen (clinical drug ingredient) Drug/Non Drug [...] Status Risk Notes Problem Irritable bowel syndrome (48426130) Irritable bowel syndrome (564.1) Active confirmed Problem Diarrhea (52195582) Diarrhea (787.91) Active confirmed Problem Gastroesophageal reflux disease (000408990) GERD (gastroesopha geal reflux disease) (530.81) Active confirmed Problem 03547244 Diarrhea (R19.7) Active confirmed Plan Of Treatment [...] Insured Coverage Start Date Coverage End Date [facility] [address] [address] [place], [place] [id number] CRISTINA FRANCES Self - patient is the insured Medical (General) History Medical History History ICD Code Asthma Denies [place],DM,CVA,renal disease Hypothyroidism GERD Irritable bowel syndrome Surgical History Surgery Date(Month/Year) section X3 carpal tunnel release X2 tonsillectomy appendectomy
--- OUTSIDE RECORDS SUMMARY | 2025-02-26 18:04 | XMS_ITS | Clinical Summary ---
Author Organization [facility] Address [address] [facility] [address] [place] [address] Phone Care Team Providers Care Responder Name Role Phone Pcp, Unknown Primary Care [...] 02/01/2005 SCREENING FOR DIABETES 02/01/2019 MAMMOGRAM 2024 INFLUENZA VACCINE (#1) 2025 COVID-19 VACCINE ( - 2023-2 5 season) 2025 HEPATITIS A VACCINES Aged Out No [...] topic Medical Devices Not on file Insurance [facility] [employer] [facility] [employer] [facility] [employer] Care Teams Responder Relationship Specialty Start Date End Date Pcp, Unknown PCP - General 04/10/24 Additional Source Comments The information contained in this document represents components of the legal health record. It is not the complete legal health record.[facility]
== END 2025-02-26 14:20 | disposition home or self-care (01) ==
LOC: HO.MAMMO 14:19
PROVIDERS: Visit Provider Obstetrics & Gynecology
DX: Z12.31 Encounter for screening mammogram for malignant neoplasm of breast (principal)
CPT/HCPCS: 77063; 77067

== ENCOUNTER → 2025-02-26 14:45 | Outpatient (BNV) | payer OTHER, SELFPAY | PROVIDERS: Visit Provider Internal Medicine | DX: Z12.31 Encounter for screening mammogram for malignant neoplasm of breast (principal) | CPT/HCPCS: 77063; 77067 ==

== ENCOUNTER 2025-03-04 10:00 | Outpatient (AMB) | payer OTHER, SELFPAY ==
--- NOTE | 2025-03-04 10:04 | MHC.OFFVIS ---
Vital Signs 03/04/25 10:08 Height 5 ft Weight 220 lb BMI 43.0 BP 131/85 Blood Pressure Location Lt brachial Position Sitting Pulse 97 Intake Visit Reasons: umbilical hernia Intake Note: was in the ED in October and had imaging done and a hernia was found, per pt she does not feel a lump, admits to bloating, constipation, denies n/v/d Allergies Penicillins Allergy (Severe, Verified 03/04/25 10:06) ANAPHYLAXIS, HIVES animal dander Allergy (Mild, Verified 03/04/25 10:06) ITCHY HIVES THROAT SWOLLEN lactose (LACTOSE) Allergy (Mild, Verified 03/04/25 10:06) DIARRRHEA many vegetables Allergy (Severe, Uncoded 03/04/25 10:06) hives, throat... nuts Allergy (Severe, Uncoded 03/04/25 10:06) hives, throat... FRUIT, SKINS Allergy (Mild, Uncoded 03/04/25 10:06) SWELLING fruits Allergy (Unknown, Uncoded 03/04/25 10:06) hives, throat closes seasonal allergies Allergy (Unknown, Uncoded 03/04/25 10:06) Unknown MEAT Adverse Reaction (Mild, Uncoded 03/04/25 10:06) ABDOMINAL PAIN Medication List - Last Reconciled 03/04/25 by Beau Scott MD acetaminophen 650 mg PO Q4-6H PRN albuterol sulfate 90 mcg/actuation (Ventolin HFA) 2 puffs inhalation QID albuterol sulfate 2.5 mg inhalation Q4H PRN fexofenadine (Sarah Allergy) 60 mg PO BID ibuprofen 800 mg PO Q6H PRN metronidazole 500 mg PO BID 7 days mometasone-formoterol 200-5 mcg/actuation (Dulera) 2 puffs inhalation BID HPI Comments Details: 40-year-old female patient presenting with complaints of abdominal pain, cramping, constipation found on a recent CT abdomen and pelvis to have an umbilical hernia. She was unaware of the umbilical hernia prior to the CT. She does report occasional nausea, vomiting, and reflux. Her past surgical history is significant for x2 but denies any previous umbilical hernia surgery. Review of the CT abdomen and pelvis does reveal a supraumbilical hernia containing preperitoneal fat measuring approximately 3 cm in diameter. She takes Colace as needed for constipation. She denies any blood per rectum. [facility] Medical History Asthma Allergic rhinitis Somnolence, daytime CHIKIS (obstructive sleep apnea) Morbid obesity Carpal tunnel syndrome, bilateral upper limbs Bacterial vaginosis Surgical History Hx of appendectomy History of thumb surgery History of carpal tunnel surgery S/P ACL reconstruction History of tonsillectomy Previous section Family History Mother Diabetes Hypertension Arthritis Father Liver cancer Paternal Aunt Family history of autoimmune disorder Maternal Grandfather Colon cancer Social History Household Members: Family Housing: House Do you presently have visiting nurse or other home services: No Alcohol intake: never Patient Tobacco Use Status: Never used Tobacco Substance Use Type: Marijuana service: No Current occupational status: employed 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 Reproductive History Menstrual Age of Menarche: 9 Review of Systems Const All systems reviewed & are unremarkable except as noted in HPI and below Physical Exam Const General: cooperative and no acute distress Nutritional Appearance: well nourished Orientation/consciousness: patient oriented x3 Limitations: no limitations HEENT Head: Yes normocephalic and Yes atraumatic Ears: hearing grossly normal bilaterally Resp Effort & Inspection: normal respiratory effort, no audible wheezes, no cough and no respiratory distress Cardio Jugular venous distension: no JVD GI Other: Examination in the standing position with Valsalva maneuvers does reveal a palpable lump located above the umbilicus which increases with Valsalva maneuvers. I was able to reduce the hernia with light pressure which cause some mild discomfort. Abdomen is otherwise soft and nondistended with normal bowel sounds. Inspection: Yes normal to inspection Abdomen image:  1. 2-3 cm hernia just above the umbilicus, reducible Skin Other: Warm, dry, no rash Neuro General: patient oriented x3 Extrem General: Yes no clubbing, cyanosis or edema Assessment & Plan Assessment & Plan (1) Umbilical hernia: Code(s): K42.9 - Umbilical hernia without obstruction or gangrene Category: Medical Qualifiers: Obstruction and gangrene presence: without obstruction or gangrene Qualified Code(s): K42.9 - Umbilical hernia without obstruction or gangrene Plan 40-year-old female patient presenting for evaluation of an umbilical hernia. On examination she was indeed found to have a reducible hernia located just above the umbilicus. This has confirmed on CT abdomen and pelvis as well. We discussed repair of this umbilical hernia with mesh. She is awaiting surgery on her foot but I suggested when she has recovered from this surgery, she should consider repair of this umbilical hernia given her abdominal symptoms. I reviewed the procedure, risks and alternatives, and she consents to repair of the umbilical hernia with mesh. She will be scheduled as a short-stay surgery. Coding Level of Care Code New Pt Level 4 (45368) Diagnoses Umbilical hernia without obstruction and without gangrene K42.9 Obstruction and gangrene presence: without obstruction or gangrene
[2025-03-04 10:08] VITALS: BP 131/85; PULSE 97; BMI 43.0
--- OUTSIDE RECORDS SUMMARY | 2025-03-04 12:05 | XMS_ITS | Patient Health Record ---
Author Organization [facility] Address [address] [place] [address] Care Team Providers Care Custom Ski Maker Name Role Phone Elijah (RETIRED) Marshal GALEANO Primary Care Provide r Van Caba [phone] Allergies Allergen (clinical drug ingredient) Drug/Non Drug [...] Status Risk Notes Problem Irritable bowel syndrome (02948763) Irritable bowel syndrome (564.1) Active confirmed Problem Diarrhea (60678329) Diarrhea (787.91) Active confirmed Problem Gastroesophageal reflux disease (731037049) GERD (gastroesopha geal reflux disease) (530.81) Active confirmed Problem 14810589 Diarrhea (R19.7) Active confirmed Plan Of Treatment [...] Insured Coverage Start Date Coverage End Date [facility] [address] [address] [place], [place] [id number] CRISTINA FRANCES Self - patient is the insured Medical (General) History Medical History History ICD Code Asthma Denies [place],DM,CVA,renal disease Hypothyroidism GERD Irritable bowel syndrome Surgical History Surgery Date(Month/Year) section X3 carpal tunnel release X2 tonsillectomy appendectomy
--- OUTSIDE RECORDS SUMMARY | 2025-03-04 12:05 | XMS_ITS | Encounter Summary ---
Author Organization [facility] Address [address] [facility] [address] [place] [address] Phone Care Team Providers Care Carrot Harvester Name Role Phone Pcp, Unknown Primary Care Provider Unavailabl e Encounter Details Date Type Department Care Team (Late st Contact Info) Description 04/10/2024 Procedure Pass [facility], Ct Scan - [facility] [address] [place] [address] Social History Tobacco Use Types Packs/Day Years [...] 1:58 PM EDT Jenny Mota RN * [place] Suicide Severity Rating Scale (Screener/Recent Self-Report) Question [...] on filedocumented in this encounter Care Teams Carrot Harvester Relationship Specialty Start Date End Date Pcp, Unknown PCP - General 04/10/24 documented as of this encounter Additional Source Comments The information contained in this document represents components of the legal health record. It is not the complete legal health record.[facility]
--- OUTSIDE RECORDS SUMMARY | 2025-03-04 12:05 | XMS_ITS | Encounter Summary ---
Author Organization [facility] Address [address] [facility] [address] [place] [address] Phone Care Team Providers Care Oven Heater Name Role Phone Pcp, Unknown Primary Care Provider Unavailabl e Encounter Details Date Type Department Care Team (Late st Contact Info) Description 04/10/2024 Procedure Pass [facility], Ct Scan - [facility] [address] [place] [address] Social History Tobacco Use Types Packs/Day Years [...] 1:58 PM EDT Jenny Mota RN * [place] Suicide Severity Rating Scale (Screener/Recent Self-Report) Question [...] on filedocumented in this encounter Care Teams Oven Heater Relationship Specialty Start Date End Date Pcp, Unknown PCP - General 04/10/24 documented as of this encounter Additional Source Comments The information contained in this document represents components of the legal health record. It is not the complete legal health record.[facility]
--- OUTSIDE RECORDS SUMMARY | 2025-03-04 12:05 | XMS_ITS | Clinical Summary ---
Author Organization [facility] Address [address] [facility] [address] [place] [address] Phone Care Team Providers Care Business Insight And Analytics Manager Name Role Phone Pcp, Unknown Primary [...] topic Medical Devices Not on file Insurance [facility] Paice O [facility] [employer] [facility] [employer] Care Teams Business Insight And Analytics Manager Relationship Specialty Start Date End Date Pcp, Unknown PCP - General 04/10/24 Additional Source Comments The information contained in this document represents components of the legal health record. It is not the complete legal health record.[facility]
--- OUTSIDE RECORDS SUMMARY | 2025-03-04 12:05 | XMS_ITS | Clinical Summary ---
Author Organization [address] [facility] Address [address] [place] [address] Phone Care Team Providers Care Administrative Nursing Supervisor Name Role Phone Physician, No Pcp Primary [...] total) by mouth 1 (one) time each day if needed. 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 Encounters Date Type Department Care Team Description 12/30/2024 3:30 PM EDT Office Visit Orthopedic Surgery [facility] [address] [phone] Vladimir Comer DPM Plantar fascial fibromatosis (Primary Dx); Tendonitis, Achilles, right 12/10/2024 Telephone Orthopedic [facility] [address] [phone] Tammie Lopez from Last 3 Months Surgical History Surgery Date Site/Laterality Comments OTHER SURGICAL HISTORY ANTERIOR CRUCIATE LIGAMENT REPAIR CARPAL TUNNEL RELEASE TRIGGER FINGER RELEASE SECTION, LOW TRANSVERSE X3 Medical History Medical History Date Comments Asthma Hypothyroidism not medicated as years ago Irritable bowel syndrome HX OF Neuromuscular disorder ([facility] V24, [facility] V28 ) Anxiety Chronic pain disorder Depression Dizziness Joint pain Arthritis GERD (gastroesophageal reflux disease) situational Hiatal hernia Social History Tobacco Use Types Packs/Day Years [...] EDT Inhaled Oxygen Concentration - - Weight 98.4 kg (217 lb) 02/28/2025 11:00 AM EDT Height 152.4 cm (5') 02/28/2025 11:00 AM EDT Body Mass Index 42.38 02/28/2025 11:00 AM EDT Plan of Treatment Upcoming Encounters Date Type Department Care Team (Late st Contact Info) Description 03/10/2025 8:00 AM EDT Consult Orthopedic Surgery - [place] [address] [phone] Vladimir Comer DPM [address] [phone] 03/14/2025 11:45 AM EDT Hospital Encounter [facility] Main [place] [address] [place] [phone] Vladimir Comer DPM [address] [phone] 03/14/2025 11:45 AM EDT - 03/14/2025 1:15 PM EDT Surgery [facility] Main OR [address] [place] [phone] Vladimir Comer, LOI [address] [phone] RIGHT PLANTAR FASCIOTOMY [[id number] (CPT )] 03/27/2025 8:30 AM EDT Office Visit Orthopedic [facility] [place] [address] [phone] Vladimir Comer DPM [address] [phone] Scheduled Procedures Name Priority Associated Diagnoses Date/Ti [...] Screening 01/05/2024 Depression Screening 06/12/2024 COVID-19 Vaccine (1 - 2023-2 5 season) 2025 Influenza Vaccine (#1) 2025 RSV Immunization Adult Patie nts (1 - 1-dose 75+ series) 02/01/2059 HIB Vaccines Aged Out No longer eligi [...] Months Insurance MEDICAID - [place] Care Teams Administrative Nursing Supervisor Relationship Specialty Start Date End Date Physician, No Pcp PCP - General 11/15/24
== END 2025-03-04 10:18 | disposition home or self-care (01) ==
LOC: HO.HGS 10:01
PROVIDERS: Visit Provider Surgery
DX: K42.9 Umbilical hernia without obstruction or gangrene (principal)
CPT/HCPCS: 99204

== ENCOUNTER → 2025-03-04 10:00 | Outpatient (BNVA) | payer OTHER, SELFPAY | PROVIDERS: Visit Provider Surgery | DX: K42.9 Umbilical hernia without obstruction or gangrene (principal) | CPT/HCPCS: 99202 ==

== ENCOUNTER 2025-03-06 10:56 | Outpatient (AMB) | payer OTHER, SELFPAY ==
--- NOTE | 2025-03-06 11:23 | A.OFFVIS_ITS ---
Vital Signs 03/06/25 11:31 Height 5 ft Weight 220 lb BMI 43.0 Intake Visit Reasons: SONI Production Control Technologist Required: No Information Interpreted: non-clinical & clinical Fellmongering Machine Operator: Fellmongering Machine Operator Present (Vivienne Ramirez SHAZIA) Accompanied by: Self / Same As Patient Allergies Penicillins Allergy (Severe, Verified 03/06/25 11:31) ANAPHYLAXIS, HIVES animal dander Allergy (Mild, Verified 03/06/25 11:31) ITCHY HIVES THROAT SWOLLEN lactose (LACTOSE) Allergy (Mild, Verified 03/06/25 11:31) DIARRRHEA many vegetables Allergy (Severe, Uncoded 03/06/25 11:31) hives, throat... nuts Allergy (Severe, Uncoded 03/06/25 11:31) hives, throat... FRUIT, SKINS Allergy (Mild, Uncoded 03/06/25 11:31) SWELLING fruits Allergy (Unknown, Uncoded 03/06/25 11:31) hives, throat closes seasonal allergies Allergy (Unknown, Uncoded 03/06/25 11:31) Unknown MEAT Adverse Reaction (Mild, Uncoded 03/06/25 11:31) ABDOMINAL PAIN HPI Comments Details: The patient is presenting for a test of cure. The patient took the antibiotics course; she informed her partner who was treated too. The patient reports no intercourse since then. All STD screening serology were negative [facility] Medical History Asthma Allergic rhinitis Somnolence, daytime CHIKIS (obstructive sleep apnea) Morbid obesity Carpal tunnel syndrome, bilateral upper limbs Bacterial vaginosis Surgical History Hx of appendectomy History of thumb surgery History of carpal tunnel surgery S/P ACL reconstruction History of tonsillectomy Previous section Family History Mother Diabetes Hypertension Arthritis Father Liver cancer Paternal Aunt Family history of autoimmune disorder Maternal Grandfather Colon cancer Social History Household Members: Family Housing: House Do you presently have visiting nurse or other home services: No Alcohol intake: never Patient Tobacco Use Status: Never used Tobacco Substance Use Type: Marijuana service: No Current occupational status: employed 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 Female Reproductive History Menstrual Age of Menarche: 9 Review of Systems Const All systems reviewed & are unremarkable except as noted in HPI and below Physical Exam Vital Signs: BMI result Body Mass Index 43.0 General: Yes no CVA tenderness External Female Exam: normal external appearance and normal appearance of the urethra Speculum Exam - Vagina: normal appearance of the vagina, normal palpation, no lesions and no masses Speculum Exam - Cervix: normal appearance of the cervix, normal palpation, no lesions, no masses and nontender Bimanual exam- vagina & uterus: normal bimanual exam, normal palpation, uterine size normal, normal palpation, uterine shape normal, No Cervical tenderness pre sent and non-tender Bimanual Exam- Adnexa, other: normal adnexae Back/Spine/Pelvis Back: no CVA tenderness Assessment & Plan Assessment & Plan (1) Trichomonas contact, treated: Code(s): Z20.2 - Contact with and (suspected) exposure to infections with a predominantly sexual mode of transmission Category: Medical Plan: BV panel collected. Instructions given the patient to schedule a three-month SONI appointment. All questions answered, the patient verbalized understanding. Coding Level of Care Code Est Pt Level 3 (07018) Diagnoses Trichomonas contact, treated Z20.2
[2025-03-06 11:31] VITALS: BMI 43.0
--- OUTSIDE RECORDS SUMMARY | 2025-03-06 15:00 | XMS_ITS | Clinical Summary ---
Author Organization 175 [facility] Address [address] [place] [address] Phone Care Team Providers Care Slip Laster Name Role Phone Physician, No Pcp Primary [...] Encounters Date Type Department Care Team Description 03/04/[address] [facility] [address] [phone] Radha Webster 12/30/2024 3:30 PM EDT Office Visit Orthopedic [facility] [address] [phone] Vladimir Comer, DPM Plantar fascial fibromatosis (Primary Dx); Tendonitis, Achilles, right 12/10/2024 Telephone Orthopedic Surgery - [place] [address] [phone] Tammie Lopez from Last 3 Months Surgical History Surgery Date Site/Laterality Comments OTHER SURGICAL HISTORY ANTERIOR CRUCIATE LIGAMENT REPAIR CARPAL TUNNEL RELEASE TRIGGER FINGER RELEASE SECTION, LOW TRANSVERSE X3 Medical History Medical History Date Comments Asthma Hypothyroidism not medicated as years ago Irritable bowel syndrome HX OF Neuromuscular disorder ([facility] V24, [facility] V28 ) Anxiety Chronic pain [...] 8:00 AM EDT Consult Orthopedic Surgery - [place] [address] [phone] Vladimir Comer DPM [address] [phone] 03/14/2025 11:45 AM EDT Hospital Encounter [facility] Main OR [address] [place] [phone] Vladimir Comer DPM [address] [phone] 03/14/2025 11:45 AM EDT - 03/14/2025 1:15 PM EDT Surgery [facility] Main OR [address] [place] [phone] Vladimir Comer, DPM [address] [phone] RIGHT PLANTAR FASCIOTOMY [[id number] (CPT )] 03/27/2025 8:30 AM EDT Office Visit Orthopedic Surgery - [place] [address] [phone] Vladimir Comer, EUGENIAM [address] [phone] Scheduled Procedures Name Priority Associated Diagnoses Date/Ti [...] Months Insurance MEDICAID - [place] Care Teams Slip Laster Relationship Specialty Start Date End Date Physician, No Pcp PCP - General 11/15/24
--- OUTSIDE RECORDS SUMMARY | 2025-03-06 15:01 | XMS_ITS | Encounter Summary ---
Author Organization [facility] Address [address] [facility] [address] [place] [address] Phone Care Team Providers Care Watch Dial Maker Name Role Phone Pcp, Unknown Primary Care Provider Unavailabl e Encounter Details Date Type Department Care Team (Late st Contact Info) Description 04/10/2024 Procedure Pass [facility], Ct Scan - [facility] [address] [place] [address] Social History Tobacco Use Types Packs/Day Years [...] 1:58 PM EDT Jenny Mota RN * [place] Suicide Severity Rating Scale (Screener/Recent Self-Report) Question Answer Date of Assessment Author 1. Wish to be (Past 1 Month) No 024 1:58 PM EDT Jenny Mota RN 2. Non-Specific Active Suici rosa Thoughts (Past 1 Month) No 04/10/2024 1:58 PM EDT Shanna oMta RN 6. Suicidal Behavior (Lifetime) No 4 1:58 PM EDT Jenny Mota RN documented as of this encounter Plan of Treatment Not on file documented as of this encounter Visit Diagnoses Not on filedocumented in this encounter Care Teams Watch Dial Maker Relationship Specialty Start Date End Date Pcp, Unknown PCP - General 04/10/24 documented as of this encounter Additional Source Comments The information contained in this document represents components of the legal health record. It is not the complete legal health record.[facility]
--- OUTSIDE RECORDS SUMMARY | 2025-03-06 15:01 | XMS_ITS | Encounter Summary ---
Author Organization [facility] Address [address] [place] [address] Care Team Providers Care Php Software Engineer Name Role Phone Physician, No Pcp Primary Care Provider Unavaila ble Encounter Details Date Type Department Care Team (Late st Contact Info) Description 03/04/2025 Telephone Orthopedic Surgery - [place] 250 175 [facility] [address] [place] [phone] Radha Webster Social History Tobacco Use Types Packs/Day Years Used Date Smoking Tobacco: Never Assessed Comments Unknown Sex and Gender Information Value Date Recorded Sex Assigned at Not on file Legal Sex Female 11:02 AM EDT Gender Identity Not on file Sexual Orientation Not on file documented as of this encounter Functional Status * Are you deaf or do you have serious difficulty hearing? Answer Date of Assessment Author No 11/08/2024 10:58 PM EDT Cathy Aquino RN * Are you blind or do you have serious difficulty seeing, even when wearing glasses? Answer Date of Assessment Author No 11/08/2024 10:58 PM EDT Cathy Aquino RN * Do you have serious difficulty walking or climbing stairs? Answer Date of Assessment Author No 11/08/2024 10:58 PM EDT Cathy Aquino RN * Do you have serious difficulty dressing or bathing? Answer Date of Assessment Author No 11/08/2024 10:58 PM EDT Cathy Aquino RN * Because of a physical, mental, or emotional condition, do you have serious difficulty doing errandsalone such as visiting the doctor? Answer Date of Assessment Author No 11/08/2024 10:58 PM EDT Cathy Aquino RN documented as of this encounter Mental Status * Because of a physical, mental, or emotional condition, do you have serious difficulty concentrating, remembering, or making decisions? (5 years old or older) Answer Entry Date Author No 11/08/2024 10:58 PM EDT Cathy Aquino RN documented in this encounter Progress Notes * Radha Webster - 03/04/2025 1:10 PM EDT Good afternoon, Patient is calling to check on her FMLA Paperwork. She stated that she dropped these off back in November, she is going to bring them when she comes in for her Pre-Op Visit. -Radha documented in this encounter Plan of Treatment Upcoming Encounters Date Type Department Care Team (Late st Contact Info) Description 03/10/2025 8:00 AM EDT Consult Orthopedic Surgery [place] [address] [phone] Vladimir Comer DPM [address] [phone] 03/14/2025 11:45 AM EDT Hospital Encounter [facility] [place] [address] [place] [phone] Vladimir Comer DPM [address] [phone] 03/14/2025 11:45 AM EDT - 03/14/2025 1:15 PM EDT Surgery [facility] Main OR [address] [place] [phone] Vladimir Comer DPM [address] [phone] RIGHT PLANTAR FASCIOTOMY [[id number] (CPT )] 03/27/2025 8:30 AM EDT Office Visit Orthopedic Surgery - [place] 250 175 [facility] 250 [place] [phone] Vladimir Comer, DPM 175 [facility] [address] [place] [phone] Scheduled Procedures Name Priority Associated Diagnoses Date/Ti me FASCIOTOMY PLANTAR Plantar fascial fibromatosis 03/14/2025 11:45 AM EDT documented as of this encounter Visit Diagnoses Not on filedocumented in this encounter Care Teams Php Software Engineer Relationship Specialty Start Date End Date Physician, No Pcp PCP - General 11/15/24 documented as of this encounter
--- OUTSIDE RECORDS SUMMARY | 2025-03-06 15:01 | XMS_ITS | Clinical Summary ---
Author Organization [facility] Address [address] [facility] [address] [place] [phone] Phone Care Team Providers Care Shingle Carrier Name Role Phone Pcp, Unknown Primary Care [...] topic Medical Devices Not on file Insurance [facility] Corvil O * Guarantor: Miky Stapletonalis Account Type Relation to Patient Date of Phone Billing Address Personal/Family Self 1985 [address] [place] [address] [facility] * Guarantor: Stapleton Josafatindalis Account Type Relation to Patient Date of Phone Billing Address Personal/Family Self 1985 [address] [facility] [address] [place] [id number] [facility] * Guarantor: Stapleton Josafatindalis Account Type Relation to Patient Date of Phone Billing Address Personal/Family Self 1985 [address] [place] [address] [facility] [place] Care Teams Shingle Carrier Relationship Specialty Start Date End Date Pcp, Unknown PCP - General 04/10/24 Additional Source Comments The information contained in this document represents components of the legal health record. It is not the complete legal health record.[facility]
--- OUTSIDE RECORDS SUMMARY | 2025-03-06 15:02 | XMS_ITS | Encounter Summary ---
Author Organization [facility] Address [address] [facility] [address] [place] [address] Phone Care Team Providers Care Biodiesel Process Control Technician Name Role Phone Pcp, Unknown Primary Care Provider Unavailabl e Encounter Details Date Type Department Care Team (Late st Contact Info) Description 04/10/2024 Procedure Pass [facility], Ct Scan - [facility] [address] [place] [address] Social History Tobacco Use Types Packs/Day Years [...] 1:58 PM EDT Jenny Mota RN * [place] Suicide Severity Rating Scale (Screener/Recent Self-Report) Question [...] on filedocumented in this encounter Care Teams Biodiesel Process Control Technician Relationship Specialty Start Date End Date Pcp, Unknown PCP - General 04/10/24 documented as of this encounter Additional Source Comments The information contained in this document represents components of the legal health record. It is not the complete legal health record.[facility]
== END 2025-03-06 11:35 | disposition home or self-care (01) ==
LOC: HO.HWS 10:56
PROVIDERS: Visit Provider Obstetrics & Gynecology
DX: Z20.2 Contact with and (suspected) exposure to infections with a predominantly sexual mode of transmission (principal)
CPT/HCPCS: 99213

== ENCOUNTER 2025-03-06 10:56 | Outpatient (REF) | payer OTHER, SELFPAY ==
--- OUTSIDE RECORDS SUMMARY | 2025-03-06 16:44 | XMS_ITS | Patient Health Record ---
Author Organization [facility] Address [address] [place] [address] Care Team Providers Care Skirt Maker Name Role Phone Elijah (RETIRED) Marshla GALEANO Primary Care Provide r Van Caba [phone] Allergies Allergen (clinical drug ingredient) Drug/Non Drug [...] Status Risk Notes Problem Irritable bowel syndrome (66066618) Irritable bowel syndrome (564.1) Active confirmed Problem Diarrhea (38168080) Diarrhea (787.91) Active confirmed Problem Gastroesophageal reflux disease (921710872) GERD (gastroesopha geal reflux disease) (530.81) Active confirmed Problem 55617667 Diarrhea (R19.7) Active confirmed Plan Of Treatment [...] Insured Coverage Start Date Coverage End Date [facility] [address] [address] [place], [place] [id number] CRISTINA FRANCES Self - patient is the insured Medical (General) History Medical History History ICD Code Asthma Denies SC,DM,CVA,renal disease Hypothyroidism GERD Irritable bowel syndrome Surgical History Surgery Date(Month/Year) section X3 carpal tunnel release X2 tonsillectomy appendectomy
[2025-03-06 17:25] LABS: Bacterial Vaginosis PCR NEGATIVE (Negative); Candida Group PCR NOT DETECTED (Not Detect); Candida glab krusei PCR NOT DETECTED (Not Detect); Trichomonas vaginalis PCR NOT DETECTED (Not Detect)
== END 2025-03-06 10:57 | disposition home or self-care (01) ==
LOC: HO.LNP 10:56
PROVIDERS: Visit Provider Obstetrics & Gynecology
DX: A59.01 Trichomonal vulvovaginitis (principal); Z20.2 Contact with and (suspected) exposure to infections with a predominantly sexual mode of transmission
CPT/HCPCS: 81515; 99212

== ENCOUNTER 2025-04-02 14:02 | Outpatient (AMB) | payer OTHER, SELFPAY ==
[2025-04-02 14:12] VITALS: BMI 43.0
--- NOTE | 2025-04-02 14:12 | A.OFFVIS_ITS ---
Vital Signs 04/02/25 14:12 Height 5 ft Weight 220 lb BMI 43.0 Intake Visit Reasons: Inj-Lt basal joint, last inj 07/05/24 Intake Note: John is a 40 year old right hand dominant female who presents today for a repeat Left Basal Joint Injection. She was last evaluated and injected on 07/05/24. Patient is interested on repeating injection today. Allergies Penicillins Allergy (Severe, Verified 04/02/25 14:12) ANAPHYLAXIS, HIVES animal dander Allergy (Mild, Verified 04/02/25 14:12) ITCHY HIVES THROAT SWOLLEN lactose (LACTOSE) Allergy (Mild, Verified 04/02/25 14:12) DIARRRHEA many vegetables Allergy (Severe, Uncoded 04/02/25 14:12) hives, throat... nuts Allergy (Severe, Uncoded 04/02/25 14:12) hives, throat... FRUIT, SKINS Allergy (Mild, Uncoded 04/02/25 14:12) SWELLING fruits Allergy (Unknown, Uncoded 04/02/25 14:12) hives, throat closes seasonal allergies Allergy (Unknown, Uncoded 04/02/25 14:12) Unknown MEAT Adverse Reaction (Mild, Uncoded 04/02/25 14:12) ABDOMINAL PAIN HPI HPI Inj-Lt basal joint, last inj 07/05/24: Details: John is a 40 year old right hand dominant female who presents today for a repeat Left Basal Joint Injection. She was last evaluated and injected on 07/05/24. Patient is interested on repeating injection today. [facility] Medical History Asthma Allergic rhinitis Somnolence, daytime CHIKIS (obstructive sleep apnea) Morbid obesity Carpal tunnel syndrome, bilateral upper limbs Bacterial vaginosis Surgical History Hx of appendectomy History of thumb surgery History of carpal tunnel surgery S/P ACL reconstruction History of tonsillectomy Previous section Family History Mother Diabetes Hypertension Arthritis Father Liver cancer Paternal Aunt Family history of autoimmune disorder Maternal Grandfather Colon cancer Social History Household Members: Family Housing: House Do you presently have visiting nurse or other home services: No Alcohol intake: never Patient Tobacco Use Status: Never used Tobacco Substance Use Type: Marijuana service: No Current occupational status: employed 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 Reproductive History Menstrual Age of Menarche: 9 Physical Exam Vital Signs: BMI result Body Mass Index 43.0 Office Procedures Joint Inj/Aspir; Non-Pain Clin Joint Injection/Drain Prep: site was prepped using aseptic technique and injection warnings given Procedure: The patient tolerated the procedure well and there was some relief with the local anesthesia Elbows, Wrist, Hands, Hand injection Medium joint : Left Hand Coding Procedure code (CPT) selection complete Assessment & Plan Assessment & Plan (1) Osteoarthritis of first carpometacarpal joint of left hand: Code(s): M18.12 - Unilateral primary osteoarthritis of first carpometacarpal joint, left hand Category: Medical Plan 1. Basal joint arthritis of the left thumb The risks and benefits of a steroid injection including but not limited to risk of damage to blood vessels, nerve, tendon, infection, skin bleaching, persistent or worsening pain, and failure to improve symptoms were discussed with the patient and they wish to proceed with the steroid injection. Once consent was obtained the skin over the dorsum of the left basal joint was sterilely prepped. The joint was then injected with a combination of 40 mg dexamethasone and 1% plain Lidocaine. The patient appears to have tolerated the procedure well and with no complications. He had good early relief before leaving clinic today. He knows that they may not have another steroid injection into this joint for least 4 months. Coding Level of Care Code Procedure Only Diagnoses Osteoarthritis of first carpometacarpal joint of left hand M18.12 CPT Codes Elbows, Wrist, Hands, - Hand injection Medium joint : Left Hand ([id number])
--- OUTSIDE RECORDS SUMMARY | 2025-04-02 20:13 | XMS_ITS | Encounter Summary ---
Author Organization [facility] Address [address] [facility] [address] [place] [address] Phone Care Team Providers Care Can Cleaner Name Role Phone Pcp, Unknown Primary Care Provider Unavailabl e Encounter Details Date Type Department Care Team (Late st Contact Info) Description 04/10/2024 Procedure Pass [facility], Ct Scan - [facility] [address] [place] [address] Social History Tobacco Use Types Packs/Day Years [...] 1:58 PM EDT Jenny Mota RN * [place] Suicide Severity Rating Scale (Screener/Recent Self-Report) Question [...] on filedocumented in this encounter Care Teams Can Cleaner Relationship Specialty Start Date End Date Pcp, Unknown PCP - General 04/10/24 documented as of this encounter Additional Source Comments The information contained in this document represents components of the legal health record. It is not the complete legal health record.[facility]
--- OUTSIDE RECORDS SUMMARY | 2025-04-02 20:13 | XMS_ITS | Encounter Summary ---
Author Organization [employer] Address [address] [place] [address] Care Team Providers Care Commutator Assembler Name Role Phone Cecelia Rojas Primary Care Provider Reason for Visit * Reason Onset Date Comments FMLA 03/10/2025 Encounter Details Date Type Department Care Team (Late st Contact Info) Description 03/10/2025 Telephone Orthopedic Surgery - [place] [address] [phone] Vladimir Comer, DPM [address] [phone] Social History Tobacco Use Types Packs/Day Years [...] documented in this encounter Progress Notes * Tammie Lopez - 03/26/2025 2:11 PM EDT Plan: Paperwork faxed and scanned into chart. * Ezequiel Caraballo - 03/10/2025 10:20 AM EDT Pt dropped off FMLA paperwork documented in this encounter Plan of Treatment Upcoming Encounters Date Type Department Care Team (Late st Contact Info) Description 05/15/2025 9:45 AM EST Office Visit Orthopedic Surgery - [place] [address] [phone] Vladimir Comer DPM [address] [phone] documented as of this encounter Goals Goal Patient Goal Type Associated Problems Recent Progress Patient-Stated? Author Autogenera bonilla Goal Care Plan Autogenerated Problem No Vladimir Comer DPM documented as of this encounter Visit Diagnoses Not on filedocumented in this encounter Additional Health Concerns Active Problems Noted Date Diagnosed Date Autogenerated Problem 03/15/2025 documented as of this encounter Care Teams Commutator Assembler Relationship Specialty Start Date End Date Cecelia Rojas PA [address] [place] [phone] PCP - General 03/14/25 documented as of this encounter
--- OUTSIDE RECORDS SUMMARY | 2025-04-02 20:13 | XMS_ITS | Clinical Summary ---
Author Organization [address] [facility] Address [address] [place] [address] Phone Care Team Providers Care Education Nurse Name Role Phone Cecelia Rojas Primary Care Provider [phone] Allergies Active Allergy Reactions Criticality Noted Date [...] (one) time each day if needed. Active oxyCODONE (ROXICODONE) 5 mg immediate release tabletIndications :Plantar fascial fibromatosis Take 1 tablet (5 mg total) by mouth every 4 (four) hours if needed for severe pain. Max Daily Amount: 30 mg 35 tablet 5 Active aspirin 325 mg capsule Take 1 tablet by mouth 1 (one) time each day. 60 capsule 5 04/13/20 25 Active acetaminophen (TYLENOL 8 HOUR) 650 mg 8 hr tablet Take 1 tablet (650 mg total) by mouth every 8 (eight) hours if needed for mild pain for up to 10 days. Do not crush, chew, or split. 30 tablet 03/24/20 25 Active Problems Problem Noted Date Diagnosed Date Plantar fascial fibromatosis 10/01/2024 Encounters Date Type Department Care Team Description 03/27/2025 8:30 AM EDT Office Visit Orthopedic [place] [address] [phone] Vladimir Comer, DPLuis Plantar fascial fibromatosis (Primary Dx) 03/18/2025 Telephone Orthopedic [place] [address] [phone] Vladimir Comer DPM 03/14/2025 11:57 AM EDT Anesthesia Event [facility] [place] [address] [place] [phone] Doug West MD Devlin, Brandon, SRNA 03/14/2025 11:45 AM EDT - 03/14/2025 1:15 PM EDT Surgery [facility] [place] [address] [place] [phone] Vladimir Comer, DPM RIGHT PLANTAR FASCIOTOMY [[id number] (CPT )] 03/14/2025 9:53 AM EDT - 03/14/2025 1:56 PM EDT Hospital Encounter [facility] [place] [address] [place] [phone] Vladimir Comer, DPM Plantar fascial fibromatosis (Primary Dx) Discharge Disposition: Home or Self Care 03/10/2025 8:00 AM EDT Consult Orthopedic [facility] [address] [phone] Vladimir Comer DPLuis Plantar fascial fibromatosis (Primary Dx) 03/10/2025 Telephone Orthopedic [facility] [address] [phone] Vladimir Comer DPM 03/04/2025 Telephone Orthopedic [facility] [address] [phone] Radha Webster from Last 3 Months Surgical History Surgery Date Site/Laterality Comments OTHER SURGICAL HISTORY ANTERIOR CRUCIATE LIGAMENT REPAIR CARPAL TUNNEL RELEASE TRIGGER FINGER RELEASE SECTION, LOW TRANSVERSE X3 Medical History Medical History Date Comments Asthma Irritable bowel syndrome HX OF Neuromuscular disorder ([facility] V24, [facility] V28 ) [...] AM EST Office Visit Orthopedic Surgery - [place] [address] [phone] Vladimir Comer, DPM [address] [phone] Health Maintenance Due Date Last [...] Procedure Name Priority Date/Time Associated Diagnosis Comments CA FASCIECTOMY PLANTAR FASCIA RADICAL 03/14/2025 11:56 AM EDT Plantar fascial fibromatosis from Last 3 Months Additional Health Concerns Active Problems Noted Date Diagnosed Date Autogenerated Problem 03/15/2025 Insurance [facility] Care Teams Education Nurse Relationship Specialty Start Date End Date Cecelia Rojas PA [address] [place] [phone] PCP - General 03/14/25
--- OUTSIDE RECORDS SUMMARY | 2025-04-02 20:13 | XMS_ITS | Patient Health Record ---
Author Organization [facility] Address [address] [place] [address] Care Team Providers Care Airconditioning Engineer Name Role Phone Elijah (RETIRED) Marshal GALEANO Primary Care Provide r Van Caba [phone] Allergies Allergen (clinical drug ingredient) Drug/Non Drug [...] ve Pepcid 20 MG 1 tablet Orally PRN; Duration: 30 day(s) Not-Taking Hyoscyamine Sulfate 0.125 MG 1-2 tablets Orally Q 6 hours prn abdominal bloating/cramps/pain-- may also take it before meals; Duration: 30 days 06/18/2013 Active Hyoscyamine Sulfate 0.125 MG 1-2 tablets Orally Q 6 hours prn abdominal bloating/cramps/pain-- may also take it before meals; Duration: 30 days Active Omeprazole 40 MG 1 capsule Orally Onc e a day Active Singulair 5 MG 1 tablet at bedtime Orally Once a day Active Problems Problem Type SNOMED Code ICD Code Onset Dates Problem Status W/U Status Risk Notes Problem Irritable bowel syndrome (71071971) Irritable bowel syndrome (564.1) Active confirmed Problem Diarrhea (48808525) Diarrhea (787.91) Active confirmed Problem Gastroesophageal reflux disease (691766961) GERD (gastroesopha geal reflux disease) (530.81) Active confirmed Problem Diarrhea (60572666) Diarrhea (R19.7) Active confirmed Plan Of Treatment [...] Insured Coverage Start Date Coverage End Date [facility] [address] [address] [place], [place] [id number] CRISTINA FRANCES Self - patient is the insured Medical (General) History Medical History History ICD Code Asthma Denies CA,DM,CVA,renal disease Hypothyroidism GERD Irritable bowel syndrome Surgical History Surgery Date(Month/Year) section X3 carpal tunnel release X2 tonsillectomy appendectomy
--- OUTSIDE RECORDS SUMMARY | 2025-04-02 20:13 | XMS_ITS | Clinical Summary ---
Author Organization [facility] Address [address] [facility] [address] [place] [address] Phone Care Team Providers Care Focused Factory Manager Name Role Phone Pcp, Unknown Primary [...] topic Medical Devices Not on file Insurance [facility] [employer] [employer] [facility] [place] [employer] [facility] [place] [employer] [facility] [employer] Care Teams Focused Factory Manager Relationship Specialty Start Date End Date Pcp, Unknown PCP - General 04/10/24 Additional Source Comments The information contained in this document represents components of the legal health record. It is not the complete legal health record.[facility]
--- OUTSIDE RECORDS SUMMARY | 2025-04-02 20:13 | XMS_ITS | Encounter Summary ---
Author Organization [facility] Address [address] [facility] [address] [place] [address] Phone Care Team Providers Care Community Fundraiser Name Role Phone Pcp, Unknown Primary Care Provider Unavailabl e Encounter Details Date Type Department Care Team (Late st Contact Info) Description 04/10/2024 Procedure Pass [facility], Ct Scan - [facility] [address] [place] [address] Social History Tobacco Use Types Packs/Day Years [...] 1:58 PM EDT Jenny Mota RN * [place] Suicide Severity Rating Scale (Screener/Recent Self-Report) Question [...] on filedocumented in this encounter Care Teams Community Fundraiser Relationship Specialty Start Date End Date Pcp, Unknown PCP - General 04/10/24 documented as of this encounter Additional Source Comments The information contained in this document represents components of the legal health record. It is not the complete legal health record.[facility]
== END 2025-04-02 14:21 | disposition home or self-care (01) ==
LOC: HO.HOS 14:02
DX: M18.12 Unilateral primary osteoarthritis of first carpometacarpal joint, left hand (principal)
CPT/HCPCS: 20600

== ENCOUNTER → 2025-04-02 14:02 | Outpatient (BNVA) | payer OTHER, SELFPAY | DX: M18.12 Unilateral primary osteoarthritis of first carpometacarpal joint, left hand (principal) | CPT/HCPCS: 20600; J1100; J2003 ==

== ENCOUNTER 2025-04-23 06:01 | Day surgery (SDC) | payer OTHER, SELFPAY ==
--- OUTSIDE RECORDS SUMMARY | 2025-03-14 09:53 | XMS_ITS | Encounter Summary ---
Author Organization [facility] Address [address] [place] [address] Care Team Providers Care Intravenous Therapy Nurse Name Role Phone Cecelia Rojas Primary Care Provider Reason for Visit * Auth/Cert (Routine) Specialty Diagnoses / Procedures Referred By Flaquito obrien Referred To Contact Diagnoses Plantar fascial fibromatosis PLANTAR FASCIAL FIBROMATOSIS RIGHT Procedures [place] FASCIECTOMY PLANTAR FASCIA RADICAL RIGHT PLANTAR FASCIOTOMY Vladimir Comer DPM [address] [address] Phone: tel: fax: [facility] [place] [address] [place] [phone] Phone: tel: Referral ID Status Reason Start Date Expiration Date Visits Re quested Visits Authorized [id number] 1 1 Encounter Details Date Type Department Care Team (Late st Contact Info) Description 03/14/2025 9:53 AM EDT - 03/14/2025 1:56 PM EDT Hospital Encounter [facility] [place] [address] [place] [address] Vladimir Comer DPM [address] [address] Plantar fascial fibromatosis (Primary Dx) Discharge Disposition: Home or Self Care Social History Tobacco Use Types Packs/Day Years Used Date Smoking Tobacco: Never Smokeless Tobacco: Never Tobacco Cessation:Counseling Given: Not Answered Alcohol Use Standard Drinks/Week Comments Never 0 (1 standard drink = 0.6 oz pur e alcohol) Interpersonal Safety Answer Date Record ed Physical Abuse Unrecognized value 03/14/2025 Verbal Abuse Unrecognized value 03/14/2025 Comments No Sex and Gender Information Value Date Recorded Sex Assigned at Female 03/10/2025 11:40 AM EDT Legal Sex Female 11:02 AM EDT Gender Identity Not on file Sexual Orientation Not on file documented as of this encounter Last Filed Vital Signs Vital Sign Reading Time Taken Comments Blood Pressure 112/75 03/14/2025 1:29 PM EDT Pulse 73 03/14/2025 1:29 PM EDT Temperature 36.8 C (98.2 F) 03/14/2025 12:40 PM EDT Respiratory Rate 18 03/14/2025 1:29 PM EDT Oxygen Saturation 99% 03/14/2025 1:29 PM EDT Inhaled Oxygen Concentration - - Weight 98.4 kg (217 lb) 03/14/2025 10:19 AM EDT Height 152.4 cm (5') 03/14/2025 10:19 AM EDT Body Mass Index 42.38 03/14/2025 10:19 AM EDT documented in this encounter Functional Status * Are you [...] Cathy Aquino RN documented in this encounter Discharge Instructions * Discharge Instructions* Vladimir Comer DPM - 03/14/2025 12:33 PM EDT POST-OP INSTRUCTION SHEET WHAT CAN YOU EXPECT: Dizziness and/or nausea from anesthesia for the first 12-24 hours. The following may be normal in limited amount: pain, swelling, bruising, bleeding on the bandage, numbness (24-48 hours) PROTOCOL: You should go directly home after the surgery. Keep your feet elevated on the way. Rest and elevate your feet and legs above your hips with pillows. Apply ice behind the knee 30 minutes per hour for the first 3 days. Do not ice overnight. Bathing is permitted only as necessary. Keep bandaging dry. Ambulated only when necessary. Non weight bearing right foot using crutches/walker/rolling walker. Please refrain from smoking, vaping, alcohol and Soda during recovery. Get plenty of rest, drink plenty of fluids and eat a regular well-balanced diet. Perform ankle/foot range of motion exercises 5-10 minutes every hour while awake IF YOU HAVE ANY PROBLEMS, QUESTIONS OR CONCERNS, PLEASE CONTACT THE OFFICE. A DOCTOR IS ON-CALL 24 HOURS A DAY CALL THE OFFICE IMMEDIATELY IF: Bandage becomes overly stained, drips with blood or gets wet. Your medications do not stop discomfort or cause an abnormal reaction. You bump or injure the surgical site. You develop a fever or shortness of breath. Pain, redness, or swelling of the legs or thighs, occur. High levels of anxiety. MEDICATION: Aspirin 325 mg daily Tylenol 650mg take every 6 hours as needed for ANY PAIN (you can take this medication with oxycodone) ( NEEDED) Oxycodone 5mg Take every 4 hours for PAIN MODERATE TO SEVERE ( NEEDED) * Attachments The following attachments cannot be sent through Care Everywhere. * Sedation (Welsh) documented in this encounter Medications at Time of Discharge acetaminophen (TYLENOL 8 HOUR) 650 mg 8 hr tablet Take 1 tablet (650 mg total) by mouth every 8 (eight) hours if needed for mild pain for up to 10 days. Do not crush, chew, or split. 30 tablet 03/14/2025 albuterol HFA (PROAIR HFA ; PROVENTIL HFA ; VENTOLIN HFA) 90 mcg/actuation inhaler Inhale 2 puffs by mouth every 6 (six) hours if needed for wheezing. aspirin 325 mg capsule Take 1 tablet by mouth 1 (one) time each day. 60 capsule 03/14/2025 fexofenadine (ANNA) 180 mg tablet Take 1 tablet (180 mg total) by mouth 1 (one) time each day if needed. mometasone-formote rol (DULERA 100) 100-5 mcg/actuation inhaler Inhale into the lungs. oxyCODONE (ROXICODONE) 5 mg immediate release tabletIndications: Plantar fascial fibromatosis Take 1 tablet (5 mg total) by mouth every 4 (four) hours if needed for severe pain. Max Daily Amount: 30 mg 35 tablet 03/14/2025 rOPINIRole (REQUIP) 5 mg tablet 1 tablet (5 mg total) at bedtime as needed. documented as of this encounter Ordered Prescriptions Prescription Sig Dispense Quantity Refills Last Filled Start Date End Date aspirin 325 mg capsule Take 1 tablet by mouth 1 (one) time each day. 60 capsule 03/14/2025 04/13/2025 oxyCODONE (ROXICODONE) 5 mg immediate release tabletIndications: Plantar fascial fibromatosis Take 1 tablet (5 mg total) by mouth every 4 (four) hours if needed for severe pain. Max Daily Amount: 30 mg 35 tablet 03/14/2025 acetaminophen (TYLENOL 8 HOUR) 650 mg 8 hr tablet Take 1 tablet (650 mg total) by mouth every 8 (eight) hours if needed for mild pain for up to 10 days. Do not crush, chew, or split. 30 tablet 03/14/2025 03/24/2025 documented in this encounter Discharge Disposition Disposition Code Departure Means Destination Comment s Home or Self Care Wheelchair documented in this encounter H&P Notes * Vladimir Comer DPM - 03/14/2025 11:25 AM EDT History and Physical Update ( H&P completed within the previous thirty days ) I personally reviewed the History and Physical, interviewed and examined the patient prior to surgery. No changes have occurred in the patient's condition since the History and Physical was completed. Source Note - Vladimir Comer DPM - 03/10/2025 8:00 AM EDT S Patient presents today stating her pain has come back she states she is having sharp shooting pain in her right heel she states she is very frustrated she would like to know if she should have proceed with surgery that she canceled last month states her pain discomfort is a 7 or 8 out of 10 on a visual scale sharp shooting achy pain in her right heel she is very frustrated notes her injections doseem to help she does state that she still getting chronic pain discomfort in her right heel and would like to proceed with surgical intervention ROS: GENERAL: Pt denies nausea, fever, vomiting, [...] degrees, plantar flexion WNL. No muscle atrophy. Decreased with this mechanism resolved pain on palpation of the calcaneus right DERMATOLOGICAL:.No masses or skin lesions noted. Normal skin temperature, normal skin turgor. BIOMECHANICS: STJ ROM wnl, MTJ ROM wnl, 1st MPJ ROM wnl. IMAGING: Full read within epic IMPRESSION: 1. Plantar fascial fibromatosis PLAN: Pt was seen and examined, history reviewed. MRI reviewed with patient in detail some central tearing of the ligament noted significant hypertrophic thickening of the ligament noted at the medial tuber and central tuber thickest point is 1 cm in thickness with extensive inflammation no signs of stress reaction of the calcaneus Revisited referral to physical therapy discussed possible absence from fracture boot immobilization Surgical options were discussed of fasciectomy patient is at increased risks due to a BMI of 41 of surgical wound dehiscence over lengthening the ligament She has now failed treatment for the last year of conservative treatment modalities of injections stretching immobilization During today???s visit we discussed at great length the etiology, prognosis, and treatment options for the patient???s condition. Risks and benefits of operative and non operative treatment options were discussed. Treatment options for open radical plantar fasciectomy right foot correction were discussed, non-operative treatment would involve tapping, strapping, adjustments in shoe gear, orthotics insoles, rest, bracing and edema control. There is potential for the deformities to stabilize without surgery yet there may still be a need for delayed surgery and distructive procedures. non- operative care wouldavoid incision problems and anesthesia risks. Surgery has added risks including but not limited to infection, incision pain, neuritis or numbness nerve trauma (damage transection of nerve) re-occurrence of deformity weakening of structure or tendon, scar tissue contracture, worsening of deformity and loss of limb or life from DVT and . open radical plantar fasciectomy right foot healing was discussed in relation to operative treatment. Recovery and post operative immobilization was discussed based on the various treatment options. A decision was made to pursue open radical plantar fasciectomy right foot surgery. Patient voices understanding of the risks and benefits and would like to proceed with surgery. No guarantees were given. Weight bearing status: NWB x 4weeks followed by progressive WB x 8 weeks in a below the knee boot. Work&Activity restrictions: Impact of undergoing surgery to work and daily activity was discussed today Pain management: Postoperative pain regiment were discussed in great detail with the patient. The patient was also encouraged to aggressively elevate and ice postoperatively to help with swelling andpain control. The patient was in agreement with this plan. The patient will be prescribed Tylenol Oxycodone for postoperative pain management. VTE Risk assessment: Risk of DVT/ PE were discussed in relation to immobilization, inactivity, injury, surgery, medication and personal risk factors. Signs and symptoms of a blood clot were discussedincluding action plan if the patient experiences these signs or symptoms. Methods of prevention and risk reduction were explained. Mechanical prophylaxis including ROM and mobilization is encouraged as much as possible. The patient???s risk for deep vein thrombosis was also assessed today. In regards to major risk factors they: Do not have personal history of DVT Do not have known active cancer Do not have known clotting disorder Do not have family history of DVT Pending foot surgery and current level of immobilization are risk factors. Measure taken to decrease their risk of deep vein thrombosis will consist of detailed education, as well as lower extremity range of motion. Chemical prophylaxis is not recommended based on patients history, procedure and postoperative plan. Planned procedure(s): open radical plantar fasciectomy right foot surgery WB status: NWB x 4 weeks followed by progressive WB x 8 weeks in a below the knee boot. Aspirin 325 twice a day Pain medication: Tylenol Oxycodone Vladimir Comer DPM documented in this encounter Procedure Notes * Sheela Jauregui RN - 03/14/2025 1:52 PM EDT All dc instructions reviewed w/pt and s/o including use of crutches. Both verbalized understanding. * Vladimir Comer DPM - 03/14/2025 12:12 PM EDT RIGHT PLANTAR FASCIOTOMY (R) OPERATIVE NOTE Date: 03/14/2025 Location: [facility] OR Name: John Stapleton, : 1985, Diagnosis Pre-op Diagnosis * Plantar fascial fibromatosis [M72.2] Post-op Diagnosis * Plantar fascial fibromatosis [M72.2] Procedures RIGHT PLANTAR FASCIOTOMY [id number] - [place] FASCIECTOMY PLANTAR FASCIA RADICAL Additional Procedures Indications: John Stapleton is an 40 y.o. female who is having surgery for PLANTAR FASCIAL FIBROMATOSIS RIGHT. Failed conservative modalities steroid injections are supportive physical therapy stretching exercises and elected pursue surgical intervention of radical plantar fasciectomy right heelno guarantees were given Surgeon(s) & Career Guidance Counselor(s) * Vladimir Comer DPM - Primary Anesthesia: Monitor Anesthesia Care ASA: II Estimated Blood Loss: Minimal Drains: * No LDAs found * Specimen: Procedure Details: Patient was consented marked in preoperative area. All risks and benefits were discussed in detail adequate time was given for patient to ask questions and express concerns which were all appropriately answered. Patient was then appropriately consented by the anesthesia team for all risks and benefits for general anesthesia required for this case. Patient was then brought back to the operating room sedated after preoperative protocols were completed in concordance with [facility] protocol. Prophylactic antibiotics administered by anesthesia. Once patient was sedated she wasplaced in a supine position all bony prominences were appropriately padded and offloaded. Once cleared by anesthesia 30 cc of quarter percent Marcaine plain were injected into the heel block as well as the mid leg block. Extremity was then scrubbed prepped and draped. The extremity was elevated 60 degrees in the horizontal plane and Esmarch was utilized to exsanguinate all the tissues of the extremity a preplaced well-padded pneumatic thigh tourniquet was then inflated. The extremity was delivered back to the operative table draping procedures were completed. Direct approach was then taken to expose the plantar fascitis of the calcaneus and calcaneal spur. Care was taken to identify and mobilize and retract medial and lateral to the incision all vital neurovascular structures. All venous tributaries were appropriately electrocoagulated tied off as necessary. Extensive degeneration of the fascial ligament were noted extending into the calcaneal spur was appreciated with extensive thickening of the plantar fascial band. Plantar fasciectomy was then performed after the tissue planes had appropriately been identified and retracted away from the medialcentral plantar fascial band with surgical scissors excision of a portion of fascial band was then removed. Surgery site was irrigated with normal saline a bone rasp then was utilized to remove prominence and sharpness from the medial tuber and calcaneal spur. Surgical site was then again irrigatedwith saline and assessed for closure. Layered closure was performed skin was reapproximated with 3-0 nylon. Tourniquet was let down at 16 minutes to left thigh bandage consisting of 4 x 4 gauze ABD pads Kerlix and a well-padded posterior splint was applied to the lower extremity. Patient was awoken from anesthesia transferred to the PACU all vital signs were stable normal capillary refill time is appreciated to all of the digits of the foot. Postoperative instructions and medications previously given to patient. Follow- up appointment made for next week Tourniquet right ankle tourniquet 250 mmHg pressure 16 minutes Findings: extensive thickening inflammation of fascial ligament Complications: None; patient tolerated the procedure well. Disposition: PACU - hemodynamically stable. Condition: stable * Jaylen Roberts RN - 03/14/2025 10:17 AM EDT [id number] documented in this encounter Plan of Treatment Upcoming Encounters Date Type Department Care Team (Late st Contact Info) Description 03/27/2025 8:30 AM EDT Office Visit Orthopedic Surgery - [place] [address] [address] Vladimir Comer DPM [address] [address] Pending Results Name Type Priority Associated Diagnoses Date /Time POC , urine NO CHARGE screening manually resulted Point of Care Testing Routine 03/14/2025 10:03 AM EDT Scheduled Orders Name Type Priority Associated Diagnoses Orde r Schedule POC , urine NO CHARGE screening manually resulted Point of Care Testing Routine Once for 1 Occurrences starting 03/14/2025 until 03/14/2025 documented as of this encounter Visit Diagnoses Diagnosis Plantar fascial fibromatosis- Primary Plantar fascial fibromatosis documented in this encounter Admitting Diagnoses Diagnosis Plantar fascial fibromatosis documented in this encounter Administered Medications Inactive Administered Medications - up to 3 most recent administrations Medication Order MAR Action Action Date Dose Rate Site acetaminophen (TYLENOL) tablet 1,000 mg 1,000 mg, oral, Once as needed, mild pain, Starting on Mon03/14/25 at 1236, For 1 dose, Phase II/On Unit, If patient has not received tylenol in the last 6 hours diphenhydrAMINE (BENADRYL) injection 12.5 mg 12.5 mg, intravenous, Once as needed, nausea and vomitting, Starting on Mon03/14/25 at 1236, For 1 dose, Phase II/On Unit, Give as THIRD antiemetic in order set. Only if this has not been given in the operating room or in PACU. haloperidol lactate (HALDOL) injection 1 mg 1 mg, intravenous, Once as needed, nausea and vomitting, Starting on Mon03/14/25 at 1236, For 1 dose, Phase II/On Unit, Give as SECOND antiemetic in order set. Only if this has not been given in the operating room or in PACU. May be ordered via either intramuscular or intravenous route. If ordered IV, maximum of 5 mg/minute. ondansetron (PF) (ZOFRAN) injection 4 mg 4 mg, intravenous, Once as needed, nausea, vomiting, Starting on Mon03/14/25 at 1236, For 1 dose, Phase II/On Unit, Give as FIRST antiemetic in order set Infuse over 2 minutes. oxyCODONE (ROXICODONE) immediate release tablet 5 mg 5 mg, oral, Once as needed, moderate pain, Starting on Mon03/14/25 at 1236, For 1 dose, Phase II/On Unit documented in this encounter Active and Recently Administered Medications Times are shown in EDT. Scheduled Medication Order 03/12/2025 03/13/2025 03/14/2025 clindamycin (CLEOCIN) 900 mg/50 mL IVPB 900 mg (COMPLETED) 900 mg, intravenous, at 50 mL/hr, Administer over 60 Minutes, Once, On Mon03/14/25 at 1145, For 1 dose, Preprocedure, premix bag, Indication: Prophylaxis-Surgical 1130 (Handoff - Prov ider: Tamara Meneses RN)1204 (Given - Provider: Herminio Pham CRNA) PRN Medication Order 03/12/2025 03/13/2025 03/14/2025 acetaminophen (TYLENOL) tablet 1,000 mg 1,000 mg, oral, Once as needed, mild pain, Starting on Mon03/14/25 at 1236, For 1 dose, Phase II/On Unit, If patient has not received tylenol in the last 6 hours BUPivacaine HCl (MARCAINE) 0.25 % injection (CANCELED) As needed, Starting on Mon03/14/25 at 1212, Intraprocedure 1212 (Given - Provid er: Vladimir Comer DPM) diphenhydrAMINE (BENADRYL) injection 12.5 mg 12.5 mg, intravenous, Once as needed, nausea and vomitting, Starting on Mon03/14/25 at 1236, For 1 dose, Phase II/On Unit, Give as THIRD antiemetic in order set. Only if this has not been given in the operating room or in PACU. haloperidol lactate (HALDOL) injection 1 mg 1 mg, intravenous, Once as needed, nausea and vomitting, Starting on Mon03/14/25 at 1236, For 1 dose, Phase II/On Unit, Give as SECOND antiemetic in order set. Only if this has not been given in the operating room or in PACU. May be ordered via either intramuscular or intravenous route. If ordered IV, maximum of 5 mg/minute. ondansetron (PF) (ZOFRAN) injection 4 mg 4 mg, intravenous, Once as needed, nausea, vomiting, Starting on Mon03/14/25 at 1236, For 1 dose, Phase II/On Unit, Give as FIRST antiemetic in order set Infuse over 2 minutes. oxyCODONE (ROXICODONE) immediate release tablet 5 mg 5 mg, oral, Once as needed, moderate pain, Starting on Mon03/14/25 at 1236, For 1 dose, Phase II/On Unit documented in this encounter Orders Medications Ordered That Malcolm ht Not Have Been Administered Count Last Ordered Date First Ordered Date acetaminophen (TYLENOL) tablet 1,000 mg 1 1 BUPivacaine HCl (MARCAINE) 0 .25 % injection 1 03/14/2025 clindamycin (CLEOCIN) 900 mg /50 mL IVPB 900 mg 1 03/14/2025 diphenhydrAMINE (BENADRYL) i njection 12.5 mg 1 03/14/2025 haloperidol lactate (HALDOL) injection 1 mg 1 03/14/2025 ondansetron (PF) (ZOFRAN) injection 4 mg 1 03/14/2025 oxyCODONE (ROXICODONE) immed iate release tablet 5 mg 1 03/14/2025 Discharge Count Last Ordered Date First Orde red Date DISCHARGE PATIENT 1 03/14/2025 documented in this encounter Care Teams Intravenous Therapy Nurse Relationship Specialty Start Date End Date Cecelia Rojas PA [address] [place] [phone] PCP - General 03/14/25 documented as of this encounter
--- OUTSIDE RECORDS SUMMARY | 2025-03-14 11:45 | XMS_ITS | Encounter Summary ---
Author Organization [employer] [facility] Address [address] [place] [address] Care Team Providers Care Radio Program Director Name Role Phone Cecelia Rojas Primary Care Provider [phone] Reason for Visit * Auth/Cert (Routine) Specialty Diagnoses / Procedures Referred By Flaquito obrien Referred To Contact Diagnoses Plantar fascial fibromatosis PLANTAR FASCIAL FIBROMATOSIS RIGHT Procedures IN FASCIECTOMY PLANTAR FASCIA RADICAL RIGHT PLANTAR FASCIOTOMY Vladimir Comer DPM [address] [address] Phone: tel: fax: [facility] OR [address] [place] [phone] Phone: tel: Referral ID Status Reason Start Date Expiration Date Visits Re quested Visits Authorized [id number] 1 1 Encounter Details Date Type Department Care Team (Late st Contact Info) Description 03/14/2025 11:45 AM EDT - 03/14/2025 1:15 PM EDT Surgery [facility] OR [address] [place] [address] Vladimir Comer DPM [address] [phone] RIGHT PLANTAR FASCIOTOMY [78786 (CPT )] Social History Tobacco Use Types Packs/Day Years [...] Sign Reading Time Taken Comments Blood Pressure 102/75 03/14/2025 1:10 PM EDT Pulse 58 03/14/2025 1:10 PM EDT Temperature 36.8 C (98.2 F) 03/14/2025 12:40 PM EDT Respiratory Rate 16 03/14/2025 1:10 PM EDT Oxygen Saturation 97% 03/14/2025 1:10 PM EDT Inhaled Oxygen Concentration - - [...] be sent through Care Everywhere. * Sedation (Lao) documented in this encounter Medications at Time [...] documented in this encounter Procedure Notes * Sehela Jauregui RN - 03/14/2025 1:52 PM EDT All dc instructions reviewed w/pt and s/o including use of crutches. Both verbalized understanding. * Vladimir Comer DPM - 03/14/2025 12:12 PM EDT RIGHT PLANTAR FASCIOTOMY (R) OPERATIVE NOTE Date: 03/14/2025 Location: [facility] OR Name: John Stapleton, : 1985, Diagnosis Pre-op Diagnosis * Plantar fascial fibromatosis [M72.2] Post-op Diagnosis * Plantar fascial fibromatosis [M72.2] Procedures RIGHT PLANTAR FASCIOTOMY [address]458 - IN FASCIECTOMY PLANTAR FASCIA RADICAL Additional Procedures Indications: John Stapleton is an 40 y.o. female who is having surgery for PLANTAR FASCIAL FIBROMATOSIS RIGHT. Failed conservative modalities steroid injections are supportive physical therapy stretching exercises and elected pursue surgical intervention of radical plantar fasciectomy right heelno guarantees were given Surgeon(s) & Compressor Engineer(s) * Vladimir Comer DPM - Primary Anesthesia: [...] preoperative protocols were completed in concordance with [facility] protocol. Prophylactic antibiotics administered by anesthesia. Once [...] plantar fascitis of the calcaneus and calcaneal spur.Care was taken to identify and mobilize and [...] been identified and retracted away from the medial central plantar fascial band with surgical scissors excision of a portion of fascial band was thenremoved. Surgery site was irrigated with normal saline a bone rasp then was utilized to remove prominence and sharpness from the medial tuber and calcaneal spur. Surgical site was then again irrigated with saline and assessed for closure. Layered closure [...] Roberts RN - 03/14/2025 10:17 AM EDT [id number] documented in this encounter Plan of Treatment Upcoming Encounters Date Type Department Care Team (Late st Contact Info) Description 03/27/2025 8:30 AM EDT Office Visit Orthopedic Surgery - [place] [phone] [phone] Vladimir Comer DPM [address] [phone] Pending Results Name Type Priority Associated Diagnoses [...] Plantar fascial fibromatosis- Primary Plantar fascial fibromatosis Plantar fascial fibromatosis documented in this encounter [...] hours BUPivacaine HCl (MARCAINE) 0.25 % injection As needed, Starting on Mon03/14/25 at 1212, Intraprocedure Given 03/14/2025 12:12 PM EDT 30 mL diphenhydrAMINE (BENADRYL) injection 12.5 mg 12.5 mg, [...] acetaminophen (TYLENOL) tablet 1,000 mg 1 1 clindamycin (CLEOCIN) 900 mg /50 mL IVPB [...] 03/14/2025 documented in this encounter Care Teams Radio Program Director Relationship Specialty Start Date End Date Cecelia Rojas PA [address] [place] [address] PCP - General 03/14/25 documented as of this encounter
--- OUTSIDE RECORDS SUMMARY | 2025-03-14 11:57 | XMS_ITS | Encounter Summary ---
Author Organization [employer] Address [address] [place] [address] Care Team Providers Care Edger Liner Name Role Phone Cecelia Rojas Primary Care Provider [phone] Reason for Visit * Auth/Cert (Routine) Specialty Diagnoses / Procedures Referred By Flaquito t Referred To Contact Diagnoses Plantar fascial fibromatosis PLANTAR FASCIAL FIBROMATOSIS RIGHT Procedures ME FASCIECTOMY PLANTAR FASCIA RADICAL RIGHT PLANTAR FASCIOTOMY Vladimir Comer, DPM [address] [phone] Phone: tel: fax: [facility] OR [address] [place] [phone] Phone: tel: Referral ID Status Reason Start Date Expiration Date Visits Re quested Visits Authorized [id number] 1 1 Encounter Details Date Type Department Care Team (Late st Contact Info) Description 03/14/2025 11:57 AM EDT Anesthesia Event [facility] OR [address] [place] [address] Doug West MD [address] [place] [address] Andrae Carballo SRNA Anesthesia Record Procedure Summary Procedure Name Responsible Anesthesiologist Anesthesia Start Time Anesthesia Stop Time RIGHT PLANTAR FASCIOTOMY (Right: Foot) Doug West MD 03/14/25 1157 03/14/25 1235 Events Date Time Event Comment 03/14/2025 1137 1156 In Room 1157 An Start 1157 An Start Data The patient wa s reevaluated immediately before moderate or deep sedation use and before anesthesia induction. 1207 Anesthesia Ready 1210 An Tourn Inflated 1212 Proc Start 1226 An Tourn Deflated 1226 Proc Fin 1231 Out of Room 1235 Handoff to RN I completed my handoff to the receiving nurse during which we: 1. Identified the patient 2. Identified the responsible provider 3. Reviewed the pertinent medical history 4. Discussed the surgical course 5. Reviewed intra-op anesthesia management and issues during anesthesia 6. Set expectations for post-procedure period 7. Allowed opportunity for questions and acknowledgement of understanding. 1235 An Stop Meds Name Total fentaNYL 0.05 mg/mL 100 mcg midazolam 1 mg/mL 2 mg propofol (DIPRIVAN) injection 10 mg/mL 8 0 mg propofol (DIPRIVAN) infusion 10 mg/mL 22 8.29 mg lidocaine PF (XYLOCAINE-MPF) local injec tion 2% 40 mg clindamycin (CLEOCIN) 900 mg/50 mL IVPB 900 mg 900 mg ALBUTEROL SULFATE HFA 90 MCG/ACTUATION A EROSOL INHALER 2 puff lactated Ringer's infusion 200 mL * Agents No agents on file. * Blood No blood administrations on file. Lines, Drains, and Airways Type Details Placement Removal Wound Incision; Pedal; Anterior, Right 03/14/25 1215 by Peripheral IV Placement Date: 09/03; Placement Time: 1048; Catheter Size: 20 G; Orientation: Left, Posterior; Location: Hand; Site Prep: Chlorhexidine; Local Anesth: None; Inserted by: hayde roberts; Insertion Attempts: 1; Patient Tolerance: Tolerated well; Removal Date: 03/14/25; Removal Time: 1349 03/14/25 1048 by Jaylen Roberts RN 03/14/25 1349 by Sheela Jauregui RN documented in this encounter Social History Tobacco Use Types Packs/Day Years Used Date Smoking Tobacco: Never Smokeless Tobacco: Never Alcohol Use Standard Drinks/Week Comments Never 0 [...] documented in this encounter Progress Notes * Andrae Carballo, KAMINI - 03/14/2025 12:40 PM EDT Patient: John Stapleton Procedure Summary Date: 03/14/25 Room / Location: [facility] OR [address] [place] [address] OR Anesthesia Start: 1157 Anesthesia Stop: 1235 Procedure: RIGHT PLANTAR FASCIOTOMY (Right: Foot) Diagnosis: Plantar fascial fibromatosis (PLANTAR FASCIAL FIBROMATOSIS RIGHT) Surgeons: Vladimir Comer DPM Responsible Provider: Doug West MD Anesthesia Type: MAC ASA Status: 2 Anesthesia Plan: MAC Last Vitals: Vitals Value Taken Time BP 112/75 03/14/25 13:29 Temp 36.8 ??C (98.2 ??F) 03/14/25 12:40 Pulse 73 03/14/25 13:29 Resp 14 03/14/25 13:52 SpO2 99 % 03/14/25 13:29 No data recorded Anesthesia Post Evaluation Patient location during evaluation: PACU Patient participation: complete - patient participated Level of consciousness: awake Pain score: 0 Pain management: adequate Airway patency: patent Anesthetic complications: no Cardiovascular status: acceptable Respiratory status: acceptable and face mask Hydration status: acceptable Nausea: No Vomiting: No There were no known notable events for this encounter. * Doug West MD - 03/14/2025 11:37 AM EDT 40 y.o. female scheduled for Plantar fascial fibromatosis [RIGHT PLANTAR FASCIOTOMY (Right: Foot)] Ht Readings from Last 1 Encounters: 03/14/25 1.524 m (60 ) Wt Readings from Last 1 Encounters: 03/14/25 98.4 kg (217 lb) Body mass index is 42.38 kg/m??. Medical History[1] Surgical History[2] Anesthesia complications Denies Allergies[3] Prior to Admission medications Medication Sig Start Date End Date Taking? Authorizing Provider albuterol HFA (PROAIR HFA ; PROVENTIL HFA ; VENTOLIN HFA) 90 mcg/actuation inhaler Inhale 2 puffs by mouth every 6 (six) hours if needed for wheezing. Yes Historical Provider, mometasone-formoterol (DULERA 100) 100-5 mcg/actuation inhaler Inhale into the lungs. Yes Historical Provider, fexofenadine (ANNA) 180 mg tablet Take 1 tablet (180 mg total) by mouth 1 (one) time each day ifneeded. Historical Provider, rOPINIRole (REQUIP) 5 mg tablet 1 tablet (5 mg total) at bedtime as needed. Historical Provider, I have personally reviewed all the patient's medications with them prior to anesthesia. Current In-hospital Medications MEDSSCHEDULED[4] MEDSCONTINUOUS[5] MEDSPRN[6] Social History[7] Is the patient a current smoker (e.g. cigarette, cigar, pip, e-cigarette, or mariajuana)? Yes [] No[] Patient previously instructed to abstain from smoking on the day of procedure? Yes [] No[] Patient smoked on the day of procedure? Yes [] No[] ASPIRE smoking VBR: [] Not interested in quitting [] Interested in quitting- referred to treatment [] Interested in quitting - treatment provided Visit Vitals BP 112/78 Pulse 65 Temp 36.7 ??C (98 ??F) Resp 14 Ht 1.524 m (60 ) Wt 98.4 kg (217 lb) SpO2 100% BMI 42.38 kg/m?? Smoking Status Never BSA 1.93 m?? LABS: No results found for: WBC , HGB , HCT , MCV , PLT No results found for: GLUCOSE , CALCIUM , NA , K , CO2 , CL , BUN , CREATININE No results found for: INR , PROTIME No results found for: PTT Relevant Problems No relevant active problems Clinical information reviewed: Tobacco Allergies Meds Med Hx Surg Hx OB Status Fam Hx Soc Hx Anesthesia Plan ASA 2 Anesthesia Plan: MAC Anesthesia Considerations MAC Anesthesia Risks Discussed allergic reaction, dental injury, nausea, serious complications, pain, sore throat and corneal abrasion Plan Factors Patient is not a current smoker Smoking cessation education has not been provided Induction method: intravenous Postoperative administration of opioids is intended. Anesthetic plan and risks discussed with patient. Anesthesia Plan discussed with SUPERVISOR POST WAVE. Anesthesia Evaluation Airway Mallampati: II Thyromental distance: >3 FB Neck ROM: fullnot intubatedno noted risk Dental Pulmonary breath sounds clear to auscultation (+) asthma Cardiovascular Rhythm: regular Rate: normal Neuro/Psych (+) neuromuscular disease Mental Status: alert and oriented GI/Hepatic/Renal (+) hiatal hernia, GERD Endo/Other Abdominal Abdomen: soft. Bowel sounds: normal. PONV RISK SCORE: 2 Vitals: 02/28/25 1100 03/14/25 1019 03/14/25 1029 BP: 112/78 Pulse: 65 Resp: 14 Temp: 36.7 ??C (98 ??F) SpO2: 100% Weight: 98.4 kg (217 lb) 98.4 kg (217 lb) Height: 1.524 m (60 ) 1.524 m (60 ) LMP: 03/12/2025 SpO2 Readings from Last 1 Encounters: 03/14/25 100% No results found for: WBC , RBC , HGB , HCT , PLT , MCV Allergies[8] STOP BANG: STOP-Bang Total Score: 1 (03/14/2025 10:00 AM) NPO Status: Time of Last Liquid: 2029 Time of Last Solid: 2029 [1] Past Medical History: Diagnosis Date Anxiety Arthritis Asthma Chronic pain disorder Depression Dizziness GERD (gastroesophageal reflux disease) situational Hiatal hernia Irritable bowel syndrome HX OF Joint pain Neuromuscular disorder (CMS/HCC V24, CMS/HCC V28) Plantar fasciitis of right foot [2] Past Surgical History: Procedure Laterality Date ANTERIOR CRUCIATE LIGAMENT REPAIR CARPAL TUNNEL RELEASE SECTION, LOW TRANSVERSE X3 OTHER SURGICAL HISTORY TRIGGER FINGER RELEASE [3] Allergies Allergen Reactions Penicillins Hives [4] clindamycin, 900 mg, intravenous, Once [5] [6] [7] Social History Tobacco Use Smoking status: Never Smokeless tobacco: Never Substance Use Topics Alcohol use: Never Drug use: Yes Frequency: 7.0 times per week Types: Marijuana/Cannabis Comment: smokes marijuana daily [8] Allergies Allergen Reactions Penicillins Hives documented in this encounter Plan of Treatment Upcoming Encounters Date Type Department Care Team (Late st Contact Info) Description 03/27/2025 8:30 AM EDT Office Visit Orthopedic Surgery - [place] [address] [phone] Vladimir Comer DPM [address] [phone] documented as of this encounter Goals Goal Patient Goal Type Associated Problems Recent Progress Patient-Stated? Author Autogenera bonilla Goal Care Plan Autogenerated Problem No Vladimir Comer DPM documented as of this encounter Visit Diagnoses Not on filedocumented in this encounter Administered Medications Inactive Administered Medications - up to 3 most recent administrations Medication Order MAR Action Action Date Dose Rate Site albuterol HFA (PROAIR HFA ; PROVENTIL HFA ; VENTOLIN HFA) 90 mcg/actuation inhaler inhalation, As needed, Starting on Mon03/14/25 at 1154, Anesthesia Intraprocedure Given 03/14/2025 11:54 AM EDT 2 puffs clindamycin (CLEOCIN) 900 mg/50 mL IVPB 900 mg 900 mg, intravenous, at 50 mL/hr, Administer over 60 Minutes, Once, On Mon03/14/25 at 1145, For 1 dose, Preprocedure, premix bag, Indication: Prophylaxis-Surgical Given 03/14/2025 12:04 PM EDT 900 mg fentaNYL (PF) (SUBLIMAZE) injection intravenous, As needed, Starting on Mon03/14/25 at 1203, Anesthesia Intraprocedure Given 03/14/2025 12:21 PM EDT 50 mcg Given 03/14/2025 12:03 PM EDT 50 mcg lactated Ringer's infusion intravenous, Continuous PRN, Starting on Mon03/14/25 at 1157, Anesthesia Intraprocedure Restarted 03/14/2025 12:26 PM EDT New Bag 03/14/2025 11:57 AM EDT 250 mL/hr lidocaine (PF) (XYLOCAINE-MPF) 2 % injection injection, As needed, Starting on Mon03/14/25 at 1201, Anesthesia Intraprocedure Given 03/14/2025 12:01 PM EDT 40 mg midazolam (VERSED) injection intravenous, As needed, Starting on Mon03/14/25 at 1155, Anesthesia Intraprocedure Given 03/14/2025 11:55 AM EDT 2 mg propofoL (DIPRIVAN) infusion 10 mg/mL intravenous, Continuous PRN, Starting on Mon03/14/25 at 1201, Anesthesia Intraprocedure Rate/Dose Change 03/14/2025 12:07 PM EDT 70 mcg/kg/min 41.328 mL/hr New Bag 03/14/2025 12:01 PM EDT 200 mcg/kg/min 118.08 m L/hr propofoL (DIPRIVAN) injection intravenous, As needed, Starting on Mon03/14/25 at 1203, Anesthesia Intraprocedure Given 03/14/2025 12:03 PM EDT 80 mg documented in this encounter Additional Health Concerns Active Problems Noted Date Diagnosed Date Autogenerated Problem 03/15/2025 documented as of this encounter Care Teams Edger Liner Relationship Specialty Start Date End Date Cecelia Rojas PA [address] [place] [address] PCP - General 03/14/25 documented as of this encounter
--- OUTSIDE RECORDS SUMMARY | 2025-03-18 07:49 | XMS_ITS | Clinical Summary ---
Author Organization [facility] Address [address] [place] [address] Phone Care Team Providers Care Transcription Coordinator Name Role Phone Pcp, Unknown Primary Care [...] VACCINE (#1) 2025 COVID-19 VACCINE ( - 2024-2 6 season) 2025 HEPATITIS A VACCINES Aged Out [...] topic Medical Devices Not on file Insurance [facility] [employer] * Guarantor: Miky Stapletonalis Account Type Relation to Patient Date of Phone Billing Address Personal/Family Self 1985 [address] [place] [address] [facility] * Guarantor: Stapleton Josafatindalis Account Type Relation to Patient Date of Phone Billing Address Personal/Family Self 1985 [address] [place] [id number] [facility] * Guarantor: Stapleton Josafatindalis Account Type Relation to Patient Date of Phone Billing Address Personal/Family Self 1985 [address] [place] [address] [facility] [employer] Care Teams Transcription Coordinator Relationship Specialty Start Date End Date Pcp, Unknown PCP - General 04/10/24 Additional Source Comments The information contained in this document represents components of the legal health record. It is not the complete legal health record.[facility]
--- OUTSIDE RECORDS SUMMARY | 2025-03-18 07:49 | XMS_ITS | Encounter Summary ---
Author Organization [facility] Address [address] [facility] [address] [place] [address] Phone Care Team Providers Care Director Of Exhibits Name Role Phone Pcp, Unknown Primary Care Provider Unavailabl e Encounter Details Date Type Department Care Team (Late st Contact Info) Description 04/10/2024 Procedure Pass [facility], Ct Scan - [facility] [address] [place] [address] Social History Tobacco Use Types Packs/Day Years [...] 1:58 PM EDT Jenny Mota RN * [place] Suicide Severity Rating Scale (Screener/Recent Self-Report) Question [...] on filedocumented in this encounter Care Teams Director Of Exhibits Relationship Specialty Start Date End Date Pcp, Unknown PCP - General 04/10/24 documented as of this encounter Additional Source Comments The information contained in this document represents components of the legal health record. It is not the complete legal health record.[facility]
--- OUTSIDE RECORDS SUMMARY | 2025-03-18 07:49 | XMS_ITS | Clinical Summary ---
Author Organization [facility] Address [address] [place] [address] Phone Care Team Providers Care Power Barker Name Role Phone Cecelia Rojas Primary Care Provider [phone] Allergies Active Allergy Reactions Criticality Noted Date Comments Penicillins Hives Low 09/05/2023 Medications mometasone-formot javier (DULERA 100) 100-5 mcg/actuation inhaler Inhale into [...] (one) time each day if needed. Active acetaminophen (TYLENOL 8 HOUR) 650 mg 8 hr tablet Take 1 tablet (650 mg total) by mouth every 8 (eight) hours if needed for mild pain for up to 10 days. Do not crush, chew, or split. 30 tablet 5 03/24/20 25 Active oxyCODONE (ROXICODONE) 5 mg immediate release tabletIndications :Plantar fascial fibromatosis Take 1 tablet (5 mg total) by mouth every 4 (four) hours if needed for severe pain. Max Daily Amount: 30 mg 35 tablet 5 Active aspirin 325 mg capsule Take 1 tablet by mouth 1 (one) time each day. 60 capsule 04/13/20 25 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 Encounters Date Type Department Care Team Description 03/14/2025 11:57 AM EDT Anesthesia Event [facility] OR [address] [place] [phone] Doug West MD Devlin, Brandon, SRNA 03/14/2025 11:45 AM EDT - 03/14/2025 1:15 PM EDT Surgery [facility] OR [address] [place] [phone] Vladimir Comer DPM RIGHT PLANTAR FASCIOTOMY [54159 (CPT )] 03/14/2025 9:53 AM EDT - 03/14/2025 1:56 PM EDT Hospital Encounter [facility] OR [address] [place] [phone] Vladimir Comer DPM Plantar fascial fibromatosis (Primary Dx) Discharge Disposition: Home or Self Care 03/10/2025 8:00 AM EDT Consult Orthopedic Surgery [place] [address] [phone] Vladimir Comer DPM Plantar fascial fibromatosis (Primary Dx) 03/10/2025 Telephone Orthopedic [place] [address] [phone] Vladimir Comer DPM 03/04/2025 Telephone Orthopedic Surgery [facility] [address] [phone] Radha Webster 12/30/2024 3:30 PM EDT Office Visit Orthopedic [facility] [address] [phone] Vladimir Comer DPM Plantar fascial fibromatosis (Primary Dx); Tendonitis, Achilles, right from Last 3 Months Surgical History Surgery Date Site/Laterality Comments OTHER SURGICAL HISTORY ANTERIOR CRUCIATE LIGAMENT REPAIR CARPAL TUNNEL RELEASE TRIGGER FINGER RELEASE SECTION, LOW TRANSVERSE X3 Medical History Medical History Date Comments Asthma Irritable bowel syndrome HX OF Neuromuscular disorder ([facility] V24, [facility] V28 ) Anxiety Chronic pain disorder Depression Dizziness Joint pain Arthritis GERD (gastroesophageal reflux disease) situational Hiatal hernia Plantar fasciitis of right foot Social History Tobacco Use Types Packs/Day Years [...] Mass Index 42.38 03/14/2025 10:19 AM EDT Plan of Treatment Upcoming Encounters Date Type Department Care Team (Late st Contact Info) Description 03/27/2025 8:30 AM EDT Office Visit Orthopedic Surgery - [place] [address] [phone] Vladimir Comer, DPLuis [address] [phone] Health Maintenance Due Date Last Done Comments Breast Cancer Screening 1985 DTaP,Tdap,and Td Vaccines (1 - Tdap) 02/01/2003 Hepatitis B Vaccines (1 of 3 - 19+ 3-dose series) 02/01/2003 Cervical Cancer Screening: P ap Smear 02/01/2005 HPV Vaccines (1 - 3-dose SCD M series) 02/01/2011 Cholesterol Screening (Lipid Panel) 01/05/2024 HIV Screening 01/05/2024 Hepatitis C Screening [...] on patient's age to complete this topic Goals Goal Patient Goal Type Associated Problems Recent Progress Patient-Stated? Author Autogenera bonilla Goal Care Plan Autogenerated Problem No Vladimir Comer DPM Procedures Procedure Name Priority Date/Time Associated Diagnosis [...] Site: Foot ligament tendon us Vladimir Comer DPLuis IN CLINIC/BEDSIDE ORDERAB LES Final Result from Last 3 Months Additional Health Concerns Active Problems Noted Date Diagnosed Date Autogenerated Problem 03/15/2025 Insurance [facility] Care Teams Power Barker Relationship Specialty Start Date End Date Cecelia Rojas PA [address] [place] [address] PCP - General 03/14/25
--- OUTSIDE RECORDS SUMMARY | 2025-03-18 07:49 | XMS_ITS | Patient Health Record ---
Author Organization [facility] Address [address] [place] [address] Care Team Providers Care Hide Paster Name Role Phone Elijah (RETIRED) Marshal GALEANO Primary Care Provide r Van Caba [phone] Allergies Allergen (clinical drug ingredient) Drug/Non Drug [...] Status Risk Notes Problem Irritable bowel syndrome (44029048) Irritable bowel syndrome (564.1) Active confirmed Problem Diarrhea (04646167) Diarrhea (787.91) Active confirmed Problem Gastroesophageal reflux disease (029240635) GERD (gastroesopha geal reflux disease) (530.81) Active confirmed Problem 86760307 Diarrhea (R19.7) Active confirmed Plan Of Treatment [...] Insured Coverage Start Date Coverage End Date [facility] [address] [address] [place], [place] [id number] CRISTINA FRANCES Self - patient is the insured Medical (General) History Medical History History ICD Code Asthma Denies [place],DM,CVA,renal disease Hypothyroidism GERD Irritable bowel syndrome Surgical History Surgery Date(Month/Year) section X3 carpal tunnel release X2 tonsillectomy appendectomy
--- OUTSIDE RECORDS SUMMARY | 2025-03-18 07:49 | XMS_ITS | Encounter Summary ---
Author Organization [facility] Address [address] [facility] [address] [place] [address] Phone Care Team Providers Care Agriculture Extension Specialist Name Role Phone Pcp, Unknown Primary Care Provider Unavailabl e Encounter Details Date Type Department Care Team (Late st Contact Info) Description 04/10/2024 Procedure Pass [facility], Ct Scan - [facility] [address] [place] [address] Social History Tobacco Use Types Packs/Day Years [...] 1:58 PM EDT Jenny Mota RN * [place] Suicide Severity Rating Scale (Screener/Recent Self-Report) Question [...] on filedocumented in this encounter Care Teams Agriculture Extension Specialist Relationship Specialty Start Date End Date Pcp, Unknown PCP - General 04/10/24 documented as of this encounter Additional Source Comments The information contained in this document represents components of the legal health record. It is not the complete legal health record.[facility]
--- OUTSIDE RECORDS SUMMARY | 2025-03-18 07:49 | XMS_ITS | Encounter Summary ---
Author Organization [employer] Address [address] [place] [address] Care Team Providers Care Supervisor Plastics Name Role Phone Cecelia Rojas Primary Care Provider [phone] Reason for Visit * Reason Onset Date Comments FMLA 03/10/2025 Encounter Details Date Type Department Care Team (Late st Contact Info) Description 03/10/2025 Telephone [facility] [place] [address] [phone] Vladimir Comer, DPM [address] [phone] Social History Tobacco Use Types Packs/Day Years Used Date Smoking Tobacco: Never Assessed Interpersonal Safety Answer Date Record ed Physical Abuse Unrecognized value 03/14/2025 Verbal Abuse Unrecognized value 03/14/2025 Comments Unknown Sex and Gender Information Value [...] documented in this encounter Progress Notes * Ezequiel Caraballo - 03/10/2025 10:20 AM EDT Pt dropped off FMLA paperwork documented in this encounter Plan of Treatment Upcoming Encounters Date Type Department Care Team (Late st Contact Info) Description 03/27/2025 8:30 AM EDT Office Visit [facility] [place] [address] [phone] Vladimir Comer DPM [address] [phone] documented as of this encounter Goals Goal Patient Goal Type Associated Problems Recent Progress Patient-Stated? Author Autogenera bonilla Goal Care Plan Autogenerated Problem No Vladimir Comer DPM documented as of this encounter Visit Diagnoses Not on filedocumented in this encounter Additional Health Concerns Active Problems Noted Date Diagnosed Date Autogenerated Problem 03/15/2025 documented as of this encounter Care Teams Supervisor Plastics Relationship Specialty Start Date End Date Cecelia Rojas PA [address] [place] [phone] PCP - General 03/14/25 documented as of this encounter
--- NOTE | 2025-04-18 13:18 | HO.ANESPROP2 ---
Documented by User: Fide Arora NP 04/18/25 13:18 HPI - Anesthesia Eval Consult details Narrative: 40yo F for Hernia Umbilical Reducible BMI 43 PMFSH Active Problems Active Problems: All Active Problems Trichomonas contact, treated (Acute) Vulvovaginitis (Acute) Umbilical hernia (Acute) Screen for STD (sexually transmitted disease) (Acute) Diarrhea (Acute) Trichomonas vaginalis (TV) infection (Acute) Encounter for IUD removal (Acute) Acute PID (pelvic inflammatory disease) (Acute) Pyelonephritis (Acute) Osteoarthritis of first carpometacarpal joint of left hand (Acute) Trichomoniasis (Acute) Vaginal irritation (Acute) Left groin pain (Acute) Internal derangement of right shoulder (Acute) Ovarian cyst, complex (Acute) Pelvic pain (Acute) Impingement of right shoulder (Acute) Microhematuria (Acute) 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 (Acute) Cervical cancer screening (Acute) S/P ACL reconstruction (Acute) Plantar fasciitis, left (Acute) Osteoarthritis of right knee (Acute) Rotator cuff impingement syndrome of left shoulder (Acute) Increased urinary frequency (Acute) Urinary incontinence (Acute) Trigger finger of left thumb (Acute) Potential exposure to STD (Acute) Well woman exam with routine gynecological exam (Acute) IUD (intrauterine device) in place (Acute) Post-traumatic osteoarthritis of right knee (Acute) IUD complication (Acute) Presence of 52 mg levonorgestrel-releasing intrauterine device (IUD) (Acute) Metrorrhagia (Acute) Asthma (Acute) Allergic rhinitis (Acute) Somnolence, daytime (Acute) CHIKIS (obstructive sleep apnea) (Acute) Morbid obesity (Acute) Past Medical History Medical History Asthma Allergic rhinitis Somnolence, daytime CHIKIS (obstructive sleep apnea) Morbid obesity Carpal tunnel syndrome, bilateral upper limbs Bacterial vaginosis Family History Family History Mother Diabetes Hypertension Arthritis Father Liver cancer Paternal Aunt Family history of autoimmune disorder Maternal Grandfather Colon cancer Family history of problems with anesthesia: No Surgical History Surgical History Hx of appendectomy History of thumb surgery History of carpal tunnel surgery S/P ACL reconstruction History of tonsillectomy Previous section History of Problems with Anesthesia: No Social History Social History Household Members: Family Housing: House Do you presently have visiting nurse or other home services: No Alcohol intake: never Patient Tobacco Use Status: Never used Tobacco Use of substances other than those prescribed or required for medical reasons: Yes Substance Use Type: Marijuana Substance Use Frequency: Daily Advance Directives: No Advance Directives Information Provided: Yes service: No Current occupational status: employed 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 nuts Allergy Severe hives, Uncoded 04/02/25 14:12 throat... FRUIT, SKINS Allergy Mild SWELLING Uncoded 04/02/25 14:12 fruits Allergy Unknown hives, Uncoded 04/02/25 14:12 throat closes seasonal allergies Allergy Unknown Unknown Uncoded 04/02/25 14:12 MEAT AdvReac Mild ABDOMINAL Uncoded 04/02/25 14:12 PAIN Home Medications ?Medication ?Instructions ?Recorded ?Confirmed ?Last Taken ?Type albuterol sulfate 2.5 mg/3 mL 2.5 mg inhalation Q4H PRN Wheezing 08/12/21 04/21/25 01/10/22 History (0.083 %) solution for nebulization fexofenadine 60 mg tablet (Sarah 60 mg PO BID 12/24/21 04/21/25 10/15/24 History Allergy) acetaminophen 325 mg tablet 650 mg PO Q4-6H PRN Pain 10/16/24 04/21/25 Unknown History albuterol sulfate 90 mcg/actuation 2 puff inhalation QID 10/16/24 04/23/25 04/23/25 History aerosol inhaler (Ventolin HFA) ibuprofen 200 mg tablet 800 mg PO Q6H PRN Pain 10/16/24 04/21/25 Unknown History mometasone-formoterol HFA 200 2 puff inhalation BID 10/16/24 04/21/25 10/15/24 History mcg-5 mcg/actuation aerosol inhaler (Dulera) Assessment and Plan Assessment Anesthesia Assessment: Chart Reviewed Final Anesthetic Review Family History of Problems with Anesthesia: No History of Problems with Anesthesia: No Documented by User: Dedra Perez MD 04/23/25 07:21 [facility] Past Medical History Medical History Asthma Allergic rhinitis Somnolence, daytime CHIKIS (obstructive sleep apnea) Morbid obesity Carpal tunnel syndrome, bilateral upper limbs Bacterial vaginosis Family History Family History Mother Diabetes Hypertension Arthritis Father Liver cancer Paternal Aunt Family history of autoimmune disorder Maternal Grandfather Colon cancer Surgical History Surgical History Hx of appendectomy History of thumb surgery History of carpal tunnel surgery S/P ACL reconstruction History of tonsillectomy Previous section Social History Social History Household Members: Family Housing: House Do you presently have visiting nurse or other home services: No Alcohol intake: never Patient Tobacco Use Status: Never used Tobacco Use of substances other than those prescribed or required for medical reasons: Yes Substance Use Type: Marijuana Substance Use Frequency: Daily Advance Directives: No Advance Directives Information Provided: Yes service: No Current occupational status: employed 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 nuts Allergy Severe hives, Uncoded 04/02/25 14:12 throat... FRUIT, SKINS Allergy Mild SWELLING Uncoded 04/02/25 14:12 fruits Allergy Unknown hives, Uncoded 04/02/25 14:12 throat closes seasonal allergies Allergy Unknown Unknown Uncoded 04/02/25 14:12 MEAT AdvReac Mild ABDOMINAL Uncoded 04/02/25 14:12 PAIN Home Medications ?Medication ?Instructions ?Recorded ?Confirmed ?Last Taken ?Type albuterol sulfate 2.5 mg/3 mL 2.5 mg inhalation Q4H PRN Wheezing 08/12/21 04/21/25 01/10/22 History (0.083 %) solution for nebulization fexofenadine 60 mg tablet (Sarah 60 mg PO BID 12/24/21 04/21/25 10/15/24 History Allergy) acetaminophen 325 mg tablet 650 mg PO Q4-6H PRN Pain 10/16/24 04/21/25 Unknown History albuterol sulfate 90 mcg/actuation 2 puff inhalation QID 10/16/24 04/23/25 04/23/25 History aerosol inhaler (Ventolin HFA) ibuprofen 200 mg tablet 800 mg PO Q6H PRN Pain 10/16/24 04/21/25 Unknown History mometasone-formoterol HFA 200 2 puff inhalation BID 10/16/24 04/21/25 10/15/24 History mcg-5 mcg/actuation aerosol inhaler (Dulera) Exam Airway Mallampati Class: II TM Dist: >3cm Neck ROM: Full Loose/Missing/Broken Teeth: No Heart: RRR Lungs: CTA Assessment and Plan Assessment Anesthesia Assessment: Anesthesia Plan Discussed Final Anesthetic Review NPO: Yes ASA Class: III Final Preanesthetic Review: Meds/Allgs Chart Reviewed, Consent Obtained/Reviewed and Anes Risks/Benef Reviewed Patient Risk: Intermediate Procedure Risk: Low Anesthetic Plan Anesthetic Plan: GA Disposition: Standard PACU
[2025-04-21 09:05] VITALS: BMI 43.0
[2025-04-23] VITALS (10 sets, daily range): BP systolic 98–123; BP diastolic 61–77; PULSE 77–96; RESP 15–20; TEMP 36.4–36.8; O2SAT 93–97; BMI 43.3
[2025-04-23] MEDS: Lactated Ringers 1,000 ML 100 ML IVCONT (06:41)
[2025-04-23 07:00] LABS: UPreg QC Valid YES
--- NOTE | 2025-04-23 07:27 | MHC.SHP ---
Pre-Procedural Eval Section A - 24 Hr Update-Section A only Date of Service: 04/23/25 The patient is an INPATIENT: No Changes since office visit: Yes Patient answered all questions; No Cold of Flu in the past 2 weeks, No New Medical Problems and No Changes in Medication The patient has been examined within 24 hours of the surgical procedure. The History & Physical has been completed within 30 days and I have reviewed it.: Yes Section B - Complete if H&P > 30 days Chief Complaint: Umbilical hernia without obstruction or gangrene Allergies: Allergies Allergy/AdvReac Type Severity Reaction Status Date / Time Penicillins Allergy Severe ANAPHYLAXIS, Verified 04/02/25 14:12 HIVES animal dander Allergy Mild ITCHY Verified 04/02/25 14:12 HIVES THROAT SWOLLEN lactose (LACTOSE) Allergy Mild DIARRRHEA Verified 04/02/25 14:12 many vegetables Allergy Severe hives, Uncoded 04/02/25 14:12 throat... nuts Allergy Severe hives, Uncoded 04/02/25 14:12 throat... FRUIT, SKINS Allergy Mild SWELLING Uncoded 04/02/25 14:12 fruits Allergy Unknown hives, Uncoded 04/02/25 14:12 throat closes seasonal allergies Allergy Unknown Unknown Uncoded 04/02/25 14:12 MEAT AdvReac Mild ABDOMINAL Uncoded 04/02/25 14:12 PAIN Plan Diagnosis/Plan: Unchanged I have reviewed the history and physical and performed a pertinent physical examination on my patient. No changes have occurred unless specified. Time Spent With Patient Time: Total time managing care of this patient today ____ minutes.
--- NOTE | 2025-04-23 07:54 | HO.ANESPROP2 ---
[facility] Active Problems Active Problems: All Active Problems (Updated 03/06/25 @ 11:32 by Amador Rivera MD) Trichomonas contact, treated (Acute) Vulvovaginitis (Acute) Umbilical hernia (Acute) Screen for STD (sexually transmitted disease) (Acute) Diarrhea (Acute) Trichomonas vaginalis (TV) infection (Acute) Encounter for IUD removal (Acute) Acute PID (pelvic inflammatory disease) (Acute) Pyelonephritis (Acute) Osteoarthritis of first carpometacarpal joint of left hand (Acute) Trichomoniasis (Acute) Vaginal irritation (Acute) Left groin pain (Acute) Internal derangement of right shoulder (Acute) Ovarian cyst, complex (Acute) Pelvic pain (Acute) Impingement of right shoulder (Acute) Microhematuria (Acute) 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 (Acute) Cervical cancer screening (Acute) S/P ACL reconstruction (Acute) Plantar fasciitis, left (Acute) Osteoarthritis of right knee (Acute) Rotator cuff impingement syndrome of left shoulder (Acute) Increased urinary frequency (Acute) Urinary incontinence (Acute) Trigger finger of left thumb (Acute) Potential exposure to STD (Acute) Well woman exam with routine gynecological exam (Acute) IUD (intrauterine device) in place (Acute) Post-traumatic osteoarthritis of right knee (Acute) IUD complication (Acute) Presence of 52 mg levonorgestrel-releasing intrauterine device (IUD) (Acute) Metrorrhagia (Acute) Asthma (Acute) Allergic rhinitis (Acute) Somnolence, daytime (Acute) CHIKIS (obstructive sleep apnea) (Acute) Morbid obesity (Acute) Past Medical History Medical History Asthma Allergic rhinitis Somnolence, daytime CHIKIS (obstructive sleep apnea) Morbid obesity Carpal tunnel syndrome, bilateral upper limbs Bacterial vaginosis Family History Family History Mother Diabetes Hypertension Arthritis Father Liver cancer Paternal Aunt Family history of autoimmune disorder Maternal Grandfather Colon cancer Family history of problems with anesthesia: No Surgical History Surgical History Hx of appendectomy History of thumb surgery History of carpal tunnel surgery S/P ACL reconstruction History of tonsillectomy Previous section History of Problems with Anesthesia: No Social History Social History Household Members: Family Housing: House Do you presently have visiting nurse or other home services: No Alcohol intake: never Patient Tobacco Use Status: Never used Tobacco Use of substances other than those prescribed or required for medical reasons: Yes Substance Use Type: Marijuana Substance Use Frequency: Daily Advance Directives: No Advance Directives Information Provided: Yes service: No Current occupational status: employed 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 nuts Allergy Severe hives, Uncoded 04/02/25 14:12 throat... FRUIT, SKINS Allergy Mild SWELLING Uncoded 04/02/25 14:12 fruits Allergy Unknown hives, Uncoded 04/02/25 14:12 throat closes seasonal allergies Allergy Unknown Unknown Uncoded 04/02/25 14:12 MEAT AdvReac Mild ABDOMINAL Uncoded 04/02/25 14:12 PAIN Active Medications: Current Medications Albuterol Sulfate (Albuterol Sulfate (0.083%) 2.5 Mg/3 Ml Vial.Neb) 2.5 mg INHALE ONCE PRN PRN Reason: Shortness of Breath/Wheezing Albuterol/Ipratropium (Albuterol/Iprat 2.5/0.5mg 3 Ml Ampul.Neb) 3 ml INHALE ONCE PRN PRN Reason: Bronchospasm/wheezing Stop: 04/23/25 13:21 Fentanyl (Fentanyl Citrate/Pf 100 Mcg/2 Ml Vial) 25 mcg IVPUSH Q5M PRN PRN Reason: Pain, Moderate to Severe (Pain Scale 4-10) Stop: 04/23/25 13:21 Lactated Ringer's (Lr) 1,000 mls @ 100 mls/hr IVCONT .Q10H EDWIN Last Admin: 04/23/25 06:41 Dose: 100 mls/hr Naloxone HCl (Naloxone Hcl 0.4 Mg/Ml Vial) 0.04 mg IVPUSH Q5M PRN PRN Reason: Excessive sedation or RR < 8 Ondansetron HCl (Ondansetron Hcl 4 Mg/2 Ml Vial) 4 mg IVPUSH ONCE PRN PRN Reason: Nausea and Vomiting Stop: 04/23/25 13:21 Oxycodone HCl (Oxycodone Hcl Immed Release 5 Mg Tablet) 5 mg PO ONCE PRN PRN Reason: Pain, Moderate(Pain Scale 4-6) if no IV Access Stop: 04/23/25 13:21 Home Medications ?Medication ?Instructions ?Recorded ?Confirmed ?Last Taken ?Type albuterol sulfate 2.5 mg/3 mL 2.5 mg inhalation Q4H PRN Wheezing 08/12/21 04/21/25 01/10/22 History (0.083 %) solution for nebulization fexofenadine 60 mg tablet (Sarah 60 mg PO BID 12/24/21 04/21/25 10/15/24 History Allergy) acetaminophen 325 mg tablet 650 mg PO Q4-6H PRN Pain 10/16/24 04/21/25 Unknown History albuterol sulfate 90 mcg/actuation 2 puff inhalation QID 10/16/24 04/23/25 04/23/25 History aerosol inhaler (Ventolin HFA) ibuprofen 200 mg tablet 800 mg PO Q6H PRN Pain 10/16/24 04/21/25 Unknown History mometasone-formoterol HFA 200 2 puff inhalation BID 10/16/24 04/21/25 10/15/24 History mcg-5 mcg/actuation aerosol inhaler (Dulera) Exam Height,Weight and Vital Signs: Height 5 ft Weight 100.6 kg Last Vital Signs Temp 98.2 F 04/23/25 06:42 Pulse 84 04/23/25 06:42 Resp 16 04/23/25 06:42 BP 98/63 04/23/25 06:42 Pulse Ox 97 04/23/25 06:42 O2 Del Method Room Air 04/23/25 06:42 Pertinent Lab Results Pertinent Lab Results: Laboratory Tests 04/23/25 06:12 Urine Test NEGATIVE Airway Mallampati Class: III TM Dist: >3cm Neck ROM: Full Loose/Missing/Broken Teeth: No Heart: RRR Lungs: CTA Assessment and Plan Assessment Anesthesia Assessment: Anesthesia Plan Discussed and Chart Reviewed Final Anesthetic Review Family History of Problems with Anesthesia: No History of Problems with Anesthesia: No NPO: Yes ASA Class: III Final Preanesthetic Review: Meds/Allgs Chart Reviewed, Consent Obtained/Reviewed and Anes Risks/Benef Reviewed Patient Risk: Intermediate Procedure Risk: Low Anesthetic Plan Anesthetic Plan: GA Disposition: Standard PACU
--- NOTE | 2025-04-23 08:21 | W.PM.OPN ---
Operative Note Operative Note Date of Service: 04/23/25 Narrative: Preoperative diagnosis: Umbilical hernia, reducible Postoperative diagnosis: Same Procedure: Repair of umbilical hernia with mesh Surgeon: Beau Scott MD [employer] Farmer:Iain Carrera MD, Katy Green PA-C, Ana Maria Vasquez, MS-3 Anesthesia: General LMA Indications for procedure: 40-year-old female patient presenting with a painful umbilical hernia which on CAT scan was identified as a fat containing umbilical hernia measuring approximately 2 cm in diameter Operative findings: 2 cm reducible umbilical hernia Specimen: None Estimated blood loss: 2 mL Complications: None Procedure details: Patient was brought to the OR and placed in a supine position. After administering general anesthesia the patient's abdomen was prepped with ChloraPrep and draped in a sterile fashion. A surgical time-out was called and the consent confirmed. Patient received preoperative antibiotics and Venodyne boots were in place. Local anesthesia consisting of 0.5% Sensorcaine with epinephrine was infiltrated over the umbilicus in a curvilinear fashion. Incision was then made over the umbilicus and carried out through subcutaneous tissue up to the hernia sac. The umbilical skin was then dissected off the fascia using electrocautery. A small umbilical hernia was then identified. This was dissected down to the fascial edge. The fascial edge was then further defined with the electrocautery. The herniating contents were reduced into the abdominal cavity. A preperitoneal space was then dissected using a combination of blunt and electrocautery dissection. Hemostasis was assured using electrocautery. A 4.3 cm round Ventralex mesh was then obtained. The circular mesh was deployed within the preperitoneal space and secured in 4 quadrants using a 1 Tycron suture. Fascia was closed over the mesh using [id number] 1 Tycron sutures. Wounds were irrigated with saline solution and suctioned dry. Umbilical skin was then secured to the fascial edge using a 3-0 Polysorb suture. Dermis was reapproximated using interrupted 3-0 Polysorb sutures. Skin was closed using a running subcuticular 4-0 Polysorb suture. Steri-Strips, 4 x 4 gauze and Tegaderm were then applied. The patient tolerated the procedure well. Sponge, instrument, needle counts reported as correct. The patient was transferred to PACU in stable condition.
[2025-04-23] MEDS: oxyCODONE HCl Immed Release 5 MG TABLET PO (09:35)
== END 2025-04-23 10:49 | disposition home or self-care (01) ==
PROVIDERS: Nurse Practitioner; Visit Provider Surgery
PROC: (CPT 49591; principal; 2025-04-23 07:30)
DX: K42.9 Umbilical hernia without obstruction or gangrene (principal); J45.909 Unspecified asthma, uncomplicated; G47.33 Obstructive sleep apnea (adult) (pediatric); E66.01 Morbid (severe) obesity due to excess calories; Z68.41 Body mass index [BMI] 40.0-44.9, adult; Z79.1 Long term (current) use of non-steroidal anti-inflammatories (NSAID); Z79.899 Other long term (current) drug therapy; Z88.0 Allergy status to penicillin; Z91.018 Allergy to other foods; Z98.890 Other specified postprocedural states
CPT/HCPCS: 49591; 81025; C1781; J0668; J1100; J2003; J2250; J2405; J2704; J3010; J3374

== ENCOUNTER → 2025-04-23 06:01 | Outpatient (BNV) | payer OTHER, SELFPAY | PROVIDERS: Visit Provider Surgery | DX: K42.9 Umbilical hernia without obstruction or gangrene (principal) | CPT/HCPCS: 49591 ==

== ENCOUNTER 2025-05-05 11:01 | Outpatient (AMB) | payer OTHER, SELFPAY ==
--- NOTE | 2025-05-05 11:07 | A.OFFVIS_ITS ---
Vital Signs 05/05/25 11:29 Height 5 ft Weight 221 lb BMI 43.2 Respiration 18 Pulse 78 Intake Visit Reasons: S/P umbilical hernia w/mesh Intake Note: Patient is seen in office for post op assessment post umbilical hernia repair. Pt c/o: admits to sore and tender, denies any redness, discharge or infection Training Designer Required: No Accompanied by: Self / Same As Patient Allergies Penicillins Allergy (Severe, Verified 05/05/25 11:29) ANAPHYLAXIS, HIVES animal dander Allergy (Mild, Verified 05/05/25 11:29) ITCHY HIVES THROAT SWOLLEN lactose (LACTOSE) Allergy (Mild, Verified 05/05/25 11:29) DIARRRHEA many vegetables Allergy (Severe, Uncoded 05/05/25 11:29) hives, throat... nuts Allergy (Severe, Uncoded 05/05/25 11:29) hives, throat... FRUIT, SKINS Allergy (Mild, Uncoded 05/05/25 11:29) SWELLING fruits Allergy (Unknown, Uncoded 05/05/25 11:29) hives, throat closes seasonal allergies Allergy (Unknown, Uncoded 05/05/25 11:29) Unknown MEAT Adverse Reaction (Mild, Uncoded 05/05/25 11:29) ABDOMINAL PAIN HPI Comments Details: 40-year-old female patient returning approximately 2 weeks following repair of an umbilical hernia with mesh. She tolerated the procedure well but did report some constipation for 5 days after surgery. She took milk of magnesia and was able to go normally. She denies any current problems with her bowels. She denies any bleeding or discharge from the incision. [facility] Medical History Asthma Allergic rhinitis Somnolence, daytime CHIKIS (obstructive sleep apnea) Morbid obesity Carpal tunnel syndrome, bilateral upper limbs Bacterial vaginosis Surgical History History of umbilical hernia repair (04/23/25) Hx of appendectomy History of thumb surgery History of carpal tunnel surgery S/P ACL reconstruction History of tonsillectomy Previous section Family History Mother Diabetes Hypertension Arthritis Father Liver cancer Paternal Aunt Family history of autoimmune disorder Maternal Grandfather Colon cancer Social History Household Members: Family Housing: House Do you presently have visiting nurse or other home services: No Alcohol intake: never Patient Tobacco Use Status: Never used Tobacco Substance Use Type: Marijuana service: No Current occupational status: employed 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 No hernia noted with Valsalva maneuvers. Neuro General: patient oriented x3 Extrem Other: No edema Assessment & Plan Assessment & Plan (1) Umbilical hernia: Code(s): K42.9 - Umbilical hernia without obstruction or gangrene Category: Medical Qualifiers: Obstruction and gangrene presence: without obstruction or gangrene Qual ified Code(s): K42.9 - Umbilical hernia without obstruction or gangrene Plan Patient returns 2 weeks following repair of an umbilical hernia with mesh. She tolerated the procedure well and her wounds are healing nicely. There was no evidence of infection or hernia recurrence. I recommended continue avoiding lifting greater than 10 lb. She should return approximately 3 weeks for follow- up examination. Coding Level of Care Code Est Pt Level 3 (71551) Diagnoses Umbilical hernia without obstruction and without gangrene K42.9 Obstruction and gangrene presence: without obstruction or gangrene
[2025-05-05 11:29] VITALS: PULSE 78; RESP 18; BMI 43.2
--- OUTSIDE RECORDS SUMMARY | 2025-05-05 14:08 | XMS_ITS | Clinical Summary ---
Author Organization 175 [facility] Address [address] [place] [address] Phone Care Team Providers Care Chemist Steroids Name Role Phone Cecelia Rojas Primary Care Provider [phone] Allergies Active Allergy Reactions Criticality Noted Date [...] Max Daily Amount: 30 mg 35 tablet Active aspirin 325 mg capsule Take 1 tablet by mouth 1 (one) time each day. 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 Encounters Date Type Department Care Team Description 03/27/2025 8:30 AM EDT Office Visit Orthopedic Surgery [facility] [address] [phone] Vladimir Comer DPM Plantar fascial fibromatosis (Primary Dx) 03/18/2025 Telephone Orthopedic [facility] [address] [phone] Vladimir Comer, DPM 03/14/2025 11:57 AM EDT Anesthesia Event [facility] [place] [address] [place] [phone] Doug West MD [place], [place], [facility] 03/14/2025 11:45 AM EDT - 03/14/2025 1:15 PM EDT Surgery [facility] OR [address] [place] [phone] Vladimir Comer DPLuis RIGHT PLANTAR FASCIOTOMY [19629 (CPT )] 03/14/2025 9:53 AM EDT - 03/14/2025 1:56 PM EDT Hospital Encounter [facility] [place] [address] [place] [phone] Vladimir Comer DPM Plantar fascial fibromatosis (Primary Dx) Discharge Disposition: Home or Self Care 03/10/2025 8:00 AM EDT Consult Orthopedic [place] [address] [phone] Vladimir Comer DPM Plantar fascial fibromatosis (Primary Dx) 03/10/2025 Telephone Orthopedic Surgery [facility] [address] [phone] Vladimir Comer DPM 03/04/2025 Telephone Orthopedic Surgery [place] [address] [phone] Radha Webster from Last 3 Months Surgical History Surgery Date Site/Laterality Comments OTHER SURGICAL HISTORY ANTERIOR CRUCIATE LIGAMENT REPAIR CARPAL TUNNEL RELEASE TRIGGER FINGER RELEASE SECTION, LOW TRANSVERSE X3 Medical History Medical History Date Comments Asthma Irritable bowel syndrome HX OF Neuromuscular disorder (CMS/HCC V24, CMS/[facility] V28 ) Anxiety Chronic pain disorder Depression [...] AM EST Office Visit Orthopedic Surgery [facility] [address] [phone] Vladimir Comer, DPM [address] [phone] Health Maintenance Due Date Last Done Comments [...] Depression Screening 06/12/2024 COVID-19 Vaccine (1 - 2024-2 6 season) 2025 Influenza Vaccine (#1) 2025 RSV [...] Procedure Name Priority Date/Time Associated Diagnosis Comments CO FASCIECTOMY PLANTAR FASCIA RADICAL 03/14/2025 11:56 AM EDT Plantar fascial fibromatosis from Last 3 Months Insurance [facility] [address] [place] [address] Care Teams Chemist Steroids Relationship Specialty Start Date End Date Cecelia Rojas PA [address] [place] [phone] PCP - General 03/14/25
--- OUTSIDE RECORDS SUMMARY | 2025-05-05 14:08 | XMS_ITS | Clinical Summary ---
Author Organization [facility] Address [address] [facility] [address] [place] [address] Phone Care Team Providers Care Computer Forensic Specialist Name Role Phone Pcp, Unknown Primary [...] Medical Devices Not on file Insurance [facility] [place] [employer] [facility] [employer] Care Teams Computer Forensic Specialist Relationship Specialty Start Date End Date Pcp, Unknown PCP - General 04/10/24 Additional Source Comments The information contained in this document represents components of the legal health record. It is not the complete legal health record.[facility]
--- OUTSIDE RECORDS SUMMARY | 2025-05-05 14:09 | XMS_ITS | Encounter Summary ---
Author Organization [facility] Address [address] [facility] [address] [place] [address] Phone Care Team Providers Care Patient Care Coordinator Name Role Phone Pcp, Unknown Primary Care Provider Unavailabl e Encounter Details Date Type Department Care Team (Late st Contact Info) Description 04/10/2024 Procedure Pass [facility], Ct Scan - [facility] [address] [place] [address] Social History Tobacco Use Types Packs/Day Years [...] 1:58 PM EDT Jenny Mota RN * [place] Suicide Severity Rating Scale (Screener/Recent Self-Report) Question [...] on filedocumented in this encounter Care Teams Patient Care Coordinator Relationship Specialty Start Date End Date Pcp, Unknown PCP - General 04/10/24 documented as of this encounter Additional Source Comments The information contained in this document represents components of the legal health record. It is not the complete legal health record.[facility]
--- OUTSIDE RECORDS SUMMARY | 2025-05-05 14:09 | XMS_ITS | Encounter Summary ---
Author Organization [facility] Address [address] [facility] [address] [place] [phone] Phone Care Team Providers Care Electric Motor Tester Assembler Name Role Phone Pcp, Unknown Primary Care Provider Unavailabl e Encounter Details Date Type Department Care Team (Late st Contact Info) Description 04/10/2024 Procedure Pass [facility], Ct Scan - [facility] [address] [place] [address] Social History Tobacco Use Types Packs/Day Years [...] 1:58 PM EDT Jenny Mota RN * [place] Suicide Severity Rating Scale (Screener/Recent Self-Report) Question [...] on filedocumented in this encounter Care Teams Electric Motor Tester Assembler Relationship Specialty Start Date End Date Pcp, Unknown PCP - General 04/10/24 documented as of this encounter Additional Source Comments The information contained in this document represents components of the legal health record. It is not the complete legal health record.[facility]
== END 2025-05-05 11:31 | disposition home or self-care (01) ==
PROVIDERS: Visit Provider Surgery
DX: K42.9 Umbilical hernia without obstruction or gangrene (principal)
CPT/HCPCS: 99213

== ENCOUNTER → 2025-05-05 11:01 | Outpatient (BNVA) | payer OTHER, SELFPAY | DX: K42.9 Umbilical hernia without obstruction or gangrene (principal) | CPT/HCPCS: 99212 ==

== ENCOUNTER 2025-05-27 11:46 | Outpatient (AMB) | payer OTHER, SELFPAY ==
--- NOTE | 2025-05-27 11:54 | A.OFFVIS_ITS ---
Vital Signs 05/27/25 11:59 Height 5 ft Weight 219 lb BMI 42.8 BP 117/56 L Blood Pressure Location Lt brachial Position Sitting Pulse 77 Intake Visit Reasons: 3 weeks post umbilical hernia repair Intake Note: Patient is seen in office for 3 weeks follow up visit, post umbilical hernia repair. Pt c/o: started doing some light exercise and it caused her pain in the area Global Implementation Manager Required: No Allergies Penicillins Allergy (Severe, Verified 05/05/25 11:29) ANAPHYLAXIS, HIVES animal dander Allergy (Mild, Verified 05/05/25 11:29) ITCHY HIVES THROAT SWOLLEN lactose (LACTOSE) Allergy (Mild, Verified 05/05/25 11:29) DIARRRHEA many vegetables Allergy (Severe, Uncoded 05/05/25 11:29) hives, throat... nuts Allergy (Severe, Uncoded 05/05/25 11:29) hives, throat... FRUIT, SKINS Allergy (Mild, Uncoded 05/05/25 11:29) SWELLING fruits Allergy (Unknown, Uncoded 05/05/25 11:29) hives, throat closes seasonal allergies Allergy (Unknown, Uncoded 05/05/25 11:29) Unknown MEAT Adverse Reaction (Mild, Uncoded 05/05/25 11:29) ABDOMINAL PAIN HPI Comments Details: 40-year-old female returning 1 month following repair of an umbilical hernia with mesh. She had occasional twinges of pain when doing cardio exercise but generally feels well. She feels ready to return to work. She denies any further constipation. [facility] Medical History Asthma Allergic rhinitis Somnolence, daytime CHIKIS (obstructive sleep apnea) Morbid obesity Carpal tunnel syndrome, bilateral upper limbs Bacterial vaginosis Surgical History History of umbilical hernia repair (04/23/25) Hx of appendectomy History of thumb surgery History of carpal tunnel surgery S/P ACL reconstruction History of tonsillectomy Previous section Family History Mother Diabetes Hypertension Arthritis Father Liver cancer Paternal Aunt Family history of autoimmune disorder Maternal Grandfather Colon cancer Social History (Reviewed 05/27/25 @ 12:00 by EDWARD Cardoza Household Members: Family Housing: House Do you presently have visiting nurse or other home services: No Alcohol intake: never Patient Tobacco Use Status: Never used Tobacco Substance Use Type: Marijuana service: No Current occupational status: employed 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 No hernia noted with Valsalva maneuvers. Neuro General: patient oriented x3 Extrem General: Yes no clubbing, cyanosis or edema Assessment & Plan Assessment & Plan (1) Umbilical hernia: Code(s): K42.9 - Umbilical hernia without obstruction or gangrene Category: Medical Qualifiers: Obstruction and gangrene presence: without obstruction or gangrene Qualified Code(s): K42.9 - Umbilical hernia without obstruction or gangrene Plan 40-year-old female status post repair of an umbilical hernia with mesh. She tolerated the procedure well and her wounds are healing nicely. She may resume normal activity without restrictions and should follow up as needed. Coding Level of Care Code Global (10231) Diagnoses Umbilical hernia without obstruction and without gangrene K42.9 Obstruction and gangrene presence: without obstruction or gangrene
[2025-05-27 11:59] VITALS: BP 117/56; PULSE 77; BMI 42.8
== END 2025-05-27 12:24 | disposition home or self-care (01) ==
LOC: HO.HGS 11:47
PROVIDERS: Visit Provider Surgery
DX: K42.9 Umbilical hernia without obstruction or gangrene (principal)
CPT/HCPCS: 99213

== ENCOUNTER → 2025-05-27 11:46 | Outpatient (BNVA) | payer OTHER, SELFPAY | PROVIDERS: Visit Provider Surgery | DX: Z48.815 Encounter for surgical aftercare following surgery on the digestive system (principal); K42.9 Umbilical hernia without obstruction or gangrene | CPT/HCPCS: 99212 ==